=== PATIENT | female | born 1955 | race Caucasian/White ===

== ENCOUNTER 2016-03-03 08:38 | Day surgery (SDC) | payer OTHER ==
[2016-03-03] VITALS (10 sets, daily range): BP systolic 116–154; BP diastolic 64–83; PULSE 64–72; RESP 14–19; Ht 165.1 cm; Wt 71.8 kg
[~2016-03-03] VITALS: Ht 165.1 cm; Wt 71.8 kg
[~2016-03-03 08:38] MED LIST: ASP81 PO; ATOR10TA65 PO; AUG875 PO; BALANCED SALT SOLN 15 ML OPH IRRIG ONE; CYAN100080 PO; GLIP-95 PO; LIDOCAINE 3.5% GEL TUBE OPER ONE; LOSA100T7 PO; MTF1000T PO; OFLO5DRO3 BOTH EYES; PANT40TA4 PO; SITA100T8 PO; TETRACAINE 0.5% 15 ML OPH BOTH EYES ONE; TETRACAINE 0.5% 15 ML OPH BOTH EYES SCH
[2016-03-03] MEDS ORDERED: LANT3I SC (09:48)
[2016-03-03] MEDS ORDERED: METO-407 PO (09:48)
[2016-03-03] MEDS ORDERED: AMLO-147 PO (09:48)
[2016-03-03] MEDS ORDERED: LIDOCAINE 2%/EPI (MDV) 20ML INJ INJ ONE (10:00)
[2016-03-03] MEDS ORDERED: MIDAZOLAM 1 MG/ML 2 ML INJ ONE (10:07)
[2016-03-03] MEDS ORDERED: CEFAZOLIN 1 GM INJ ONE (10:07)
[2016-03-03] MEDS ORDERED: FENTAnyl 50 MCG/ML VIAL ONE (10:07)
[2016-03-03] MEDS ORDERED: TOBRAMYCIN/DEXAMETH 3.5 GM OPH OINT ONE (10:37)
[2016-03-03] MEDS ORDERED: LIDOCAINE 2%/EPI 30 ML INJ ONE (10:37)
[2016-03-03] MEDS ORDERED: TOBRAMYCIN/DEXAMETH 2.5 ML OPH RIGHT EYE ONE (10:55)
[2016-03-03] MEDS ORDERED: HYDROmorphONE (0.2 MG/ML) 10ML SYG IV PRN (11:00)
[2016-03-03] MEDS ORDERED: hydrALAzine 20 MG INJ IV PRN (11:00)
[2016-03-03] MEDS ORDERED: ONDANSETRON 4 MG INJ IV PRN (11:00)
--- NOTE | 2016-03-03 19:06 | OPR ---
DATE OF OPERATION: 03/03/2016 SURGEON: Meredith Corea ANESTHESIOLOGIST: Laci Cevallos M.D. PREOPERATIVE DIAGNOSIS: Peripheral progressive pterygium, right eye. POSTOPERATIVE DIAGNOSIS: Peripheral progressive pterygium, right eye. PLANNED PROCEDURE: Ocular reconstruction with transplant placement and removal of pterygium, Rt eye. PROCEDURE PERFORMED: Ocular reconstruction with transplant placement and removal of pterygium, Rt eye. ANESTHESIA: MAC. CONSENT: The patient was given all detailed explanation regarding all different options for treatment of her condition, as well as potential complication, which are most commonly included, but not limited to: recurrence, about 30%, scar formation, bleeding, infection, loss of vision, loss of the eye as an organ. The patient understood. Consent was signed and can be found in her chart. DESCRIPTION OF PROCEDURE: The patient brought to operation room in stable condition, placed in supine position. The right eye was prepped for pterygium surgery in routine sterile technique. Retractor was placed in her eyelid and then lidocaine 2% with epinephrine preservative-free was injected subconjunctivally. 1.Ocular reconstruction procedure. Superior bulbar conjunctive was demarcated with hand piece cautery as well as inferior bulbar conjunctiva. Then 2 pieces of transplant were created with Marian scissors, when spare conjunctiva was from underlying tissue with the Marian scissors. Two autografts were excised, approximately 4 x 4 mm in size. 2. removal of pterigium. This was followed by demarcation of the body and tail of the pterygium with handpiece cautery. This was followed by separation of pterygium from underlying tissue with Marian scissors. [place] blade was used to remove head of pterygium from the cornea. This was followed by scraping with the [place] knife and also polishing with a anna bur. Eventually two autografts were placed over bare sclera and 8-0 Vicryl suture was used to attach the transplant together and to underlying tissue. This was followed by instillation of TobraDex ointment and placement of patch over closed eyelid. The patient was transferred to recovery room in stable condition. Dictated By: MEREDITH BUCKLEY/LETICIA Conf#: [id number] DID#: [id number] [facility]PITALTyra
== END 2016-03-03 11:58 | disposition home or self-care (01) ==
LOC: SDS 08:38
PROVIDERS: ATTEND Ophthalmology
DX: H11.051 Peripheral pterygium, progressive, right eye (principal); I10 Essential (primary) hypertension; E11.9 Type 2 diabetes mellitus without complications
CPT/HCPCS: 65426; 82962; J0690; J1170; J2250; J2405; J3010; Z7512; Z7610

== ENCOUNTER 2017-06-24 18:43 | Inpatient (IN) | END 2017-07-05 19:10 | disposition home or self-care (01) | DRG 563 ==

== ENCOUNTER 2017-08-04 12:33 | Day surgery (SDC) | END 2017-08-04 14:55 | disposition home or self-care (01) ==

== ENCOUNTER 2017-08-24 05:54 | Day surgery (SDC) | END 2017-08-29 08:35 | disposition home health service (06) ==

== ENCOUNTER 2017-08-24 19:33 | Inpatient (IN) | END 2017-08-30 20:30 | disposition home health service (06) | DRG 313 ==

== ENCOUNTER 2018-03-01 09:29 | Inpatient (IN) | payer OTHER ==
[~2018-03-01] VITALS: Ht 152.4 cm; Wt 78.0 kg
[~2018-03-01 09:29] MED LIST changes: -ASP81 PO; +ASPI81TA52 PO; -ATOR10TA65 PO; -AUG875 PO; -BALANCED SALT SOLN 15 ML OPH IRRIG ONE; -CYAN100080 PO; +EMPA10TA PO; -GLIP-95 PO; +HYDR-3601 PO; +HYDR25TA6 PO; +ISOS30TA67 PO; +LANT3I SC; -LIDOCAINE 3.5% GEL TUBE OPER ONE; +LOSA100T15 PO; -LOSA100T7 PO; +METO-407 PO; +NIFE30TA2 PO; +NOVO3I SC; -OFLO5DRO3 BOTH EYES; +OMEP40CA6 PO; -PANT40TA4 PO; +SITA100T11 PO; -SITA100T8 PO; -TETRACAINE 0.5% 15 ML OPH BOTH EYES ONE; -TETRACAINE 0.5% 15 ML OPH BOTH EYES SCH
[2018-03-01 09:40] VITALS: Ht 152.4 cm; Wt 78.0 kg
[2018-03-01] MEDS ORDERED: SODIUM CHLORIDE 0.9% 1L BAG IV* STA (09:50)
--- NOTE | 2018-03-01 10:40 | ERD ---
ER Documentation Chief Complaint Chief Complaint CP,FLU LIKE SYMTOMS HPI This is a 62-year-old female with a past medical history of hypertension, hyperlipidemia, diabetes, coronary artery disease with a previous DE, congestive heart failure who is presenting with 2 days of flulike symptoms. The patient has had waxing and waning fever, chills, a productive cough of clear sputum, shortness of breath, chest soreness exacerbated by coughing and relieved by rest, myalgias and feeling generally unwell. The patient notes that her current chest discomfort is not like her previous heart attack. She does not endorse any sick contacts. She has taken Tylenol without relief of her discomfort. She last took Tylenol yesterday. She does not endorse any other exacerbating or alleviating factors. The patient denies abdominal pain. The patient denies changes to bowel movements. She does report increased urinary urgency, frequency and dysuria. The patient has had no headache or vision changes. The patient does not endorse neck or back pain. The patient denies lightheadedness or dizziness. The patient denies nausea or vomiting. The patient has had no focal deficits. The patient has had no weakness or numbness or tingling to the face or extremities. ROS All systems reviewed and are negative except as per history of present illness. Medications Home Meds Active Scripts Insulin Aspart* (Novolog Insulin Pen*) 100 Unit/Ml Soln, 22 UNIT SC AC BREAKFAST LUNCH for 30 Days Prov:BEATRIZ JUAREZ 08/30/17 Insulin Aspart* (Novolog Insulin Pen*) 100 Unit/Ml Soln, 12 UNIT SC AC DINNER for 30 Days Prov:BEATRIZ JUAREZ 08/30/17 Insulin Glargine* (Lantus*) 100 Unit/Ml Soln, 45 UNIT SC HS for 30 Days Prov:BEATRIZ JUAREZ 08/30/17 Empagliflozin (Jardiance) 10 Mg Tablet, 10 MG PO DAILY@08 for 30 Days, TAB Prov:BEATRIZ JUAREZ 08/30/17 Hydrocodone Bit-Acetaminophen (Hydrocodone Bit-APAP) 5-325MG Tablet, 1 TAB PO Q4H PRN for PAIN, #30 TAB Prov:BEATRIZ JUAREZ 08/30/17 Nifedipine (Procardia Xl) 30 Mg Tab.er.24, 30 MG PO DAILY for 30 Days, TAB Prov:BEATRIZ JUAREZ 08/30/17 Metoprolol Tartrate* (Lopressor*) 100 Mg Tablet, 100 MG PO BID for 30 Days, TAB Prov:BEATRIZ JUAREZ 08/30/17 Reported Medications Omeprazole* (Omeprazole*) 40 Mg Capsule.dr, 40 MG PO DAILY, #30 CAP 08/24/17 Isosorbide Mononitrate* (Isosorbide Mononitrate*) 30 Mg Tab.er.24h, 30 MG PO DAILY, TAB 08/04/17 Losartan Potassium* (Losartan Potassium*) 100 Mg Tablet, 100 MG PO DAILY, TAB 08/04/17 Aspirin (Low Dose Aspirin) 81 Mg Tablet.dr, 81 MG PO DAILY, #30 TAB 08/04/17 Hydrochlorothiazide* (Hydrochlorothiazide*) 25 Mg Tab, 25 MG PO DAILY, TAB 06/25/17 Sitagliptin* (Januvia*) 100 Mg Tablet, 100 MG PO DAILY 06/25/17 Metformin* (Glucophage*) 1,000 Mg Tablet, 1000 MG PO BID, TAB 06/25/17 Allergies Allergies: Coded Allergies: No Known Allergy (Unverified , 03/01/18) PMhx/Soc History of Surgery: Yes (ORIF RIGHT ARM, CATARACTS ) Anesthesia Reaction: No Hx 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 Disorder: No Hx Respiratory Disorders: No Hx Cardiac Disorders: Yes (Hypertension, hyperlipidemia, diabetes, coronary artery disease, heart failure) Hx Psychiatric Problems: No Hx Miscellaneous Medical Probl: No Hx Alcohol Use: No Hx Substance Use: No Hx Tobacco Use: No Smoking Status: Never smoker FmHx Family History: diabetes Physical Exam Vitals Vital Signs Date Temp Pulse Resp B/P (MAP) Pulse Ox O2 O2 Flow FiO2 Time Delivery Rate 03/01/18 94 25 124/76 100 Nasal 2.0 11:41 (92) Cannula 03/01/18 Nasal 2 10:24 Cannula 03/01/18 98.1 113 18 177/95 99 09:40 (122) Physical Exam Const: No apparent distress, well-developed, well-nourished Head: Normocephalic, Atraumatic Eyes: Normal Conjunctiva. Extraocular movements intact. Pupils equal, round and reactive to light ENT: Normal External Ears, Nose and Mouth. Neck: Full range of motion. No meningismus. Resp: Congested coarse breath sounds bilaterally, no wheezes. Cardio: Irregularly irregular rhythm. Tachycardia. No murmurs, rubs or gallops Abd: Soft, non tender, non distended. Normal bowel sounds Skin: No petechiae or rashes Back: No midline tenderness. No CVA tenderness Ext: No cyanosis, or edema Neur: Awake and alert, oriented 4. Cranial nerves intact. No facial droop. Normal strength, sensation and coordination. Psych: Normal Mood and Affect Result Diagram: 03/01/18 1015 03/01/18 1015 Results 24 hrs Laboratory Tests Test 03/01/18 10:06 03/01/18 10:15 03/01/18 12:07 POC Venous Lactate 2.4 mmol/L 1.3 mmol/L White Blood Count 11.4 10^3/ul Red Blood Count 5.62 10^6/ul Hemoglobin 15.3 g/dl Hematocrit 47.5 % Mean Corpuscular Volume 84.5 fl Mean Corpuscular Hemoglobin 27.2 pg Mean Corpuscular Hemoglobin Concent 32.2 g/dl Red Cell Distribution Width 16.1 % Platelet Count 412 10^3/UL Mean Platelet Volume 9.0 fl Immature Granulocytes % 0.600 % Neutrophils % 75.2 % Lymphocytes % 15.0 % Monocytes % 6.9 % Eosinophils % 1.8 % Basophils % 0.5 % Nucleated Red Blood Cells % 0.0 /100WBC Immature Granulocytes # 0.070 10^3/ul Neutrophils # 8.6 10^3/ul Lymphocytes # 1.7 10^3/ul Monocytes # 0.8 10^3/ul Eosinophils # 0.2 10^3/ul Basophils # 0.1 10^3/ul Nucleated Red Blood Cells # 0.0 10^3/ul Prothrombin Time 13.4 Sec Prothrombin Time Ratio 1.0 INR International Normalized Ratio 1.01 Activated Partial Thromboplast Time 33.5 Sec Urine Color YELLOW Urine Clarity SLIGHTLY CLOUDY Urine pH 7.0 Urine Specific [place] 1.025 Urine Ketones TRACE mg/dL Urine Nitrite NEGATIVE mg/dL Urine Bilirubin NEGATIVE mg/dL Urine Urobilinogen NEGATIVE mg/dL Urine Leukocyte Esterase TRACE Melody/ul Urine Microscopic RBC 2 /HPF Urine Microscopic WBC 32 /HPF Urine Squamous Epithelial Cells MODERATE /HPF Urine Bacteria FEW /HPF Urine Hemoglobin NEGATIVE mg/dL Urine Glucose 3+ mg/dL Urine Total Protein 3+ mg/dl Sodium Level 135 mmol/L Potassium Level 4.1 mmol/L Chloride Level 96 mmol/L Carbon Dioxide Level 28 mmol/L Anion Gap 11 Blood Urea Nitrogen 13 mg/dl Creatinine 0.76 mg/dl Est Glomerular Filtrat Rate mL/min > 60 mL/min Glucose Level 365 mg/dl Calcium Level 9.5 mg/dl Troponin I < 0.012 ng/ml B-Type Natriuretic Peptide 1750 PG/ML Current Medications Medications Dose Sig/Jeanna Start Time Status Last (Trade) Ordered Route PRN Stop Time Admin Dose Reason Admin Sodium 2,340 ml BOLUS OVER 2 03/01/18 DC 03/01/18 Chloride HOURS STAT 09:50 03/01/18 10:11 (NS) IV* 09:52 Ceftriaxone 50 ml @ ONCE ONCE 03/01/18 DC 03/01/18 Sodium 100 mls/hr IVPB 11:00 03/01/18 11:25 11:29 Azithromycin 250 ml @ ONCE ONCE 03/01/18 DC 03/01/18 250 mls/hr IVPB 11:00 03/01/18 11:52 11:59 Procedures/MDM MDM The patient's presentation warrants further investigation. Previous medical records, if available, were reviewed. LABS The patient's laboratory testing was obtained and reviewed. No emergent treatment was required unless described below. CBC: Leukocytosis, potentially concerning for an infectious etiology. No E/o of anemia or thrombocytopenia BMP: No E/o severe acidosis or alkalosis or renal failure. Hyperglycemia without E/o diabetic ketoacidosis. PT/INR: No E/o significant coagulopathy Lactate: E/o severe sepsis Troponin: No E/o acute ischemia Urine: E/o acute infection or hematuria EKG EKG read by me: Rate/Rhythm: Tachycardia, irregularly irregular rhythm, atrial flutter with variable AV conduction. Intervals: Normal QRS and QTc. [place]: Normal Impression: Atrial flutter with variable AV conduction IMAGING Imaging and Radiology interpretation reviewed. CXR FINDINGS: Monitoring electrodes project across the chest. There are degenerative osteophytes in the thoracic spine. There is a suboptimal inspiration. The heart is mildly enlarged. The cardiomediastinal silhouette and hilar structures are normal. The pulmonary vasculature is upper limits of normal. There are vascular calcifications in the left sided aortic arch. There is some compressive atelectasis and vascular crowding in the bases of the lungs. The costophrenic angles are normal. IMPRESSION: Mild cardiomegaly. Increased density in the bases of the lungs is most likely the result of compressive atelectasis from a suboptimal inspiratory effort. An early right lower lobe infiltrate is not entirely excluded in this setting. Electronically viewed and signed by Alexis Ramires Physician on 03/01/2018 10:26 TREATMENT/DISPOSITION The patient presents with symptoms concerning for a flulike illness. The patient's chest x-ray is concerning for a possible right lower lobe infiltrate and the urinalysis is concerning for a urinary tract infection. She has tachycardia with a leukocytosis and lactic acidosis. I am concerned about sepsis. A septic workup was completed. The patient will require further management in the hospital. The patient also appears to be in atrial flutter. I believe her tachycardia to be related to her infectious symptoms and I did not immediately treat her mild tachycardia. This may be further assessed in the hospital. SEPSIS NOTE SIRS Criteria: Tachycardia, leukocytosis Infectious source: Pneumonia, UTI End organ damage indicated by: Lactate > 2.0 mmol/L SEPSIS MANAGEMENT Time to recognize sepsis: 1015 Time to recognize severe sepsis: 1015. Time to recognize septic shock: No septic shock at this time. 3 HOUR BUNDLE Blood cultures x 2 before abx: Yes 30 ml/kg NS bolus completed Initial lactate 2.4 Repeat lactate 1.3 SEPTIC SHOCK ASSESSMENT: NO lactic acid > 4.0 NO persistent hypotension (SBP < 90 or 40 mmHg drop, MAP < 65) despite 30 L/kg IV fluid bolus CRITICAL CARE Critical care time 37 minutes Emergent fluid management while maintaining close respiratory support. Provision of immediate and broad-spectrum antibiotic therapy. Simultaneous assessment for possible sources in order to direct targeted therapy. Consideration for invasive and chemical support to prevent cardiopulmonary colla pse. Critical care time is independent of procedures performed. ADMISSION The patient will be admitted to Dr. Moody in accordance with the patient's insurance. The patient was accepted at 12:15PM to telemetry. Disclaimer: Inadvertent spelling and grammatical errors are likely due to EHR/dictation software use and do not reflect on the overall quality of patient care. Note that the electronic time recorded on this note does not necessarily reflect the actual time of the patient encounter. Departure Diagnosis: Primary Impression: Severe sepsis Additional Impressions: Atrial flutter Atrial flutter type: unspecified Qualified Codes: I48.92 - Unspecified atr ial flutter Tachycardia Leukocytosis Leukocytosis type: unspecified Qualified Codes: D72.829 - Elevated white blood cell count, unspecified Lactic acidosis Pneumonia Pneumonia type: due to unspecified organism Laterality: right Lung location: lower lobe of lung Qualified Codes: J18.1 - Lobar pneumonia, unspecified organism UTI (urinary tract infection) Urinary tract infection type: acute cystitis Hematuria presence: without hematuria Qualified Codes: N30.00 - Acute cystitis without hematuria Hyperglycemia Condition: Serious STUART LORD MD Mar 01, 2018 10:40
[2018-03-01] MEDS ORDERED: AZITHROMYCIN 500MG/NS (PMX) 250 ML IVPB ONE (11:00)
[2018-03-01] MEDS ORDERED: CEFTRIAXONE 1 GM/50 ML (PMX) 50 ML IVPB ONE (11:00)
[2018-03-01] MEDS ORDERED: ACETAMINOPHEN 325 MG TAB PO PRN (13:00)
[2018-03-01] MEDS ORDERED: ONDANSETRON 4 MG INJ IV PRN (13:00)
[2018-03-01 16:42] VITALS: PULSE 106
[2018-03-01 16:44] VITALS: BP 167/85; PULSE 110; RESP 22
--- NOTE | 2018-03-01 18:03 | HP ---
Date/Time of Note Date/Time of Note DATE: 03/01/18 TIME: 17:52 Assessment/Plan VTE Prophylaxis SCD applied (from Nsg): Yes Pharmacological prophylaxis: LMWH Lines/Catheters IV Catheter Type (from Nrsg): Saline Lock Assessment/Plan Assessment/Plan -Sepsis secondary to community-acquired pneumonia. Continue Rocephin and Zithromax. Dr. Ivory is asked to see patient in infection disease consultation. -Possible UTI per UA -Diabetes mellitus type 2 continue Lantus and pre-meal NovoLog, continue Januvia. -Hypertension -Hyperlipidemia Further recommendations based on clinical course. Plan of care discussed with Dr. Moody. Result Diagram: 03/01/18 1015 03/01/18 1015 Results 24hrs Laboratory Tests Test 03/01/18 10:06 03/01/18 10:15 03/01/18 12:07 03/01/18 14:50 POC Venous Lactate 2.4 *H 1.3 White Blood Count 11.4 H Red Blood Count 5.62 #H Hemoglobin 15.3 # Hematocrit 47.5 #H Mean Corpuscular 84.5 Volume Mean Corpuscular 27.2 L Hemoglobin Mean Corpuscular 32.2 Hemoglobin Concent Red Cell 16.1 #H Distribution Width Platelet Count 412 # Mean Platelet 9.0 Volume Immature 0.600 H Granulocytes % Neutrophils % 75.2 Lymphocytes % 15.0 Monocytes % 6.9 Eosinophils % 1.8 Basophils % 0.5 Nucleated Red 0.0 Blood Cells % Immature 0.070 H Granulocytes # Neutrophils # 8.6 H Lymphocytes # 1.7 Monocytes # 0.8 Eosinophils # 0.2 Basophils # 0.1 Nucleated Red 0.0 Blood Cells # Prothrombin Time 13.4 Prothrombin Time 1.0 Ratio INR International 1.01 Normalized Ratio Activated 33.[address] Time Urine Color YELLOW Urine Clarity SLIGHTLY CLOUDY A Urine pH 7.0 Urine Specific 1.025 [place] Urine Ketones TRACE A Urine Nitrite NEGATIVE Urine Bilirubin NEGATIVE Urine Urobilinogen NEGATIVE Urine Leukocyte TRACE A Esterase Urine Microscopic 2 RBC Urine Microscopic 32 H WBC Urine Squamous MODERATE Epithelial Cells Urine Bacteria FEW A Urine Hemoglobin NEGATIVE Urine Glucose 3+ H Urine Total 3+ H Protein Sodium Level 135 Potassium Level 4.1 Chloride Level 96 L Carbon Dioxide 28 Level Anion Gap 11 Blood Urea 13 Nitrogen Creatinine 0.76 Est Glomerular > 60 Filtrat Rate mL/min Glucose Level 365 H Calcium Level 9.5 Troponin I < 0.012 B-Type Natriuretic 1750 H Peptide Lactic Acid Level 1.3 HPI/ROS Admit Date/Time Admit Date/Time Mar 01, 2018 at 12:35 Hx of Present Illness Patient is 62-year-old female with DM, hypertension, dyslipidemia, and GERD presented to the emergency room with complaints of productive cough, fevers and shortness of breath. Patient denies any sick contacts, patient denies any chest pain denies any nausea and vomiting denies diarrhea. Complains of generalized weakness. Chest x-ray revealed possible early pneumonia. She also noted to have elevated white blood cells and elevated lactate. Patient was started on antibiotics for pneumonia and admitted for further evaluation and management. ROS 12 point review of system is negative except for what mentioned in HPI PMH/Family/Social Past Medical History Medical History: diabetes, GERD, hypertension Medications Current Medications Ondansetron HCl (Zofran Inj) 4 mg ER BRIDGE PRN IV NAUSEA AND/OR VOMITING; S tart 03/01/18 at 13:00; Stop 03/02/18 at 12:59 Acetaminophen (Tylenol Tab) 650 mg ER BRIDGE PRN PO MILD PAIN(1-3)OR ELEVATED TEMP; Start 03/01/18 at 13:00; Stop 03/02/18 at 12:59 Coded Allergies: No Known Allergy (Unverified , 03/04/18) Past Surgical History Past Surgical Hx: other (S/p right elbow surgery in July [address] Briggs, status post cataract surgery) Family History Significant Family History: diabetes, hypertension Social History Alcohol Use: none Smoking Status: Never smoker Drug Use: none Exam/Review of Systems Vital Signs Vitals Vital Signs Date Temp Pulse Resp B/P (MAP) Pulse Ox O2 O2 Flow FiO2 Time Delivery Rate 03/01/18 97.5 110 22 167/85 100 Nasal 16:44 (112) Cannula 03/01/18 3.0 15:45 Exam Constitutional: alert, oriented Head: normocephalic Neck: supple Respiratory: congested cough, wheezing Cardiovascular: irregular rhythm, other (Atrial flutter) Gastrointestinal: soft, non-tender Musculoskeletal: nl extremities to inspection Extremities: normal pulses 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: nl mental status Skin: nl BEATRIZ Poon Mar 01, 2018 18:02
[2018-03-01] MEDS ORDERED: GLUCOSE GEL 15 GRAM TUBE PO PRN ×2 (18:30)
[2018-03-01] MEDS ORDERED: HYDROCODONE/APAP (5/325) TAB PO PRN (18:30)
[2018-03-01] MEDS ORDERED: GLUCAGON 1 MG INJ IM PRN (18:30)
[2018-03-01] MEDS ORDERED: ZOLPIDEM 5 MG TAB PO PRN (18:30)
[2018-03-01] MEDS ORDERED: DOCUSATE SODIUM 100 MG CAP PO PRN (18:30)
[2018-03-01] MEDS ORDERED: MAGNESIUM HYDROXIDE 30ML CUP PO PRN (18:30)
[2018-03-01] MEDS ORDERED: GLUCOSE GEL 15 GRAM TUBE BUCCAL PRN (18:30)
[2018-03-01] MEDS ORDERED: DEXTROSE 50% 50 ML SYRINGE IV PRN ×2 (18:30)
[2018-03-01] MEDS ORDERED: LEVALBUTEROL (NEB) 0.63 MG/3 ML AMP HHN PRN (18:30)
[2018-03-01] MEDS ORDERED: NACL 0.9% 3 ML SYG IV SCH (18:30)
[2018-03-01 19:21] VITALS: BP 146/71; PULSE 93; RESP 19
[2018-03-01 20:00] VITALS: PULSE 109
[2018-03-01] MEDS: METOPROLOL 100 MG TAB PO SCH (21:24)
[2018-03-01] MEDS: FAMOTIDINE 20 MG TAB PO SCH (21:25)
[2018-03-01] MEDS: INSULIN GLARGINE [LANTus] (100 UNITS/ML) SYG SC SCH (21:54)
[2018-03-01] MEDS: INSULIN ASPART [NOVOLOG] 3 ML PEN SC SCH (21:54)
[2018-03-01] MEDS ORDERED: GUAIFENESIN/CODEINE 5ML CUP PO ONE (22:30)
[2018-03-02] VITALS (12 sets, daily range): BP systolic 124–145; BP diastolic 67–87; PULSE 64–94; RESP 19–22
[2018-03-02] MEDS: PANTOPRAZOLE (EC) 40 MG TAB PO SCH (06:20)
[2018-03-02] MEDS: metFORMIN 500 MG TAB PO SCH ×2 (07:31→17:34)
[2018-03-02] MEDS: INSULIN ASPART [NOVOLOG] 3 ML PEN SC SCH ×7 (07:36→20:51)
[2018-03-02] MEDS ORDERED: ENOXAPARIN 40 MG/0.4 ML SYG SC SCH ×2 (09:00→21:00)
[2018-03-02] MEDS: HYDROCHLOROTHIAZIDE 25 MG TAB PO SCH (09:16)
[2018-03-02] MEDS: ISOSORBIDE MONONITRATE(SR)30 MG TAB PO SCH (09:16)
[2018-03-02] MEDS: ASPIRIN (EC) 81 MG TAB PO SCH (09:16)
[2018-03-02] MEDS: LINAGLIPTIN 5 MG TABLET PO SCH (09:16)
[2018-03-02] MEDS: NIFEdipine (XL) 30 MG TAB PO SCH (09:16)
[2018-03-02] MEDS: FAMOTIDINE 20 MG TAB PO SCH ×2 (09:16→20:45)
[2018-03-02] MEDS: LOSARTAN 50 MG TAB PO SCH (09:17)
[2018-03-02] MEDS: METOPROLOL 100 MG TAB PO SCH ×2 (09:17→20:46)
[2018-03-02] MEDS: CEFTRIAXONE 1 GM/50 ML (PMX) 50 ML IVPB SCH (10:53)
[2018-03-02] MEDS: AZITHROMYCIN 250 MG in SOD CHLORIDE 0.9% 250 ML IVPB SCH (12:09)
[2018-03-02] MEDS ORDERED: METOPROLOL 5 MG INJ IV PRN (14:00)
--- NOTE | 2018-03-02 14:26 | PN ---
Date/Time of Note Date/Time of Note DATE: 03/02/18 TIME: 14:22 Assessment/Plan VTE Prophylaxis Risk score (from Ns)>0 risk: 5 SCD applied (from Ns): Yes Pharmacological prophylaxis: LMWH Lines/Catheters IV C[facility]ter Type [facility] Peripheral IV Assessment/Plan Hospital Course Patient complains of productive cough, remains afebrile,comfortable on supplemental oxygen oxygen rest. Assessment/Plan -Sepsis secondary to community-acquired pneumonia versus acute bronchitis. Continue Rocephin and Zithromax. Dr. Ivory is asked to see patient in infection disease consultation. -Possible UTI per UA -Atrial flutter, continue metoprolol and Lovenox. Dr. Hendrickson is asked to see patient in cardiology consultation. -Poorly controlled diabetes mellitus type 2, continue Lantus and pre-meal NovoLog, continue Januvia. Dr. Snider is asked to see patient in endocrinology consultation. -Hypertension -Hyperlipidemia Further recommendations based on clinical course. Plan of care discussed with Dr. Moody. Result Diagram: 03/02/18 0606 03/02/18 0606 Results 24hrs Laboratory Tests Test 03/01/18 14:50 03/01/18 21:26 03/02/18 06:06 03/02/18 07:30 Lactic Acid Level 1.3 Bedside Glucose 233 H 179 White Blood Count 7.5 # Red Blood Count 4.72 Hemoglobin 13.7 Hematocrit 40.7 Mean Corpuscular Volume 86.2 Mean Corpuscular 29.0 Hemoglobin Mean Corpuscular 33.7 Hemoglobin Concent Red Cell Distribution 16.6 H Width Platelet Count 362 Mean Platelet Volume 8.9 Immature Granulocytes % 0.400 Neutrophils % 59.8 Lymphocytes % 25.1 Monocytes % 10.1 Eosinophils % 3.8 Basophils % 0.8 Nucleated Red Blood 0.0 Cells % Immature Granulocytes # 0.030 Neutrophils # 4.5 Lymphocytes # 1.9 Monocytes # 0.8 Eosinophils # 0.3 Basophils # 0.1 Nucleated Red Blood 0.0 Cells # Sodium Level 140 Potassium Level 4.0 Chloride Level 102 Carbon Dioxide Level 28 Anion Gap 10 Blood Urea Nitrogen 11 Creatinine 0.61 Est Glomerular Filtrat > 60 Rate mL/min Glucose Level 190 # Hemoglobin A1c 10.2 H Calcium Level 9.3 Total Bilirubin 0.3 Direct Bilirubin 0.00 Indirect Bilirubin 0.3 Aspartate Amino 35 Transf (AST/SGOT) Alanine 33 Aminotransferase (ALT/SG PT) Alkaline Phosphatase 116 Total Protein 6.8 Albumin 3.6 Globulin 3.20 Albumin/Globulin Ratio 1.12 Test 03/02/18 11:00 Bedside Glucose 82 Exam/Review of Systems Vital Signs Vitals Vital Signs Date Temp Pulse Resp B/P (MAP) Pulse Ox O2 O2 Flow FiO2 Time Delivery Rate 03/02/18 69 12:00 03/02/18 98.0 20 124/71 97 Nasal 11:44 (88) Cannula 03/02/18 2.0 07:43 Intake and Output 03/01/18 03/01/18 03/02/18 1515:00 23:00 07:00 IntakeIntake Total 2640 ml 480 ml BalanceBalance 2640 ml 480 ml Exam Constitutional: alert, oriented Respiratory: congested cough, wheezing Cardiovascular: irregular rhythm, other (Atrial flutter) Gastrointestinal: soft, non-tender Musculoskeletal: nl extremities to inspection Extremities: normal pulses 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: nl mental status Skin: nl turgor Medications Medications Current Medications Ceftriaxone Sodium 50 ml @ 100 mls/hr Q24H IVPB Last administered on 03/02/18 10:53; Admin Dose 100 MLS/HR; Start 03/02/18 at 11:00 Azithromycin 250 mg/Sodium Chloride 250 ml @ 250 mls/hr Q24H IVPB Last administered on 03/02/18at 12:09; Admin Dose 250 MLS/HR; Start 03/02/18 at 12:00 Aspirin (Halfprin) 81 mg DAILY PO Last administered on 03/02/18 09:16; Admin Dose 81 MG; Start 03/02/18 at 09:00 Hydrochlorothiazide (Hydrochlorothiazide) 25 mg DAILY PO Last administered on 03/02/18 09:16; Admin Dose 25 MG; Start 03/02/18 at 09:00 Insulin Aspart (Novolog Insulin Pen) 12 unit AC DINNER SC ; Start 03/02/18 at 17:25 Insulin Aspart (Novolog Insulin Pen) 22 unit AC BREAKFAST LUNCH SC Last a dministered on 03/02/18 11:03; Admin Dose 22 UNIT; Start 03/02/18 at 07:25 Insulin Glargine (Lantus) 45 units HS SC Last administered on 03/01/18at 21:54; Admin Dose 45 UNITS; Start 03/01/18 at 21:00 Isosorbide Mononitrate (Imdur) 30 mg DAILY PO Last administered on 03/02/18at 09:16; Admin Dose 30 MG; Start 03/02/18 at 09:00 Losartan Potassium (Cozaar) 100 mg DAILY PO Last administered on 03/02/18at 09: 17; Admin Dose 100 MG; Start 03/02/18 at 09:00 Metformin HCl (Glucophage) 1,000 mg BID WITH MEALS PO Last administered on 03/02/18at 07:31; Admin Dose 1,000 MG; Start 03/02/18 at 07:55 Metoprolol Tartrate (Lopressor) 100 mg BID PO Last administered on 03/02/18at 09:17; Admin Dose 100 MG; Start 03/01/18 at 21:00 Nifedipine (Procardia Xl) 30 mg DAILY PO Last administered on 03/02/18at 09:16; Admin Dose 30 MG; Start 03/02/18 at 09:00 Pantoprazole (Protonix Tab) 40 mg DAILY@06 PO Last administered on 03/02/18at 06:20; Admin Dose 40 MG; Start 03/02/18 at 06:00 Linagliptin (Tradjenta) 5 mg DAILY PO Last administered on 03/02/18at 09:16; Admin Dose 5 MG; Start 03/02/18 at 09:00 IV Flush (NS 3 ml) 3 ml PER PROTOCOL IV ; Start 03/01/18 at 18:30 Ondansetron HCl (Zofran Inj) 4 mg Q6H PRN IV NAUSEA AND/OR VOMITING; Start 03/01/18 at 18:30 Acetaminophen (Tylenol Tab) 650 mg Q6H PRN PO PAIN LEVEL 1-3 OR FEVER; Start 03/01/18 at 18:30 Acetaminophen/ Hydrocodone Bitart (Rochelle (5/325)) 1 tab Q6H PRN PO PAIN LEVEL 4-6; Start 03/01/18 at 18:30 Zolpidem Tartrate (Ambien) 5 mg QHS PRN PO INSOMNIA; Start 03/01/18 at 18:30 Docusate Sodium (Colace) 100 mg Q12H PRN PO CONSTIPATION; Start 03/01/18 at 18:30 Magnesium Hydroxide (Milk Of Mag) 30 ml DAILY PRN PO CONSTIPATION; Start 03/01/18 at 18:30 Famotidine (Pepcid) 20 mg Q12 PO Last administered on 03/02/18at 09:16; Admin Dose 20 MG; Start 03/01/18 at 21:00 Levalbuterol (Xopenex Neb) 0.63 mg Q6H RESP THERAPY PRN HHN SHORTNESS OF BREATH Last administered on 03/01/18at 19:34; Admin Dose 0.63 MG; Start 03/01/18 at 18:30 Insulin Aspart (Novolog Insulin Pen) NOVOLOG *MILD* ALGORITHM WITH MEALS BEDTIME SC Last administered on 03/02/18at 07:36; Admin Dose 1 UNIT; Start 03/01/18 at 21:00 Miscellaneous Information 1 ea NOTE XX ; Start 03/01/18 at 18:30 Glucose (Glutose) 15 gm Q15M PRN PO DECREASED GLUCOSE; Start 03/01/18 at 18:30 Glucose (Glutose) 22.5 gm Q15M PRN PO DECREASED GLUCOSE; Start 03/01/18 at 18:30 Dextrose (D50w Syringe) 25 ml Q15M PRN IV DECREASED GLUCOSE; Start 03/01/18 at 18:30 Dextrose (D50w Syringe) 50 ml Q15M PRN IV DECREASED GLUCOSE; Start 03/01/18 at 18:30 Glucagon (Glucagen) 1 mg Q15M PRN IM DECREASED GLUCOSE; Start 03/01/18 at 18:30 Glucose (Glutose) 15 gm Q15M PRN BUCCAL DECREASED GLUCOSE; Start 03/01/18 at 18:30 Metoprolol Tartrate (Lopressor) 5 mg Q4H PRN IV HR>110 Hold SBP<100; Start 03/02/18 at 14:00 Enoxaparin Sodium (Lovenox) 75 mg BID SC ; Start 03/02/18 at 21:00 BEATRIZ JUAREZ Mar 02, 2018 14:26
--- NOTE | 2018-03-02 17:16 | CONS ---
Date/Time of Note Date/Time of Note DATE: 03/02/18 TIME: 17:07 Assessment/Plan Assessment/Plan Problems: (1) Diabetes mellitus type 2 in nonobese Status: Chronic Comment: Her regimen at home is somewhat self driven. I will try and find him this will be to begin to hypoglycemic reactions here. The primary culprit with there would be that she is on a more calorie restricted diet in the hospital that she is at home (2) Essential hypertension Status: Chronic Comment: Continue outpatient medication regimen (3) Hyperlipidemia associated with type 2 diabetes mellitus Status: Chronic Comment: Continue with statin therapy (4) UTI (urinary tract infection) Status: Acute Comment: On antibiotics as per primary team Qualifiers: Qualified Codes: N30.00 - Acute cystitis without hematuria (5) Pneumonia Status: Acute Comment: On antibiotics as per primary team Qualifiers: Qualified Codes: J18.1 - Lobar pneumonia, unspecified organism (6) Glaucoma (increased eye pressure) Status: Chronic Comment: Status post laser iridotomy Qualifiers: Qualified Codes: H40.9 - Unspecified glaucoma (7) Personal history of noncompliance with medical treatment and regimen Status: Chronic Comment: Patient is able to teach back the rationale for treatment goals of treatment risks and benefits of treatment. Result Diagram: 03/02/18 0606 03/02/18 0606 Results 24hrs Laboratory Tests Test 03/01/18 21:26 03/02/18 06:04 03/02/18 06:06 03/02/18 07:30 Bedside Glucose 233 H 179 Thyroid Stimulating 1.560 Hormone (TSH) White Blood Count 7.5 # Red Blood Count 4.72 Hemoglobin 13.7 Hematocrit 40.7 Mean Corpuscular Volume 86.2 Mean Corpuscular 29.0 Hemoglobin Mean Corpuscular 33.7 Hemoglobin Concent Red Cell Distribution 16.6 H Width Platelet Count 362 Mean Platelet Volume 8.9 Immature Granulocytes % 0.400 Neutrophils % 59.8 Lymphocytes % 25.1 Monocytes % 10.1 Eosinophils % 3.8 Basophils % 0.8 Nucleated Red Blood 0.0 Cells % Immature Granulocytes # 0.030 Neutrophils # 4.5 Lymphocytes # 1.9 Monocytes # 0.8 Eosinophils # 0.3 Basophils # 0.1 Nucleated Red Blood 0.0 Cells # Sodium Level 140 Potassium Level 4.0 Chloride Level 102 Carbon Dioxide Level 28 Anion Gap 10 Blood Urea Nitrogen 11 Creatinine 0.61 Est Glomerular Filtrat > 60 Rate mL/min Glucose Level 190 # Hemoglobin A1c 10.2 H Calcium Level 9.3 Total Bilirubin 0.3 Direct Bilirubin 0.00 Indirect Bilirubin 0.3 Aspartate Amino 35 Transf (AST/SGOT) Alanine 33 Aminotransferase (ALT/SG PT) Alkaline Phosphatase 116 Total Protein 6.8 Albumin 3.6 Globulin 3.20 Albumin/Globulin Ratio 1.12 Test 03/02/18 11:00 03/02/18 15:50 03/02/18 16:19 Bedside Glucose 82 73 81 Consultation Date/Type/Reason Admit Date/Time Mar 01, 2018 at 12:35 Date of Consultation: Mar 02, 2018 Type of Consult Endocrine Reason for Consultation Diabetes mellitus type 2 in combination oral agents and a basal bolus regimen complicated by diabetic retinopathy, diabetic peripheral neuropathy, and severe medical noncompliance Requesting Provider: CHRISTI KUNZ MD Hx of Present Illness 62-year-old [facility] woman who I first met June 25, 2015. She has a history of diabetes mellitus type 2 and has at times been a challenge to get to come in. She was last seen in my office July 11, 2017 and was a no-show September 06 and October 06, 2017. Her regular primary care physician is Dr. Samm Jones of [facility]. Patient was admitted with an acute respiratory illness. Influenza swabs are negative. Constitutional: febrile ENT: no complaints Respiratory: cough, shortness of breath, wheezing Cardiovascular: no complaints Gastrointestinal: no complaints Genitourinary: no complaints Endocrine: polyuria Past Medical History Medical History: diabetes (Type II with proliferative diabetic retinopathy and peripheral neuropathy), GERD, high cholesterol, hypertension, other (Glaucoma; diastolic dysfunction; hemorrhoids osteoarthritis/DJD) Medications Current Medications Ceftriaxone Sodium 50 ml @ 100 mls/hr Q24H IVPB Last administered on 03/02/18at 10:53; Admin Dose 100 MLS/HR; Start 03/02/18 at 11:00 Azithromycin 250 mg/Sodium Chloride 250 ml @ 250 mls/hr Q24H IVPB Last administered on 03/02/18at 12:09; Admin Dose 250 MLS/HR; Start 03/02/18 at 12:00 Aspirin (Halfprin) 81 mg DAILY PO Last administered on 03/02/18at 09:16; Admin Dose 81 MG; Start 03/02/18 at 09:00 Hydrochlorothiazide (Hydrochlorothiazide) 25 mg DAILY PO Last administered on 03/02/18 09:16; Admin Dose 25 MG; Start 03/02/18 at 09:00 Insulin Aspart (Novolog Insulin Pen) 12 unit AC DINNER SC ; Start 03/02/18 at 17:25 Insulin Aspart (Novolog Insulin Pen) 22 unit AC BREAKFAST LUNCH SC Last administered on 03/02/18 11:03; Admin Dose 22 UNIT; Start 03/02/18 at 07:25 Insulin Glargine (Lantus) 45 units HS SC Last administered on 03/01/18 21:54; Admin Dose 45 UNITS; Start 03/01/18 at 21:00 Isosorbide Mononitrate (Imdur) 30 mg DAILY PO Last administered on 03/02/18 09: 16; Admin Dose 30 MG; Start 03/02/18 at 09:00 Losartan Potassium (Cozaar) 100 mg DAILY PO Last administered on 03/02/18 09:17; Admin Dose 100 MG; Start 03/02/18 at 09:00 Metformin HCl (Glucophage) 1,000 mg BID WITH MEALS PO Last administered on 03/02/18 07:31; Admin Dose 1,000 MG; Start 03/02/18 at 07:55 Metoprolol Tartrate (Lopressor) 100 mg BID PO Last administered on 03/02/18 09:17; Admin Dose 100 MG; Start 03/01/18 at 21:00 Nifedipine (Procardia Xl) 30 mg DAILY PO Last administered on 03/02/18 09:16; Admin Dose 30 MG; Start 03/02/18 at 09:00 Pantoprazole (Protonix Tab) 40 mg DAILY@06 PO Last administered on 03/02/18 06:20; Admin Dose 40 MG; Start 03/02/18 at 06:00 Linagliptin (Tradjenta) 5 mg DAILY PO Last administered on 03/02/18 09:16; Admin Dose 5 MG; Start 03/02/18 at 09:00 IV Flush (NS 3 ml) 3 ml PER PROTOCOL IV ; Start 03/01/18 at 18:30 Ondansetron HCl (Zofran Inj) 4 mg Q6H PRN IV NAUSEA AND/OR VOMITING; Start 03/01/18 at 18:30 Acetaminophen (Tylenol Tab) 650 mg Q6H PRN PO PAIN LEVEL 1-3 OR FEVER; Start 03/01/18 at 18:30 Acetaminophen/ Hydrocodone Bitart (Lawn (5/325)) 1 tab Q6H PRN PO PAIN LEVEL 4-6; Start 03/01/18 at 18:30 Zolpidem Tartrate (Ambien) 5 mg QHS PRN PO INSOMNIA; Start 03/01/18 at 18:30 Docusate Sodium (Colace) 100 mg Q12H PRN PO CONSTIPATION; Start 03/01/18 at 18:30 Magnesium Hydroxide (Milk Of Mag) 30 ml DAILY PRN PO CONSTIPATION; Start 03/01/18 at 18:30 Famotidine (Pepcid) 20 mg Q12 PO Last administered on 03/02/18at 09:16; Admin Dose 20 MG; Start 03/01/18 at 21:00 Levalbuterol (Xopenex Neb) 0.63 mg Q6H RESP THERAPY PRN HHN SHORTNESS OF BREATH Last administered on 03/01/18at 19:34; Admin Dose 0.63 MG; Start 03/01/18 at 18:30 Insulin Aspart (Novolog Insulin Pen) NOVOLOG *MILD* ALGORITHM WITH MEALS BEDTIME SC Last administered on 03/02/18at 07:36; Admin Dose 1 UNIT; Start 03/01/18 at 21:00 Miscellaneous Information 1 ea NOTE XX ; Start 03/01/18 at 18:30 Glucose (Glutose) 15 gm Q15M PRN PO DECREASED GLUCOSE; Start 03/01/18 at 18:30 Glucose (Glutose) 22.5 gm Q15M PRN PO DECREASED GLUCOSE; Start 03/01/18 at 18:30 Dextrose (D50w Syringe) 25 ml Q15M PRN IV DECREASED GLUCOSE; Start 03/01/18 at 18:30 Dextrose (D50w Syringe) 50 ml Q15M PRN IV DECREASED GLUCOSE; Start 03/01/18 at 18:30 Glucagon (Glucagen) 1 mg Q15M PRN IM DECREASED GLUCOSE; Start 03/01/18 at 18:30 Glucose (Glutose) 15 gm Q15M PRN BUCCAL DECREASED GLUCOSE; Start 03/01/18 at 18:30 Metoprolol Tartrate (Lopressor) 5 mg Q4H PRN IV HR>110 Hold SBP<100; Start 03/02/18 at 14:00 Enoxaparin Sodium (Lovenox) 75 mg BID SC ; Start 03/02/18 at 21:00 Guaifenesin/ Codeine Phosphate (Robitussin Ac Liquid Cup) 5 ml Q4H PRN PO cough; Start 03/02/18 at 16:30 Allergies: Coded Allergies: No Known Allergy (Unverified , 03/01/18) Past Surgical History Past Surgical Hx: other (S/p right elbow surgery in July [address] Briggs, status post cataract surgery; status post laser iridotomy) Family History Significant Family History: diabetes, hypertension Social History [facility] and raised there. Lived in the [facility] years. 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 Alcohol Use: none Smoking Status: Never smoker Drug Use: none Exam/Review of Systems Vital Signs Vitals Vital Signs Date Temp Pulse Resp B/P (MAP) Pulse Ox O2 O2 Flow FiO2 Time Delivery Rate 03/02/18 94 16:30 03/02/18 98.0 20 124/77 96 Nasal 15:41 (93) Cannula 03/02/18 2.0 07:43 Intake and Output 03/01/18 03/01/18 03/02/18 1515:00 23:00 07:00 IntakeIntake Total 2640 ml 480 ml BalanceBalance 2640 ml 480 ml Exam Constitutional: alert, oriented Head: normocephalic, atraumatic Eyes: nl conjunctiva, EOMI, nl lids, nl sclera, PERRL, other (Fundi not well- visualized) Neck: supple, non-tender Respiratory: clear to auscultation, normal air movement Cardiovascular: nl pulses Gastrointestinal: soft, nl liver, spleen, non-tender Musculoskeletal: nl extremities to inspection Extremities: normal pulses Medications Medications Current Medications Ceftriaxone Sodium 50 ml @ 100 mls/hr Q24H IVPB Last administered on 03/02/18at 10:53; Admin Dose 100 MLS/HR; Start 03/02/18 at 11:00 Azithromycin 250 mg/Sodium Chloride 250 ml @ 250 mls/hr Q24H IVPB Last adminis tered on 03/02/18at 12:09; Admin Dose 250 MLS/HR; Start 03/02/18 at 12:00 Aspirin (Halfprin) 81 mg DAILY PO Last administered on 03/02/18 09:16; Admin Dose 81 MG; Start 03/02/18 at 09:00 Hydrochlorothiazide (Hydrochlorothiazide) 25 mg DAILY PO Last administered on 03/02/18 09:16; Admin Dose 25 MG; Start 03/02/18 at 09:00 Insulin Aspart (Novolog Insulin Pen) 12 unit AC DINNER SC ; Start 03/02/18 at 17 :25 Insulin Aspart (Novolog Insulin Pen) 22 unit AC BREAKFAST LUNCH SC Last administered on 03/02/18 11:03; Admin Dose 22 UNIT; Start 03/02/18 at 07:25 Insulin Glargine (Lantus) 45 units HS SC Last administered on 03/01/18 21:54; Admin Dose 45 UNITS; Start 03/01/18 at 21:00 Isosorbide Mononitrate (Imdur) 30 mg DAILY PO Last administered on 03/02/18 09:16; Admin Dose 30 MG; Start 03/02/18 at 09:00 Losartan Potassium (Cozaar) 100 mg DAILY PO Last administered on 03/02/18 09:17; Admin Dose 100 MG; Start 03/02/18 at 09:00 Metformin HCl (Glucophage) 1,000 mg BID WITH MEALS PO Last administered on 03/02/18 07:31; Admin Dose 1,000 MG; Start 03/02/18 at 07:55 Metoprolol Tartrate (Lopressor) 100 mg BID PO Last administered on 03/02/18 09:17; Admin Dose 100 MG; Start 03/01/18 at 21:00 Nifedipine (Procardia Xl) 30 mg DAILY PO Last administered on 03/02/18 09:16; Admin Dose 30 MG; Start 03/02/18 at 09:00 Pantoprazole (Protonix Tab) 40 mg DAILY@06 PO Last administered on 03/02/18 06:20; Admin Dose 40 MG; Start 03/02/18 at 06:00 Linagliptin (Tradjenta) 5 mg DAILY PO Last administered on 03/02/18 09:16; Admin Dose 5 MG; Start 03/02/18 at 09:00 IV Flush (NS 3 ml) 3 ml PER PROTOCOL IV ; Start 03/01/18 at 18:30 Ondansetron HCl (Zofran Inj) 4 mg Q6H PRN IV NAUSEA AND/OR VOMITING; Start 03/01/18 at 18:30 Acetaminophen (Tylenol Tab) 650 mg Q6H PRN PO PAIN LEVEL 1-3 OR FEVER; Start 03/01/18 at 18:30 Acetaminophen/ Hydrocodone Bitart (Lawn (5/325)) 1 tab Q6H PRN PO PAIN LEVEL 4-6; Start 03/01/18 at 18:30 Zolpidem Tartrate (Ambien) 5 mg QHS PRN PO INSOMNIA; Start 03/01/18 at 18:30 Docusate Sodium (Colace) 100 mg Q12H PRN PO CONSTIPATION; Start 03/01/18 at 18:30 Magnesium Hydroxide (Milk Of Mag) 30 ml DAILY PRN PO CONSTIPATION; Start 03/01/18 at 18:30 Famotidine (Pepcid) 20 mg Q12 PO Last administered on 03/02/18at 09:16; Admin Dose 20 MG; Start 03/01/18 at 21:00 Levalbuterol (Xopenex Neb) 0.63 mg Q6H RESP THERAPY PRN HHN SHORTNESS OF BREATH Last administered on 03/01/18at 19:34; Admin Dose 0.63 MG; Start 03/01/18 at 18:30 Insulin Aspart (Novolog Insulin Pen) NOVOLOG *MILD* ALGORITHM WITH MEALS BEDTIME SC Last administered on 03/02/18at 07:36; Admin Dose 1 UNIT; Start 03/01/18 at 21:00 Miscellaneous Information 1 ea NOTE XX ; Start 03/01/18 at 18:30 Glucose (Glutose) 15 gm Q15M PRN PO DECREASED GLUCOSE; Start 03/01/18 at 18:30 Glucose (Glutose) 22.5 gm Q15M PRN PO DECREASED GLUCOSE; Start 03/01/18 at 18:30 Dextrose (D50w Syringe) 25 ml Q15M PRN IV DECREASED GLUCOSE; Start 03/01/18 at 18:30 Dextrose (D50w Syringe) 50 ml Q15M PRN IV DECREASED GLUCOSE; Start 03/01/18 at 18:30 Glucagon (Glucagen) 1 mg Q15M PRN IM DECREASED GLUCOSE; Start 03/01/18 at 18:30 Glucose (Glutose) 15 gm Q15M PRN BUCCAL DECREASED GLUCOSE; Start 03/01/18 at 18:30 Metoprolol Tartrate (Lopressor) 5 mg Q4H PRN IV HR>110 Hold SBP<100; Start 03/02/18 at 14:00 Enoxaparin Sodium (Lovenox) 75 mg BID SC ; Start 03/02/18 at 21:00 Guaifenesin/ Codeine Phosphate (Robitussin Ac Liquid Cup) 5 ml Q4H PRN PO cough; Start 03/02/18 at 16:30 PACO VILLA MD Mar 02, 2018 17:16
[2018-03-02] MEDS: ACCU-CHEK XX SCH ×2 (17:34→19:55)
--- NOTE | 2018-03-02 20:15 | CONS ---
DATE OF ADMISSION: 03/01/2018 DATE OF CONSULTATION: 03/02/2018 TYPE OF CONSULTATION: Infectious Disease. REASON FOR CONSULTATION: Antibiotic management. HISTORY OF PRESENT ILLNESS: Yuki Maher is a 62-year-old female, who comes in with flu -like symptoms and is being seen for antibiotic management. Her past problems include: 1. Hypertension. 2. Hyperlipidemia. 3. Diabetes. 4. Coronary artery disease with previous [place]. 5. Congestive heart failure. She presents with 2 days of flu-like symptoms. She had waxing and waning of fever and chills. She h ad a productive cough of clear sputum with shortness of breath. The patient had some chest discomfor t, exacerbated by her coughing. She took Tylenol without relief of her discomfort. She denies abdom inal pain. She has no headaches. PAST SURGICAL HISTORY: Status post open reduction and internal fixation of the right arm. She had c ataract surgery. On admission, white count was 11.4, H and H of 15.3 and 47.5, platelet count 412,000. BUN and creati nine 13/0.76, glucose random 365. PHYSICAL EXAMINATION: GENERAL: She is a well-developed, well-nourished female, awake, responsive, in no acute distress. VITAL SIGNS: Stable. She is afebrile. SKIN: Without generalized rash. HEENT: Within normal limits. NECK: Supple. LYMPH NODES: None palpable. CHEST: Decreased breath sounds at the bases with coarse rhonchi. HEART: Without murmur or gallop. She has rhythm and she is tachycardic. ABDOMEN: Soft, nontender, without organosplenomegaly or masses. EXTREMITIES: Without cyanosis, clubbing, or edema. RECTAL AND GENITAL: Deferred. NEUROLOGIC: No focal neurological abnormality. DIAGNOSTIC DATA: Chest x-ray: Mild cardiomegaly, increased density in the bases of lung, most likel y result of the compressive atelectasis from a suboptimal inspiratory effort. An early right lower l obe infiltrate is not entirely excluded in this setting. The patient was therefore started on ceftriaxone and azithromycin for community-acquired pneumonia. She also has a possible UTI. Her urinalysis shows trace leukocyte esterase, 32 white cells per high powered field. Blood cultures so far are negative. Urine is not ready yet, and influenza A and B ar e negative. I concur with the treatment at this point of community-acquired pneumonia. Her white co unt is down today to 7.5 from 11.4. I will dictate my findings to Dr. Kunz, and to nurse practit Samia rojas. Dictated By: SUNNI JEAN MD, JD/NTS Conf#: [id number] DID#: [id number] CC: TONE RASMUSSEN MD; CHRISTI KUNZ MD;*EndCC*
[2018-03-02] MEDS: ATORVASTATIN 40 MG TAB PO SCH (20:45)
[2018-03-02] MEDS: ACETAMINOPHEN 325 MG TAB PO PRN (20:45)
[2018-03-02] MEDS: INSULIN GLARGINE [LANTus] (100 UNITS/ML) SYG SC SCH (20:50)
[2018-03-02] MEDS: ENOXAPARIN 80 MG/0.8 ML SYG SC SCH (20:53)
--- NOTE | 2018-03-02 21:31 | CONS ---
DATE OF ADMISSION: 03/01/2018 DATE OF CONSULTATION: 03/02/2018 REASON FOR CONSULTATION: Atrial fibrillation. REQUESTING PHYSICIAN: Christi Moody MD HISTORY OF PRESENT ILLNESS: Ms. Maher is a 62-year-old female with a history of diabetes mellit us, hypertension, dyslipidemia, gastroesophageal reflux disease, who presented with a cough, per nadine ent dry at this time, fever, subjective, shortness of breath. Denied chest pain. Did have palpitati ons. Upon arrival, temperature 98.1, blood pressure 177/95, pulse 113, respiratory rate 18, satting 99%. The patient's labs revealed a white count of 11.4, hemoglobin 8.3, platelet count of 412. Sodi um of 135, potassium 4.1, creatinine 0.76, BUN 13. Troponin negative. BNP of 1750. UA borderline p ositive. The patient underwent a chest x-ray showing mild cardiomegaly, increased density in the bas es of lung, most likely a result of compressive atelectasis. The patient's electrocardiogram reveale d atrial fibrillation, atrial flutter at a rate of 113 with normal axis and intervals, nonspecific ST -T abnormalities diffusely. The patient subsequently admitted to the floor and since admit to floor has been started on aspirin and given beta reg with improved heart rate control. The patient rem ains just on low-dose Lovenox at this time. This may possibly be a new-onset AFib for this patient. PAST MEDICAL HISTORY: As above in HPI, with the patient's most recent echo from 07/2017 revealing EF of 60% to 65% and additionally patient having a stress test 07/2017 revealing a preserved EF of 70% with no ischemia. MEDICATIONS CURRENTLY IN HOSPITAL: 1. Insulin. 2. Azithromycin. 3. Ceftriaxone. 4. Aspirin 81 mg daily. 5. Hydrochlorothiazide 25 mg daily. 6. Imdur. 7. Losartan 100 mg daily. 8. Procardia 30 mg daily. 9. Tradjenta. 10. Lovenox 40 mg subcutaneous daily. 11. Metformin 1000 mg b.i.d. 12. Insulin, Lantus. 13. Metoprolol 100 mg b.i.d. 14. Pepcid 20 mg q.12. 15. Milk of magnesia. 16. Xopenex. ALLERGIES: NO KNOWN DRUG ALLERGIES. SOCIAL HISTORY: No current tobacco, EtOH or illicit drug use. FAMILY HISTORY: No history of sudden cardiac or early CAD. REVIEW OF SYSTEMS: As above in HPI. CONSTITUTIONAL: No fevers, chills. PULMONARY: No current shortness of breath. CARDIOVASCULAR: No current chest pain. Positive atrial fibrillation. GASTROINTESTINAL: No vomiting. GENITOURINARY: No hematuria. MUSCULOSKELETAL: Degenerative joint disease. PSYCHIATRIC: The patient denies depression. NEUROLOGIC: No documented history of CVA. ENDOCRINE: Diabetes mellitus. PHYSICAL EXAMINATION: VITAL SIGNS: Temperature 98, blood pressure 124/71, pulse 69, respiratory rate 20, sat 97%. GENERAL: Patient is alert, awake, complaining of cough, shortness of breath, palpitations. NECK: JVP approximately 9 cm of water. CHEST: Fair air movement throughout. HEART: Irregularly irregular, a 1/6 systolic murmur, nondisplaced PMI. ABDOMEN: Positive bowel sounds, soft. EXTREMITIES: No significant pitting edema, 1+ pulses, bilateral posterior tibial. LABORATORY DATA: Most recently from today, white count 7.5, hemoglobin 13.7, platelet count 362. Sod ium 140, potassium 4, creatinine 0.6, BUN 11. Troponin negative x1. BNP of 1750. IMAGING STUDIES: Increased density in the base of lungs, mostly likely a result of compressive atele ctasis, and early right lobe infiltrate cannot be excluded. IMPRESSION: 1. Atrial fibrillation, rate controlled at this time. 2. Hypertension, currently under reasonable control. 3. Shortness of breath, cough, possible consistent with an upper respiratory infection. 4. Increased BNP, assess for congestive heart failure. 5. Diabetes mellitus. 6. Hyperglycemia. 7. Probable urinary tract infection. RECOMMENDATIONS: 1. At this time, would maintain patient on telemetry monitoring to follow rhythm and rate control cl osely. 2. We will continue the patient's aspirin for prophylaxis against cardiovascular events and would in itiate systemic anticoagulation in the setting of atrial fibrillation and elevated CHADS-VASc score, which patient can be placed on increased Lovenox at this time then transition to Eliquis at discharge . 3. We will continue the patient's baseline antihypertensives with Procardia and metoprolol, Cozaar a nd hydrochlorothiazide. 4. We will continue the patient's antianginal medication with Imdur. 5. We will reassess the patient's ejection fraction with 2D echo. 6. Check a TSH to be sure subclinical hyperthyroid is not contributing to bouts of tachyarrhythmia. 7. We will consider gentle Lasix diuresis, given significantly elevated BNP. 8. Continue the patient's antibiotics and follow up all culture data. 9. Continue to follow the patient's blood sugars closely with adjustment of insulin as necessary. Thank you for allowing me to take part in the care of this patient. I will continue to follow along very closely with you with further recommendations to be made as the patient progresses through her i npatient hospital course. Dictated By: TONE DOMINIQUE/NTS Conf#: [id number] DID#: [id number] CC: CHRISTI MOODY MD;*EndCC*
[2018-03-02] MEDS: GUAIFENESIN/CODEINE 5ML CUP PO PRN (22:04)
[2018-03-03] VITALS (12 sets, daily range): BP systolic 130–154; BP diastolic 63–84; PULSE 62–84; RESP 18–20
[2018-03-03] MEDS: GUAIFENESIN/CODEINE 5ML CUP PO PRN ×3 (05:02→20:42)
[2018-03-03] MEDS: PANTOPRAZOLE (EC) 40 MG TAB PO SCH (05:02)
[2018-03-03] MEDS: ACCU-CHEK XX SCH ×6 (07:31→20:40)
[2018-03-03] MEDS: metFORMIN 500 MG TAB PO SCH ×2 (07:31→17:39)
[2018-03-03] MEDS: INSULIN ASPART [NOVOLOG] 3 ML PEN SC SCH ×7 (07:35→20:40)
[2018-03-03] MEDS: FAMOTIDINE 20 MG TAB PO SCH ×2 (09:18→20:44)
[2018-03-03] MEDS: HYDROCHLOROTHIAZIDE 25 MG TAB PO SCH (09:19)
[2018-03-03] MEDS: LINAGLIPTIN 5 MG TABLET PO SCH (09:19)
[2018-03-03] MEDS: ISOSORBIDE MONONITRATE(SR)30 MG TAB PO SCH (09:20)
[2018-03-03] MEDS: ASPIRIN (EC) 81 MG TAB PO SCH (09:20)
[2018-03-03] MEDS: METOPROLOL 100 MG TAB PO SCH ×2 (09:20→20:44)
[2018-03-03] MEDS: ENOXAPARIN 80 MG/0.8 ML SYG SC SCH ×2 (09:24→20:50)
[2018-03-03] MEDS: LOSARTAN 50 MG TAB PO SCH (09:31)
[2018-03-03] MEDS: NIFEdipine (XL) 30 MG TAB PO SCH (09:31)
[2018-03-03] MEDS: CEFTRIAXONE 1 GM/50 ML (PMX) 50 ML IVPB SCH (10:30)
[2018-03-03] MEDS: AZITHROMYCIN 250 MG in SOD CHLORIDE 0.9% 250 ML IVPB SCH (11:20)
--- NOTE | 2018-03-03 14:39 | CONS ---
Date/Time of Note Date/Time of Note DATE: 03/03/18 TIME: 14:32 Assessment/Plan Assessment/Plan Hospital Course 62[facility] who I first met June 25, 2015. She has a history of diabetes mellitus type 2 and has at times been a challenge to get to come in. She was last seen in my office July 11, 2017 and was a no-show September 06 and October 06, 2017. Her regular primary care physician is Dr. Samm Jones of [facility]. Patient was admitted with an acute respiratory illness. Influenza swabs are negative. Problems: (1) Diabetes mellitus type 2 in nonobese Status: Chronic Comment: Adequate glycemic control with adjustment of medications. Please note this is in a controlled environment with controlled administration of medicines and controlled diet (2) Essential hypertension Status: Chronic Comment: Adequate control (3) Hyperlipidemia associated with type 2 diabetes mellitus Status: Chronic Comment: Continue statin therapy Result Diagram: 03/03/18 0557 03/03/18 0557 Results 24hrs Laboratory Tests Test 03/02/18 15:50 03/02/18 16:19 03/02/18 17:33 03/02/18 18:15 Bedside Glucose 73 81 136 Troponin I < 0.012 Test 03/02/18 20:44 03/03/18 00:31 03/03/18 04:59 03/03/18 05:57 Bedside Glucose 110 109 Troponin I < 0.012 White Blood Count 8.2 Red Blood Count 3.28 #L Hemoglobin 13.8 Hematocrit 41.0 Mean Corpuscular Volume 87.8 Mean Corpuscular 41.8 #H Hemoglobin Mean Corpuscular 47.6 #H Hemoglobin Concent Red Cell Distribution 16.3 H Width Platelet Count 344 Mean Platelet Volume 9.0 Immature Granulocytes % 0.200 Neutrophils % 65.1 Lymphocytes % 20.5 Monocytes % 8.5 Eosinophils % 4.8 Basophils % 0.9 Nucleated Red Blood 0.0 Cells % Immature Granulocytes # 0.020 Neutrophils # 5.4 Lymphocytes # 1.7 Monocytes # 0.7 Eosinophils # 0.4 Basophils # 0.1 Nucleated Red Blood 0.0 Cells # Sodium Level 137 Potassium Level 3.6 Chloride Level 100 Carbon Dioxide Level 28 Anion Gap 9 Blood Urea Nitrogen 17 Creatinine 0.69 Est Glomerular Filtrat > 60 Rate mL/min Glucose Level 125 # Calcium Level 9.3 Test 03/03/18 07:31 03/03/18 09:18 03/03/18 11:15 03/03/18 13:53 Bedside Glucose 142 123 108 90 Consultation Date/Type/Reason Admit Date/Time Mar 01, 2018 at 12:35 Initial Consult Date 03/02/18 Type of Consult Endocrine Reason for Consultation Diabetes mellitus type II; urinary tract infection; Requesting Provider: CHRISTI KUNZ MD 24 HR Interval Summary Free Text/Dictation Patient reports that she is feeling better although she still has a little bit of throat phlegm Constitutional: no complaints (No fevers chills or sweats) Detailed Summary Respiratory: cough Cardiovascular: no complaints Gastrointestinal: no complaints Musculoskeletal: other (Limited range of motion at right elbow post surgery) Exam/Review of Systems Vital Signs Vitals Vital Signs Date Temp Pulse Resp B/P (MAP) Pulse Ox O2 O2 Flow FiO2 Time Delivery Rate 03/03/18 74 12:56 03/03/18 97.9 20 143/84 96 Nasal 11:42 (103) Cannula 03/03/18 2.0 07:50 Intake and Output 03/02/18 03/02/18 03/03/18 1515:00 23:00 07:00 IntakeIntake Total 300 ml 800 ml OutputOutput Total 3 ml BalanceBalance 300 ml 797 ml Exam Constitutional: alert, oriented Respiratory: clear to auscultation, normal air movement Cardiovascular: regular rate and rhythm, nl pulses Gastrointestinal: soft, nl liver, spleen, non-tender Medications Medications Current Medications Ceftriaxone Sodium 50 ml @ 100 mls/hr Q24H IVPB Last administered on 03/03/18at 10:30; Admin Dose 100 MLS/HR; Start 03/02/18 at 11:00 Azithromycin 250 mg/Sodium Chloride 250 ml @ 250 mls/hr Q24H IVPB Last a dministered on 03/03/18at 11:20; Admin Dose 250 MLS/HR; Start 03/02/18 at 12:00 Aspirin (Halfprin) 81 mg DAILY PO Last administered on 03/03/18at 09:20; Admin Dose 81 MG; Start 03/02/18 at 09:00 Hydrochlorothiazide (Hydrochlorothiazide) 25 mg DAILY PO Last administered on 03/03/18at 09:19; Admin Dose 25 MG; Start 03/02/18 at 09:00 Insulin Aspart (Novolog Insulin Pen) 12 unit AC DINNER SC Last administered on 03/02/18 17:39; Admin Dose 12 UNIT; Start 03/02/18 at 17:25 Insulin Glargine (Lantus) 45 units HS SC Last administered on 03/02/18 20:50; Admin Dose 45 UNITS; Start 03/01/18 at 21:00 Isosorbide Mononitrate (Imdur) 30 mg DAILY PO Last administered on 03/03/18 09:20; Admin Dose 30 MG; Start 03/02/18 at 09:00 Losartan Potassium (Cozaar) 100 mg DAILY PO Last administered on 03/03/18 09:31; Admin Dose 100 MG; Start 03/02/18 at 09:00 Metformin HCl (Glucophage) 1,000 mg BID WITH MEALS PO Last administered on 03/03/18 07:31; Admin Dose 1,000 MG; Start 03/02/18 at 07:55 Metoprolol Tartrate (Lopressor) 100 mg BID PO Last administered on 03/03/18 09:20; Admin Dose 100 MG; Start 03/01/18 at 21:00 Nifedipine (Procardia Xl) 30 mg DAILY PO Last administered on 03/03/18 09:31; Admin Dose 30 MG; Start 03/02/18 at 09:00 Pantoprazole (Protonix Tab) 40 mg DAILY@06 PO Last administered on 03/03/18 05 :02; Admin Dose 40 MG; Start 03/02/18 at 06:00 Linagliptin (Tradjenta) 5 mg DAILY PO Last administered on 03/03/18 09:19; Admin Dose 5 MG; Start 03/02/18 at 09:00 IV Flush (NS 3 ml) 3 ml PER PROTOCOL IV ; Start 03/01/18 at 18:30 Ondansetron HCl (Zofran Inj) 4 mg Q6H PRN IV NAUSEA AND/OR VOMITING; Start 03/01/18 at 18:30 Acetaminophen (Tylenol Tab) 650 mg Q6H PRN PO PAIN LEVEL 1-3 OR FEVER Last admi nistered on 03/02/18 20:45; Admin Dose 650 MG; Start 03/01/18 at 18:30 Acetaminophen/ Hydrocodone Bitart ([place] (5/325)) 1 tab Q6H PRN PO PAIN LEVEL 4-6; Start 03/01/18 at 18:30 Zolpidem Tartrate (Ambien) 5 mg QHS PRN PO INSOMNIA; Start 03/01/18 at 18:30 Docusate Sodium (Colace) 100 mg Q12H PRN PO CONSTIPATION; Start 03/01/18 at 18:30 Magnesium Hydroxide (Milk Of Mag) 30 ml DAILY PRN PO CONSTIPATION; Start 03/01/18 at 18:30 Famotidine (Pepcid) 20 mg Q12 PO Last administered on 03/03/18at 09:18; Admin Dose 20 MG; Start 03/01/18 at 21:00 Levalbuterol (Xopenex Neb) 0.63 mg Q6H RESP THERAPY PRN HHN SHORTNESS OF BREATH Last administered on 03/01/18at 19:34; Admin Dose 0.63 MG; Start 03/01/18 at 18:30 Insulin Aspart (Novolog Insulin Pen) NOVOLOG *MILD* ALGORITHM WITH MEALS BEDTIME SC Last administered on 03/02/18at 07:36; Admin Dose 1 UNIT; Start 03/01/18 at 21:00 Miscellaneous Information 1 ea NOTE XX ; Start 03/01/18 at 18:30 Glucose (Glutose) 15 gm Q15M PRN PO DECREASED GLUCOSE; Start 03/01/18 at 18:30 Glucose (Glutose) 22.5 gm Q15M PRN PO DECREASED GLUCOSE; Start 03/01/18 at 18:30 Dextrose (D50w Syringe) 25 ml Q15M PRN IV DECREASED GLUCOSE; Start 03/01/18 at 18:30 Dextrose (D50w Syringe) 50 ml Q15M PRN IV DECREASED GLUCOSE; Start 03/01/18 at 18:30 Glucagon (Glucagen) 1 mg Q15M PRN IM DECREASED GLUCOSE; Start 03/01/18 at 18:30 Glucose (Glutose) 15 gm Q15M PRN BUCCAL DECREASED GLUCOSE; Start 03/01/18 at 18:30 Metoprolol Tartrate (Lopressor) 5 mg Q4H PRN IV HR>110 Hold SBP<100; Start at 14:00 Enoxaparin Sodium (Lovenox) 75 mg BID SC Last administered on 1/4/19at 09:24; Admin Dose 75 MG; Start 03/02/18 at 21:00 Guaifenesin/ Codeine Phosphate (Robitussin Ac Liquid Cup) 5 ml Q4H PRN PO cough Last administered on 03/03/18 13:57; Admin Dose 5 ML; Start 03/02/18 at 16:30 Insulin Aspart (Novolog Insulin Pen) 16 unit AC BREAKFAST LUNCH SC Last administered on 03/03/18 11:18; Admin Dose 16 UNIT; Start 03/03/18 at 07:25 Atorvastatin Calcium (Lipitor) 40 mg HS PO Last administered on 03/02/18 20:45; Admin Dose 40 MG; Start 03/02/18 at 21:00 Diagnostic Test (Pha) (Accu-Chek) 1 ea 2 HOURS AFTER MEALS XX Last administered on 03/03/18 13:54; Admin Dose 1 EA; Start 03/02/18 at 19:55 Diagnostic Test (Pha) (Accu-Chek) 1 ea AC MEALS XX Last administered on 03/03/18 11:17; Admin Dose 1 EA; Start 03/02/18 at 17:25 PACO VILLA MD Mar 03, 2018 14:39
--- NOTE | 2018-03-03 15:03 | CONS ---
Date/Time of Note Date/Time of Note DATE: 03/03/18 TIME: 15:02 Assessment/Plan Assessment/Plan Hospital Course Patient is alert feels better looks comfortable no fevers overnight WBC 8.2 no shift no bands BUN 17 creatinine 0.69 Antimicrobials: Zithromax Rocephin Physical examination: Who is alert in no distress. Head atraumatic normocephalic. Neck is supple chest rise symmetrical breath sounds well- developed elderly woman clear, diminished bases heart: S1-S2 abdomen soft bowel sounds present Assessment: 1. Community-acquired pneumonia 2. Urinary tract infection as per urinalysis 3. Diabetes 4. Hypertension 5. Atrial fibrillation Plan: Patient remains stable, she is being seen by cardiology and endocrinology, she is on appropriate antibiotics, will order repeat urine culture secondary to contaminated specimen, Result Diagram: 03/03/18 0557 03/03/18 0557 Results 24hrs Laboratory Tests Test 03/02/18 15:50 03/02/18 16:19 03/02/18 17:33 03/02/18 18:15 Bedside Glucose 73 81 136 Troponin I < 0.012 Test 03/02/18 20:44 03/03/18 00:31 03/03/18 04:59 03/03/18 05:57 Bedside Glucose 110 109 Troponin I < 0.012 White Blood Count 8.2 Red Blood Count 3.28 #L Hemoglobin 13.8 Hematocrit 41.0 Mean Corpuscular Volume 87.8 Mean Corpuscular 41.8 #H Hemoglobin Mean Corpuscular 47.6 #H Hemoglobin Concent Red Cell Distribution 16.3 H Width Platelet Count 344 Mean Platelet Volume 9.0 Immature Granulocytes % 0.200 Neutrophils % 65.1 Lymphocytes % 20.5 Monocytes % 8.5 Eosinophils % 4.8 Basophils % 0.9 Nucleated Red Blood 0.0 Cells % Immature Granulocytes # 0.020 Neutrophils # 5.4 Lymphocytes # 1.7 Monocytes # 0.7 Eosinophils # 0.4 Basophils # 0.1 Nucleated Red Blood 0.0 Cells # Sodium Level 137 Potassium Level 3.6 Chloride Level 100 Carbon Dioxide Level 28 Anion Gap 9 Blood Urea Nitrogen 17 Creatinine 0.69 Est Glomerular Filtrat > 60 Rate mL/min Glucose Level 125 # Calcium Level 9.3 Test 03/03/18 07:31 03/03/18 09:18 03/03/18 11:15 03/03/18 13:53 Bedside Glucose 142 123 108 90 Consultation Date/Type/Reason Admit Date/Time Mar 01, 2018 at 12:35 Initial Consult Date 03/02/18 Type of Consult id Requesting Provider: CHRISTI KUNZ MD Exam/Review of Systems Vital Signs Vitals Vital Signs Date Temp Pulse Resp B/P (MAP) Pulse Ox O2 O2 Flow FiO2 Time Delivery Rate 03/03/18 74 12:56 03/03/18 97.9 20 143/84 96 Nasal 11:42 (103) Cannula 03/03/18 2.0 07:50 Intake and Output 03/02/18 03/02/18 03/03/18 1515:00 23:00 07:00 IntakeIntake Total 300 ml 800 ml OutputOutput Total 3 ml BalanceBalance 300 ml 797 ml Medications Medications Current Medications Ceftriaxone Sodium 50 ml @ 100 mls/hr Q24H IVPB Last administered on 03/03/18 10:30; Admin Dose 100 MLS/HR; Start 03/02/18 at 11:00 Azithromycin 250 mg/Sodium Chloride 250 ml @ 250 mls/hr Q24H IVPB Last administered on 03/03/18 11:20; Admin Dose 250 MLS/HR; Start 03/02/18 at 12:00 Aspirin (Halfprin) 81 mg DAILY PO Last administered on 03/03/18 09:20; Admin Dose 81 MG; Start 03/02/18 at 09:00 Hydrochlorothiazide (Hydrochlorothiazide) 25 mg DAILY PO Last administered on 03/03/18 09:19; Admin Dose 25 MG; Start 03/02/18 at 09:00 Insulin Aspart (Novolog Insulin Pen) 12 unit AC DINNER SC Last administered on 03/02/18 17:39; Admin Dose 12 UNIT; Start 03/02/18 at 17:25 Insulin Glargine (Lantus) 45 units HS SC Last administered on 03/02/18 20:50; Admin Dose 45 UNITS; Start 03/01/18 at 21:00 Isosorbide Mononitrate (Imdur) 30 mg DAILY PO Last administered on 03/03/18 09:20; Admin Dose 30 MG; Start 03/02/18 at 09:00 Losartan Potassium (Cozaar) 100 mg DAILY PO Last administered on 03/03/18 09:31; Admin Dose 100 MG; Start 03/02/18 at 09:00 Metformin HCl (Glucophage) 1,000 mg BID WITH MEALS PO Last administered on 03/03/18 07:31; Admin Dose 1,000 MG; Start 03/02/18 at 07:55 Metoprolol Tartrate (Lopressor) 100 mg BID PO Last administered on 03/03/18 09:20; Admin Dose 100 MG; Start 03/01/18 at 21:00 Nifedipine (Procardia Xl) 30 mg DAILY PO Last administered on 03/03/18 09:31; Admin Dose 30 MG; Start 03/02/18 at 09:00 Pantoprazole (Protonix Tab) 40 mg DAILY@06 PO Last administered on 03/03/18 05:02; Admin Dose 40 MG; Start 03/02/18 at 06:00 Linagliptin (Tradjenta) 5 mg DAILY PO Last administered on 03/03/18 09:19; Admin Dose 5 MG; Start 03/02/18 at 09:00 IV Flush (NS 3 ml) 3 ml PER PROTOCOL IV ; Start 03/01/18 at 18:30 Ondansetron HCl (Zofran Inj) 4 mg Q6H PRN IV NAUSEA AND/OR VOMITING; Start 03/01/18 at 18:30 Acetaminophen (Tylenol Tab) 650 mg Q6H PRN PO PAIN LEVEL 1-3 OR FEVER Last administered on 03/02/18 20:45; Admin Dose 650 MG; Start 03/01/18 at 18:30 Acetaminophen/ Hydrocodone Bitart ([place] (5/325)) 1 tab Q6H PRN PO PAIN LEVEL 4-6; Start 03/01/18 at 18:30 Zolpidem Tartrate (Ambien) 5 mg QHS PRN PO INSOMNIA; Start 03/01/18 at 18:30 Docusate Sodium (Colace) 100 mg Q12H PRN PO CONSTIPATION; Start 03/01/18 at 18:30 Magnesium Hydroxide (Milk Of Mag) 30 ml DAILY PRN PO CONSTIPATION; Start 03/01/18 at 18:30 Famotidine (Pepcid) 20 mg Q12 PO Last administered on 03/03/18 09:18; Admin Dose 20 MG; Start 03/01/18 at 21:00 Levalbuterol (Xopenex Neb) 0.63 mg Q6H RESP THERAPY PRN HHN SHORTNESS OF BREATH Last administered on 03/01/18at 19:34; Admin Dose 0.63 MG; Start 03/01/18 at 18:30 Insulin Aspart (Novolog Insulin Pen) NOVOLOG *MILD* ALGORITHM WITH MEALS BEDTIME SC Last administered on 03/02/18at 07:36; Admin Dose 1 UNIT; Start 03/01/18 at 21:00 Miscellaneous Information 1 ea NOTE XX ; Start 03/01/18 at 18:30 Glucose (Glutose) 15 gm Q15M PRN PO DECREASED GLUCOSE; Start 03/01/18 at 18:30 Glucose (Glutose) 22.5 gm Q15M PRN PO DECREASED GLUCOSE; Start 03/01/18 at 18:30 Dextrose (D50w Syringe) 25 ml Q15M PRN IV DECREASED GLUCOSE; Start 03/01/18 at 18:30 Dextrose (D50w Syringe) 50 ml Q15M PRN IV DECREASED GLUCOSE; Start 03/01/18 at 18:30 Glucagon (Glucagen) 1 mg Q15M PRN IM DECREASED GLUCOSE; Start 03/01/18 at 18:30 Glucose (Glutose) 15 gm Q15M PRN BUCCAL DECREASED GLUCOSE; Start 03/01/18 at 18:30 Metoprolol Tartrate (Lopressor) 5 mg Q4H PRN IV HR>110 Hold SBP<100; Start 03/02/18 at 14:00 Enoxaparin Sodium (Lovenox) 75 mg BID SC Last administered on 03/03/18at 09:24; Admin Dose 75 MG; Start 03/02/18 at 21:00 Guaifenesin/ Codeine Phosphate (Robitussin Ac Liquid Cup) 5 ml Q4H PRN PO cough Last administered on 03/03/18at 13:57; Admin Dose 5 ML; Start 03/02/18 at 16:30 Insulin Aspart (Novolog Insulin Pen) 16 unit AC BREAKFAST LUNCH SC Last administered on 03/03/18at 11:18; Admin Dose 16 UNIT; Start 03/03/18 at 07:25 Atorvastatin Calcium (Lipitor) 40 mg HS PO Last administered on 03/02/18at 20:45; Admin Dose 40 MG; Start 03/02/18 at 21:00 Diagnostic Test (Pha) (Accu-Chek) 1 ea 2 HOURS AFTER MEALS XX Last administered on 03/03/18at 13:54; Admin Dose 1 EA; Start 03/02/18 at 19:55 Diagnostic Test (Pha) (Accu-Chek) 1 ea AC MEALS XX Last administered on 03/03/18at 11:17; Admin Dose 1 EA; Start 03/02/18 at 17:25 DUDLEY TAVARES NP Mar 03, 2018 15:03
--- NOTE | 2018-03-03 16:13 | PN ---
Date/Time of Note Date/Time of Note DATE: 03/03/18 TIME: 16:11 Assessment/Plan VTE Prophylaxis Risk score (from Ns)>0 risk: 5 SCD applied (from Nsg): Yes Pharmacological prophylaxis: LMWH Lines/Catheters IV Catheter Type (from Nrsg): Peripheral IV Central line still needed: Yes Assessment/Plan Hospital Course Patient denies any fever, complains of productive cough, is hemodynamically stable. Insulin is adjusted by our endocrinology colleagues. Assessment/Plan -Sepsis secondary to community-acquired pneumonia versus acute bronchitis. Continue Rocephin and Zithromax. Dr. Ivory is asked to see patient in infection disease consultation. -Possible UTI per UA -Atrial flutter, continue metoprolol and Lovenox. Dr. Hendrickson is asked to see patient in cardiology consultation. -Poorly controlled diabetes mellitus type 2, continue Lantus and pre-meal NovoLog, continue Januvia. Dr. Snider is following in endocrinology consultation. -Hypertension -Hyperlipidemia Further recommendations based on clinical course. Plan of care discussed with Dr. Moody. Result Diagram: 03/03/18 0557 03/03/18 0557 Results 24hrs Laboratory Tests Test 03/02/18 16:19 03/02/18 17:33 03/02/18 18:15 03/02/18 20:44 Bedside Glucose 81 136 110 Troponin I < 0.012 Test 03/03/18 00:31 03/03/18 04:59 03/03/18 05:57 03/03/18 07:31 Troponin I < 0.012 Bedside Glucose 109 142 White Blood Count 8.2 Red Blood Count 3.28 #L Hemoglobin 13.8 Hematocrit 41.0 Mean Corpuscular Volume 87.8 Mean Corpuscular 41.8 #H Hemoglobin Mean Corpuscular 47.6 #H Hemoglobin Concent Red Cell Distribution 16.3 H Width Platelet Count 344 Mean Platelet Volume 9.0 Immature Granulocytes % 0.200 Neutrophils % 65.1 Lymphocytes % 20.5 Monocytes % 8.5 Eosinophils % 4.8 Basophils % 0.9 Nucleated Red Blood 0.0 Cells % Immature Granulocytes # 0.020 Neutrophils # 5.4 Lymphocytes # 1.7 Monocytes # 0.7 Eosinophils # 0.4 Basophils # 0.1 Nucleated Red Blood 0.0 Cells # Sodium Level 137 Potassium Level 3.6 Chloride Level 100 Carbon Dioxide Level 28 Anion Gap 9 Blood Urea Nitrogen 17 Creatinine 0.69 Est Glomerular Filtrat > 60 Rate mL/min Glucose Level 125 # Calcium Level 9.3 Test 03/03/18 09:18 03/03/18 11:15 03/03/18 13:53 Bedside Glucose 123 108 90 Exam/Review of Systems Vital Signs Vitals Vital Signs Date Temp Pulse Resp B/P (MAP) Pulse Ox O2 O2 Flow FiO2 Time Delivery Rate 03/03/18 98.0 79 20 137/73 98 Nasal 15:33 (94) Cannula 03/03/18 2.0 07:50 Intake and Output 03/02/18 03/02/18 03/03/18 1515:00 23:00 07:00 IntakeIntake Total 300 ml 800 ml OutputOutput Total 3 ml BalanceBalance 300 ml 797 ml Exam Constitutional: alert, oriented Respiratory: congested cough, wheezing Cardiovascular: irregular rhythm, other (Atrial flutter) Gastrointestinal: soft, non-tender Musculoskeletal: nl extremities to inspection Extremities: normal pulses 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: nl mental status Skin: nl turgor Medications Medications Current Medications Ceftriaxone Sodium 50 ml @ 100 mls/hr Q24H IVPB Last administered on 03/03/18 10:30; Admin Dose 100 MLS/HR; Start 03/02/18 at 11:00 Azithromycin 250 mg/Sodium Chloride 250 ml @ 250 mls/hr Q24H IVPB Last adm inistered on 03/03/18 11:20; Admin Dose 250 MLS/HR; Start 03/02/18 at 12:00 Aspirin (Halfprin) 81 mg DAILY PO Last administered on 03/03/18 09:20; Admin Dose 81 MG; Start 03/02/18 at 09:00 Hydrochlorothiazide (Hydrochlorothiazide) 25 mg DAILY PO Last administered on 03/03/18 09:19; Admin Dose 25 MG; Start 03/02/18 at 09:00 Insulin Aspart (Novolog Insulin Pen) 12 unit AC DINNER SC Last administered on 03/02/18 17:39; Admin Dose 12 UNIT; Start 03/02/18 at 17:25 Insulin Glargine (Lantus) 45 units HS SC Last administered on 03/02/18 20:50; Admin Dose 45 UNITS; Start 03/01/18 at 21:00 Isosorbide Mononitrate (Imdur) 30 mg DAILY PO Last administered on 03/03/18 09:20; Admin Dose 30 MG; Start 03/02/18 at 09:00 Losartan Potassium (Cozaar) 100 mg DAILY PO Last administered on 03/03/18 09:31; Admin Dose 100 MG; Start 03/02/18 at 09:00 Metformin HCl (Glucophage) 1,000 mg BID WITH MEALS PO Last administered on 03/03/18 07:31; Admin Dose 1,000 MG; Start 03/02/18 at 07:55 Metoprolol Tartrate (Lopressor) 100 mg BID PO Last administered on 03/03/18 09:20; Admin Dose 100 MG; Start 03/01/18 at 21:00 Nifedipine (Procardia Xl) 30 mg DAILY PO Last administered on 03/03/18 09:31; Admin Dose 30 MG; Start 03/02/18 at 09:00 Pantoprazole (Protonix Tab) 40 mg DAILY@06 PO Last administered on 03/03/18 05:02; Admin Dose 40 MG; Start 03/02/18 at 06:00 Linagliptin (Tradjenta) 5 mg DAILY PO Last administered on 03/03/18 09:19; Admin Dose 5 MG; Start 03/02/18 at 09:00 IV Flush (NS 3 ml) 3 ml PER PROTOCOL IV ; Start 03/01/18 at 18:30 Ondansetron HCl (Zofran Inj) 4 mg Q6H PRN IV NAUSEA AND/OR VOMITING; Start 03/01/18 at 18:30 Acetaminophen (Tylenol Tab) 650 mg Q6H PRN PO PAIN LEVEL 1-3 OR FEVER Last administered on 03/02/18at 20:45; Admin Dose 650 MG; Start 03/01/18 at 18:30 Acetaminophen/ Hydrocodone Bitart ([place] (5/325)) 1 tab Q6H PRN PO PAIN LEVEL 4-6; Start 03/01/18 at 18:30 Zolpidem Tartrate (Ambien) 5 mg QHS PRN PO INSOMNIA; Start 03/01/18 at 18:30 Docusate Sodium (Colace) 100 mg Q12H PRN PO CONSTIPATION; Start 03/01/18 at 18:30 Magnesium Hydroxide (Milk Of Mag) 30 ml DAILY PRN PO CONSTIPATION; Start 03/01/18 at 18:30 Famotidine (Pepcid) 20 mg Q12 PO Last administered on 03/03/18 09:18; Admin Dose 20 MG; Start 03/01/18 at 21:00 Levalbuterol (Xopenex Neb) 0.63 mg Q6H RESP THERAPY PRN HHN SHORTNESS OF BREATH Last administered on 03/01/18at 19:34; Admin Dose 0.63 MG; Start 03/01/18 at 18:30 Insulin Aspart (Novolog Insulin Pen) NOVOLOG *MILD* ALGORITHM WITH MEALS BEDTIME SC Last administered on 03/02/18 07:36; Admin Dose 1 UNIT; Start 03/01/18 at 21:00 Miscellaneous Information 1 ea NOTE XX ; Start 03/01/18 at 18:30 Glucose (Glutose) 15 gm Q15M PRN PO DECREASED GLUCOSE; Start 03/01/18 at 18:30 Glucose (Glutose) 22.5 gm Q15M PRN PO DECREASED GLUCOSE; Start 03/01/18 at 18:30 Dextrose (D50w Syringe) 25 ml Q15M PRN IV DECREASED GLUCOSE; Start 03/01/18 at 18:30 Dextrose (D50w Syringe) 50 ml Q15M PRN IV DECREASED GLUCOSE; Start 03/01/18 at 18:30 Glucagon (Glucagen) 1 mg Q15M PRN IM DECREASED GLUCOSE; Start 03/01/18 at 18:30 Glucose (Glutose) 15 gm Q15M PRN BUCCAL DECREASED GLUCOSE; Start 03/01/18 at 18:30 Metoprolol Tartrate (Lopressor) 5 mg Q4H PRN IV HR>110 Hold SBP<100; Start 03/02 at 14:00 Enoxaparin Sodium (Lovenox) 75 mg BID SC Last administered on 03/03/18 09:24; Admin Dose 75 MG; Start 03/02/18 at 21:00 Guaifenesin/ Codeine Phosphate (Robitussin Ac Liquid Cup) 5 ml Q4H PRN PO cough Last administered on 03/03/18 13:57; Admin Dose 5 ML; Start 03/02/18 at 16:30 Insulin Aspart (Novolog Insulin Pen) 16 unit AC BREAKFAST LUNCH SC Last administered on 03/03/18 11:18; Admin Dose 16 UNIT; Start 03/03/18 at 07:25 Atorvastatin Calcium (Lipitor) 40 mg HS PO Last administered on 03/02/18at 20:45; Admin Dose 40 MG; Start 03/02/18 at 21:00 Diagnostic Test (Pha) (Accu-Chek) 1 ea 2 HOURS AFTER MEALS XX Last administered on 03/03/18at 13:54; Admin Dose 1 EA; Start 03/02/18 at 19:55 Diagnostic Test (Pha) (Accu-Chek) 1 ea AC MEALS XX Last administered on 03/03/18at 11:17; Admin Dose 1 EA; Start 03/02/18 at 17:25 BEATRIZ JUAREZ Mar 03, 2018 16:13
--- NOTE | 2018-03-03 19:13 | CONS ---
Date/Time of Note Date/Time of Note DATE: 03/03/18 TIME: 19:09 Assessment/Plan Assessment/Plan Hospital Course IMPRESSION: 1. Atrial fibrillation, rate controlled at this time.-NL TSH. Neg trop x 3. 2. Hypertension, currently under reasonable control. 3. Shortness of breath, cough, possible consistent with an upper respiratory infection. 4. Increased BNP, assess for congestive heart failure. 5. Diabetes mellitus. 6. Hyperglycemia. 7. Probable urinary tract infection. Recc: -Tele -Continue current BB -Continue current HCTZ/procardia/losartan -Continue abx's and f/u cx data -Continue imdur -Ongoing adjustment of insulin therapy -Continue lovenox with transition to eliquis at D/C 5 po bid Result Diagram: 03/03/18 0557 03/03/18 0557 Results 24hrs Laboratory Tests Test 03/02/18 20:44 03/03/18 00:31 03/03/18 04:59 03/03/18 05:57 Bedside Glucose 110 109 Troponin I < 0.012 White Blood Count 8.2 Red Blood Count 3.28 #L Hemoglobin 13.8 Hematocrit 41.0 Mean Corpuscular Volume 87.8 Mean Corpuscular 41.8 #H Hemoglobin Mean Corpuscular 47.6 #H Hemoglobin Concent Red Cell Distribution 16.3 H Width Platelet Count 344 Mean Platelet Volume 9.0 Immature Granulocytes % 0.200 Neutrophils % 65.1 Lymphocytes % 20.5 Monocytes % 8.5 Eosinophils % 4.8 Basophils % 0.9 Nucleated Red Blood 0.0 Cells % Immature Granulocytes # 0.020 Neutrophils # 5.4 Lymphocytes # 1.7 Monocytes # 0.7 Eosinophils # 0.4 Basophils # 0.1 Nucleated Red Blood 0.0 Cells # Sodium Level 137 Potassium Level 3.6 Chloride Level 100 Carbon Dioxide Level 28 Anion Gap 9 Blood Urea Nitrogen 17 Creatinine 0.69 Est Glomerular Filtrat > 60 Rate mL/min Glucose Level 125 # Calcium Level 9.3 Test 03/03/18 07:31 03/03/18 09:18 03/03/18 11:15 03/03/18 13:53 Bedside Glucose 142 123 108 90 Test 03/03/18 17:38 Bedside Glucose 72 Consultation Date/Type/Reason Admit Date/Time Mar 01, 2018 at 12:35 Initial Consult Date 03/02/18 Type of Consult cardiology Reason for Consultation [facility] Requesting Provider: CHRISTI KUNZ MD Exam/Review of Systems Vital Signs Vitals Vital Signs Date Temp Pulse Resp B/P (MAP) Pulse Ox O2 O2 Flow FiO2 Time Delivery Rate 03/03/18 2.0 18:14 03/03/18 76 16:48 03/03/18 98.0 20 137/73 98 Nasal 15:33 (94) Cannula Intake and Output 03/02/18 03/02/18 03/03/18 1515:00 23:00 07:00 IntakeIntake Total 300 ml 800 ml BalanceBalance 300 ml 800 ml Exam Review of Systems: CONSTITUTIONAL: No fevers, chills. PULMONARY: No sob CARDIOVASCULAR: No chest pain/palpitations GASTROINTESTINAL: No nausea/vomiting. GENITOURINARY: No hematuria/dysuria. MUSCULOSKELETAL: No myagias/arthalgias. PSYCHIATRIC: The patient denies depression. NEUROLOGIC: No weakness Constitutional: alert Psych: no complaints Head: normocephalic ENMT: mucosa pink and moist Neck: supple, jvd Respiratory: diminished breath sounds (at basers/B) Cardiovascular: irregular rhythm Gastrointestinal: soft, non-tender Musculoskeletal: muscle tone (normal) Extremities: edema (none) 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: other (No focal deficits) Medications Medications Current Medications Ceftriaxone Sodium 50 ml @ 100 mls/hr Q24H IVPB Last administered on 03/03/18at 10:30; Admin Dose 100 MLS/HR; Start 03/02/18 at 11:00 Azithromycin 250 mg/Sodium Chloride 250 ml @ 250 mls/hr Q24H IVPB Last administered on 03/03/18at 11:20; Admin Dose 250 MLS/HR; Start 03/02/18 at 12:00 Aspirin (Halfprin) 81 mg DAILY PO Last administered on 03/03/18at 09:20; Admin Dose 81 MG; Start 03/02/18 at 09:00 Hydrochlorothiazide (Hydrochlorothiazide) 25 mg DAILY PO Last administered on 03/03/18at 09:19; Admin Dose 25 MG; Start 03/02/18 at 09:00 Insulin Aspart (Novolog Insulin Pen) 12 unit AC DINNER SC Last administered on 03/03/18at 17:43; Admin Dose 12 UNIT; Start 03/02/18 at 17:25 Insulin Glargine (Lantus) 45 units HS SC Last administered on 03/02/18 20:50; Admin Dose 45 UNITS; Start 03/01/18 at 21:00 Isosorbide Mononitrate (Imdur) 30 mg DAILY PO Last administered on 03/03/18 09:20; Admin Dose 30 MG; Start 03/02/18 at 09:00 Losartan Potassium (Cozaar) 100 mg DAILY PO Last administered on 03/03/18 09:31; Admin Dose 100 MG; Start 03/02/18 at 09:00 Metformin HCl (Glucophage) 1,000 mg BID WITH MEALS PO Last administered on 03/03/18 17:39; Admin Dose 1,000 MG; Start 03/02/18 at 07:55 Metoprolol Tartrate (Lopressor) 100 mg BID PO Last administered on 03/03/18 09:20; Admin Dose 100 MG; Start 03/01/18 at 21:00 Nifedipine (Procardia Xl) 30 mg DAILY PO Last administered on 03/03/18 09:31; Admin Dose 30 MG; Start 03/02/18 at 09:00 Pantoprazole (Protonix Tab) 40 mg DAILY@06 PO Last administered on 03/03/18 05:02; Admin Dose 40 MG; Start 03/02/18 at 06:00 Linagliptin (Tradjenta) 5 mg DAILY PO Last administered on 03/03/18 09:19; Admi n Dose 5 MG; Start 03/02/18 at 09:00 IV Flush (NS 3 ml) 3 ml PER PROTOCOL IV ; Start 03/01/18 at 18:30 Ondansetron HCl (Zofran Inj) 4 mg Q6H PRN IV NAUSEA AND/OR VOMITING; Start 03/01/18 at 18:30 Acetaminophen (Tylenol Tab) 650 mg Q6H PRN PO PAIN LEVEL 1-3 OR FEVER Last administered on 03/02/18 20:45; Admin Dose 650 MG; Start 03/01/18 at 18:30 Acetaminophen/ Hydrocodone Bitart ([place] (5/325)) 1 tab Q6H PRN PO PAIN LEVEL 4-6; Start 03/01/18 at 18:30 Zolpidem Tartrate (Ambien) 5 mg QHS PRN PO INSOMNIA; Start 03/01/18 at 18:30 Docusate Sodium (Colace) 100 mg Q12H PRN PO CONSTIPATION; Start 03/01/18 at 18:30 Magnesium Hydroxide (Milk Of Mag) 30 ml DAILY PRN PO CONSTIPATION; Start 03/01/18 at 18:30 Famotidine (Pepcid) 20 mg Q12 PO Last administered on 03/03/18at 09:18; Admin Dose 20 MG; Start 03/01/18 at 21:00 Levalbuterol (Xopenex Neb) 0.63 mg Q6H RESP THERAPY PRN HHN SHORTNESS OF BREATH Last administered on 03/01/18at 19:34; Admin Dose 0.63 MG; Start 03/01/18 at 18:30 Insulin Aspart (Novolog Insulin Pen) NOVOLOG *MILD* ALGORITHM WITH MEALS BEDTIME SC Last administered on 03/02/18at 07:36; Admin Dose 1 UNIT; Start 03/01/18 at 21:00 Miscellaneous Information 1 ea NOTE XX ; Start 03/01/18 at 18:30 Glucose (Glutose) 15 gm Q15M PRN PO DECREASED GLUCOSE; Start 03/01/18 at 18:30 Glucose (Glutose) 22.5 gm Q15M PRN PO DECREASED GLUCOSE; Start 03/01/18 at 18:30 Dextrose (D50w Syringe) 25 ml Q15M PRN IV DECREASED GLUCOSE; Start 03/01/18 at 18:30 Dextrose (D50w Syringe) 50 ml Q15M PRN IV DECREASED GLUCOSE; Start 03/01/18 at 18:30 Glucagon (Glucagen) 1 mg Q15M PRN IM DECREASED GLUCOSE; Start 03/01/18 at 18:30 Glucose (Glutose) 15 gm Q15M PRN BUCCAL DECREASED GLUCOSE; Start 03/01/18 at 18:30 Metoprolol Tartrate (Lopressor) 5 mg Q4H PRN IV HR>110 Hold SBP<100; Start 03/02/18 at 14:00 Enoxaparin Sodium (Lovenox) 75 mg BID SC Last administered on 03/03/18at 09:24; Admin Dose 75 MG; Start 03/02/18 at 21:00 Guaifenesin/ Codeine Phosphate (Robitussin Ac Liquid Cup) 5 ml Q4H PRN PO cough Last administered on 03/03/18at 13:57; Admin Dose 5 ML; Start 03/02/18 at 16:30 Insulin Aspart (Novolog Insulin Pen) 16 unit AC BREAKFAST LUNCH SC Last administered on 03/03/18 11:18; Admin Dose 16 UNIT; Start 03/03/18 at 07:25 Atorvastatin Calcium (Lipitor) 40 mg HS PO Last administered on 03/02/18 20:45; Admin Dose 40 MG; Start 03/02/18 at 21:00 Diagnostic Test (Pha) (Accu-Chek) 1 ea 2 HOURS AFTER MEALS XX Last administered on 03/03/18at 13:54; Admin Dose 1 EA; Start 03/02/18 at 19:55 Diagnostic Test (Pha) (Accu-Chek) 1 ea AC MEALS XX Last administered on 03/03/18at 17:40; Admin Dose 1 EA; Start 03/02/18 at 17:25 TONE RASMUSSEN Mar 03, 2018 19:13
--- NOTE | 2018-03-03 20:40 | RADRPT ---
Echocardiogram Report Patient Name: YUDY ROLLINS Gender: Female Date: 1955 Study Date: 02-Mar-2018 [employer] Mechanic: Carter Bonilla [facility] Location: [id number] Ref. Physician: TONE HENDRICKSON Quality: Good Procedures: Transthoracic echocardiogram with complete 2D, M-Mode, and doppler examination. Indications: Atrial Flutter. 2D/M Mode Doppler Measurement Value Normal Ranges Measurement Value Normal Ranges LVIDd 2D 4.8 3.5 - 5.6 cm AV Peak Teofilo 0.9 m/sec LVIDs 2D 2.4 2.1 - 4.1 cm AV Peak PG 4.0 mmHg LVPWd 2D 1.2 0.6 - 1.1 cm LVOT Peak Teofilo 0.9 m/sec IVSd 2D 1.2 0.6 - 1.1 cm LVOT Peak PG 3.0 mmHg AoR Diam 2D 2.8 2.0 - 3.7 cm MV E Peak Teofilo 1.0 m/sec LA/Ao 2D 1 0 - 1 MV Decel Time 190 msec LA Dimen 2D 3.5 2.3 - 4.0 cm TR Peak Teofilo 3.3 m/sec TR Peak PG 44.0 mmHg RVSP 47.0 mmHg RA Pressure 3.0 Findings Left Ventricle: Normal left ventricular systolic function. Normal left ventricular cavity size. Mild concentric left ventricular hypertrophy. Ejection fraction is visually estimated at 60 %. Right Ventricle: Normal right ventricular size. Normal right ventricular systolic function. Left Atrium: The left atrium is normal in size. Right Atrium: The right atrium is normal in size. Mitral Valve: Mitral valve leaflets appear mildly thickened. Mild mitral annular calcification. Mild to moderate mitral valve regurgitation. Aortic Valve: Aortic cusps appear mildly calcified. Tricuspid Valve: Normal appearance of the tricuspid valve. Estimated peak PA systolic pressure 47 mmHg. There is mild tricuspid regurgitation. Pulmonic Valve: Normal pulmonic valve appearance. Pericardium: Normal pericardium with no significant pericardial effusion. Aorta: Normal aortic root. IVC: Normal size and normal respiratory collapse consistent with normal right atrial pressure. Conclusions Normal left ventricular systolic function. Normal left ventricular cavity size. Mild concentric left ventricular hypertrophy. Ejection fraction is visually estimated at 60 %. Mitral valve leaflets appear mildly thickened. Mild mitral annular calcification. Mild to moderate mitral valve regurgitation. Normal appearance of the tricuspid valve. Estimated peak PA systolic pressure 47 mmHg. There is mild tricuspid regurgitation. Electronically Signed By: Tone Hendrickson 03-Mar-2018 20:40:08 -0800 Patient Name: YUDY ROLLINS Study Date: 02-Mar-2018 [id number]
[2018-03-03] MEDS: ACETAMINOPHEN 325 MG TAB PO PRN (20:43)
[2018-03-03] MEDS: ATORVASTATIN 40 MG TAB PO SCH (20:44)
[2018-03-03] MEDS: INSULIN GLARGINE [LANTus] (100 UNITS/ML) SYG SC SCH (21:00)
[2018-03-03] MEDS ORDERED: INSULIN GLARGINE [LANTus] (100 UNITS/ML) SYG SC SCH (22:00)
[2018-03-04] VITALS (12 sets, daily range): BP systolic 115–150; BP diastolic 58–81; PULSE 57–89; RESP 18–22
[2018-03-04] MEDS: PANTOPRAZOLE (EC) 40 MG TAB PO SCH (05:03)
[2018-03-04] MEDS: ACCU-CHEK XX SCH ×6 (08:16→19:47)
[2018-03-04] MEDS: INSULIN ASPART [NOVOLOG] 3 ML PEN SC SCH ×7 (08:25→20:40)
[2018-03-04] MEDS: metFORMIN 500 MG TAB PO SCH ×2 (08:27→17:28)
[2018-03-04] MEDS: ONDANSETRON 4 MG INJ IV PRN (08:27)
[2018-03-04] MEDS: LINAGLIPTIN 5 MG TABLET PO SCH (08:27)
[2018-03-04] MEDS: HYDROCHLOROTHIAZIDE 25 MG TAB PO SCH (08:28)
[2018-03-04] MEDS: FAMOTIDINE 20 MG TAB PO SCH ×2 (08:28→20:15)
[2018-03-04] MEDS: NIFEdipine (XL) 30 MG TAB PO SCH (08:28)
[2018-03-04] MEDS: ISOSORBIDE MONONITRATE(SR)30 MG TAB PO SCH (08:29)
[2018-03-04] MEDS: METOPROLOL 100 MG TAB PO SCH ×2 (08:29→20:15)
[2018-03-04] MEDS: LOSARTAN 50 MG TAB PO SCH (08:29)
[2018-03-04] MEDS: ASPIRIN (EC) 81 MG TAB PO SCH (08:29)
[2018-03-04] MEDS: ENOXAPARIN 80 MG/0.8 ML SYG SC SCH ×2 (08:55→20:38)
[2018-03-04] MEDS: CEFTRIAXONE 1 GM/50 ML (PMX) 50 ML IVPB SCH (11:29)
[2018-03-04] MEDS ORDERED: INSULIN ASPART [NOVOLOG] 3 ML PEN SC SCH (12:00)
[2018-03-04] MEDS: AZITHROMYCIN 250 MG in SOD CHLORIDE 0.9% 250 ML IVPB SCH (13:07)
--- NOTE | 2018-03-04 13:08 | CONS ---
Date/Time of Note Date/Time of Note DATE: 03/04/18 TIME: 13:06 Assessment/Plan Assessment/Plan Problems: (1) Diabetes mellitus type 2 in nonobese Status: Chronic Comment: Glucose levels have been decreasing; hypoglycemic last night before dinner and nearly hypoglycemic today before lunch. Have decreased lantus from 45 to 40 and will decrease again to 36 units qhs. Will decrease mealtime insulin doses from 16 before breakfast and lunch (12 before dinner) to 12 units before all meals. Reeval tomorrow. Result Diagram: 03/03/18 0557 03/03/18 0557 Results 24hrs Laboratory Tests Test 03/03/18 13:53 03/03/18 17:38 03/03/18 20:35 03/03/18 20:53 Bedside Glucose 90 72 57 L 101 Test 03/03/18 21:10 03/04/18 08:15 03/04/18 10:08 03/04/18 11:28 Bedside Glucose 109 163 118 78 Consultation Date/Type/Reason Admit Date/Time Mar 01, 2018 at 12:35 Initial Consult Date 03/02/18 Type of Consult Endocrinology Reason for Consultation T2DM management Requesting Provider: CHRISTI KUNZ MD 24 HR Interval Summary Constitutional: no complaints, improved Detailed Summary Respiratory: cough, sputum; No shortness of breath (this has improved since admit) Cardiovascular: no complaints Gastrointestinal: no complaints Genitourinary: no complaints Musculoskeletal: no complaints Neurologic: no complaints Exam/Review of Systems Vital Signs Vitals VS - Last 72 Hours, by Label Date Temp Pulse Resp B/P (MAP) Pulse Ox O2 O2 Flow FiO2 Time Delivery Rate 03/04/18 98.8 76 20 140/81 94 Room Air 11:47 (100) 03/04/18 81 08:05 03/04/18 Nasal 2.0 07:50 Cannula 03/04/18 98.0 69 20 150/74 91 Nasal 07:45 (99) Cannula 03/04/18 97.9 84 18 135/65 98 04:35 (88) 03/04/18 2.0 04:30 03/04/18 57 04:00 03/04/18 97.9 84 18 115/58 98 00:22 (77) 03/04/18 74 00:00 03/03/18 69 20:00 03/03/18 97.6 68 18 137/73 98 19:29 (94) 03/03/18 Nasal 2.0 19:00 Cannula 03/03/18 2.0 18:45 03/03/18 2.0 18:14 03/03/18 76 16:48 03/03/18 98.0 79 20 137/73 98 Nasal 15:33 (94) Cannula 03/03/18 74 12:56 03/03/18 97.9 62 20 143/84 96 Nasal 11:42 (103) Cannula 03/03/18 84 09:09 03/03/18 Nasal 2.0 07:50 Cannula 03/03/18 98.0 73 20 154/83 97 Nasal 07:24 (106) Cannula 03/03/18 73 04:00 03/03/18 98.4 70 20 130/63 94 Room Air 03:39 (85) 03/03/18 3.0 00:44 03/03/18 98.0 69 18 139/74 95 Nasal 00:21 (95) Cannula 03/03/18 67 00:00 03/02/18 98.7 21:30 03/02/18 98.4 20:45 03/02/18 Nasal 2.0 20:00 Cannula 03/02/18 84 20:00 03/02/18 97.9 68 19 145/78 95 Nasal 19:22 (100) Cannula 03/02/18 3.0 18:46 03/02/18 94 16:30 03/02/18 98.0 82 20 124/77 96 Nasal 15:41 (93) Cannula 03/02/18 69 12:00 03/02/18 98.0 69 20 124/71 97 Nasal 11:44 (88) Cannula 03/02/18 73 08:36 03/02/18 Nasal 2.0 07:43 Cannula 03/02/18 98.0 69 22 140/87 97 Nasal 07:13 (104) Cannula 03/02/18 3.0 04:11 03/02/18 98.3 71 19 143/75 97 Nasal 04:02 (97) Cannula 03/02/18 65 04:00 03/02/18 98.9 64 20 136/67 97 Nasal 00:36 (90) Cannula 03/02/18 65 00:00 03/01/18 Nasal 2.0 21:00 Cannula 03/01/18 109 20:00 03/01/18 109 18 94 Nasal 3.0 19:35 Cannula 03/01/18 3.0 19:35 03/01/18 3.0 19:35 03/01/18 98.7 93 19 146/71 96 Nasal 19:21 (96) Cannula 03/01/18 Nasal 2.0 18:01 Cannula 03/01/18 97.5 110 22 167/85 100 Nasal 16:44 (112) Cannula 03/01/18 106 16:42 03/01/18 95 20 154/88 100 Nasal 3.0 15:45 (110) Cannula 03/01/18 98.4 86 25 130/84 98 Nasal 2.0 13:59 (99) Cannula Vital Signs Date Temp Pulse Resp B/P (MAP) Pulse Ox O2 O2 Flow FiO2 Time Delivery Rate 03/04/18 98.8 76 20 140/81 94 Room Air 11:47 (100) 03/04/18 2.0 07:50 Intake and Output 03/03/18 03/03/18 03/04/18 1515:00 23:00 07:00 IntakeIntake Total 300 ml 900 ml 650 ml BalanceBalance 300 ml 900 ml 650 ml Exam Constitutional: alert, oriented, obese Psych: no complaints, nl mood/affect Respiratory: congested cough, crackles/rales (R base) Cardiovascular: regular rate and rhythm, nl pulses; No edema, No murmurs/extra sounds, No rub Gastrointestinal: soft, nl liver, spleen, non-tender, bowel sounds; No mass, No rebound or guarding Musculoskeletal: nl extremities to inspection Extremities: normal pulses; No cyanosis, No clubbing, No edema 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: 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, nl mental status, nl speech, nl strength Additional Comments Bedside Glucose - 72 Hours Test 03/01/18 21:26 03/02/18 07:30 03/02/18 11:00 03/02/18 15:50 Bedside 233 179 82 73 Glucose mg/dL (70-220) mg/dL (70-220) mg/dL (70-220) mg/dL (70-220) H Test 03/02/18 16:19 03/02/18 17:33 03/02/18 20:44 03/03/18 04:59 Bedside 81 136 110 109 Glucose mg/dL (70-220) mg/dL (70-220) mg/dL (70-220) mg/dL (70-220) Test 03/03/18 07:31 03/03/18 09:18 03/03/18 11:15 03/03/18 13:53 Bedside 142 123 108 90 Glucose mg/dL (70-220) mg/dL (70-220) mg/dL (70-220) mg/dL (70-220) Test 03/03/18 17:38 03/03/18 20:35 03/03/18 20:53 03/03/18 21:10 Bedside 72 57 101 109 Glucose mg/dL (70-220) mg/dL (70-220) mg/dL (70-220) mg/dL (70-220) L Test 03/04/18 08:15 03/04/18 10:08 03/04/18 11:28 Bedside 163 118 78 Glucose mg/dL (70-220) mg/dL (70-220) mg/dL (70-220) Medications Medications Current Medications Ceftriaxone Sodium 50 ml @ 100 mls/hr Q24H IVPB Last administered on 03/04/18 11:29; Admin Dose 100 MLS/HR; Start 03/02/18 at 11:00 Azithromycin 250 mg/Sodium Chloride 250 ml @ 250 mls/hr Q24H IVPB Last administered on 03/03/18 11:20; Admin Dose 250 MLS/HR; Start 03/02/18 at 12:00 Aspirin (Halfprin) 81 mg DAILY PO Last administered on 03/04/18 08:29; Admin Dose 81 MG; Start 03/02/18 at 09:00 Hydrochlorothiazide (Hydrochlorothiazide) 25 mg DAILY PO Last administered on 03/04/18 08:28; Admin Dose 25 MG; Start 03/02/18 at 09:00 Isosorbide Mononitrate (Imdur) 30 mg DAILY PO Last administered on 03/04/18 08:29; Admin Dose 30 MG; Start 03/02/18 at 09:00 Losartan Potassium (Cozaar) 100 mg DAILY PO Last administered on 03/04/18 08:29; Admin Dose 100 MG; Start 03/02/18 at 09:00 Metformin HCl (Glucophage) 1,000 mg BID WITH MEALS PO Last administered on 03/04/18 08:27; Admin Dose 1,000 MG; Start 03/02/18 at 07:55 Metoprolol Tartrate (Lopressor) 100 mg BID PO Last administered on 03/04/18 08:29; Admin Dose 100 MG; Start 03/01/18 at 21:00 Nifedipine (Procardia Xl) 30 mg DAILY PO Last administered on 03/04/18 08:28; Admin Dose 30 MG; Start 03/02/18 at 09:00 Pantoprazole (Protonix Tab) 40 mg DAILY@06 PO Last administered on 03/04/18 05:03; Admin Dose 40 MG; Start 03/02/18 at 06:00 Linagliptin (Tradjenta) 5 mg DAILY PO Last administered on 03/04/18 08:27; Admin Dose 5 MG; Start 03/02/18 at 09:00 IV Flush (NS 3 ml) 3 ml PER PROTOCOL IV ; Start 03/01/18 at 18:30 Ondansetron HCl (Zofran Inj) 4 mg Q6H PRN IV NAUSEA AND/OR VOMITING Last administered on 03/04/18 08:27; Admin Dose 4 MG; Start 03/01/18 at 18:30 Acetaminophen (Tylenol Tab) 650 mg Q6H PRN PO PAIN LEVEL 1-3 OR FEVER Last administered on 03/03/18 20:43; Admin Dose 650 MG; Start 03/01/18 at 18:30 Acetaminophen/ Hydrocodone Bitart ([place] (5/325)) 1 tab Q6H PRN PO PAIN LEVEL 4-6; Start 03/01/18 at 18:30 Zolpidem Tartrate (Ambien) 5 mg QHS PRN PO INSOMNIA; Start 03/01/18 at 18:30 Docusate Sodium (Colace) 100 mg Q12H PRN PO CONSTIPATION; Start 03/01/18 at 18:30 Magnesium Hydroxide (Milk Of Mag) 30 ml DAILY PRN PO CONSTIPATION; Start 03/01/18 at 18:30 Famotidine (Pepcid) 20 mg Q12 PO Last administered on 03/04/18 08:28; Admin Dose 20 MG; Start 03/01/18 at 21:00 Levalbuterol (Xopenex Neb) 0.63 mg Q6H RESP THERAPY PRN HHN SHORTNESS OF BREATH Last administered on 03/01/18 19:34; Admin Dose 0.63 MG; Start 03/01/18 at 18:30 Insulin Aspart (Novolog Insulin Pen) NOVOLOG *MILD* ALGORITHM WITH MEALS BEDTIME SC Last administered on 03/04/18 08:25; Admin Dose 1 UNIT; Start 03/01/18 at 21:00 Miscellaneous Information 1 ea NOTE XX ; Start 03/01/18 at 18:30 Glucose (Glutose) 15 gm Q15M PRN PO DECREASED GLUCOSE; Start 03/01/18 at 18:30 Glucose (Glutose) 22.5 gm Q15M PRN PO DECREASED GLUCOSE; Start 03/01/18 at 18:30 Dextrose (D50w Syringe) 25 ml Q15M PRN IV DECREASED GLUCOSE; Start 03/01/18 at 18:30 Dextrose (D50w Syringe) 50 ml Q15M PRN IV DECREASED GLUCOSE; Start 03/01/18 at 18:30 Glucagon (Glucagen) 1 mg Q15M PRN IM DECREASED GLUCOSE; Start 03/01/18 at 18:30 Glucose (Glutose) 15 gm Q15M PRN BUCCAL DECREASED GLUCOSE; Start 03/01/18 at 18:30 Metoprolol Tartrate (Lopressor) 5 mg Q4H PRN IV HR>110 Hold SBP<100; Start 03/02/18 at 14:00 Enoxaparin Sodium (Lovenox) 75 mg BID SC Last administered on 03/04/18at 08:55; Admin Dose 75 MG; Start 03/02/18 at 21:00 Guaifenesin/ Codeine Phosphate (Robitussin Ac Liquid Cup) 5 ml Q4H PRN PO cough Last administered on 03/03/18at 20:42; Admin Dose 5 ML; Start 03/02/18 at 16:30 Atorvastatin Calcium (Lipitor) 40 mg HS PO Last administered on 03/03/18 20:44; Admin Dose 40 MG; Start 03/02/18 at 21:00 Diagnostic Test (Pha) (Accu-Chek) 1 ea 2 HOURS AFTER MEALS XX Last admi nistered on 03/04/18at 10:10; Admin Dose 1 EA; Start 03/02/18 at 19:55 Diagnostic Test (Pha) (Accu-Chek) 1 ea AC MEALS XX Last administered on 03/04/18at 11:29; Admin Dose 1 EA; Start 03/02/18 at 17:25 Insulin Aspart (Novolog Insulin Pen) 12 unit AC MEALS SC Last administered on 03/04/18at 12:39; Admin Dose 12 UNIT; Start 03/04/18 at 12:00 Insulin Glargine (Lantus) 36 units HS SC ; Start 03/04/18 at 21:00 EMY SIBLEY MD Mar 04, 2018 13:08
--- NOTE | 2018-03-04 13:38 | CONS ---
Date/Time of Note Date/Time of Note DATE: 03/04/18 TIME: 13:36 Assessment/Plan Assessment/Plan Assessment/Plan 1. Atrial fibrillation, rate controlled at this time.-NL TSH. Neg trop x 3 - rate controlled - filles better now. 2. Hypertension, currently under reasonable control - will adjust Rx as needed. 3. Shortness of breath, cough, possible consistent with an upper respiratory infection. Improved with therapy. 4. Increased BNP, assess for congestive heart failure. 5. Diabetes mellitus- on meds, keep euglycemic. 6. Hyperglycemia. 7. Probable urinary tract infection- on anti-bx now. Result Diagram: 03/03/18 0557 03/03/18 0557 Results 24hrs Laboratory Tests Test 03/03/18 13:53 03/03/18 17:38 03/03/18 20:35 03/03/18 20:53 Bedside Glucose 90 72 57 L 101 Test 03/03/18 21:10 03/04/18 08:15 03/04/18 10:08 03/04/18 11:28 Bedside Glucose 109 163 118 78 Consultation Date/Type/Reason Admit Date/Time Mar 01, 2018 at 12:35 Initial Consult Date 03/02/18 Requesting Provider: CHRISTI KUNZ MD 24 HR Interval Summary Free Text/Dictation NO acute events - feels better overall. ROS: No fever, no chills, no nausea, no vomiting, no diarrhea/constipation No recent weight changes No chest pain, no PND, no orthopnea - improved SOB No dizziness, blurred vision No thirst, no heat or cold intolerance Exam/Review of Systems Vital Signs Vitals Vital Signs Date Temp Pulse Resp B/P (MAP) Pulse Ox O2 O2 Flow FiO2 Time Delivery Rate 03/04/18 98.8 76 20 140/81 94 Room Air 11:47 (100) 03/04/18 2.0 07:50 Intake and Output 03/03/18 03/03/18 03/04/18 1515:00 23:00 07:00 IntakeIntake Total 300 ml 900 ml 650 ml BalanceBalance 300 ml 900 ml 650 ml Exam General: WN/WD/NAD, AOx 3 spanisj HEENT: Unicetric/atraumatic/EOMI ( follow commands) NECK: JVD elevated, no thyromegaly Lymph: no lymphadenopathy HEART: irregular with no S3, II/ systolic murmur at apex LUNGS: Coarse sounds ABD: soft, NT, ND, +BS : Intact Neuro: non focal SKIN: chronic changes EXT: trace edema Medications Medications Current Medications Ceftriaxone Sodium 50 ml @ 100 mls/hr Q24H IVPB Last administered on 03/04/18 11:29; Admin Dose 100 MLS/HR; Start 03/02/18 at 11:00 Azithromycin 250 mg/Sodium Chloride 250 ml @ 250 mls/hr Q24H IVPB Last administered on 03/04/18 13:07; Admin Dose 250 MLS/HR; Start 03/02/18 at 12:00 Aspirin (Halfprin) 81 mg DAILY PO Last administered on 03/04/18 08:29; Admin Dose 81 MG; Start 03/02/18 at 09:00 Hydrochlorothiazide (Hydrochlorothiazide) 25 mg DAILY PO Last administered on 03/04/18 08:28; Admin Dose 25 MG; Start 03/02/18 at 09:00 Isosorbide Mononitrate (Imdur) 30 mg DAILY PO Last administered on 03/04/18 08:29; Admin Dose 30 MG; Start 03/02/18 at 09:00 Losartan Potassium (Cozaar) 100 mg DAILY PO Last administered on 03/04/18 08:29; Admin Dose 100 MG; Start 03/02/18 at 09:00 Metformin HCl (Glucophage) 1,000 mg BID WITH MEALS PO Last administered on 03/04/18 08:27; Admin Dose 1,000 MG; Start 03/02/18 at 07:55 Metoprolol Tartrate (Lopressor) 100 mg BID PO Last administered on 03/04/18 08:29; Admin Dose 100 MG; Start 03/01/18 at 21:00 Nifedipine (Procardia Xl) 30 mg DAILY PO Last administered on 03/04/18 08:28; Admin Dose 30 MG; Start 03/02/18 at 09:00 Pantoprazole (Protonix Tab) 40 mg DAILY@06 PO Last administered on 03/04/18 05:03; Admin Dose 40 MG; Start 03/02/18 at 06:00 Linagliptin (Tradjenta) 5 mg DAILY PO Last administered on 03/04/18 08:27; Admin Dose 5 MG; Start 03/02/18 at 09:00 IV Flush (NS 3 ml) 3 ml PER PROTOCOL IV ; Start 03/01/18 at 18:30 Ondansetron HCl (Zofran Inj) 4 mg Q6H PRN IV NAUSEA AND/OR VOMITING Last administered on 03/04/18at 08:27; Admin Dose 4 MG; Start 03/01/18 at 18:30 Acetaminophen (Tylenol Tab) 650 mg Q6H PRN PO PAIN LEVEL 1-3 OR FEVER Last administered on 03/03/18at 20:43; Admin Dose 650 MG; Start 03/01/18 at 18:30 Acetaminophen/ Hydrocodone Bitart ([place] (5/325)) 1 tab Q6H PRN PO PAIN LEVEL 4-6; Start 03/01/18 at 18:30 Zolpidem Tartrate (Ambien) 5 mg QHS PRN PO INSOMNIA; Start 03/01/18 at 18:30 Docusate Sodium (Colace) 100 mg Q12H PRN PO CONSTIPATION; Start 03/01/18 at 18:30 Magnesium Hydroxide (Milk Of Mag) 30 ml DAILY PRN PO CONSTIPATION; Start 03/01/18 at 18:30 Famotidine (Pepcid) 20 mg Q12 PO Last administered on 03/04/18at 08:28; Admin Dose 20 MG; Start 03/01/18 at 21:00 Levalbuterol (Xopenex Neb) 0.63 mg Q6H RESP THERAPY PRN HHN SHORTNESS OF BREATH Last administered on 03/01/18at 19:34; Admin Dose 0.63 MG; Start 03/01/18 at 18:30 Insulin Aspart (Novolog Insulin Pen) NOVOLOG *MILD* ALGORITHM WITH MEALS BEDTIME SC Last administered on 03/04/18at 08:25; Admin Dose 1 UNIT; Start 03/01/18 at 21:00 Miscellaneous Information 1 ea NOTE XX ; Start 03/01/18 at 18:30 Glucose (Glutose) 15 gm Q15M PRN PO DECREASED GLUCOSE; Start 03/01/18 at 18:30 Glucose (Glutose) 22.5 gm Q15M PRN PO DECREASED GLUCOSE; Start 03/01/18 at 18:30 Dextrose (D50w Syringe) 25 ml Q15M PRN IV DECREASED GLUCOSE; Start 03/01/18 at 18:30 Dextrose (D50w Syringe) 50 ml Q15M PRN IV DECREASED GLUCOSE; Start 03/01/18 at 18:30 Glucagon (Glucagen) 1 mg Q15M PRN IM DECREASED GLUCOSE; Start 03/01/18 at 18:30 Glucose (Glutose) 15 gm Q15M PRN BUCCAL DECREASED GLUCOSE; Start 03/01/18 at 18:30 Metoprolol Tartrate (Lopressor) 5 mg Q4H PRN IV HR>110 Hold SBP<100; Start 03/02/18 at 14:00 Enoxaparin Sodium (Lovenox) 75 mg BID SC Last administered on 03/04/18 08:55; Admin Dose 75 MG; Start 03/02/18 at 21:00 Guaifenesin/ Codeine Phosphate (Robitussin Ac Liquid Cup) 5 ml Q4H PRN PO cough Last administered on 03/03/18at 20:42; Admin Dose 5 ML; Start 03/02/18 at 16:30 Atorvastatin Calcium (Lipitor) 40 mg HS PO Last administered on 03/03/18at 20:44; Admin Dose 40 MG; Start 03/02/18 at 21:00 Diagnostic Test (Pha) (Accu-Chek) 1 ea 2 HOURS AFTER MEALS XX Last administered on 03/04/18 10:10; Admin Dose 1 EA; Start 03/02/18 at 19:55 Diagnostic Test (Pha) (Accu-Chek) 1 ea AC MEALS XX Last administered on 03/04/18at 11:29; Admin Dose 1 EA; Start 03/02/18 at 17:25 Insulin Aspart (Novolog Insulin Pen) 12 unit AC MEALS SC Last administered on 03/04/18at 12:39; Admin Dose 12 UNIT; Start 03/04/18 at 12:00 Insulin Glargine (Lantus) 36 units HS SC ; Start 03/04/18 at 21:00 TREVER VELÁSQUEZ MD Mar 04, 2018 13:38
--- NOTE | 2018-03-04 16:27 | PN ---
Date/Time of Note Date/Time of Note DATE: 03/04/18 TIME: 16:26 Assessment/Plan VTE Prophylaxis Risk score (from [facility])>0 risk: 6 SCD applied (from [facility]): Yes SCD contraindicated: other Pharmacological prophylaxis: other Pharm contraindication: other Lines/Catheters IV Catheter Type (from [facility]): Peripheral IV Urinary Cath still in place: No Assessment/Plan Assessment/Plan -Sepsis secondary to community-acquired pneumonia versus acute bronchitis. Continue Rocephin and Zithromax. Dr. Ivory is asked to see patient in infection disease consultation. -Possible UTI per UA -Atrial flutter, continue metoprolol and Lovenox. Dr. Hendrickson is asked to see patient in cardiology consultation. -Poorly controlled diabetes mellitus type 2, continue Lantus and pre-meal NovoLog, continue Januvia. Dr. Snider is following in endocrinology consultation. -Hypertension -Hyperlipidemia Further recommendations based on clinical course. Plan of care discussed with Dr. Moody. Result Diagram: 03/03/18 0557 03/03/18 0557 Results 24hrs Laboratory Tests Test 03/03/18 17:38 03/03/18 20:35 03/03/18 20:53 03/03/18 21:10 Bedside Glucose 72 57 L 101 109 Test 03/04/18 08:15 03/04/18 10:08 03/04/18 11:28 03/04/18 13:48 Bedside Glucose 163 118 78 108 Exam/Review of Systems Vital Signs Vitals Vital Signs Date Temp Pulse Resp B/P (MAP) Pulse Ox O2 O2 Flow FiO2 Time Delivery Rate 03/04/18 98.0 89 22 146/75 90 Nasal 15:47 (98) Cannula 03/04/18 2.0 07:50 Intake and Output 03/03/18 03/03/18 03/04/18 1515:00 23:00 07:00 IntakeIntake Total 300 ml 900 ml 650 ml BalanceBalance 300 ml 900 ml 650 ml Medications Medications Current Medications Ceftriaxone Sodium 50 ml @ 100 mls/hr Q24H IVPB Last administered on 03/04/18at 11:29; Admin Dose 100 MLS/HR; Start 03/02/18 at 11:00 Azithromycin 250 mg/Sodium Chloride 250 ml @ 250 mls/hr Q24H IVPB Last administered on 03/04/18 13:07; Admin Dose 250 MLS/HR; Start 03/02/18 at 12:00 Aspirin (Halfprin) 81 mg DAILY PO Last administered on 03/04/18 08:29; Admin Dose 81 MG; Start 03/02/18 at 09:00 Hydrochlorothiazide (Hydrochlorothiazide) 25 mg DAILY PO Last administered on 03/04/18 08:28; Admin Dose 25 MG; Start 03/02/18 at 09:00 Isosorbide Mononitrate (Imdur) 30 mg DAILY PO Last administered on 03/04/18 08:29; Admin Dose 30 MG; Start 03/02/18 at 09:00 Losartan Potassium (Cozaar) 100 mg DAILY PO Last administered on 03/04/18 08:29; Admin Dose 100 MG; Start 03/02/18 at 09:00 Metformin HCl (Glucophage) 1,000 mg BID WITH MEALS PO Last administered on 03/04/18 08:27; Admin Dose 1,000 MG; Start 03/02/18 at 07:55 Metoprolol Tartrate (Lopressor) 100 mg BID PO Last administered on 03/04/18 08:29; Admin Dose 100 MG; Start 03/01/18 at 21:00 Nifedipine (Procardia Xl) 30 mg DAILY PO Last administered on 03/04/18 08:28; Admin Dose 30 MG; Start 03/02/18 at 09:00 Pantoprazole (Protonix Tab) 40 mg DAILY@06 PO Last administered on 03/04/18 05:03; Admin Dose 40 MG; Start 03/02/18 at 06:00 Linagliptin (Tradjenta) 5 mg DAILY PO Last administered on 03/04/18 08:27; Admin Dose 5 MG; Start 03/02/18 at 09:00 IV Flush (NS 3 ml) 3 ml PER PROTOCOL IV ; Start 03/01/18 at 18:30 Ondansetron HCl (Zofran Inj) 4 mg Q6H PRN IV NAUSEA AND/OR VOMITING Last administered on 03/04/18 08:27; Admin Dose 4 MG; Start 03/01/18 at 18:30 Acetaminophen (Tylenol Tab) 650 mg Q6H PRN PO PAIN LEVEL 1-3 OR FEVER Last administered on 1/4/19at 20:43; Admin Dose 650 MG; Start 03/01/18 at 18:30 Acetaminophen/ Hydrocodone Bitart ([place] (5/325)) 1 tab Q6H PRN PO PAIN LEVEL 4-6; Start 03/01/18 at 18:30 Zolpidem Tartrate (Ambien) 5 mg QHS PRN PO INSOMNIA; Start 03/01/18 at 18:30 Docusate Sodium (Colace) 100 mg Q12H PRN PO CONSTIPATION; Start 03/01/18 at 18:30 Magnesium Hydroxide (Milk Of Mag) 30 ml DAILY PRN PO CONSTIPATION; Start 03/01/18 at 18:30 Famotidine (Pepcid) 20 mg Q12 PO Last administered on 03/04/18at 08:28; Admin Dose 20 MG; Start 03/01/18 at 21:00 Levalbuterol (Xopenex Neb) 0.63 mg Q6H RESP THERAPY PRN HHN SHORTNESS OF BREATH Last administered on 03/01/18at 19:34; Admin Dose 0.63 MG; Start 03/01/18 at 18:30 Insulin Aspart (Novolog Insulin Pen) NOVOLOG *MILD* ALGORITHM WITH MEALS BEDTIME SC Last administered on 03/04/18at 08:25; Admin Dose 1 UNIT; Start 03/01/18 at 21:00 Miscellaneous Information 1 ea NOTE XX ; Start 03/01/18 at 18:30 Glucose (Glutose) 15 gm Q15M PRN PO DECREASED GLUCOSE; Start 03/01/18 at 18:30 Glucose (Glutose) 22.5 gm Q15M PRN PO DECREASED GLUCOSE; Start 03/01/18 at 18:30 Dextrose (D50w Syringe) 25 ml Q15M PRN IV DECREASED GLUCOSE; Start 03/01/18 at 18:30 Dextrose (D50w Syringe) 50 ml Q15M PRN IV DECREASED GLUCOSE; Start 03/01/18 at 18:30 Glucagon (Glucagen) 1 mg Q15M PRN IM DECREASED GLUCOSE; Start 03/01/18 at 18:30 Glucose (Glutose) 15 gm Q15M PRN BUCCAL DECREASED GLUCOSE; Start 03/01/18 at 18:30 Metoprolol Tartrate (Lopressor) 5 mg Q4H PRN IV HR>110 Hold SBP<100; Start 03/02/18 at 14:00 Enoxaparin Sodium (Lovenox) 75 mg BID SC Last administered on 03/04/18 08:55; Admin Dose 75 MG; Start 03/02/18 at 21:00 Guaifenesin/ Codeine Phosphate (Robitussin Ac Liquid Cup) 5 ml Q4H PRN PO cough Last administered on 03/03/18 20:42; Admin Dose 5 ML; Start 03/02/18 at 16:30 Atorvastatin Calcium (Lipitor) 40 mg HS PO Last administered on 03/03/18 20:44; Admin Dose 40 MG; Start 03/02/18 at 21:00 Diagnostic Test (Pha) (Accu-Chek) 1 ea 2 HOURS AFTER MEALS XX Last administered on 03/04/18 13:51; Admin Dose 1 EA; Start 03/02/18 at 19:55 Diagnostic Test (Pha) (Accu-Chek) 1 ea AC MEALS XX Last administered on 03/04/18 11:29; Admin Dose 1 EA; Start 03/02/18 at 17:25 Insulin Aspart (Novolog Insulin Pen) 12 unit AC MEALS SC Last administered on 03/04/18 12:39; Admin Dose 12 UNIT; Start 03/04/18 at 12:00 Insulin Glargine (Lantus) 36 units HS SC ; Start 03/04/18 at 21:00 LIOR GRAF Mar 04, 2018 16:27
[2018-03-04] MEDS: ATORVASTATIN 40 MG TAB PO SCH (20:15)
--- NOTE | 2018-03-04 20:15 | CONS ---
Date/Time of Note Date/Time of Note DATE: 03/04/18 TIME: 20:14 Assessment/Plan Assessment/Plan Hospital Course 1345 Patient is alert feels better Antimicrobials: Zithromax Rocephin Physical examination: Who is alert in no distress. Head atraumatic normocephalic. Neck is supple chest rise symmetrical breath sounds well- developed elderly woman clear, diminished bases heart: S1-S2 abdomen soft bowel sounds present Assessment: 1. Community-acquired pneumonia 2. + UA==> urine cx neg 3. Diabetes 4. Hypertension 5. Atrial fibrillation Plan: Doing better, continue abx Result Diagram: 03/03/18 0557 03/03/18 0557 Results 24hrs Laboratory Tests Test 03/03/18 20:35 03/03/18 20:53 03/03/18 21:10 03/04/18 08:15 Bedside Glucose 57 L 101 109 163 Test 03/04/18 10:08 03/04/18 11:28 03/04/18 13:48 03/04/18 17:27 Bedside Glucose 118 78 108 71 Consultation Date/Type/Reason Admit Date/Time Mar 01, 2018 at 12:35 Initial Consult Date 03/02/18 Type of Consult id Requesting Provider: CHRISTI KUNZ MD Exam/Review of Systems Vital Signs Vitals Vital Signs Date Temp Pulse Resp B/P (MAP) Pulse Ox O2 O2 Flow FiO2 Time Delivery Rate 03/04/18 98.2 75 18 134/80 97 19:26 (98) 03/04/18 2.0 17:13 03/04/18 Nasal 15:47 Cannula Intake and Output 03/03/18 03/03/18 03/04/18 1515:00 23:00 07:00 IntakeIntake Total 300 ml 900 ml 650 ml BalanceBalance 300 ml 900 ml 650 ml Medications Medications Current Medications Ceftriaxone Sodium 50 ml @ 100 mls/hr Q24H IVPB Last administered on 03/04/18at 11:29; Admin Dose 100 MLS/HR; Start 03/02/18 at 11:00 Azithromycin 250 mg/Sodium Chloride 250 ml @ 250 mls/hr Q24H IVPB Last administered on 03/04/18at 13:07; Admin Dose 250 MLS/HR; Start 03/02/18 at 12:00 Aspirin (Halfprin) 81 mg DAILY PO Last administered on 03/04/18 08:29; Admin Dose 81 MG; Start 03/02/18 at 09:00 Hydrochlorothiazide (Hydrochlorothiazide) 25 mg DAILY PO Last administered on 03/04/18 08:28; Admin Dose 25 MG; Start 03/02/18 at 09:00 Isosorbide Mononitrate (Imdur) 30 mg DAILY PO Last administered on 03/04/18 08:29; Admin Dose 30 MG; Start 03/02/18 at 09:00 Losartan Potassium (Cozaar) 100 mg DAILY PO Last administered on 03/04/18 08:29; Admin Dose 100 MG; Start 03/02/18 at 09:00 Metformin HCl (Glucophage) 1,000 mg BID WITH MEALS PO Last administered on 03/04/18 17:28; Admin Dose 1,000 MG; Start 03/02/18 at 07:55 Metoprolol Tartrate (Lopressor) 100 mg BID PO Last administered on 03/04/18 08:29; Admin Dose 100 MG; Start 03/01/18 at 21:00 Nifedipine (Procardia Xl) 30 mg DAILY PO Last administered on 03/04/18 08:28; Admin Dose 30 MG; Start 03/02/18 at 09:00 Pantoprazole (Protonix Tab) 40 mg DAILY@06 PO Last administered on 03/04/18 05:03; Admin Dose 40 MG; Start 03/02/18 at 06:00 Linagliptin (Tradjenta) 5 mg DAILY PO Last administered on 03/04/18 08:27; Admin Dose 5 MG; Start 03/02/18 at 09:00 IV Flush (NS 3 ml) 3 ml PER PROTOCOL IV ; Start 03/01/18 at 18:30 Ondansetron HCl (Zofran Inj) 4 mg Q6H PRN IV NAUSEA AND/OR VOMITING Last administered on 03/04/18 08:27; Admin Dose 4 MG; Start 03/01/18 at 18:30 Acetaminophen (Tylenol Tab) 650 mg Q6H PRN PO PAIN LEVEL 1-3 OR FEVER Last administered on 03/03/18 20:43; Admin Dose 650 MG; Start 03/01/18 at 18:30 Acetaminophen/ Hydrocodone Bitart ([place] (5/325)) 1 tab Q6H PRN PO PAIN LEVEL 4-6; Start 03/01/18 at 18:30 Zolpidem Tartrate (Ambien) 5 mg QHS PRN PO INSOMNIA; Start 03/01/18 at 18:30 Docusate Sodium (Colace) 100 mg Q12H PRN PO CONSTIPATION; Start 03/01/18 at 18:30 Magnesium Hydroxide (Milk Of Mag) 30 ml DAILY PRN PO CONSTIPATION; Start 03/01/18 at 18:30 Famotidine (Pepcid) 20 mg Q12 PO Last administered on 03/04/18at 08:28; Admin Dose 20 MG; Start 03/01/18 at 21:00 Levalbuterol (Xopenex Neb) 0.63 mg Q6H RESP THERAPY PRN HHN SHORTNESS OF BREATH Last administered on 03/01/18at 19:34; Admin Dose 0.63 MG; Start 03/01/18 at 18:30 Insulin Aspart (Novolog Insulin Pen) NOVOLOG *MILD* ALGORITHM WITH MEALS BEDTIME SC Last administered on 03/04/18at 08:25; Admin Dose 1 UNIT; Start 03/01/18 at 21:00 Miscellaneous Information 1 ea NOTE XX ; Start 03/01/18 at 18:30 Glucose (Glutose) 15 gm Q15M PRN PO DECREASED GLUCOSE; Start 03/01/18 at 18:30 Glucose (Glutose) 22.5 gm Q15M PRN PO DECREASED GLUCOSE; Start 03/01/18 at 18:30 Dextrose (D50w Syringe) 25 ml Q15M PRN IV DECREASED GLUCOSE; Start 03/01/18 at 18:30 Dextrose (D50w Syringe) 50 ml Q15M PRN IV DECREASED GLUCOSE; Start 03/01/18 at 18:30 Glucagon (Glucagen) 1 mg Q15M PRN IM DECREASED GLUCOSE; Start 03/01/18 at 18:30 Glucose (Glutose) 15 gm Q15M PRN BUCCAL DECREASED GLUCOSE; Start 03/01/18 at 18:30 Metoprolol Tartrate (Lopressor) 5 mg Q4H PRN IV HR>110 Hold SBP<100; Start 03/02/18 at 14:00 Enoxaparin Sodium (Lovenox) 75 mg BID SC Last administered on 03/04/18at 08:55; Admin Dose 75 MG; Start 03/02/18 at 21:00 Guaifenesin/ Codeine Phosphate (Robitussin Ac Liquid Cup) 5 ml Q4H PRN PO cough Last administered on 03/03/18 20:42; Admin Dose 5 ML; Start 03/02/18 at 16:30 Atorvastatin Calcium (Lipitor) 40 mg HS PO Last administered on 03/03/18 20:44; Admin Dose 40 MG; Start 03/02/18 at 21:00 Diagnostic Test (Pha) (Accu-Chek) 1 ea 2 HOURS AFTER MEALS XX Last a dministered on 03/04/18 19:47; Admin Dose 1 EA; Start 03/02/18 at 19:55 Diagnostic Test (Pha) (Accu-Chek) 1 ea AC MEALS XX Last administered on 03/04/18 17:28; Admin Dose 1 EA; Start 03/02/18 at 17:25 Insulin Glargine (Lantus) 36 units HS SC ; Start 03/04/18 at 21:00 Insulin Aspart (Novolog Insulin Pen) 9 unit AC MEALS SC Last administered on 03/04/18 18:05; Admin Dose 9 UNIT; Start 03/04/18 at 18:00 DUDLEY TAVARES NP Mar 04, 2018 20:15
[2018-03-04] MEDS ORDERED: INSULIN GLARGINE [LANTus] (100 UNITS/ML) SYG SC SCH (21:00)
[2018-03-05] VITALS (12 sets, daily range): BP systolic 111–136; BP diastolic 69–75; PULSE 67–81; RESP 16–18
[2018-03-05] MEDS: PANTOPRAZOLE (EC) 40 MG TAB PO SCH (05:02)
[2018-03-05] MEDS: INSULIN ASPART [NOVOLOG] 3 ML PEN SC SCH ×7 (07:55→21:00)
[2018-03-05] MEDS: ACCU-CHEK XX SCH ×6 (08:11→19:55)
[2018-03-05] MEDS: ONDANSETRON 4 MG INJ IV PRN (08:11)
[2018-03-05] MEDS: metFORMIN 500 MG TAB PO SCH ×2 (08:12→17:42)
[2018-03-05] MEDS: FAMOTIDINE 20 MG TAB PO SCH ×2 (08:12→20:27)
[2018-03-05] MEDS: ASPIRIN (EC) 81 MG TAB PO SCH (08:12)
[2018-03-05] MEDS: LINAGLIPTIN 5 MG TABLET PO SCH (08:12)
[2018-03-05] MEDS: HYDROCHLOROTHIAZIDE 25 MG TAB PO SCH (08:13)
[2018-03-05] MEDS: NIFEdipine (XL) 30 MG TAB PO SCH (08:13)
[2018-03-05] MEDS: ISOSORBIDE MONONITRATE(SR)30 MG TAB PO SCH (08:13)
[2018-03-05] MEDS: LOSARTAN 50 MG TAB PO SCH (08:13)
[2018-03-05] MEDS: METOPROLOL 100 MG TAB PO SCH ×2 (08:14→20:27)
[2018-03-05] MEDS: ENOXAPARIN 80 MG/0.8 ML SYG SC SCH ×2 (08:23→20:48)
[2018-03-05] MEDS: CEFTRIAXONE 1 GM/50 ML (PMX) 50 ML IVPB SCH (10:27)
--- NOTE | 2018-03-05 11:50 | CONS ---
Date/Time of Note Date/Time of Note DATE: 03/05/18 TIME: 11:44 Assessment/Plan Assessment/Plan Problems: (1) Diabetes mellitus type 2 in nonobese Status: Chronic Comment: Good control but continuing to have hypoglycemia. Will decrease lantus to 30 units qhs and Novolog to 7 units sq qac. Reeval tomorrow. Result Diagram: 03/03/18 0557 03/03/18 0557 Results 24hrs Laboratory Tests Test 03/04/18 13:48 03/04/18 17:27 03/04/18 20:36 03/05/18 08:10 Bedside Glucose 108 71 89 100 Test 03/05/18 10:02 03/05/18 10:52 03/05/18 11:07 Bedside Glucose 68 L 76 132 Consultation Date/Type/Reason Admit Date/Time Mar 01, 2018 at 12:35 Initial Consult Date 03/02/18 Type of Consult Endocrinology Reason for Consultation T2DM management Requesting Provider: CHRISTI KUNZ MD 24 HR Interval Summary Constitutional: no complaints, improved; No requiring O2 Detailed Summary Respiratory: cough (less than yesterday), sputum (less than yesterday); No shortness of breath Cardiovascular: lightheadedness (when her BG is low) Gastrointestinal: no complaints Genitourinary: no complaints Musculoskeletal: no complaints Neurologic: no complaints Exam/Review of Systems Vital Signs Vitals VS - Last 72 Hours, by Label Date Temp Pulse Resp B/P (MAP) Pulse Ox O2 O2 Flow FiO2 Time Delivery Rate 03/05/18 68 08:00 03/05/18 97.9 77 16 136/74 94 Nasal 07:17 (94) Cannula 03/05/18 Nasal 2.0 07:16 Cannula 03/05/18 98.0 79 18 130/74 97 05:10 (92) 03/05/18 69 04:00 03/05/18 2.0 01:40 03/05/18 98.0 74 18 132/75 97 00:38 (94) 03/05/18 67 00:00 03/04/18 Nasal 2.0 20:30 Cannula 03/04/18 73 20:00 03/04/18 2.0 20:00 03/04/18 98.2 75 18 134/80 97 19:26 (98) 03/04/18 2.0 17:13 03/04/18 73 16:07 03/04/18 98.0 89 22 146/75 90 Nasal 15:47 (98) Cannula 03/04/18 76 12:02 03/04/18 98.8 76 20 140/81 94 Room Air 11:47 (100) 03/04/18 81 08:05 03/04/18 Nasal 2.0 07:50 Cannula 03/04/18 98.0 69 20 150/74 91 Nasal 07:45 (99) Cannula 03/04/18 97.9 84 18 135/65 98 04:35 (88) 03/04/18 2.0 04:30 03/04/18 57 04:00 03/04/18 97.9 84 18 115/58 98 00:22 (77) 03/04/18 74 00:00 03/03/18 69 20:00 03/03/18 97.6 68 18 137/73 98 19:29 (94) 03/03/18 Nasal 2.0 19:00 Cannula 03/03/18 2.0 18:45 03/03/18 2.0 18:14 03/03/18 76 16:48 03/03/18 98.0 79 20 137/73 98 Nasal 15:33 (94) Cannula 03/03/18 74 12:56 03/03/18 97.9 62 20 143/84 96 Nasal 11:42 (103) Cannula 03/03/18 84 09:09 03/03/18 Nasal 2.0 07:50 Cannula 03/03/18 98.0 73 20 154/83 97 Nasal 07:24 (106) Cannula 03/03/18 73 04:00 03/03/18 98.4 70 20 130/63 94 Room Air 03:39 (85) 03/03/18 3.0 00:44 03/03/18 98.0 69 18 139/74 95 Nasal 00:21 (95) Cannula 03/03/18 67 00:00 03/02/18 98.7 21:30 03/02/18 98.4 20:45 03/02/18 Nasal 2.0 20:00 Cannula 03/02/18 84 20:00 03/02/18 97.9 68 19 145/78 95 Nasal 19:22 (100) Cannula 03/02/18 3.0 18:46 03/02/18 94 16:30 03/02/18 98.0 82 20 124/77 96 Nasal 15:41 (93) Cannula 03/02/18 69 12:00 Vital Signs Date Temp Pulse Resp B/P (MAP) Pulse Ox O2 O2 Flow FiO2 Time Delivery Rate 03/05/18 68 08:00 03/05/18 97.9 16 136/74 94 Nasal 07:17 (94) Cannula 03/05/18 2.0 07:16 Intake and Output 03/04/18 03/04/18 03/05/18 1515:00 23:00 07:00 IntakeIntake Total 50 ml 600 ml 500 ml BalanceBalance 50 ml 600 ml 500 ml Exam Constitutional: alert, oriented, obese Psych: no complaints, nl mood/affect Respiratory: crackles/rales (B bases) Cardiovascular: regular rate and rhythm, nl pulses; No edema, No murmurs/extra sounds, No rub Gastrointestinal: soft, nl liver, spleen, non-tender, bowel sounds; No mass, No rebound or guarding Musculoskeletal: nl extremities to inspection Extremities: normal pulses; No cyanosis, No clubbing, No edema 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: [employer] 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, nl mental status, nl speech, nl strength Additional Comments Bedside Glucose - 72 Hours Test 03/02/18 15:50 03/02/18 16:19 03/02/18 17:33 03/02/18 20:44 Bedside 73 81 136 110 Glucose mg/dL (70-220) mg/dL (70-220) mg/dL (70-220) mg/dL (70-220) Test 03/03/18 04:59 03/03/18 07:31 03/03/18 09:18 03/03/18 11:15 Bedside 109 142 123 108 Glucose mg/dL (70-220) mg/dL (70-220) mg/dL (70-220) mg/dL (70-220) Test 03/03/18 13:53 03/03/18 17:38 03/03/18 20:35 03/03/18 20:53 Bedside 90 72 57 101 Glucose mg/dL (70-220) mg/dL (70-220) mg/dL (70-220) mg/dL (70-220) L Test 03/03/18 21:10 03/04/18 08:15 03/04/18 10:08 03/04/18 11:28 Bedside 109 163 118 78 Glucose mg/dL (70-220) mg/dL (70-220) mg/dL (70-220) mg/dL (70-220) Test 03/04/18 13:48 03/04/18 17:27 03/04/18 20:36 03/05/18 08:10 Bedside 108 71 89 100 Glucose mg/dL (70-220) mg/dL (70-220) mg/dL (70-220) mg/dL (70-220) Test 03/05/18 10:02 03/05/18 10:52 03/05/18 11:07 Bedside 68 76 132 Glucose mg/dL (70-220) mg/dL (70-220) mg/dL (70-220) L Medications Medications Current Medications Ceftriaxone Sodium 50 ml @ 100 mls/hr Q24H IVPB Last administered on 03/05/18at 10:27; Admin Dose 100 MLS/HR; Start 03/02/18 at 11:00 Azithromycin 250 mg/Sodium Chloride 250 ml @ 250 mls/hr Q24H IVPB Last administered on 03/04/18at 13:07; Admin Dose 250 MLS/HR; Start 03/02/18 at 12:00 Aspirin (Halfprin) 81 mg DAILY PO Last administered on 03/05/18at 08:12; Admin Dose 81 MG; Start 03/02/18 at 09:00 Hydrochlorothiazide (Hydrochlorothiazide) 25 mg DAILY PO Last administered on 03/05/18 08:13; Admin Dose 25 MG; Start 03/02/18 at 09:00 Isosorbide Mononitrate (Imdur) 30 mg DAILY PO Last administered on 03/05/18 08:13; Admin Dose 30 MG; Start 03/02/18 at 09:00 Losartan Potassium (Cozaar) 100 mg DAILY PO Last administered on 03/05/18 08:13; Admin Dose 100 MG; Start 03/02/18 at 09:00 Metformin HCl (Glucophage) 1,000 mg BID WITH MEALS PO Last administered on 03/05/18 08:12; Admin Dose 1,000 MG; Start 03/02/18 at 07:55 Metoprolol Tartrate (Lopressor) 100 mg BID PO Last administered on 03/05/18 08:14; Admin Dose 100 MG; Start 03/01/18 at 21:00 Nifedipine (Procardia Xl) 30 mg DAILY PO Last administered on 03/05/18 08:13; Admin Dose 30 MG; Start 03/02/18 at 09:00 Pantoprazole (Protonix Tab) 40 mg DAILY@06 PO Last administered on 03/05/18 05:02; Admin Dose 40 MG; Start 03/02/18 at 06:00 Linagliptin (Tradjenta) 5 mg DAILY PO Last administered on 03/05/18 08:12; Admin Dose 5 MG; Start 03/02/18 at 09:00 IV Flush (NS 3 ml) 3 ml PER PROTOCOL IV ; Start 03/01/18 at 18:30 Ondansetron HCl (Zofran Inj) 4 mg Q6H PRN IV NAUSEA AND/OR VOMITING Last administered on 03/05/18 08:11; Admin Dose 4 MG; Start 03/01/18 at 18:30 Acetaminophen (Tylenol Tab) 650 mg Q6H PRN PO PAIN LEVEL 1-3 OR FEVER Last administered on 03/03/18 20:43; Admin Dose 650 MG; Start 03/01/18 at 18:30 Acetaminophen/ Hydrocodone Bitart ([place] (5/325)) 1 tab Q6H PRN PO PAIN LEVEL 4-6; Start 03/01/18 at 18:30 Zolpidem Tartrate (Ambien) 5 mg QHS PRN PO INSOMNIA; Start 03/01/18 at 18:30 Docusate Sodium (Colace) 100 mg Q12H PRN PO CONSTIPATION; Start 03/01/18 at 18:30 Magnesium Hydroxide (Milk Of Mag) 30 ml DAILY PRN PO CONSTIPATION; Start 03/01/18 at 18:30 Famotidine (Pepcid) 20 mg Q12 PO Last administered on 03/05/18 08:12; Admin Dose 20 MG; Start 03/01/18 at 21:00 Levalbuterol (Xopenex Neb) 0.63 mg Q6H RESP THERAPY PRN HHN SHORTNESS OF BREATH Last administered on 03/01/18 19:34; Admin Dose 0.63 MG; Start 03/01/18 at 18:30 Insulin Aspart (Novolog Insulin Pen) NOVOLOG *MILD* ALGORITHM WITH MEALS BEDTIME SC Last administered on 03/04/18 08:25; Admin Dose 1 UNIT; Start 03/01/18 at 21:00 Miscellaneous Information 1 ea NOTE XX ; Start 03/01/18 at 18:30 Glucose (Glutose) 15 gm Q15M PRN PO DECREASED GLUCOSE Last administered on 03/05/18at 10:47; Admin Dose 15 GM; Start 03/01/18 at 18:30 Glucose (Glutose) 22.5 gm Q15M PRN PO DECREASED GLUCOSE; Start 03/01/18 at 18:30 Dextrose (D50w Syringe) 25 ml Q15M PRN IV DECREASED GLUCOSE; Start 03/01/18 at 18:30 Dextrose (D50w Syringe) 50 ml Q15M PRN IV DECREASED GLUCOSE; Start 03/01/18 at 18:30 Glucagon (Glucagen) 1 mg Q15M PRN IM DECREASED GLUCOSE; Start 03/01/18 at 18:30 Glucose (Glutose) 15 gm Q15M PRN BUCCAL DECREASED GLUCOSE Last administered on 03/05/18 10:33; Admin Dose 15 GM; Start 03/01/18 at 18:30 Metoprolol Tartrate (Lopressor) 5 mg Q4H PRN IV HR>110 Hold SBP<100; Start 03/02/18 at 14:00 Enoxaparin Sodium (Lovenox) 75 mg BID SC Last administered on 03/05/18 08:23; Admin Dose 75 MG; Start 03/02/18 at 21:00 Guaifenesin/ Codeine Phosphate (Robitussin Ac Liquid Cup) 5 ml Q4H PRN PO cough Last administered on 03/03/18 20:42; Admin Dose 5 ML; Start 03/02/18 at 16:30 Atorvastatin Calcium (Lipitor) 40 mg HS PO Last administered on 03/04/18 20:15; Admin Dose 40 MG; Start 03/02/18 at 21:00 Diagnostic Test (Pha) (Accu-Chek) 1 ea 2 HOURS AFTER MEALS XX Last administered on 03/05/18 10:06; Admin Dose 1 EA; Start 03/02/18 at 19:55 Diagnostic Test (Pha) (Accu-Chek) 1 ea AC MEALS XX Last administered on 03/05/18 11:35; Admin Dose 1 EA; Start 03/02/18 at 17:25 Insulin Aspart (Novolog Insulin Pen) 9 unit AC MEALS SC Last administered on 03/05/18at 08:23; Admin Dose 9 UNIT; Start 03/04/18 at 18:00 Insulin Aspart (Novolog Insulin Pen) 7 unit ONCE ONCE SC ; Start 03/05/18 at 12:00; Stop 03/05/18 at 12:01 Insulin Glargine (Lantus) 30 units HS SC ; Start 03/05/18 at 21:00 EMY SIBLEY MD Mar 05, 2018 11:50
[2018-03-05] MEDS: AZITHROMYCIN 250 MG in SOD CHLORIDE 0.9% 250 ML IVPB SCH (11:57)
[2018-03-05] MEDS ORDERED: INSULIN ASPART [NOVOLOG] 3 ML PEN SC ONE (12:00)
--- NOTE | 2018-03-05 13:17 | CONS ---
Date/Time of Note Date/Time of Note DATE: 03/05/18 TIME: 13:14 Assessment/Plan Assessment/Plan Result Diagram: 03/03/18 0557 03/03/18 0557 Results 24hrs Laboratory Tests Test 03/04/18 13:48 03/04/18 17:27 03/04/18 20:36 03/05/18 08:10 Bedside Glucose 108 71 89 100 Test 03/05/18 10:02 03/05/18 10:52 03/05/18 11:07 03/05/18 11:35 Bedside Glucose 68 L 76 132 217 Consultation Date/Type/Reason Admit Date/Time Mar 01, 2018 at 12:35 Initial Consult Date SUBJECTIVE: Patient is awake, alert , afebrile. Feeling good. VS: stable T: 97.6 LABS: reviewed. Antimicrobials: Zithromax and Rocephin Physical examination: GEN: 62 y/o female who is alert, in no distress. HENT: Head atraumatic normocephalic. Neck is supple Pulm: chest rise symmetrical breath sounds clear, diminished bases HEART: RRR, S1-S2 ABDOME: soft bowel sounds present Assessment: 1. Community-acquired pneumonia 2. + UA==> urine cx neg 3. Diabetes 4. Hypertension 5. Atrial fibrillation Plan: Pt is stable. Improving. Will continue current antbx treatment. Requesting Provider: CHRISTI KUNZ MD Exam/Review of Systems Vital Signs Vitals Vital Signs Date Temp Pulse Resp B/P (MAP) Pulse Ox O2 O2 Flow FiO2 Time Delivery Rate 03/05/18 76 12:32 03/05/18 97.6 17 111/69 95 Room Air 11:59 (83) 03/05/18 2.0 07:16 Intake and Output 03/04/18 03/04/18 03/05/18 1515:00 23:00 07:00 IntakeIntake Total 50 ml 600 ml 500 ml BalanceBalance 50 ml 600 ml 500 ml Medications Medications Current Medications Ceftriaxone Sodium 50 ml @ 100 mls/hr Q24H IVPB Last administered on 03/05/18at 10:27; Admin Dose 100 MLS/HR; Start 03/02/18 at 11:00 Azithromycin 250 mg/Sodium Chloride 250 ml @ 250 mls/hr Q24H IVPB Last administered on 1/6/19at 11:57; Admin Dose 250 MLS/HR; Start 03/02/18 at 12:00 Aspirin (Halfprin) 81 mg DAILY PO Last administered on 03/05/18 08:12; Admin Dose 81 MG; Start 03/02/18 at 09:00 Hydrochlorothiazide (Hydrochlorothiazide) 25 mg DAILY PO Last administered on 03/05/18 08:13; Admin Dose 25 MG; Start 03/02/18 at 09:00 Isosorbide Mononitrate (Imdur) 30 mg DAILY PO Last administered on 03/05/18 08:13; Admin Dose 30 MG; Start 03/02/18 at 09:00 Losartan Potassium (Cozaar) 100 mg DAILY PO Last administered on 03/05/18 08:13; Admin Dose 100 MG; Start 03/02/18 at 09:00 Metformin HCl (Glucophage) 1,000 mg BID WITH MEALS PO Last administered on 03/05/18 08:12; Admin Dose 1,000 MG; Start 03/02/18 at 07:55 Metoprolol Tartrate (Lopressor) 100 mg BID PO Last administered on 03/05/18 08:14; Admin Dose 100 MG; Start 03/01/18 at 21:00 Nifedipine (Procardia Xl) 30 mg DAILY PO Last administered on 03/05/18 08:13; Admin Dose 30 MG; Start 03/02/18 at 09:00 Pantoprazole (Protonix Tab) 40 mg DAILY@06 PO Last administered on 03/05/18 05:02; Admin Dose 40 MG; Start 03/02/18 at 06:00 Linagliptin (Tradjenta) 5 mg DAILY PO Last administered on 03/05/18 08:12; Admin Dose 5 MG; Start 03/02/18 at 09:00 IV Flush (NS 3 ml) 3 ml PER PROTOCOL IV ; Start 03/01/18 at 18:30 Ondansetron HCl (Zofran Inj) 4 mg Q6H PRN IV NAUSEA AND/OR VOMITING Last a dministered on 03/05/18 08:11; Admin Dose 4 MG; Start 03/01/18 at 18:30 Acetaminophen (Tylenol Tab) 650 mg Q6H PRN PO PAIN LEVEL 1-3 OR FEVER Last administered on 1/4/19at 20:43; Admin Dose 650 MG; Start 03/01/18 at 18:30 Acetaminophen/ Hydrocodone Bitart ([place] (5/325)) 1 tab Q6H PRN PO PAIN LEVEL 4-6; Start 03/01/18 at 18:30 Zolpidem Tartrate (Ambien) 5 mg QHS PRN PO INSOMNIA; Start 03/01/18 at 18:30 Docusate Sodium (Colace) 100 mg Q12H PRN PO CONSTIPATION; Start 03/01/18 at 18:30 Magnesium Hydroxide (Milk Of Mag) 30 ml DAILY PRN PO CONSTIPATION; Start 03/01/18 at 18:30 Famotidine (Pepcid) 20 mg Q12 PO Last administered on 03/05/18at 08:12; Admin Dose 20 MG; Start 03/01/18 at 21:00 Levalbuterol (Xopenex Neb) 0.63 mg Q6H RESP THERAPY PRN HHN SHORTNESS OF BREATH Last administered on 03/01/18at 19:34; Admin Dose 0.63 MG; Start 03/01/18 at 18:30 Insulin Aspart (Novolog Insulin Pen) NOVOLOG *MILD* ALGORITHM WITH MEALS BEDTIME SC Last administered on 03/04/18at 08:25; Admin Dose 1 UNIT; Start 03/01/18 at 21:00 Miscellaneous Information 1 ea NOTE XX ; Start 03/01/18 at 18:30 Glucose (Glutose) 15 gm Q15M PRN PO DECREASED GLUCOSE Last administered on 03/05/18at 10:47; Admin Dose 15 GM; Start 03/01/18 at 18:30 Glucose (Glutose) 22.5 gm Q15M PRN PO DECREASED GLUCOSE; Start 03/01/18 at 18:30 Dextrose (D50w Syringe) 25 ml Q15M PRN IV DECREASED GLUCOSE; Start 03/01/18 at 18:30 Dextrose (D50w Syringe) 50 ml Q15M PRN IV DECREASED GLUCOSE; Start 03/01/18 at 18:30 Glucagon (Glucagen) 1 mg Q15M PRN IM DECREASED GLUCOSE; Start 03/01/18 at 18:30 Glucose (Glutose) 15 gm Q15M PRN BUCCAL DECREASED GLUCOSE Last administered on 03/05/18at 10:33; Admin Dose 15 GM; Start 03/01/18 at 18:30 Metoprolol Tartrate (Lopressor) 5 mg Q4H PRN IV HR>110 Hold SBP<100; Start 03/02/18 at 14:00 Enoxaparin Sodium (Lovenox) 75 mg BID SC Last administered on 03/05/18 08:23; Admin Dose 75 MG; Start 03/02/18 at 21:00 Guaifenesin/ Codeine Phosphate (Robitussin Ac Liquid Cup) 5 ml Q4H PRN PO cough Last administered on 03/03/18at 20:42; Admin Dose 5 ML; Start 03/02/18 at 16:30 Atorvastatin Calcium (Lipitor) 40 mg HS PO Last administered on 03/04/18 20:15; Admin Dose 40 MG; Start 03/02/18 at 21:00 Diagnostic Test (Pha) (Accu-Chek) 1 ea 2 HOURS AFTER MEALS XX Last administered on 03/05/18 10:06; Admin Dose 1 EA; Start 03/02/18 at 19:55 Diagnostic Test (Pha) (Accu-Chek) 1 ea AC MEALS XX Last administered on 03/05/18at 11:35; Admin Dose 1 EA; Start 03/02/18 at 17:25 Insulin Aspart (Novolog Insulin Pen) 9 unit AC MEALS SC Last administered on 03/05/18 08:23; Admin Dose 9 UNIT; Start 03/04/18 at 18:00 Insulin Glargine (Lantus) 30 units HS SC ; Start 03/05/18 at 21:00 LEIGHA MARCOS Mar 05, 2018 13:17
--- NOTE | 2018-03-05 13:59 | CONS ---
Date/Time of Note Date/Time of Note DATE: 03/05/18 TIME: 13:57 Assessment/Plan Assessment/Plan Assessment/Plan 1. Atrial fibrillation, rate controlled at this time.-NL TSH. Neg trop x 3 - rate controlled - filles better now. Pt had 2.5 sec pause - no symptoms - in a. fib - no Class I indication for pacer. 2. Hypertension, currently under reasonable control - will adjust Rx as needed. Treated. 3. Shortness of breath, cough, possible consistent with an upper respiratory infection. Improved with therapy. BETTER now. 4. Increased BNP, assess for congestive heart failure. 5. Diabetes mellitus- on meds, keep euglycemic. 6. Hyperglycemia. 7. Probable urinary tract infection- on anti-bx now. Result Diagram: 03/03/18 0557 03/03/18 0557 Results 24hrs Laboratory Tests Test 03/04/18 17:27 03/04/18 20:36 03/05/18 08:10 03/05/18 10:02 Bedside Glucose 71 89 100 68 L Test 03/05/18 10:52 03/05/18 11:07 03/05/18 11:35 03/05/18 13:48 Bedside Glucose 76 132 217 196 Consultation Date/Type/Reason Admit Date/Time Mar 01, 2018 at 12:35 Initial Consult Date 03/02/18 Requesting Provider: CHRISTI KUNZ MD 24 HR Interval Summary Free Text/Dictation Pt had 2.5 sec pause - no symptoms - in a. fib - no Class I indication for pacer. ROS: No fever, no chills, no nausea, no vomiting, no diarrhea/constipation No recent weight changes No chest pain, no PND, no orthopnea No dizziness, blurred vision No thirst, no heat or cold intolerance Exam/Review of Systems Vital Signs Vitals Vital Signs Date Temp Pulse Resp B/P (MAP) Pulse Ox O2 O2 Flow FiO2 Time Delivery Rate 03/05/18 76 12:32 03/05/18 97.6 17 111/69 95 Room Air 11:59 (83) 03/05/18 2.0 07:16 Intake and Output 03/04/18 03/04/18 03/05/18 1515:00 23:00 07:00 IntakeIntake Total 50 ml 600 ml 500 ml BalanceBalance 50 ml 600 ml 500 ml Exam General: WN/WD/NAD, AOx 3 HEENT: Unicetric/atraumatic/EOMI (follows commands) NECK: JVD elevated, no thyromegaly Lymph: no lymphadenopathy HEART: irregular with no S3, II/ systolic murmur at apex LUNGS: Coarse sounds ABD: soft, NT, ND, +BS : Intact Neuro: non focal SKIN: chronic changes EXT: trace edema Medications Medications Current Medications Ceftriaxone Sodium 50 ml @ 100 mls/hr Q24H IVPB Last administered on 03/05/18 10:27; Admin Dose 100 MLS/HR; Start 03/02/18 at 11:00 Azithromycin 250 mg/Sodium Chloride 250 ml @ 250 mls/hr Q24H IVPB Last administered on 03/05/18 11:57; Admin Dose 250 MLS/HR; Start 03/02/18 at 12:00 Aspirin (Halfprin) 81 mg DAILY PO Last administered on 03/05/18 08:12; Admin Dose 81 MG; Start 03/02/18 at 09:00 Hydrochlorothiazide (Hydrochlorothiazide) 25 mg DAILY PO Last administered on 03/05/18 08:13; Admin Dose 25 MG; Start 03/02/18 at 09:00 Isosorbide Mononitrate (Imdur) 30 mg DAILY PO Last administered on 03/05/18 08:13; Admin Dose 30 MG; Start 03/02/18 at 09:00 Losartan Potassium (Cozaar) 100 mg DAILY PO Last administered on 03/05/18 08:13; Admin Dose 100 MG; Start 03/02/18 at 09:00 Metformin HCl (Glucophage) 1,000 mg BID WITH MEALS PO Last administered on 03/05/18 08:12; Admin Dose 1,000 MG; Start 03/02/18 at 07:55 Metoprolol Tartrate (Lopressor) 100 mg BID PO Last administered on 03/05/18 08:14; Admin Dose 100 MG; Start 03/01/18 at 21:00 Nifedipine (Procardia Xl) 30 mg DAILY PO Last administered on 03/05/18 08:13; Admin Dose 30 MG; Start 03/02/18 at 09:00 Pantoprazole (Protonix Tab) 40 mg DAILY@06 PO Last administered on 03/05/18 05:02; Admin Dose 40 MG; Start 03/02/18 at 06:00 Linagliptin (Tradjenta) 5 mg DAILY PO Last administered on 03/05/18 08:12; Admin Dose 5 MG; Start 03/02/18 at 09:00 IV Flush (NS 3 ml) 3 ml PER PROTOCOL IV ; Start 03/01/18 at 18:30 Ondansetron HCl (Zofran Inj) 4 mg Q6H PRN IV NAUSEA AND/OR VOMITING Last administered on 03/05/18 08:11; Admin Dose 4 MG; Start 03/01/18 at 18:30 Acetaminophen (Tylenol Tab) 650 mg Q6H PRN PO PAIN LEVEL 1-3 OR FEVER Last administered on 03/03/18 20:43; Admin Dose 650 MG; Start 03/01/18 at 18:30 Acetaminophen/ Hydrocodone Bitart ([place] (5/325)) 1 tab Q6H PRN PO PAIN LEVEL 4-6; Start 03/01/18 at 18:30 Zolpidem Tartrate (Ambien) 5 mg QHS PRN PO INSOMNIA; Start 03/01/18 at 18:30 Docusate Sodium (Colace) 100 mg Q12H PRN PO CONSTIPATION; Start 03/01/18 at 18:30 Magnesium Hydroxide (Milk Of Mag) 30 ml DAILY PRN PO CONSTIPATION; Start 03/01/18 at 18:30 Famotidine (Pepcid) 20 mg Q12 PO Last administered on 03/05/18 08:12; Admin Dose 20 MG; Start 03/01/18 at 21:00 Levalbuterol (Xopenex Neb) 0.63 mg Q6H RESP THERAPY PRN HHN SHORTNESS OF BREATH Last administered on 03/01/18 19:34; Admin Dose 0.63 MG; Start 03/01/18 at 18:30 Insulin Aspart (Novolog Insulin Pen) NOVOLOG *MILD* ALGORITHM WITH MEALS BEDTIME SC Last administered on 03/04/18 08:25; Admin Dose 1 UNIT; Start 03/01/18 at 21:00 Miscellaneous Information 1 ea NOTE XX ; Start 03/01/18 at 18:30 Glucose (Glutose) 15 gm Q15M PRN PO DECREASED GLUCOSE Last administered on 03/05/18 10:47; Admin Dose 15 GM; Start 03/01/18 at 18:30 Glucose (Glutose) 22.5 gm Q15M PRN PO DECREASED GLUCOSE; Start 03/01/18 at 18:30 Dextrose (D50w Syringe) 25 ml Q15M PRN IV DECREASED GLUCOSE; Start 03/01/18 at 18:30 Dextrose (D50w Syringe) 50 ml Q15M PRN IV DECREASED GLUCOSE; Start 03/01/18 at 18:30 Glucagon (Glucagen) 1 mg Q15M PRN IM DECREASED GLUCOSE; Start 03/01/18 at 18:30 Glucose (Glutose) 15 gm Q15M PRN BUCCAL DECREASED GLUCOSE Last administered on 03/05/18 10:33; Admin Dose 15 GM; Start 03/01/18 at 18:30 Metoprolol Tartrate (Lopressor) 5 mg Q4H PRN IV HR>110 Hold SBP<100; Start 03/02/18 at 14:00 Enoxaparin Sodium (Lovenox) 75 mg BID SC Last administered on 03/05/18 08:23; Admin Dose 75 MG; Start 03/02/18 at 21:00 Guaifenesin/ Codeine Phosphate (Robitussin Ac Liquid Cup) 5 ml Q4H PRN PO cough Last administered on 03/03/18 20:42; Admin Dose 5 ML; Start 03/02/18 at 16:30 Atorvastatin Calcium (Lipitor) 40 mg HS PO Last administered on 03/04/18 20:15; Admin Dose 40 MG; Start 03/02/18 at 21:00 Diagnostic Test (Pha) (Accu-Chek) 1 ea 2 HOURS AFTER MEALS XX Last administered on 03/05/18 13:50; Admin Dose 1 EA; Start 03/02/18 at 19:55 Diagnostic Test (Pha) (Accu-Chek) 1 ea AC MEALS XX Last administered on 03/05/18 11:35; Admin Dose 1 EA; Start 03/02/18 at 17:25 Insulin Aspart (Novolog Insulin Pen) 9 unit AC MEALS SC Last administered on 03/05/18 08:23; Admin Dose 9 UNIT; Start 03/04/18 at 18:00 Insulin Glargine (Lantus) 30 units HS SC ; Start 03/05/18 at 21:00 TREVER VELÁSQUEZ MD Mar 05, 2018 13:59
--- NOTE | 2018-03-05 15:46 | PN ---
Date/Time of Note Date/Time of Note DATE: 03/05/18 TIME: 15:45 Assessment/Plan VTE Prophylaxis Risk score (from [facility]0 risk: 3 SCD applied (from [facility]): Yes SCD contraindicated: other Pharmacological prophylaxis: other Pharm contraindication: other Lines/Catheters IV Catheter Type (from [facility]): [place] Urinary Cath still in place: No Assessment/Plan Assessment/Plan -Sepsis secondary to community-acquired pneumonia versus acute bronchitis. Continue Rocephin and Zithromax. Dr. Ivory is asked to see patient in infection disease consultation. -Possible UTI per UA -Atrial flutter, continue metoprolol and Lovenox. Dr. Hendrickson is asked to see patient in cardiology consultation. -Poorly controlled diabetes mellitus type 2, continue Lantus and pre-meal NovoLog, continue Januvia. Dr. Snider is following in endocrinology consultation. -Hypertension -Hyperlipidemia Further recommendations based on clinical course. Plan of care discussed with Dr. Moody. Result Diagram: 03/03/18 0557 03/03/18 0557 Results 24hrs Laboratory Tests Test 03/04/18 17:27 03/04/18 20:36 03/05/18 08:10 03/05/18 10:02 Bedside Glucose 71 89 100 68 L Test 03/05/18 10:52 03/05/18 11:07 03/05/18 11:35 03/05/18 13:48 Bedside Glucose 76 132 217 196 Subjective 24 Hr Interval Summary Constitutional: improved Exam/Review of Systems Vital Signs Vitals Vital Signs Date Temp Pulse Resp B/P (MAP) Pulse Ox O2 O2 Flow FiO2 Time Delivery Rate 03/05/18 76 12:32 03/05/18 97.6 17 111/69 95 Room Air 11:59 (83) 03/05/18 2.0 07:16 Intake and Output 03/04/18 03/04/18 03/05/18 1515:00 23:00 07:00 IntakeIntake Total 50 ml 600 ml 500 ml BalanceBalance 50 ml 600 ml 500 ml Medications Medications Current Medications Ceftriaxone Sodium 50 ml @ 100 mls/hr Q24H IVPB Last administered on 03/05/18at 10:27; Admin Dose 100 MLS/HR; Start 03/02/18 at 11:00 Azithromycin 250 mg/Sodium Chloride 250 ml @ 250 mls/hr Q24H IVPB Last administered on 03/05/18 11:57; Admin Dose 250 MLS/HR; Start 03/02/18 at 12:00 Aspirin (Halfprin) 81 mg DAILY PO Last administered on 03/05/18 08:12; Admin Dose 81 MG; Start 03/02/18 at 09:00 Hydrochlorothiazide (Hydrochlorothiazide) 25 mg DAILY PO Last administered on 03/05/18 08:13; Admin Dose 25 MG; Start 03/02/18 at 09:00 Isosorbide Mononitrate (Imdur) 30 mg DAILY PO Last administered on 03/05/18 08:13; Admin Dose 30 MG; Start 03/02/18 at 09:00 Losartan Potassium (Cozaar) 100 mg DAILY PO Last administered on 03/05/18 08:13; Admin Dose 100 MG; Start 03/02/18 at 09:00 Metformin HCl (Glucophage) 1,000 mg BID WITH MEALS PO Last administered on 03/05/18 08:12; Admin Dose 1,000 MG; Start 03/02/18 at 07:55 Metoprolol Tartrate (Lopressor) 100 mg BID PO Last administered on 03/05/18 08:14; Admin Dose 100 MG; Start 03/01/18 at 21:00 Nifedipine (Procardia Xl) 30 mg DAILY PO Last administered on 03/05/18 08:13; Admin Dose 30 MG; Start 03/02/18 at 09:00 Pantoprazole (Protonix Tab) 40 mg DAILY@06 PO Last administered on 03/05/18 05:02; Admin Dose 40 MG; Start 03/02/18 at 06:00 Linagliptin (Tradjenta) 5 mg DAILY PO Last administered on 03/05/18 08:12; Admin Dose 5 MG; Start 03/02/18 at 09:00 IV Flush (NS 3 ml) 3 ml PER PROTOCOL IV ; Start 03/01/18 at 18:30 Ondansetron HCl (Zofran Inj) 4 mg Q6H PRN IV NAUSEA AND/OR VOMITING Last administered on 03/05/18 08:11; Admin Dose 4 MG; Start 03/01/18 at 18:30 Acetaminophen (Tylenol Tab) 650 mg Q6H PRN PO PAIN LEVEL 1-3 OR FEVER Last administered on 03/03/18 20:43; Admin Dose 650 MG; Start 03/01/18 at 18:30 Acetaminophen/ Hydrocodone Bitart ([place] (5/325)) 1 tab Q6H PRN PO PAIN LEVEL 4-6; Start 03/01/18 at 18:30 Zolpidem Tartrate (Ambien) 5 mg QHS PRN PO INSOMNIA; Start 03/01/18 at 18:30 Docusate Sodium (Colace) 100 mg Q12H PRN PO CONSTIPATION; Start 03/01/18 at 18:30 Magnesium Hydroxide (Milk Of Mag) 30 ml DAILY PRN PO CONSTIPATION; Start 03/01/18 at 18:30 Famotidine (Pepcid) 20 mg Q12 PO Last administered on 03/05/18at 08:12; Admin Dose 20 MG; Start 03/01/18 at 21:00 Levalbuterol (Xopenex Neb) 0.63 mg Q6H RESP THERAPY PRN HHN SHORTNESS OF BREATH Last administered on 03/01/18at 19:34; Admin Dose 0.63 MG; Start 03/01/18 at 18:30 Insulin Aspart (Novolog Insulin Pen) NOVOLOG *MILD* ALGORITHM WITH MEALS BEDTIME SC Last administered on 03/04/18 08:25; Admin Dose 1 UNIT; Start 03/01/18 at 21:00 Miscellaneous Information 1 ea NOTE XX ; Start 03/01/18 at 18:30 Glucose (Glutose) 15 gm Q15M PRN PO DECREASED GLUCOSE Last administered on 03/05/18at 10:47; Admin Dose 15 GM; Start 03/01/18 at 18:30 Glucose (Glutose) 22.5 gm Q15M PRN PO DECREASED GLUCOSE; Start 03/01/18 at 18:30 Dextrose (D50w Syringe) 25 ml Q15M PRN IV DECREASED GLUCOSE; Start 03/01/18 at 18:30 Dextrose (D50w Syringe) 50 ml Q15M PRN IV DECREASED GLUCOSE; Start 03/01/18 at 18:30 Glucagon (Glucagen) 1 mg Q15M PRN IM DECREASED GLUCOSE; Start 03/01/18 at 18:30 Glucose (Glutose) 15 gm Q15M PRN BUCCAL DECREASED GLUCOSE Last administered on 03/05/18at 10:33; Admin Dose 15 GM; Start 03/01/18 at 18:30 Metoprolol Tartrate (Lopressor) 5 mg Q4H PRN IV HR>110 Hold SBP<100; Start 03/02/18 at 14:00 Enoxaparin Sodium (Lovenox) 75 mg BID SC Last administered on 03/05/18 08:23; Admin Dose 75 MG; Start 03/02/18 at 21:00 Guaifenesin/ Codeine Phosphate (Robitussin Ac Liquid Cup) 5 ml Q4H PRN PO cough Last administered on 03/03/18 20:42; Admin Dose 5 ML; Start 03/02/18 at 16:30 Atorvastatin Calcium (Lipitor) 40 mg HS PO Last administered on 03/04/18 20:15; Admin Dose 40 MG; Start 03/02/18 at 21:00 Diagnostic Test (Pha) (Accu-Chek) 1 ea 2 HOURS AFTER MEALS XX Last administered on 03/05/18 13:50; Admin Dose 1 EA; Start 03/02/18 at 19:55 Diagnostic Test (Pha) (Accu-Chek) 1 ea AC MEALS XX Last administered on 03/05/18at 11:35; Admin Dose 1 EA; Start 03/02/18 at 17:25 Insulin Aspart (Novolog Insulin Pen) 9 unit AC MEALS SC Last administered on 03/05/18 08:23; Admin Dose 9 UNIT; Start 03/04/18 at 18:00 Insulin Glargine (Lantus) 30 units HS SC ; Start 03/05/18 at 21:00 LIOR GRAF Mar 05, 2018 15:46
[2018-03-05] MEDS: ATORVASTATIN 40 MG TAB PO SCH (20:28)
[2018-03-05] MEDS: INSULIN GLARGINE [LANTus] (100 UNITS/ML) SYG SC SCH (21:02)
--- NOTE | 2018-03-05 21:18 | RADRPT ---
Vent Rate: 71 bpm RR Interval: 0 msec IA Interval: 0 msec QRS Duration: 80 msec QT Interval: 404 msec QTC Interval: 439 msec P-R-T Leon: 0 - 58 - [address] amp; T wave abnormality, consider inferior ischemia or digitalis effect Abnormal ECG Electronically Signed By: Trino Luciano [id number]
[2018-03-06] VITALS (11 sets, daily range): BP systolic 114–150; BP diastolic 51–80; PULSE 68–90; RESP 18–20
[2018-03-06] MEDS: PANTOPRAZOLE (EC) 40 MG TAB PO SCH (05:34)
[2018-03-06] MEDS: INSULIN ASPART [NOVOLOG] 3 ML PEN SC SCH ×7 (07:55→21:00)
[2018-03-06] MEDS: ACCU-CHEK XX SCH ×6 (08:02→20:02)
[2018-03-06] MEDS: ISOSORBIDE MONONITRATE(SR)30 MG TAB PO SCH (08:05)
[2018-03-06] MEDS: FAMOTIDINE 20 MG TAB PO SCH ×2 (08:06→20:19)
[2018-03-06] MEDS: NIFEdipine (XL) 30 MG TAB PO SCH (08:06)
[2018-03-06] MEDS: HYDROCHLOROTHIAZIDE 25 MG TAB PO SCH (08:06)
[2018-03-06] MEDS: metFORMIN 500 MG TAB PO SCH ×2 (08:06→17:33)
[2018-03-06] MEDS: LOSARTAN 50 MG TAB PO SCH (08:06)
[2018-03-06] MEDS: ASPIRIN (EC) 81 MG TAB PO SCH (08:06)
[2018-03-06] MEDS: LINAGLIPTIN 5 MG TABLET PO SCH (08:07)
[2018-03-06] MEDS: METOPROLOL 100 MG TAB PO SCH ×2 (08:07→20:20)
[2018-03-06] MEDS: ENOXAPARIN 80 MG/0.8 ML SYG SC SCH ×2 (08:14→20:49)
[2018-03-06] MEDS: CEFTRIAXONE 1 GM/50 ML (PMX) 50 ML IVPB SCH (12:05)
[2018-03-06] MEDS: AZITHROMYCIN 250 MG in SOD CHLORIDE 0.9% 250 ML IVPB SCH (12:45)
--- NOTE | 2018-03-06 12:51 | CONS ---
Date/Time of Note Date/Time of Note DATE: 03/06/18 TIME: 12:50 Assessment/Plan Assessment/Plan Hospital Course IMPRESSION: 1. Atrial fibrillation, rate controlled at this time.-NL TSH. Neg trop x 3. 2. Hypertension, currently under reasonable control. 3. Shortness of breath, cough, possible consistent with an upper respiratory infection. 4. Increased BNP, assess for congestive heart failure. 5. Diabetes mellitus. 6. Hyperglycemia. 7. Probable urinary tract infection. Recc: -Tele -Continue current BB -Continue current HCTZ/procardia/losartan -Continue abx's and f/u cx data -Continue imdur -Ongoing adjustment of insulin therapy -Continue lovenox with transition to eliquis at D/C 5 po bid Result Diagram: 03/06/18 0534 03/06/18 0534 Results 24hrs Laboratory Tests Test 03/05/18 13:48 03/05/18 17:28 03/05/18 19:54 03/05/18 20:30 Bedside Glucose 196 71 78 74 Test 03/06/18 05:34 03/06/18 08:00 03/06/18 12:07 White Blood Count 10.3 # Red Blood Count 5.07 # Hemoglobin 13.8 Hematocrit 42.2 Mean Corpuscular Volume 83.2 Mean Corpuscular 27.2 #L Hemoglobin Mean Corpuscular 32.7 # Hemoglobin Concent Red Cell Distribution 15.1 H Width Platelet Count 374 Mean Platelet Volume 9.0 Immature Granulocytes % 0.500 H Neutrophils % 68.1 Lymphocytes % 19.4 Monocytes % 9.0 Eosinophils % 2.4 Basophils % 0.6 Nucleated Red Blood 0.0 Cells % Immature Granulocytes # 0.050 H Neutrophils # 7.0 Lymphocytes # 2.0 Monocytes # 0.9 Eosinophils # 0.3 Basophils # 0.1 Nucleated Red Blood 0.0 Cells # Sodium Level 137 Potassium Level 3.5 Chloride Level 99 Carbon Dioxide Level 31 Anion Gap 7 Blood Urea Nitrogen 18 Creatinine 0.67 Est Glomerular Filtrat > 60 Rate mL/min Glucose Level 78 Calcium Level 9.1 Total Bilirubin 0.2 Direct Bilirubin 0.00 Indirect Bilirubin 0.2 Aspartate Amino 27 Transf (AST/SGOT) Alanine 22 Aminotransferase (ALT/SG PT) Alkaline Phosphatase 98 Total Protein 7.4 Albumin 3.7 Globulin 3.70 H Albumin/Globulin Ratio 1.00 Bedside Glucose 85 150 Consultation Date/Type/Reason Admit Date/Time Mar 01, 2018 at 12:35 Initial Consult Date 03/02/18 Type of Consult cardiology Reason for Consultation AF Requesting Provider: CHRISTI KUNZ MD Exam/Review of Systems Vital Signs Vitals Vital Signs Date Temp Pulse Resp B/P (MAP) Pulse Ox O2 O2 Flow FiO2 Time Delivery Rate 03/06/18 68 12:49 03/06/18 97.5 18 130/68 93 Room Air 11:00 (88) 03/06/18 2.0 07:51 Intake and Output 03/05/18 03/05/18 03/06/18 1515:00 23:00 07:00 IntakeIntake Total 300 ml 480 ml 600 ml BalanceBalance 300 ml 480 ml 600 ml Exam Review of Systems: CONSTITUTIONAL: No fevers, chills. PULMONARY: No sob CARDIOVASCULAR: No chest pain/palpitations GASTROINTESTINAL: No nausea/vomiting. GENITOURINARY: No hematuria/dysuria. MUSCULOSKELETAL: No myagias/arthalgias. PSYCHIATRIC: The patient denies depression. NEUROLOGIC: No weakness Constitutional: alert, oriented Psych: no complaints Head: normocephalic ENMT: mucosa pink and moist Neck: supple, jvd (9 cm water) Respiratory: diminished breath sounds Cardiovascular: regular rate and rhythm Gastrointestinal: soft, non-tender Musculoskeletal: muscle tone (normal) Extremities: edema (none) 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: other (No focal deficits) Medications Medications Current Medications Ceftriaxone Sodium 50 ml @ 100 mls/hr Q24H IVPB Last administered on 03/06/18at 12:05; Admin Dose 100 MLS/HR; Start 03/02/18 at 11:00 Azithromycin 250 mg/Sodium Chloride 250 ml @ 250 mls/hr Q24H IVPB Last administered on 03/06/18at 12:45; Admin Dose 250 MLS/HR; Start 03/02/18 at 12:00 Aspirin (Halfprin) 81 mg DAILY PO Last administered on 03/06/18at 08:06; Admin Dose 81 MG; Start 03/02/18 at 09:00 Hydrochlorothiazide (Hydrochlorothiazide) 25 mg DAILY PO Last administered on 03/06/18at 08:06; Admin Dose 25 MG; Start 03/02/18 at 09:00 Isosorbide Mononitrate (Imdur) 30 mg DAILY PO Last administered on 03/06/18 08:05; Admin Dose 30 MG; Start 03/02/18 at 09:00 Losartan Potassium (Cozaar) 100 mg DAILY PO Last administered on 03/06/18 08:06; Admin Dose 100 MG; Start 03/02/18 at 09:00 Metformin HCl (Glucophage) 1,000 mg BID WITH MEALS PO Last administered on 03/06/18 08:06; Admin Dose 1,000 MG; Start 03/02/18 at 07:55 Metoprolol Tartrate (Lopressor) 100 mg BID PO Last administered on 03/06/18 08:07; Admin Dose 100 MG; Start 03/01/18 at 21:00 Nifedipine (Procardia Xl) 30 mg DAILY PO Last administered on 03/06/18 08:06; Admin Dose 30 MG; Start 03/02/18 at 09:00 Pantoprazole (Protonix Tab) 40 mg DAILY@06 PO Last administered on 03/06/18 05:34; Admin Dose 40 MG; Start 03/02/18 at 06:00 Linagliptin (Tradjenta) 5 mg DAILY PO Last administered on 03/06/18 08:07; Admin Dose 5 MG; Start 03/02/18 at 09:00 IV Flush (NS 3 ml) 3 ml PER PROTOCOL IV ; Start 03/01/18 at 18:30 Ondansetron HCl (Zofran Inj) 4 mg Q6H PRN IV NAUSEA AND/OR VOMITING Last administered on 03/05/18 08:11; Admin Dose 4 MG; Start 03/01/18 at 18:30 Acetaminophen (Tylenol Tab) 650 mg Q6H PRN PO PAIN LEVEL 1-3 OR FEVER Last administered on 03/03/18 20:43; Admin Dose 650 MG; Start 03/01/18 at 18:30 Acetaminophen/ Hydrocodone Bitart ([place] (5/325)) 1 tab Q6H PRN PO PAIN LEVEL 4-6; Start 03/01/18 at 18:30 Zolpidem Tartrate (Ambien) 5 mg QHS PRN PO INSOMNIA Last administered on 03/05/18 20:27; Admin Dose 5 MG; Start 03/01/18 at 18:30 Docusate Sodium (Colace) 100 mg Q12H PRN PO CONSTIPATION; Start 03/01/18 at 18:30 Magnesium Hydroxide (Milk Of Mag) 30 ml DAILY PRN PO CONSTIPATION; Start 03/01/18 at 18:30 Famotidine (Pepcid) 20 mg Q12 PO Last administered on 03/06/18at 08:06; Admin Dose 20 MG; Start 03/01/18 at 21:00 Levalbuterol (Xopenex Neb) 0.63 mg Q6H RESP THERAPY PRN HHN SHORTNESS OF BREATH Last administered on 03/01/18at 19:34; Admin Dose 0.63 MG; Start 03/01/18 at 18:30 Insulin Aspart (Novolog Insulin Pen) NOVOLOG *MILD* ALGORITHM WITH MEALS BEDTIME SC Last administered on 03/06/18 12:13; Admin Dose 1 UNIT; Start 03/01/18 at 21:00 Miscellaneous Information 1 ea NOTE XX ; Start 03/01/18 at 18:30 Glucose (Glutose) 15 gm Q15M PRN PO DECREASED GLUCOSE Last administered on 03/05/18at 10:47; Admin Dose 15 GM; Start 03/01/18 at 18:30 Glucose (Glutose) 22.5 gm Q15M PRN PO DECREASED GLUCOSE; Start 03/01/18 at 18:30 Dextrose (D50w Syringe) 25 ml Q15M PRN IV DECREASED GLUCOSE; Start 03/01/18 at 18:30 Dextrose (D50w Syringe) 50 ml Q15M PRN IV DECREASED GLUCOSE; Start 03/01/18 at 18:30 Glucagon (Glucagen) 1 mg Q15M PRN IM DECREASED GLUCOSE; Start 03/01/18 at 18:30 Glucose (Glutose) 15 gm Q15M PRN BUCCAL DECREASED GLUCOSE Last administered on 03/05/18at 10:33; Admin Dose 15 GM; Start 03/01/18 at 18:30 Metoprolol Tartrate (Lopressor) 5 mg Q4H PRN IV HR>110 Hold SBP<100; Start 03/02/18 at 14:00 Enoxaparin Sodium (Lovenox) 75 mg BID SC Last administered on 03/06/18at 08:14; Admin Dose 75 MG; Start 03/02/18 at 21:00 Guaifenesin/ Codeine Phosphate (Robitussin Ac Liquid Cup) 5 ml Q4H PRN PO cough Last administered on 03/03/18 20:42; Admin Dose 5 ML; Start 03/02/18 at 16:30 Atorvastatin Calcium (Lipitor) 40 mg HS PO Last administered on 03/05/18 20:28; Admin Dose 40 MG; Start 03/02/18 at 21:00 Diagnostic Test (Pha) (Accu-Chek) 1 ea 2 HOURS AFTER MEALS XX Last administered on 03/06/18 09:55; Admin Dose 1 EA; Start 03/02/18 at 19:55 Diagnostic Test (Pha) (Accu-Chek) 1 ea AC MEALS XX Last administered on 12:05; Admin Dose 1 EA; Start 03/02/18 at 17:25 Insulin Glargine (Lantus) 30 units HS SC Last administered on 03/05/18 21:02; Admin Dose 30 UNITS; Start 03/05/18 at 21:00 Insulin Aspart (Novolog Insulin Pen) 7 unit AC MEALS SC Last administered on 03/06/18 12:14; Admin Dose 7 UNIT; Start 03/05/18 at 18:00 Metronidazole (Flagyl) 500 mg Q8 PO ; Start 03/06/18 at 14:00; Stop 03/11/18 at 13:59; Status TONE HARRIS Mar 06, 2018 12:51
--- NOTE | 2018-03-06 12:55 | CONS ---
Date/Time of Note Date/Time of Note DATE: 03/06/18 TIME: 12:52 Assessment/Plan Assessment/Plan Hospital Course 62[facility] first met June 25, 2015. She has a history of diabetes mellitus type 2 and has at times been a challenge to get to come in. She was last seen in my office July 11, 2017 and was a no-show September 06 and October 06, 2017. Her regular primary care physician is Dr. Samm Jones of [facility]. Patient was admitted with an acute respiratory illness. Influenza swabs are negative. Problems: (1) Diabetes mellitus type 2 in nonobese Status: Chronic Comment: Adequate control in a controlled environment with controlled dietary axis and controlled administration of medications (2) Gardnerella vaginalis infection Status: Acute Comment: Positive culture. Strongly recommend treatment with 5 days of metronidazole (3) Essential hypertension Status: Chronic Comment: Adequate control Result Diagram: 03/06/18 0534 03/06/18 0534 Results 24hrs Laboratory Tests Test 03/05/18 13:48 03/05/18 17:28 03/05/18 19:54 03/05/18 20:30 Bedside Glucose 196 71 78 74 Test 03/06/18 05:34 03/06/18 08:00 03/06/18 12:07 White Blood Count 10.3 # Red Blood Count 5.07 # Hemoglobin 13.8 Hematocrit 42.2 Mean Corpuscular Volume 83.2 Mean Corpuscular 27.2 #L Hemoglobin Mean Corpuscular 32.7 # Hemoglobin Concent Red Cell Distribution 15.1 H Width Platelet Count 374 Mean Platelet Volume 9.0 Immature Granulocytes % 0.500 H Neutrophils % 68.1 Lymphocytes % 19.4 Monocytes % 9.0 Eosinophils % 2.4 Basophils % 0.6 Nucleated Red Blood 0.0 Cells % Immature Granulocytes # 0.050 H Neutrophils # 7.0 Lymphocytes # 2.0 Monocytes # 0.9 Eosinophils # 0.3 Basophils # 0.1 Nucleated Red Blood 0.0 Cells # Sodium Level 137 Potassium Level 3.5 Chloride Level 99 Carbon Dioxide Level 31 Anion Gap 7 Blood Urea Nitrogen 18 Creatinine 0.67 Est Glomerular Filtrat > 60 Rate mL/min Glucose Level 78 Calcium Level 9.1 Total Bilirubin 0.2 Direct Bilirubin 0.00 Indirect Bilirubin 0.2 Aspartate Amino 27 Transf (AST/SGOT) Alanine 22 Aminotransferase (ALT/SG PT) Alkaline Phosphatase 98 Total Protein 7.4 Albumin 3.7 Globulin 3.70 H Albumin/Globulin Ratio 1.00 Bedside Glucose 85 150 Consultation Date/Type/Reason Admit Date/Time Mar 01, 2018 at 12:35 Initial Consult Date 03/02/18 Type of Consult Endocrine Reason for Consultation Diabetes mellitus type 2 on a multiple daily injection regimen Requesting Provider: CHRISTI KUNZ MD 24 HR Interval Summary Free Text/Dictation Patient reports she is anxious to go home. No hypoglycemia Detailed Summary Endocrine: no complaints Exam/Review of Systems Vital Signs Vitals Vital Signs Date Temp Pulse Resp B/P (MAP) Pulse Ox O2 O2 Flow FiO2 Time Delivery Rate 03/06/18 68 12:49 03/06/18 97.5 18 130/68 93 Room Air 11:00 (88) 03/06/18 2.0 07:51 Intake and Output 03/05/18 03/05/18 03/06/18 1515:00 23:00 07:00 IntakeIntake Total 300 ml 480 ml 600 ml BalanceBalance 300 ml 480 ml 600 ml Exam Constitutional: alert, oriented Respiratory: clear to auscultation, normal air movement Cardiovascular: regular rate and rhythm, nl pulses Medications Medications Current Medications Ceftriaxone Sodium 50 ml @ 100 mls/hr Q24H IVPB Last administered on 03/06/18at 12:05; Admin Dose 100 MLS/HR; Start 03/02/18 at 11:00 Azithromycin 250 mg/Sodium Chloride 250 ml @ 250 mls/hr Q24H IVPB Last administered on 03/06/18at 12:45; Admin Dose 250 MLS/HR; Start 03/02/18 at 12:00 Aspirin (Halfprin) 81 mg DAILY PO Last administered on 03/06/18at 08:06; Admin Dose 81 MG; Start 03/02/18 at 09:00 Hydrochlorothiazide (Hydrochlorothiazide) 25 mg DAILY PO Last administered on 03/06/18at 08:06; Admin Dose 25 MG; Start 03/02/18 at 09:00 Isosorbide Mononitrate (Imdur) 30 mg DAILY PO Last administered on 03/06/18at 08:05; Admin Dose 30 MG; Start 03/02/18 at 09:00 Losartan Potassium (Cozaar) 100 mg DAILY PO Last administered on 03/06/18 08:06; Admin Dose 100 MG; Start 03/02/18 at 09:00 Metformin HCl (Glucophage) 1,000 mg BID WITH MEALS PO Last administered on 03/06/18 08:06; Admin Dose 1,000 MG; Start 03/02/18 at 07:55 Metoprolol Tartrate (Lopressor) 100 mg BID PO Last administered on 03/06/18 08:07; Admin Dose 100 MG; Start 03/01/18 at 21:00 Nifedipine (Procardia Xl) 30 mg DAILY PO Last administered on 03/06/18 08:06; Admin Dose 30 MG; Start 03/02/18 at 09:00 Pantoprazole (Protonix Tab) 40 mg DAILY@06 PO Last administered on 03/06/18 05:34; Admin Dose 40 MG; Start 03/02/18 at 06:00 Linagliptin (Tradjenta) 5 mg DAILY PO Last administered on 03/06/18 08:07; Admin Dose 5 MG; Start 03/02/18 at 09:00 IV Flush (NS 3 ml) 3 ml PER PROTOCOL IV ; Start 03/01/18 at 18:30 Ondansetron HCl (Zofran Inj) 4 mg Q6H PRN IV NAUSEA AND/OR VOMITING Last administered on 03/05/18 08:11; Admin Dose 4 MG; Start 03/01/18 at 18:30 Acetaminophen (Tylenol Tab) 650 mg Q6H PRN PO PAIN LEVEL 1-3 OR FEVER Last administered on 03/03/18 20:43; Admin Dose 650 MG; Start 03/01/18 at 18:30 Acetaminophen/ Hydrocodone Bitart ([place] (5/325)) 1 tab Q6H PRN PO PAIN LEVEL 4-6; Start 03/01/18 at 18:30 Zolpidem Tartrate (Ambien) 5 mg QHS PRN PO INSOMNIA Last administered on 03/05/18 20:27; Admin Dose 5 MG; Start 03/01/18 at 18:30 Docusate Sodium (Colace) 100 mg Q12H PRN PO CONSTIPATION; Start 03/01/18 at 18:30 Magnesium Hydroxide (Milk Of Mag) 30 ml DAILY PRN PO CONSTIPATION; Start 03/01/18 at 18:30 Famotidine (Pepcid) 20 mg Q12 PO Last administered on 03/06/18 08:06; Admin Dose 20 MG; Start 03/01/18 at 21:00 Levalbuterol (Xopenex Neb) 0.63 mg Q6H RESP THERAPY PRN HHN SHORTNESS OF BREATH Last administered on 03/01/18 19:34; Admin Dose 0.63 MG; Start 03/01/18 at 18:30 Insulin Aspart (Novolog Insulin Pen) NOVOLOG *MILD* ALGORITHM WITH MEALS BEDTIME SC Last administered on 03/06/18at 12:13; Admin Dose 1 UNIT; Start 03/01/18 at 21:00 Miscellaneous Information 1 ea NOTE XX ; Start 03/01/18 at 18:30 Glucose (Glutose) 15 gm Q15M PRN PO DECREASED GLUCOSE Last administered on 03/05/18at 10:47; Admin Dose 15 GM; Start 03/01/18 at 18:30 Glucose (Glutose) 22.5 gm Q15M PRN PO DECREASED GLUCOSE; Start 03/01/18 at 18:30 Dextrose (D50w Syringe) 25 ml Q15M PRN IV DECREASED GLUCOSE; Start 03/01/18 at 18:30 Dextrose (D50w Syringe) 50 ml Q15M PRN IV DECREASED GLUCOSE; Start 03/01/18 at 18:30 Glucagon (Glucagen) 1 mg Q15M PRN IM DECREASED GLUCOSE; Start 03/01/18 at 18:30 Glucose (Glutose) 15 gm Q15M PRN BUCCAL DECREASED GLUCOSE Last administered on 03/05/18at 10:33; Admin Dose 15 GM; Start 03/01/18 at 18:30 Metoprolol Tartrate (Lopressor) 5 mg Q4H PRN IV HR>110 Hold SBP<100; Start 03/02/18 at 14:00 Enoxaparin Sodium (Lovenox) 75 mg BID SC Last administered on 03/06/18at 08:14; Admin Dose 75 MG; Start 03/02/18 at 21:00 Guaifenesin/ Codeine Phosphate (Robitussin Ac Liquid Cup) 5 ml Q4H PRN PO cough Last administered on 03/03/18at 20:42; Admin Dose 5 ML; Start 03/02/18 at 16:30 Atorvastatin Calcium (Lipitor) 40 mg HS PO Last administered on 03/05/18 20:28; Admin Dose 40 MG; Start 03/02/18 at 21:00 Diagnostic Test (Pha) (Accu-Chek) 1 ea 2 HOURS AFTER MEALS XX Last administered on 03/06/18at 09:55; Admin Dose 1 EA; Start 03/02/18 at 19:55 Diagnostic Test (Pha) (Accu-Chek) 1 ea AC MEALS XX Last administered on 03/06/18at 12:05; Admin Dose 1 EA; Start 03/02/18 at 17:25 Insulin Glargine (Lantus) 30 units HS SC Last administered on 03/05/18at 21:02; Admin Dose 30 UNITS; Start 03/05/18 at 21:00 Insulin Aspart (Novolog Insulin Pen) 7 unit AC MEALS SC Last administered on 03/06/18at 12:14; Admin Dose 7 UNIT; Start 03/05/18 at 18:00 Metronidazole (Flagyl) 500 mg Q8 PO ; Start 03/06/18 at 14:00; Stop 03/11/18 at 13:59; Status PACO KING MD Mar 06, 2018 12:55
[2018-03-06] MEDS ORDERED: metroNIDAZOLE 500 MG TAB PO SCH (14:00)
--- NOTE | 2018-03-06 15:09 | CONS ---
Date/Time of Note Date/Time of Note DATE: 03/06/18 TIME: 15:09 Assessment/Plan Assessment/Plan Hospital Course Patient is alert feels good, no fevers, nad Antimicrobials: Zithromax Rocephin #5 Flagyl Physical examination: Who is alert in no distress. Head atraumatic normocephalic. Neck is supple chest rise symmetrical breath sounds well- developed elderly woman clear, diminished bases heart: S1-S2 abdomen soft bowel sounds present Assessment: 1. Community-acquired pneumonia 2. + UA==> urine cx +Gardrenella vaginalis, likely contaminant==> started on Flagyl 3. Diabetes 4. Hypertension 5. Atrial fibrillation Plan: Doing better, dc Zithromax in am, anticipate completing PO Flagyl 5 days Result Diagram: 03/06/1834 03/06/18 0534 Results 24hrs Laboratory Tests Test 03/05/18 17:28 03/05/18 19:54 03/05/18 20:30 03/06/18 05:34 Bedside Glucose 71 78 74 White Blood Count 10.3 # Red Blood Count 5.07 # Hemoglobin 13.8 Hematocrit 42.2 Mean Corpuscular Volume 83.2 Mean Corpuscular 27.2 #L Hemoglobin Mean Corpuscular 32.7 # Hemoglobin Concent Red Cell Distribution 15.1 H Width Platelet Count 374 Mean Platelet Volume 9.0 Immature Granulocytes % 0.500 H Neutrophils % 68.1 Lymphocytes % 19.4 Monocytes % 9.0 Eosinophils % 2.4 Basophils % 0.6 Nucleated Red Blood 0.0 Cells % Immature Granulocytes # 0.050 H Neutrophils # 7.0 Lymphocytes # 2.0 Monocytes # 0.9 Eosinophils # 0.3 Basophils # 0.1 Nucleated Red Blood 0.0 Cells # Sodium Level 137 Potassium Level 3.5 Chloride Level 99 Carbon Dioxide Level 31 Anion Gap 7 Blood Urea Nitrogen 18 Creatinine 0.67 Est Glomerular Filtrat > 60 Rate mL/min Glucose Level 78 Calcium Level 9.1 Total Bilirubin 0.2 Direct Bilirubin 0.00 Indirect Bilirubin 0.2 Aspartate Amino 27 Transf (AST/SGOT) Alanine 22 Aminotransferase (ALT/SG PT) Alkaline Phosphatase 98 Total Protein 7.4 Albumin 3.7 Globulin 3.70 H Albumin/Globulin Ratio 1.00 Test 03/06/18 08:00 03/06/18 12:07 03/06/18 13:44 Bedside Glucose 85 150 92 Consultation Date/Type/Reason Admit Date/Time Mar 01, 2018 at 12:35 Initial Consult Date 03/02/18 Type of Consult id Requesting Provider: CHRISTI KUNZ MD Exam/Review of Systems Vital Signs Vitals Vital Signs Date Temp Pulse Resp B/P (MAP) Pulse Ox O2 O2 Flow FiO2 Time Delivery Rate 03/06/18 68 12:49 03/06/18 97.5 18 130/68 93 Room Air 11:00 (88) 03/06/18 2.0 07:51 Intake and Output 03/05/18 03/05/18 03/06/18 1515:00 23:00 07:00 IntakeIntake Total 300 ml 480 ml 600 ml BalanceBalance 300 ml 480 ml 600 ml Medications Medications Current Medications Ceftriaxone Sodium 50 ml @ 100 mls/hr Q24H IVPB Last administered on 03/06/18 12:05; Admin Dose 100 MLS/HR; Start 03/02/18 at 11:00 Azithromycin 250 mg/Sodium Chloride 250 ml @ 250 mls/hr Q24H IVPB Last administered on 03/06/18at 12:45; Admin Dose 250 MLS/HR; Start 03/02/18 at 12:00 Aspirin (Halfprin) 81 mg DAILY PO Last administered on 03/06/18 08:06; Admin Dose 81 MG; Start 03/02/18 at 09:00 Hydrochlorothiazide (Hydrochlorothiazide) 25 mg DAILY PO Last administered on 03/06/18 08:06; Admin Dose 25 MG; Start 03/02/18 at 09:00 Isosorbide Mononitrate (Imdur) 30 mg DAILY PO Last administered on 03/06/18 08:05; Admin Dose 30 MG; Start 03/02/18 at 09:00 Losartan Potassium (Cozaar) 100 mg DAILY PO Last administered on 03/06/18 08:06; Admin Dose 100 MG; Start 03/02/18 at 09:00 Metformin HCl (Glucophage) 1,000 mg BID WITH MEALS PO Last administered on 03/06/18 08:06; Admin Dose 1,000 MG; Start 03/02/18 at 07:55 Metoprolol Tartrate (Lopressor) 100 mg BID PO Last administered on 1/7/19at 08:07; Admin Dose 100 MG; Start 03/01/18 at 21:00 Nifedipine (Procardia Xl) 30 mg DAILY PO Last administered on 03/06/18 08:06; Admin Dose 30 MG; Start 03/02/18 at 09:00 Pantoprazole (Protonix Tab) 40 mg DAILY@06 PO Last administered on 03/06/18 05:34; Admin Dose 40 MG; Start 03/02/18 at 06:00 Linagliptin (Tradjenta) 5 mg DAILY PO Last administered on 03/06/18 08:07; Admin Dose 5 MG; Start 03/02/18 at 09:00 IV Flush (NS 3 ml) 3 ml PER PROTOCOL IV ; Start 03/01/18 at 18:30 Ondansetron HCl (Zofran Inj) 4 mg Q6H PRN IV NAUSEA AND/OR VOMITING Last administered on 03/05/18 08:11; Admin Dose 4 MG; Start 03/01/18 at 18:30 Acetaminophen (Tylenol Tab) 650 mg Q6H PRN PO PAIN LEVEL 1-3 OR FEVER Last administered on 03/03/18at 20:43; Admin Dose 650 MG; Start 03/01/18 at 18:30 Acetaminophen/ Hydrocodone Bitart ([place] (5/325)) 1 tab Q6H PRN PO PAIN LEVEL 4-6; Start 03/01/18 at 18:30 Zolpidem Tartrate (Ambien) 5 mg QHS PRN PO INSOMNIA Last administered on 03/05/18 at 20:27; Admin Dose 5 MG; Start 03/01/18 at 18:30 Docusate Sodium (Colace) 100 mg Q12H PRN PO CONSTIPATION; Start 03/01/18 at 18:30 Magnesium Hydroxide (Milk Of Mag) 30 ml DAILY PRN PO CONSTIPATION; Start 03/01/18 at 18:30 Famotidine (Pepcid) 20 mg Q12 PO Last administered on 03/06/18 08:06; Admin Dose 20 MG; Start 03/01/18 at 21:00 Levalbuterol (Xopenex Neb) 0.63 mg Q6H RESP THERAPY PRN HHN SHORTNESS OF BREATH Last administered on 03/01/18 19:34; Admin Dose 0.63 MG; Start 03/01/18 at 18:30 Insulin Aspart (Novolog Insulin Pen) NOVOLOG *MILD* ALGORITHM WITH MEALS BEDTIME SC Last administered on 03/06/18 12:13; Admin Dose 1 UNIT; Start 03/01/18 at 21:00 Miscellaneous Information 1 ea NOTE XX ; Start 03/01/18 at 18:30 Glucose (Glutose) 15 gm Q15M PRN PO DECREASED GLUCOSE Last administered on 03/05/18at 10:47; Admin Dose 15 GM; Start 03/01/18 at 18:30 Glucose (Glutose) 22.5 gm Q15M PRN PO DECREASED GLUCOSE; Start 03/01/18 at 18:30 Dextrose (D50w Syringe) 25 ml Q15M PRN IV DECREASED GLUCOSE; Start 03/01/18 at 18:30 Dextrose (D50w Syringe) 50 ml Q15M PRN IV DECREASED GLUCOSE; Start 03/01/18 at 18:30 Glucagon (Glucagen) 1 mg Q15M PRN IM DECREASED GLUCOSE; Start 03/01/18 at 18:30 Glucose (Glutose) 15 gm Q15M PRN BUCCAL DECREASED GLUCOSE Last administered on 03/05/18at 10:33; Admin Dose 15 GM; Start 03/01/18 at 18:30 Metoprolol Tartrate (Lopressor) 5 mg Q4H PRN IV HR>110 Hold SBP<100; Start 03/02/18 at 14:00 Enoxaparin Sodium (Lovenox) 75 mg BID SC Last administered on 03/06/18 08:14; Admin Dose 75 MG; Start 03/02/18 at 21:00 Guaifenesin/ Codeine Phosphate (Robitussin Ac Liquid Cup) 5 ml Q4H PRN PO cough Last administered on 03/03/18 20:42; Admin Dose 5 ML; Start 03/02/18 at 16:30 Atorvastatin Calcium (Lipitor) 40 mg HS PO Last administered on 03/05/18 20:28; Admin Dose 40 MG; Start 03/02/18 at 21:00 Diagnostic Test (Pha) (Accu-Chek) 1 ea 2 HOURS AFTER MEALS XX Last administered on 03/06/18 13:44; Admin Dose 1 EA; Start 03/02/18 at 19:55 Diagnostic Test (Pha) (Accu-Chek) 1 ea AC MEALS XX Last administered on 1/7/19at 12:05; Admin Dose 1 EA; Start 03/02/18 at 17:25 Insulin Glargine (Lantus) 30 units HS SC Last administered on 03/05/18at 21:02; Admin Dose 30 UNITS; Start 03/05/18 at 21:00 Insulin Aspart (Novolog Insulin Pen) 7 unit AC MEALS SC Last administered on 03/06/18 12:14; Admin Dose 7 UNIT; Start 03/05/18 at 18:00 Metronidazole (Flagyl) 500 mg Q8 PO Last administered on 03/06/18at 13:54; Admin Dose 500 MG; Start 03/06/18 at 14:00; Stop 03/11/18 at 13:59 DUDLEY TAVARES NP Mar 06, 2018 15:09
--- NOTE | 2018-03-06 15:30 | PN ---
Date/Time of Note Date/Time of Note DATE: 03/06/18 TIME: 15:27 Assessment/Plan VTE Prophylaxis Risk score (from Ns)>0 risk: 2 SCD applied (from Ns): Yes Pharmacological prophylaxis: LMWH Lines/Catheters IV Catheter Type (from [facility]): [place] Urinary Cath still in place: No Assessment/Plan Hospital Course Patient complains of occasional cough, however, improved significantly over the weekend. Patient continued on antibiotic for pneumonia and UTI. Atrial fibrillation at controlled rate. We will obtain authorization for Eliquis prior to discharge. Assessment/Plan -Sepsis secondary to community-acquired pneumonia versus acute bronchitis. Continue Rocephin and Zithromax. Dr. Ivory is asked to see patient in infection disease consultation. -Possible UTI per UA -Atrial flutter, continue metoprolol and Lovenox. Dr. Hendrickson is following in cardiology consultation. -Poorly controlled diabetes mellitus type 2, continue Lantus and pre-meal NovoLog, continue Januvia. Dr. Snider is following in endocrinology consultation. -Hypertension -Hyperlipidemia Further recommendations based on clinical course. Plan of care discussed with Dr. Moody. Result Diagram: 03/06/18 0534 03/06/18 0534 Results 24hrs Laboratory Tests Test 03/05/18 17:28 03/05/18 19:54 03/05/18 20:30 03/06/18 05:34 Bedside Glucose 71 78 74 White Blood Count 10.3 # Red Blood Count 5.07 # Hemoglobin 13.8 Hematocrit 42.2 Mean Corpuscular Volume 83.2 Mean Corpuscular 27.2 #L Hemoglobin Mean Corpuscular 32.7 # Hemoglobin Concent Red Cell Distribution 15.1 H Width Platelet Count 374 Mean Platelet Volume 9.0 Immature Granulocytes % 0.500 H Neutrophils % 68.1 Lymphocytes % 19.4 Monocytes % 9.0 Eosinophils % 2.4 Basophils % 0.6 Nucleated Red Blood 0.0 Cells % Immature Granulocytes # 0.050 H Neutrophils # 7.0 Lymphocytes # 2.0 Monocytes # 0.9 Eosinophils # 0.3 Basophils # 0.1 Nucleated Red Blood 0.0 Cells # Sodium Level 137 Potassium Level 3.5 Chloride Level 99 Carbon Dioxide Level 31 Anion Gap 7 Blood Urea Nitrogen 18 Creatinine 0.67 Est Glomerular Filtrat > 60 Rate mL/min Glucose Level 78 Calcium Level 9.1 Total Bilirubin 0.2 Direct Bilirubin 0.00 Indirect Bilirubin 0.2 Aspartate Amino 27 Transf (AST/SGOT) Alanine 22 Aminotransferase (ALT/SG PT) Alkaline Phosphatase 98 Total Protein 7.4 Albumin 3.7 Globulin 3.70 H Albumin/Globulin Ratio 1.00 Test 03/06/18 08:00 03/06/18 12:07 03/06/18 13:44 Bedside Glucose 85 150 92 Exam/Review of Systems Vital Signs Vitals Vital Signs Date Temp Pulse Resp B/P (MAP) Pulse Ox O2 O2 Flow FiO2 Time Delivery Rate 03/06/18 68 12:49 03/06/18 97.5 18 130/68 93 Room Air 11:00 (88) 03/06/18 2.0 07:51 Intake and Output 03/05/18 03/05/18 03/06/18 1515:00 23:00 07:00 IntakeIntake Total 300 ml 480 ml 600 ml BalanceBalance 300 ml 480 ml 600 ml Exam Constitutional: alert, oriented Respiratory: clear Cardiovascular: irregular rhythm, other (Atrial fib) Gastrointestinal: soft, non-tender Musculoskeletal: nl extremities to inspection Extremities: normal pulses 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: nl mental status Medications Medications Current Medications Ceftriaxone Sodium 50 ml @ 100 mls/hr Q24H IVPB Last administered on 03/06/18 12:05; Admin Dose 100 MLS/HR; Start 03/02/18 at 11:00 Azithromycin 250 mg/Sodium Chloride 250 ml @ 250 mls/hr Q24H IVPB Last administered on 03/06/18at 12:45; Admin Dose 250 MLS/HR; Start 03/02/18 at 12:00 Aspirin (Halfprin) 81 mg DAILY PO Last administered on 03/06/18at 08:06; Admin Dose 81 MG; Start 03/02/18 at 09:00 Hydrochlorothiazide (Hydrochlorothiazide) 25 mg DAILY PO Last administered on 03/06/18 08:06; Admin Dose 25 MG; Start 03/02/18 at 09:00 Isosorbide Mononitrate (Imdur) 30 mg DAILY PO Last administered on 03/06/18 08:05; Admin Dose 30 MG; Start 03/02/18 at 09:00 Losartan Potassium (Cozaar) 100 mg DAILY PO Last administered on 03/06/18 08:06; Admin Dose 100 MG; Start 03/02/18 at 09:00 Metformin HCl (Glucophage) 1,000 mg BID WITH MEALS PO Last administered on 03/06/18 08:06; Admin Dose 1,000 MG; Start 03/02/18 at 07:55 Metoprolol Tartrate (Lopressor) 100 mg BID PO Last administered on 03/06/18 08 :07; Admin Dose 100 MG; Start 03/01/18 at 21:00 Nifedipine (Procardia Xl) 30 mg DAILY PO Last administered on 03/06/18 08:06; Admin Dose 30 MG; Start 03/02/18 at 09:00 Pantoprazole (Protonix Tab) 40 mg DAILY@06 PO Last administered on 03/06/18 05:34; Admin Dose 40 MG; Start 03/02/18 at 06:00 Linagliptin (Tradjenta) 5 mg DAILY PO Last administered on 03/06/18 08:07; Admin Dose 5 MG; Start 03/02/18 at 09:00 IV Flush (NS 3 ml) 3 ml PER PROTOCOL IV ; Start 03/01/18 at 18:30 Ondansetron HCl (Zofran Inj) 4 mg Q6H PRN IV NAUSEA AND/OR VOMITING Last administered on 03/05/18 08:11; Admin Dose 4 MG; Start 03/01/18 at 18:30 Acetaminophen (Tylenol Tab) 650 mg Q6H PRN PO PAIN LEVEL 1-3 OR FEVER Last administered on 03/03/18 20:43; Admin Dose 650 MG; Start 03/01/18 at 18:30 Acetaminophen/ Hydrocodone Bitart ([place] (5/325)) 1 tab Q6H PRN PO PAIN LEVEL 4-6; Start 03/01/18 at 18:30 Zolpidem Tartrate (Ambien) 5 mg QHS PRN PO INSOMNIA Last administered on 03/05/18 20:27; Admin Dose 5 MG; Start 03/01/18 at 18:30 Docusate Sodium (Colace) 100 mg Q12H PRN PO CONSTIPATION; Start 03/01/18 at 18:30 Magnesium Hydroxide (Milk Of Mag) 30 ml DAILY PRN PO CONSTIPATION; Start 03/01/18 at 18:30 Famotidine (Pepcid) 20 mg Q12 PO Last administered on 03/06/18 08:06; Admin Dose 20 MG; Start 03/01/18 at 21:00 Levalbuterol (Xopenex Neb) 0.63 mg Q6H RESP THERAPY PRN HHN SHORTNESS OF BREATH Last administered on 03/01/18 19:34; Admin Dose 0.63 MG; Start 03/01/18 at 18:30 Insulin Aspart (Novolog Insulin Pen) NOVOLOG *MILD* ALGORITHM WITH MEALS BEDTIME SC Last administered on 03/06/18 12:13; Admin Dose 1 UNIT; Start 03/01/18 at 21:00 Miscellaneous Information 1 ea NOTE XX ; Start 03/01/18 at 18:30 Glucose (Glutose) 15 gm Q15M PRN PO DECREASED GLUCOSE Last administered on 03/05/18 10:47; Admin Dose 15 GM; Start 03/01/18 at 18:30 Glucose (Glutose) 22.5 gm Q15M PRN PO DECREASED GLUCOSE; Start 03/01/18 at 18:30 Dextrose (D50w Syringe) 25 ml Q15M PRN IV DECREASED GLUCOSE; Start 03/01/18 at 18:30 Dextrose (D50w Syringe) 50 ml Q15M PRN IV DECREASED GLUCOSE; Start 03/01/18 at 18:30 Glucagon (Glucagen) 1 mg Q15M PRN IM DECREASED GLUCOSE; Start 03/01/18 at 18:30 Glucose (Glutose) 15 gm Q15M PRN BUCCAL DECREASED GLUCOSE Last administered on 03/05/18 10:33; Admin Dose 15 GM; Start 03/01/18 at 18:30 Metoprolol Tartrate (Lopressor) 5 mg Q4H PRN IV HR>110 Hold SBP<100; Start 03/02/18 at 14:00 Enoxaparin Sodium (Lovenox) 75 mg BID SC Last administered on 03/06/18 08:14; Admin Dose 75 MG; Start 03/02/18 at 21:00 Guaifenesin/ Codeine Phosphate (Robitussin Ac Liquid Cup) 5 ml Q4H PRN PO cough Last administered on 03/03/18 20:42; Admin Dose 5 ML; Start 03/02/18 at 16:30 Atorvastatin Calcium (Lipitor) 40 mg HS PO Last administered on 03/05/18 20:28; Admin Dose 40 MG; Start 03/02/18 at 21:00 Diagnostic Test (Pha) (Accu-Chek) 1 ea 2 HOURS AFTER MEALS XX Last administered on 03/06/18at 13:44; Admin Dose 1 EA; Start 03/02/18 at 19:55 Diagnostic Test (Pha) (Accu-Chek) 1 ea AC MEALS XX Last administered on 03/06/18at 12:05; Admin Dose 1 EA; Start 03/02/18 at 17:25 Insulin Glargine (Lantus) 30 units HS SC Last administered on 03/05/18at 21:02; Admin Dose 30 UNITS; Start 03/05/18 at 21:00 Insulin Aspart (Novolog Insulin Pen) 7 unit AC MEALS SC Last administered on 03/06/18at 12:14; Admin Dose 7 UNIT; Start 03/05/18 at 18:00 Metronidazole (Flagyl) 500 mg Q8 PO ; Start 03/06/18 at 22:00 BEATRIZ JUAREZ Mar 06, 2018 15:30
[2018-03-06] MEDS: ONDANSETRON 4 MG INJ IV PRN (18:42)
[2018-03-06] MEDS: ATORVASTATIN 40 MG TAB PO SCH (20:19)
[2018-03-06] MEDS: INSULIN GLARGINE [LANTus] (100 UNITS/ML) SYG SC SCH (21:16)
[2018-03-06] MEDS: metroNIDAZOLE 500 MG TAB PO SCH (21:18)
[2018-03-07] VITALS (9 sets, daily range): BP systolic 102–143; BP diastolic 50–78; PULSE 71–90; RESP 17–19
[2018-03-07] MEDS: PANTOPRAZOLE (EC) 40 MG TAB PO SCH (05:07)
[2018-03-07] MEDS: metroNIDAZOLE 500 MG TAB PO SCH ×2 (05:07→13:49)
[2018-03-07] MEDS: GUAIFENESIN/CODEINE 5ML CUP PO PRN ×2 (06:12→11:41)
[2018-03-07] MEDS: INSULIN ASPART [NOVOLOG] 3 ML PEN SC SCH ×4 (07:55→11:38)
[2018-03-07] MEDS: ACCU-CHEK XX SCH ×4 (08:07→13:46)
[2018-03-07] MEDS: metFORMIN 500 MG TAB PO SCH (08:08)
[2018-03-07] MEDS: ASPIRIN (EC) 81 MG TAB PO SCH (08:08)
[2018-03-07] MEDS: ISOSORBIDE MONONITRATE(SR)30 MG TAB PO SCH (08:08)
[2018-03-07] MEDS: METOPROLOL 100 MG TAB PO SCH (08:09)
[2018-03-07] MEDS: NIFEdipine (XL) 30 MG TAB PO SCH (08:09)
[2018-03-07] MEDS: FAMOTIDINE 20 MG TAB PO SCH (08:09)
[2018-03-07] MEDS: HYDROCHLOROTHIAZIDE 25 MG TAB PO SCH (08:09)
[2018-03-07] MEDS: LOSARTAN 50 MG TAB PO SCH (08:10)
[2018-03-07] MEDS: LINAGLIPTIN 5 MG TABLET PO SCH (08:10)
[2018-03-07] MEDS: ENOXAPARIN 80 MG/0.8 ML SYG SC SCH (08:15)
--- NOTE | 2018-03-07 09:45 | CONS ---
Date/Time of Note Date/Time of Note DATE: 03/07/18 TIME: 09:43 Assessment/Plan Assessment/Plan Assessment/Plan 1. Atrial fibrillation, rate controlled at this time.-NL TSH. Neg trop x 3 - rate controlled - filles better now. Pt had 2.5 sec pause - no symptoms - in a. fib - no Class I indication for pacer - rate controilled - Eliqius 5 mg po bid for d/c. 2. Hypertension, currently under reasonable control - will adjust Rx as needed. Treated. Well maintained now. 3. Shortness of breath, cough, possible consistent with an upper respiratory infection. Improved with therapy. BETTER now. 4. Increased BNP, assess for congestive heart failure. 5. Diabetes mellitus- on meds, keep euglycemic. On meds - keep euglycemic. 6. Hyperglycemia. 7. Probable urinary tract infection- on anti-bx now- better now. Result Diagram: 03/06/18 0534 03/06/18 0534 Results 24hrs Laboratory Tests Test 03/06/18 12:07 03/06/18 13:44 03/06/18 17:20 03/06/18 20:01 Bedside Glucose 150 92 73 122 Test 03/06/18 21:07 03/07/18 08:06 Bedside Glucose 123 131 Consultation Date/Type/Reason Admit Date/Time Mar 01, 2018 at 12:35 Initial Consult Date 03/02/18 Requesting Provider: CHRISTI KUNZ MD 24 HR Interval Summary Free Text/Dictation NO acute change -feels better overall - rate controlled. ROS: No fever, no chills, no nausea, no vomiting, no diarrhea/constipation No recent weight changes No chest pain, no PND, no orthopnea - mild SOB, no wheezing No dizziness, blurred vision No thirst, no heat or cold intolerance Exam/Review of Systems Vital Signs Vitals Vital Signs Date Temp Pulse Resp B/P (MAP) Pulse Ox O2 O2 Flow FiO2 Time Delivery Rate 03/07/18 2.0 08:38 03/07/18 75 08:30 03/07/18 Nasal 07:42 Cannula 03/07/18 98.0 17 142/66 97 07:23 (91) Intake and Output 03/06/18 03/06/18 03/07/18 1515:00 23:00 07:00 IntakeIntake Total 50 ml 800 ml 850 ml BalanceBalance 50 ml 800 ml 850 ml Exam General: WN/WD/NAD, AOx 3 HEENT: Unicetric/atraumatic/EOMI (follows commands) NECK: JVD elevated, no thyromegaly Lymph: no lymphadenopathy HEART: irregular with no S3, II/ systolic murmur at apex - LUNGS: Coarse sounds ABD: soft, NT, ND, +BS : Intact Neuro: non focal SKIN: chronic changes EXT: trace edema Medications Medications Current Medications Ceftriaxone Sodium 50 ml @ 100 mls/hr Q24H IVPB Last administered on 03/06/18 12:05; Admin Dose 100 MLS/HR; Start 03/02/18 at 11:00 Azithromycin 250 mg/Sodium Chloride 250 ml @ 250 mls/hr Q24H IVPB Last administered on 03/06/18 12:45; Admin Dose 250 MLS/HR; Start 03/02/18 at 12:00 Aspirin (Halfprin) 81 mg DAILY PO Last administered on 03/07/18 08:08; Admin Dose 81 MG; Start 03/02/18 at 09:00 Hydrochlorothiazide (Hydrochlorothiazide) 25 mg DAILY PO Last administered on 03/07/18 08:09; Admin Dose 25 MG; Start 03/02/18 at 09:00 Isosorbide Mononitrate (Imdur) 30 mg DAILY PO Last administered on 03/07/18 08:08; Admin Dose 30 MG; Start 03/02/18 at 09:00 Losartan Potassium (Cozaar) 100 mg DAILY PO Last administered on 03/07/18 08:10; Admin Dose 100 MG; Start 03/02/18 at 09:00 Metformin HCl (Glucophage) 1,000 mg BID WITH MEALS PO Last administered on 03/07/18 08:08; Admin Dose 1,000 MG; Start 03/02/18 at 07:55 Metoprolol Tartrate (Lopressor) 100 mg BID PO Last administered on 03/07/18 08:09; Admin Dose 100 MG; Start 03/01/18 at 21:00 Nifedipine (Procardia Xl) 30 mg DAILY PO Last administered on 03/07/18 08:09; Admin Dose 30 MG; Start 03/02/18 at 09:00 Pantoprazole (Protonix Tab) 40 mg DAILY@06 PO Last administered on 03/07/18 05:07; Admin Dose 40 MG; Start 03/02/18 at 06:00 Linagliptin (Tradjenta) 5 mg DAILY PO Last administered on 03/07/18 08:10; Admin Dose 5 MG; Start 03/02/18 at 09:00 IV Flush (NS 3 ml) 3 ml PER PROTOCOL IV ; Start 03/01/18 at 18:30 Ondansetron HCl (Zofran Inj) 4 mg Q6H PRN IV NAUSEA AND/OR VOMITING Last administered on 03/06/18 18:42; Admin Dose 4 MG; Start 03/01/18 at 18:30 Acetaminophen (Tylenol Tab) 650 mg Q6H PRN PO PAIN LEVEL 1-3 OR FEVER Last administered on 03/03/18 20:43; Admin Dose 650 MG; Start 03/01/18 at 18:30 Acetaminophen/ Hydrocodone Bitart ([place] (5/325)) 1 tab Q6H PRN PO PAIN LEVEL 4-6; Start 03/01/18 at 18:30 Zolpidem Tartrate (Ambien) 5 mg QHS PRN PO INSOMNIA Last administered on 03/05/18 20:27; Admin Dose 5 MG; Start 03/01/18 at 18:30 Docusate Sodium (Colace) 100 mg Q12H PRN PO CONSTIPATION; Start 03/01/18 at 18:30 Magnesium Hydroxide (Milk Of Mag) 30 ml DAILY PRN PO CONSTIPATION; Start 03/01/18 at 18:30 Famotidine (Pepcid) 20 mg Q12 PO Last administered on 03/07/18 08:09; Admin Dose 20 MG; Start 03/01/18 at 21:00 Levalbuterol (Xopenex Neb) 0.63 mg Q6H RESP THERAPY PRN HHN SHORTNESS OF BREATH Last administered on 03/01/18 19:34; Admin Dose 0.63 MG; Start 03/01/18 at 18:30 Insulin Aspart (Novolog Insulin Pen) NOVOLOG *MILD* ALGORITHM WITH MEALS BEDTIME SC Last administered on 03/06/18 12:13; Admin Dose 1 UNIT; Start 03/01/18 at 21:00 Miscellaneous Information 1 ea NOTE XX ; Start 03/01/18 at 18:30 Glucose (Glutose) 15 gm Q15M PRN PO DECREASED GLUCOSE Last administered on 03/05/18 10:47; Admin Dose 15 GM; Start 03/01/18 at 18:30 Glucose (Glutose) 22.5 gm Q15M PRN PO DECREASED GLUCOSE; Start 03/01/18 at 18:30 Dextrose (D50w Syringe) 25 ml Q15M PRN IV DECREASED GLUCOSE; Start 03/01/18 at 18:30 Dextrose (D50w Syringe) 50 ml Q15M PRN IV DECREASED GLUCOSE; Start 03/01/18 at 18:30 Glucagon (Glucagen) 1 mg Q15M PRN IM DECREASED GLUCOSE; Start 03/01/18 at 18:30 Glucose (Glutose) 15 gm Q15M PRN BUCCAL DECREASED GLUCOSE Last administered on 03/05/18at 10:33; Admin Dose 15 GM; Start 03/01/18 at 18:30 Metoprolol Tartrate (Lopressor) 5 mg Q4H PRN IV HR>110 Hold SBP<100; Start 03/02/18 at 14:00 Enoxaparin Sodium (Lovenox) 75 mg BID SC Last administered on 03/07/18 08:15; Admin Dose 75 MG; Start 03/02/18 at 21:00 Guaifenesin/ Codeine Phosphate (Robitussin Ac Liquid Cup) 5 ml Q4H PRN PO cough Last administered on 03/07/18 06:12; Admin Dose 5 ML; Start 03/02/18 at 16:30 Atorvastatin Calcium (Lipitor) 40 mg HS PO Last administered on 03/06/18 20:19; Admin Dose 40 MG; Start 03/02/18 at 21:00 Diagnostic Test (Pha) (Accu-Chek) 1 ea 2 HOURS AFTER MEALS XX Last administered on 03/06/18 20:02; Admin Dose 1 EA; Start 03/02/18 at 19:55 Diagnostic Test (Pha) (Accu-Chek) 1 ea AC MEALS XX Last administered on 03/07/18 08:07; Admin Dose 1 EA; Start 03/02/18 at 17:25 Insulin Glargine (Lantus) 30 units HS SC Last administered on 03/06/18 21:16; Admin Dose 30 UNITS; Start 03/05/18 at 21:00 Insulin Aspart (Novolog Insulin Pen) 7 unit AC MEALS SC Last administered on 03/07/18at 08:15; Admin Dose 7 UNIT; Start 03/05/18 at 18:00 Metronidazole (Flagyl) 500 mg Q8 PO Last administered on 03/07/18at 05:07; Admin Dose 500 MG; Start 03/06/18 at 22:00 TREVER VELÁSQUEZ MD Mar 07, 2018 09:45
[2018-03-07] MEDS: CEFTRIAXONE 1 GM/50 ML (PMX) 50 ML IVPB SCH (10:51)
[2018-03-07] MEDS ORDERED: Insulin Glargine SC (13:15)
[2018-03-07] MEDS ORDERED: CODE5LIQ2 PO (13:15)
[2018-03-07] MEDS ORDERED: NOVO3I SC (13:15)
[2018-03-07] MEDS ORDERED: METR500T PO (13:15)
[2018-03-07] MEDS ORDERED: ATOR40TA68 PO (13:15)
[2018-03-07] MEDS ORDERED: APIX5TAB PO (13:19)
--- NOTE | 2018-03-07 13:30 | CONS ---
Date/Time of Note Date/Time of Note DATE: 03/07/18 TIME: 13:27 Assessment/Plan Assessment/Plan [facility] 62[facility], 2015. She has a history of diabetes mellitus type 2 and has at times been a challenge to get to come in. She was last seen in my office July 11, 2017 and was a no-show September 06 and October 06, 2017. Her regular primary care physician is Dr. Samm Jones of [facility]. Patient was admitted with an acute respiratory illness. Influenza swabs are negative. Problems: (1) Diabetes mellitus type 2 in nonobese Status: Chronic Comment: In a controlled environment with controlled diet and controlled administration in receipt of medications she has excellent glycemic control (2) Hyperlipidemia associated with type 2 diabetes mellitus Status: Chronic Comment: Continue with statin therapy (3) Essential hypertension Status: Chronic Comment: Adequate glycemic control adequate blood pressure control Result Diagram: 03/06/18 0534 03/06/18 0534 Results 24hrs Laboratory Tests Test 03/06/18 13:44 03/06/18 17:20 03/06/18 20:01 03/06/18 21:07 Bedside Glucose 92 73 122 123 Test 03/07/18 08:06 03/07/18 10:02 03/07/18 11:33 03/07/18 13:21 Bedside Glucose 131 128 139 137 Consultation Date/Type/Reason Admit Date/Time Mar 01, 2018 at 12:35 Initial Consult Date 03/02/18 Type of Consult Endocrine Reason for Consultation Diabetes mellitus type 2 Requesting Provider: CHRISTI KUNZ MD 24 HR Interval Summary Free Text/Dictation No new complaints Detailed Summary Endocrine: no complaints Exam/Review of Systems Vital Signs Vitals Vital Signs Date Temp Pulse Resp B/P (MAP) Pulse Ox O2 O2 Flow FiO2 Time Delivery Rate 03/07/18 98.0 71 17 128/69 96 11:12 (88) 03/07/18 2.0 08:38 03/07/18 Nasal 07:42 Cannula Intake and Output 03/06/18 03/06/18 03/07/18 1515:00 23:00 07:00 IntakeIntake Total 50 ml 800 ml 850 ml BalanceBalance 50 ml 800 ml 850 ml Exam Constitutional: alert, oriented Respiratory: clear to auscultation, normal air movement Cardiovascular: regular rate and rhythm, nl pulses Gastrointestinal: soft, nl liver, spleen, non-tender Medications Medications Current Medications Ceftriaxone Sodium 50 ml @ 100 mls/hr Q24H IVPB Last administered on 03/07/18 10:51; Admin Dose 100 MLS/HR; Start 03/02/18 at 11:00 Aspirin (Halfprin) 81 mg DAILY PO Last administered on 03/07/18 08:08; Admin Dose 81 MG; Start 03/02/18 at 09:00 Hydrochlorothiazide (Hydrochlorothiazide) 25 mg DAILY PO Last administered on 03/07/18 08:09; Admin Dose 25 MG; Start 03/02/18 at 09:00 Isosorbide Mononitrate (Imdur) 30 mg DAILY PO Last administered on 03/07/18 08:08; Admin Dose 30 MG; Start 03/02/18 at 09:00 Losartan Potassium (Cozaar) 100 mg DAILY PO Last administered on 03/07/18 08:10; Admin Dose 100 MG; Start 03/02/18 at 09:00 Metformin HCl (Glucophage) 1,000 mg BID WITH MEALS PO Last administered on 03/07/18 08:08; Admin Dose 1,000 MG; Start 03/02/18 at 07:55 Metoprolol Tartrate (Lopressor) 100 mg BID PO Last administered on 03/07/18 08:09; Admin Dose 100 MG; Start 03/01/18 at 21:00 Nifedipine (Procardia Xl) 30 mg DAILY PO Last administered on 03/07/18 08:09; Admin Dose 30 MG; Start 03/02/18 at 09:00 Pantoprazole (Protonix Tab) 40 mg DAILY@06 PO Last administered on 03/07/18 05:07; Admin Dose 40 MG; Start 03/02/18 at 06:00 Linagliptin (Tradjenta) 5 mg DAILY PO Last administered on 03/07/18 08:10; Admin Dose 5 MG; Start 03/02/18 at 09:00 IV Flush (NS 3 ml) 3 ml PER PROTOCOL IV ; Start 03/01/18 at 18:30 Ondansetron HCl (Zofran Inj) 4 mg Q6H PRN IV NAUSEA AND/OR VOMITING Last administered on 03/06/18 18:42; Admin Dose 4 MG; Start 03/01/18 at 18:30 Acetaminophen (Tylenol Tab) 650 mg Q6H PRN PO PAIN LEVEL 1-3 OR FEVER Last administered on 03/03/18 20:43; Admin Dose 650 MG; Start 03/01/18 at 18:30 Acetaminophen/ Hydrocodone Bitart ([place] (5/325)) 1 tab Q6H PRN PO PAIN LEVEL 4-6; Start 03/01/18 at 18:30 Zolpidem Tartrate (Ambien) 5 mg QHS PRN PO INSOMNIA Last administered on 03/05/18 20:27; Admin Dose 5 MG; Start 03/01/18 at 18:30 Docusate Sodium (Colace) 100 mg Q12H PRN PO CONSTIPATION; Start 03/01/18 at 18:30 Magnesium Hydroxide (Milk Of Mag) 30 ml DAILY PRN PO CONSTIPATION; Start 03/01/18 at 18:30 Famotidine (Pepcid) 20 mg Q12 PO Last administered on 03/07/18 08:09; Admin Dose 20 MG; Start 03/01/18 at 21:00 Levalbuterol (Xopenex Neb) 0.63 mg Q6H RESP THERAPY PRN HHN SHORTNESS OF BREATH Last administered on 03/01/18 19:34; Admin Dose 0.63 MG; Start 03/01/18 at 18:30 Insulin Aspart (Novolog Insulin Pen) NOVOLOG *MILD* ALGORITHM WITH MEALS BEDTIME SC Last administered on 03/06/18 12:13; Admin Dose 1 UNIT; Start 03/01/18 at 21:00 Miscellaneous Information 1 ea NOTE XX ; Start 03/01/18 at 18:30 Glucose (Glutose) 15 gm Q15M PRN PO DECREASED GLUCOSE Last administered on 03/05/18at 10:47; Admin Dose 15 GM; Start 03/01/18 at 18:30 Glucose (Glutose) 22.5 gm Q15M PRN PO DECREASED GLUCOSE; Start 03/01/18 at 18:30 Dextrose (D50w Syringe) 25 ml Q15M PRN IV DECREASED GLUCOSE; Start 03/01/18 at 18:30 Dextrose (D50w Syringe) 50 ml Q15M PRN IV DECREASED GLUCOSE; Start 03/01/18 at 18:30 Glucagon (Glucagen) 1 mg Q15M PRN IM DECREASED GLUCOSE; Start 03/01/18 at 18:30 Glucose (Glutose) 15 gm Q15M PRN BUCCAL DECREASED GLUCOSE Last administered on 03/05/18 10:33; Admin Dose 15 GM; Start 03/01/18 at 18:30 Metoprolol Tartrate (Lopressor) 5 mg Q4H PRN IV HR>110 Hold SBP<100; Start 03/02/18 at 14:00 Enoxaparin Sodium (Lovenox) 75 mg BID SC Last administered on 03/07/18 08:15; Admin Dose 75 MG; Start 03/02/18 at 21:00 Guaifenesin/ Codeine Phosphate (Robitussin Ac Liquid Cup) 5 ml Q4H PRN PO cough Last administered on 03/07/18 11:41; Admin Dose 5 ML; Start 03/02/18 at 16:30 Atorvastatin Calcium (Lipitor) 40 mg HS PO Last administered on 03/06/18 20:19; Admin Dose 40 MG; Start 03/02/18 at 21:00 Diagnostic Test (Pha) (Accu-Chek) 1 ea 2 HOURS AFTER MEALS XX Last administered on 03/07/18 10:02; Admin Dose 1 EA; Start 03/02/18 at 19:55 Diagnostic Test (Pha) (Accu-Chek) 1 ea AC MEALS XX Last administered on 9at 11:34; Admin Dose 1 EA; Start 03/02/18 at 17:25 Insulin Glargine (Lantus) 30 units HS SC Last administered on 03/06/18 21:16; Admin Dose 30 UNITS; Start 03/05/18 at 21:00 Insulin Aspart (Novolog Insulin Pen) 7 unit AC MEALS SC Last administered on 03/07/18 11:38; Admin Dose 7 UNIT; Start 03/05/18 at 18:00 Metronidazole (Flagyl) 500 mg Q8 PO Last administered on 03/07/18 05:07; Admin Dose 500 MG; Start 03/06/18 at 22:00 PACO VILLA MD Mar 07, 2018 13:30
--- NOTE | 2018-03-07 14:08 | CONS ---
Date/Time of Note Date/Time of Note DATE: 03/07/18 TIME: 14:07 Assessment/Plan Assessment/Plan Hospital Course Patient is alert feels good Antimicrobials: Rocephin #6 Flagyl Physical examination: Who is alert in no distress. Head atraumatic normocephalic. Neck is supple chest rise symmetrical breath sounds well-d eveloped elderly woman clear, diminished bases heart: S1-S2 abdomen soft bowel sounds present Assessment: 1. Community-acquired pneumonia 2. + UA==> urine cx +Gardrenella vaginalis, likely contaminant==> started on Flagyl 3. Diabetes 4. Hypertension 5. Atrial fibrillation Plan: Doing better, ok dc PO Flagyl for 4 more days Result Diagram: 03/06/18 0534 03/06/18 0534 Results 24hrs Laboratory Tests Test 03/06/18 17:20 03/06/18 20:01 03/06/18 21:07 03/07/18 08:06 Bedside Glucose 73 122 123 131 Test 03/07/18 10:02 03/07/18 11:33 03/07/18 13:21 Bedside Glucose 128 139 137 Consultation Date/Type/Reason Admit Date/Time Mar 01, 2018 at 12:35 Initial Consult Date 03/02/18 Type of Consult id Requesting Provider: CHRISTI KUNZ MD Exam/Review of Systems Vital Signs Vitals Vital Signs Date Temp Pulse Resp B/P (MAP) Pulse Ox O2 O2 Flow FiO2 Time Delivery Rate 03/07/18 98.0 71 17 128/69 96 11:12 (88) 03/07/18 2.0 08:38 03/07/18 Nasal 07:42 Cannula Intake and Output 03/06/18 03/06/18 03/07/18 1515:00 23:00 07:00 IntakeIntake Total 50 ml 800 ml 850 ml BalanceBalance 50 ml 800 ml 850 ml Medications Medications Current Medications Ceftriaxone Sodium 50 ml @ 100 mls/hr Q24H IVPB Last administered on 03/07/18at 10:51; Admin Dose 100 MLS/HR; Start 03/02/18 at 11:00 Aspirin (Halfprin) 81 mg DAILY PO Last administered on 03/07/18at 08:08; Admin Dose 81 MG; Start 03/02/18 at 09:00 Hydrochlorothiazide (Hydrochlorothiazide) 25 mg DAILY PO Last administered on 03/07/18 08:09; Admin Dose 25 MG; Start 03/02/18 at 09:00 Isosorbide Mononitrate (Imdur) 30 mg DAILY PO Last administered on 03/07/18 08:08; Admin Dose 30 MG; Start 03/02/18 at 09:00 Losartan Potassium (Cozaar) 100 mg DAILY PO Last administered on 03/07/18 08:10; Admin Dose 100 MG; Start 03/02/18 at 09:00 Metformin HCl (Glucophage) 1,000 mg BID WITH MEALS PO Last administered on 03/07/18 08:08; Admin Dose 1,000 MG; Start 03/02/18 at 07:55 Metoprolol Tartrate (Lopressor) 100 mg BID PO Last administered on 03/07/18 08:09; Admin Dose 100 MG; Start 03/01/18 at 21:00 Nifedipine (Procardia Xl) 30 mg DAILY PO Last administered on 03/07/18 08:09; Admin Dose 30 MG; Start 03/02/18 at 09:00 Pantoprazole (Protonix Tab) 40 mg DAILY@06 PO Last administered on 03/07/18 05:07; Admin Dose 40 MG; Start 03/02/18 at 06:00 Linagliptin (Tradjenta) 5 mg DAILY PO Last administered on 03/07/18 08:10; Admin Dose 5 MG; Start 03/02/18 at 09:00 IV Flush (NS 3 ml) 3 ml PER PROTOCOL IV ; Start 03/01/18 at 18:30 Ondansetron HCl (Zofran Inj) 4 mg Q6H PRN IV NAUSEA AND/OR VOMITING Last administered on 03/06/18 18:42; Admin Dose 4 MG; Start 03/01/18 at 18:30 Acetaminophen (Tylenol Tab) 650 mg Q6H PRN PO PAIN LEVEL 1-3 OR FEVER Last administered on 03/03/18 20:43; Admin Dose 650 MG; Start 03/01/18 at 18:30 Acetaminophen/ Hydrocodone Bitart ([place] (5/325)) 1 tab Q6H PRN PO PAIN LEVEL 4-6; Start 03/01/18 at 18:30 Zolpidem Tartrate (Ambien) 5 mg QHS PRN PO INSOMNIA Last administered on 03/05/18 20:27; Admin Dose 5 MG; Start 03/01/18 at 18:30 Docusate Sodium (Colace) 100 mg Q12H PRN PO CONSTIPATION; Start 03/01/18 at 18:30 Magnesium Hydroxide (Milk Of Mag) 30 ml DAILY PRN PO CONSTIPATION; Start 03/01/18 at 18:30 Famotidine (Pepcid) 20 mg Q12 PO Last administered on 03/07/18 08:09; Admin Dose 20 MG; Start 03/01/18 at 21:00 Levalbuterol (Xopenex Neb) 0.63 mg Q6H RESP THERAPY PRN HHN SHORTNESS OF BREATH Last administered on 03/01/18 19:34; Admin Dose 0.63 MG; Start 03/01/18 at 18:30 Insulin Aspart (Novolog Insulin Pen) NOVOLOG *MILD* ALGORITHM WITH MEALS BEDTIME SC Last administered on 03/06/18 12:13; Admin Dose 1 UNIT; Start 03/01/18 at 21:00 Miscellaneous Information 1 ea NOTE XX ; Start 03/01/18 at 18:30 Glucose (Glutose) 15 gm Q15M PRN PO DECREASED GLUCOSE Last administered on 03/05/18 10:47; Admin Dose 15 GM; Start 03/01/18 at 18:30 Glucose (Glutose) 22.5 gm Q15M PRN PO DECREASED GLUCOSE; Start 03/01/18 at 18:30 Dextrose (D50w Syringe) 25 ml Q15M PRN IV DECREASED GLUCOSE; Start 03/01/18 at 18:30 Dextrose (D50w Syringe) 50 ml Q15M PRN IV DECREASED GLUCOSE; Start 03/01/18 at 18:30 Glucagon (Glucagen) 1 mg Q15M PRN IM DECREASED GLUCOSE; Start 03/01/18 at 18:30 Glucose (Glutose) 15 gm Q15M PRN BUCCAL DECREASED GLUCOSE Last administered on 03/05/18 10:33; Admin Dose 15 GM; Start 03/01/18 at 18:30 Metoprolol Tartrate (Lopressor) 5 mg Q4H PRN IV HR>110 Hold SBP<100; Start 03/02/18 at 14:00 Enoxaparin Sodium (Lovenox) 75 mg BID SC Last administered on 03/07/18 08:15; Admin Dose 75 MG; Start 03/02/18 at 21:00 Guaifenesin/ Codeine Phosphate (Robitussin Ac Liquid Cup) 5 ml Q4H PRN PO cough Last administered on 03/07/18 11:41; Admin Dose 5 ML; Start 03/02/18 at 16:30 Atorvastatin Calcium (Lipitor) 40 mg HS PO Last administered on 03/06/18 20:19; Admin Dose 40 MG; Start 03/02/18 at 21:00 Diagnostic Test (Pha) (Accu-Chek) 1 ea 2 HOURS AFTER MEALS XX Last administered on 03/07/18 13:46; Admin Dose 1 EA; Start 03/02/18 at 19:55 Diagnostic Test (Pha) (Accu-Chek) 1 ea AC MEALS XX Last administered on 03/07/18 11:34; Admin Dose 1 EA; Start 03/02/18 at 17:25 Insulin Glargine (Lantus) 30 units HS SC Last administered on 03/06/18 21:16; Admin Dose 30 UNITS; Start 03/05/18 at 21:00 Insulin Aspart (Novolog Insulin Pen) 7 unit AC MEALS SC Last administered on 03/07/18 11:38; Admin Dose 7 UNIT; Start 03/05/18 at 18:00 Metronidazole (Flagyl) 500 mg Q8 PO Last administered on 03/07/18 13:49; Admin Dose 500 MG; Start 03/06/18 at 22:00 DUDLEY TAVARES NP Mar 07, 2018 14:08
--- NOTE | 2018-03-19 21:42 | DS ---
Date/Time of Note Date/Time of Note DATE: 03/19/18 TIME: 21:39 Discharge Summary Admission/Discharge Info Admit Date/Time Mar 01, 2018 at 12:35 Discharge Date/Time Mar 07, 2018 at 16:06 Patient Condition: Stable Hx of Present Illness Patient is 62-year-old female with DM, hypertension, dyslipidemia, and GERD presented to the emergency room with complaints of productive cough, fevers and shortness of breath. Patient denies any sick contacts, patient denies any chest pain denies any nausea and vomiting denies diarrhea. Complains of generalized weakness. Chest x-ray revealed possible early pneumonia. She also noted to have elevated white blood cells and elevated lactate. Patient was started on antibiotics for pneumonia and admitted for further evaluation and management. Hospital Course Patient complains of occasional cough, however, improved significantly over the weekend. Patient continued on antibiotic for pneumonia and UTI. Atrial fibrillation at controlled rate. We will obtain authorization for Eliquis prior to discharge. Assessment/Plan -Sepsis secondary to community-acquired pneumonia versus acute bronchitis. Completed treatment with Rocephin and Zithromax. Dr. Ivory is following n infection disease consultation. -Possible UTI per UA -Atrial flutter, continue metoprolol and Lovenox. Dr. Hendrickson is following in cardiology consultation. Continue Eliquis. -Poorly controlled diabetes mellitus type 2, continue Lantus and pre-meal NovoLog, continue Januvia. Dr. Snider is following in endocrinology consultation. -Hypertension -Hyperlipidemia Plan of care discussed with Dr. Moody. Home Meds Active Scripts Apixaban* (Eliquis*) 5 Mg Tablet, 5 MG PO BID for 30 Days, TAB Prov:BEATRIZ JUAREZ 03/07/18 Insulin Aspart* (Novolog Insulin Pen*) 100 Unit/Ml Soln, 7 UNIT SC AC MEALS for 30 Days Prov:BEATRIZ JUAREZ 03/07/18 [Insulin Glargine] 100 UNITS/ML SOLN No Conflict Check, 30 UNITS SC HS for 30 Days Prov:BEATIRZ JUAREZ 03/07/18 Guaifenesin-Codeine Phosphate* (Robitussin* AC) 5 Ml Syrup, 5 ML PO Q4H PRN for cough, #1 BOT Prov:BEATRIZ JUAREZ 03/07/18 Atorvastatin* (Atorvastatin*) 40 Mg Tablet, 40 MG PO HS for 30 Days, TAB Prov:NOEMYAIDEN BRAUNETLAN03/07/18 Metronidazole* (Flagyl*) 500 Mg Tablet, 500 MG PO Q8 for 5 Days, TAB Prov:NOEMYAIDEN BRAUNETLANA 03/07/18 Empagliflozin (Jardiance) 10 Mg Tablet, 10 MG PO DAILY@08 for 30 Days, TAB Prov:BEATRIZ JUAREZ 08/30/17 Nifedipine (Procardia Xl) 30 Mg Tab.er.24, 30 MG PO DAILY for 30 Days, TAB Prov:JUDITHKAT08/30/17 Metoprolol Tartrate* (Lopressor*) 100 Mg Tablet, 100 MG PO BID for 30 Days, TAB Prov:BEATRIZ JUAREZ 08/30/17 Reported Medications Omeprazole* (Omeprazole*) 40 Mg Capsule.dr, 40 MG PO DAILY, #30 CAP 08/24/17 Isosorbide Mononitrate* (Isosorbide Mononitrate*) 30 Mg Tab.er.24h, 30 MG PO DAILY, TAB 08/04/17 Losartan Potassium* (Losartan Potassium*) 100 Mg Tablet, 100 MG PO DAILY, TAB 08/04/17 Aspirin (Low Dose Aspirin) 81 Mg Tablet.dr, 81 MG PO DAILY, #30 TAB 08/04/17 Hydrochlorothiazide* (Hydrochlorothiazide*) 25 Mg Tab, 25 MG PO DAILY, TAB 06/25/17 Sitagliptin* (Januvia*) 100 Mg Tablet, 100 MG PO DAILY 06/25/17 Metformin* (Glucophage*) 1,000 Mg Tablet, 1000 MG PO BID, TAB 06/25/17 Follow-up Plan Discharge when case management arrange with his insurance to obtain Eamon, follow-up with [facility]Ty[facility] or Dr. Snider as an outpatient for diabetes management. Primary Care Provider Care Physician No Primary Time spent on discharge: > 30 minutes BEATRIZ JUAREZ Mar 19, 2018 21:41
[2018-04-06] MEDS ORDERED: NOVO3I SC (05:20)
[2018-04-11] MEDS ORDERED: Insulin Glargine SC (12:36)
[2018-04-11] MEDS ORDERED: MTF1000T PO (12:36)
[2018-04-11] MEDS ORDERED: APIX5TAB PO (12:36)
[2018-04-11] MEDS ORDERED: EMPA10TA PO (12:36)
[2018-04-11] MEDS ORDERED: DOCU-159 PO (12:36)
== END 2018-03-07 16:06 | disposition home or self-care (01) | DRG 871 ==
LOC: E/R 09:29 → TEL 12:35
PROVIDERS: ADMIT Internal Medicine; ATTEND Internal Medicine
DX: A41.9 Sepsis, unspecified organism (principal); J18.9 Pneumonia, unspecified organism; N39.0 Urinary tract infection, site not specified; I48.91 Unspecified atrial fibrillation; I25.2 Old myocardial infarction; I11.0 Hypertensive heart disease with heart failure; I50.9 Heart failure, unspecified; I25.10 Atherosclerotic heart disease of native coronary artery without angina pectoris; K21.9 Gastro-esophageal reflux disease without esophagitis; E11.65 Type 2 diabetes mellitus with hyperglycemia; E11.69 Type 2 diabetes mellitus with other specified complication; H40.9 Unspecified glaucoma; E78.5 Hyperlipidemia, unspecified; Z91.19 Patient's noncompliance with other medical treatment and regimen; E11.3599 Type 2 diabetes mellitus with proliferative diabetic retinopathy without macular edema, unspecified eye; E11.42 Type 2 diabetes mellitus with diabetic polyneuropathy; B96.89 Other specified bacterial agents as the cause of diseases classified elsewhere; Z79.4 Long term (current) use of insulin; Z79.82 Long term (current) use of aspirin
CPT/HCPCS: 36415; 71045; 80048; 80053; 81001; 82962; 83036; 83605; 83880; 84443; 84484; 85025; 85610; 85730; 87040; 87086; 87400; 93005; 93306; 94664; 96361; 96365; 96367; J0456; J0696; J1650; J1815; J2405; J7030; J7050

== ENCOUNTER 2018-09-04 12:05 | Inpatient (IN) | payer OTHER ==
[~2018-09-04] VITALS: Ht 152.4 cm; Wt 60.8 kg
[~2018-09-04 12:05] MED LIST changes: +APIX5TAB PO; -ASPI81TA52 PO; +ATOR40TA68 PO; +DOCU-159 PO; -HYDR-3601 PO; -HYDR25TA6 PO; -ISOS30TA67 PO; +Insulin Glargine SC; -LANT3I SC; -SITA100T11 PO
[2018-09-04 12:33] VITALS: Ht 152.4 cm; Wt 60.8 kg
[2018-09-04] MEDS ORDERED: ASPIRIN 325 MG TAB PO ONE (14:00)
[2018-09-04] MEDS ORDERED: SOD CHLORIDE 0.9% 100 ML ONE (14:02)
[2018-09-04] MEDS ORDERED: IODIXANOL LOCM 100 ML BTL ONE (14:02)
[2018-09-04] MEDS ORDERED: EMPA25TA PO (14:34)
[2018-09-04] MEDS ORDERED: METO-407 PO (14:35)
[2018-09-04] MEDS ORDERED: GLIP10TA14 PO (14:36)
[2018-09-04] MEDS ORDERED: NIFE60TA18 PO (14:36)
[2018-09-04] MEDS ORDERED: MECL-77 PO (14:37)
[2018-09-04] MEDS ORDERED: NOVO3I SC (14:39)
[2018-09-04] MEDS ORDERED: LANT3I SC (14:40)
--- NOTE | 2018-09-04 14:47 | ERD ---
ER Documentation Chief Complaint Chief Complaint lower back & right calf pain x3 days, leg feels weak HPI Patient is a 62-year-old female with a history of hypertension and diabetes who presents with weakness. The patient had headache and right upper and right lower extremely weakness which started yesterday at 7 PM. Last known well time was 7 PM last night. Symptoms have been constant. The patient has had no treatment as of yet. The patient was initially sent to ER to an was seen by a PA who got me involved for evaluation. ROS All systems reviewed and are negative except as per history of present illness. Medications Home Meds Active Scripts Metformin* (Glucophage*) 1,000 Mg Tablet, 1000 MG PO BID for 30 Days, TAB Prov:BEATRIZ JUAREZ 04/11/18 Atorvastatin* (Atorvastatin*) 40 Mg Tablet, 40 MG PO HS for 30 Days, TAB Prov:BEATRIZ JUAREZ 03/07/18 Reported Medications Insulin Glargine* (Lantus*) 100 Unit/Ml Soln, 40 UNIT SC QHS, #1 VIAL 09/04/18 Insulin Aspart* (Novolog Insulin Pen*) 100 Unit/Ml Soln, 12 UNIT SC WITH MEALS, EA 09/04/18 Meclizine Hcl* (Meclizine Hcl*) 25 Mg Tablet, 25 MG PO DAILY PRN for DIZZINESS, TAB 09/04/18 Glipizide* (Glipizide*) 10 Mg Tablet, 10 MG PO AC BREAKFAST DINNER, TAB 09/04/18 Nifedipine* (Nifedipine ER*) 60 Mg Tablet.sa, 60 MG PO DAILY, TAB.SA 09/04/18 Metoprolol Tartrate* (Lopressor*) 100 Mg Tablet, 100 MG PO BID, #60 TAB 09/04/18 Empagliflozin (Jardiance) 25 Mg Tablet, 25 MG PO DAILY, TAB 09/04/18 Discontinued Reported Medications Insulin Aspart* (Novolog Insulin Pen*) 100 Unit/Ml Soln, 0 SC .SLIDING SCALE AC, EA INJECT SC QAM-10units; LUNCH-10units; QPM-30units 04/06/18 Omeprazole* (Omeprazole*) 40 Mg Capsule.dr, 40 MG PO DAILY, #30 CAP 08/24/17 Losartan Potassium* (Losartan Potassium*) 100 Mg Tablet, 100 MG PO DAILY, TAB 08/04/17 Discontinued Scripts [Insulin Glargine] 100 UNITS/ML SOLN No Conflict Check, 10 UNITS SC DAILY@1999 Prov:BEATRIZ JUAREZ 04/11/18 Docusate Sodium* (Docusate Sodium*) 100 Mg Capsule, 100 MG PO BID for 30 Days, CAP Prov:BEATRIZ JUAREZ 04/11/18 Apixaban* (Eliquis*) 5 Mg Tablet, 5 MG PO BID for 30 Days, TAB Prov:BEATRIZ JUAREZ 04/11/18 Empagliflozin (Jardiance) 10 Mg Tablet, 10 MG PO DAILY@08 for 30 Days, TAB Prov:BEATRIZ JUAREZ 04/11/18 Nifedipine (Procardia Xl) 30 Mg Tab.er.24, 30 MG PO DAILY for 30 Days, TAB Prov:BEATRIZ JUAREZ 08/30/17 Metoprolol Tartrate* (Lopressor*) 100 Mg Tablet, 100 MG PO BID for 30 Days, TAB Prov:BEATRIZ JUAREZ 08/30/17 Allergies Allergies: Coded Allergies: No Known Allergy (Unverified , 09/04/18) PMhx/Soc History of Surgery: Yes (Right elbow, cataract) Anesthesia Reaction: No Hx 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 Disorder: No Hx Respiratory Disorders: Yes (PNA) Hx Cardiac Disorders: Yes (HTN, afib, DLD) Hx Psychiatric Problems: No Hx Miscellaneous Medical Probl: Yes (Community acquired PNA) Hx Alcohol Use: No Hx Substance Use: No Hx Tobacco Use: No Smoking Status: Never smoker FmHx Family History: No diabetes Physical Exam Vitals Vital Signs Date Temp Pulse Resp B/P (MAP) Pulse Ox O2 O2 Flow FiO2 Time Delivery Rate 09/04/18 98.0 72 18 122/66 98 Room Air 14:08 (84) 09/04/18 97.6 57 18 122/60 99 12:33 (80) Physical Exam Const: No acute distress Head: Atraumatic Eyes: Normal Conjunctiva ENT: Normal External Ears, Nose and Mouth. Neck: Full range of motion. No meningismus. Resp: Clear to auscultation bilaterally Cardio: Regular rate and rhythm, no murmurs Abd: Soft, non tender, non distended. Normal bowel sounds Skin: No petechiae or rashes Back: No midline or flank tenderness Ext: No cyanosis, or edema Neur: Awake and alert, cranial nerves II through XII intact, right upper extremity weakness and difficulty with lifting to gravity, right lower extreme knee weakness with difficulty lifting against gravity Psych: Normal Mood and Affect Result Diagram: 09/04/18 1343 09/04/18 1343 Results 24 hrs Laboratory Tests Test 09/04/18 13:43 09/04/18 14:02 White Blood Count 11.7 10^3/ul Red Blood Count 5.26 10^6/ul Hemoglobin 14.7 g/dl Hematocrit 43.8 % Mean Corpuscular Volume 83.3 fl Mean Corpuscular Hemoglobin 27.9 pg Mean Corpuscular Hemoglobin Concent 33.6 g/dl Red Cell Distribution Width 13.3 % Platelet Count 310 10^3/UL Mean Platelet Volume 9.0 fl Immature Granulocytes % 0.500 % Neutrophils % 76.5 % Lymphocytes % 17.3 % Monocytes % 5.0 % Eosinophils % 0.4 % Basophils % 0.3 % Nucleated Red Blood Cells % 0.0 /100WBC Immature Granulocytes # 0.060 10^3/ul Neutrophils # 9.0 10^3/ul Lymphocytes # 2.0 10^3/ul Monocytes # 0.6 10^3/ul Eosinophils # 0.1 10^3/ul Basophils # 0.0 10^3/ul Nucleated Red Blood Cells # 0.0 10^3/ul Prothrombin Time 12.9 Sec Prothrombin Time Ratio 1.0 INR International Normalized Ratio 0.96 Activated Partial Thromboplast Time 31.8 Sec Sodium Level 132 mmol/L Potassium Level 5.6 mmol/L Chloride Level 94 mmol/L Carbon Dioxide Level 24 mmol/L Anion Gap 14 Blood Urea Nitrogen 28 mg/dl Creatinine 1.06 mg/dl Est Glomerular Filtrat Rate mL/min 52 mL/min Glucose Level 363 mg/dl Hemoglobin A1c 9.0 % Calcium Level 9.6 mg/dl Creatine Kinase 56 IU/L Creatine Kinase Index 3.0 Creatinine Kinase MB (Mass) 1.70 ng/ml Troponin I 0.082 ng/ml Triglycerides Level 265 mg/dl Cholesterol Level 219 mg/dl LDL Cholesterol, Calculated 119 mg/dl HDL Cholesterol 47 mg/dl Cholesterol/HDL Ratio 4.6 RATIO Ethyl Alcohol Level < 10.0 mg/dl Bedside Glucose 260 mg/dL Current Medications Medications Dose Sig/Jeanna Start Time Status Last (Trade) Ordered Route PRN Stop Time Admin Dose Reason Admin Aspirin 325 mg ONCE ONCE 09/04/18 DC 09/04/18 (Aspirin) PO 14:00 09/04/18 14:28 14:01 IV Flush 10 ml STK-MED 09/04/18 DC (NS 10 ml) ONCE .ROUTE 14:02 09/04/18 14:03 Sodium 100 ml @ ud STK-MED 09/04/18 DC Chloride ONCE .ROUTE 14:02 09/04/18 14:03 Iodixanol 100 ml STK-MED 09/04/18 DC (Visipaque ONCE .ROUTE 14:02 09/04/18 Locm) 14:03 Ondansetron 4 mg ER BRIDGE 09/04/18 HCl (Zofran PRN IV 15:00 09/05/18 Inj) NAUSEA/VOMITI 14:59 NG 650 mg ER BRIDGE 09/04/18 Acetaminophen PRN PO 15:00 09/05/18 (Tylenol .MILD PAIN 14:59 Tab) 1-3 OR TEMP Procedures/MDM Patient is a 62-year-old female who presents with right upper and right lower extremity weakness. She is outside the window for TPA as her symptoms started more than 4-1/2 hours ago as a last known well time was 7 PM last night. However she was within the window for possible interventional procedure to the patient had a code stroke called and went right to CT scan. She received a noncontrast CT scan and then a CTA of the head and neck which is our protocol. CT scan noncontrast was negative for bleed. She was given aspirin after she passed the swallow evaluation. CTA of the head and neck shows no large vessel occlusion per radiology. Timeline is as follows: 1338seen in ER 2 and a code stroke was called 1343call was made to tell neurology 1350report was given to Dr. Murphy from tele-neurology who will see the patient after CT scan is completed. Patient will be admitted to the care of Dr. Moody as the patient has [facility] insurance. The patient will be admitted to a telemetry inpatient bed . NIH stroke scale and bedside swallow performed by nursing. Critical care time 35 minutes excluding all billable procedures. Departure Diagnosis: Primary Impression: Stroke CVA mechanism: unspecified Qualified Codes: I63.9 - Cerebral infarction, unspecified Condition: Serious SUSAN GOLDEN MD Sep 04, 2018 14:47
[2018-09-04] MEDS ORDERED: ACETAMINOPHEN 325 MG TAB PO PRN (15:00)
[2018-09-04] MEDS ORDERED: ONDANSETRON 4 MG INJ IV PRN (15:00)
--- NOTE | 2018-09-04 17:10 | STROKE ---
Date/Time of Note Date/Time of Note DATE: 09/04/18 TIME: 18:57 Patient Information General Arrival Date Age 62 Gender female Weight 59.55 kg POC Glucose Glucose Result Bedside Glucose - 72 Hours Test 09/04/18 14:02 Bedside Glucose 260 mg/dL (70-220) H Vital Signs Vital Signs Vital Signs Date Temp Pulse Resp B/P (MAP) Pulse Ox O2 O2 Flow FiO2 Time Delivery Rate 09/04/18 98.0 72 18 122/66 98 Room Air 14:08 (84) Patient History Past Medical History Stroke, Diabetes Current Medications Allergies: Coded Allergies: No Known Allergy (Unverified , 09/04/18) Labs Chemistry Labs CBC & BMP FISHBONE 09/04/18 13:43 Coagulation Labs: Test 09/04/18 13:43 Activated Partial Thromboplast Time 31.8 Sec (23.0-35.0) History & Physical Patient History Notes Pt Hx Reviewed History of Present Illness Weakness R arm and leg since 1900 last night. No new symptoms Review of Systems Constitutional: no symptoms reported EENTM: no symptoms reported Cardiovascular: no symptoms reported Genitourinary: no symptoms reported Musculoskeletal: no symptoms reported NIH Stroke Scale NIH Stroke Scale [id number] l4d LOC Questions: Oplge9x LOC Commands: Fdnms7l t Gaze: Sztfr5k Hqmwx5q alsy: Vtbwo8k rm - Left: Pyyrv8c ight: Ltnkd3b : Syoeb5t ight: Eavth0l Zhyxe9z Jvnuj7y est Language: Tlfyp2i joselin: Mlkgv5q Ufohv1a 4Bd Total Score: Zwacu9f Date/Time Recorded DATE: 09/04/18 TIME: 18:57 CBC & BMP FISHBONE 09/04/18 13:43 t-PA Imaging Review Imaging Reviewed: Yes Date/Time Imaging Reviewed DATE: 09/04/18 TIME: 18:57 Imaging Findings chronic ischemic changes t-PA Administration Recommendation: No Weight 59.55 kg Recommedation submitted by Catherine Davis Recommendations Impression [id number] Cause: Ufxmp4q Other Disposition Admit for stroke evaluation. Not a candidate for IV tPA due to presentation outside therapeutic window. MRI brain, IVFNSs. Keep SBP<220 and DBP<110. Avoid hypotension. 2DECHO. PT, ST, OT. Local Neurology consu lt when available. Recommendation Qqorh3Sp Diagnostic Labs: Fnadm4i Lipid Proile Hgb A1C CMP CBC w/Diff Coags Urinaysis Scnsm1Gb Therapy: Fxhqi7e Physical Therapy Speech Therapy Occupational Therapy [id number] [facility] [place]. Recommendations: [address] Bedside Swallow Evaluation Stroke Education CATHERINE DAVIS MD Sep 04, 2018 17:10
--- NOTE | 2018-09-04 17:38 | HP ---
Date/Time of Note Date/Time of Note DATE: 09/04/18 TIME: 17:34 Assessment/Plan VTE Prophylaxis SCD applied (from Nsg): Yes Pharmacological prophylaxis: LMWH Lines/Catheters IV Catheter Type (from Nrsg): Saline Lock Assessment/Plan Assessment/Plan -Stroke, start aspirin, PT OT speech therapy evaluation. Dr. Archuleta is asked to see patient in neurology consultation. -Diabetes mellitus type 2. Continue Lantus and pre-meal NovoLog, Jardiance. -Atrial fibrillation, continue metoprolol and Lovenox. -Hypertension. Continue metoprolol and Procardia. -Hyperlipidemia. Continue statin. Further recommendations based on clinical course. Plan of care discussed with Dr. Moody. Result Diagram: 09/04/18 1343 09/04/18 1343 Results 24hrs Laboratory Tests Test 09/04/18 13:43 09/04/18 14:02 White Blood Count 11.7 #H Red Blood Count 5.26 Hemoglobin 14.7 Hematocrit 43.8 Mean Corpuscular Volume 83.3 Mean Corpuscular Hemoglobin 27.9 L Mean Corpuscular Hemoglobin Concent 33.6 Red Cell Distribution Width 13.3 Platelet Count 310 Mean Platelet Volume 9.0 Immature Granulocytes % 0.500 H Neutrophils % 76.5 Lymphocytes % 17.3 Monocytes % 5.0 Eosinophils % 0.4 Basophils % 0.3 Nucleated Red Blood Cells % 0.0 Immature Granulocytes # 0.060 H Neutrophils # 9.0 H Lymphocytes # 2.0 Monocytes # 0.6 Eosinophils # 0.1 Basophils # 0.0 Nucleated Red Blood Cells # 0.0 Prothrombin Time 12.9 Prothrombin Time Ratio 1.0 INR International Normalized Ratio 0.96 Activated Partial Thromboplast Time 31.8 Sodium Level 132 L Potassium Level 5.6 H Chloride Level 94 L Carbon Dioxide Level 24 Anion Gap 14 H Blood Urea Nitrogen 28 H Creatinine 1.06 H Est Glomerular Filtrat Rate mL/min 52 L Glucose Level 363 H Hemoglobin A1c 9.0 H Calcium Level 9.6 Creatine Kinase 56 Creatine Kinase Index 3.0 Creatinine Kinase MB (Mass) 1.70 Troponin I 0.082 Triglycerides Level 265 H Cholesterol Level 219 H LDL Cholesterol, Calculated 119 HDL Cholesterol 47 Cholesterol/HDL Ratio 4.6 Ethyl Alcohol Level < 10.0 H Bedside Glucose 260 H HPI/ROS Admit Date/Time Admit Date/Time Hx of Present Illness The patient is 62-year-old female known to me from previous admission with diabetes mellitus type 2, hypertension, hyperlipidemia, GERD, atrial fibrillation, history of pancreatitis and history of right elbow fracture status post surgery, history of pneumonia. Patient developed right-sided weakness yesterday at 7 PM when she was watching TV accompanied by pain in the right upper and lower extremity and difficulty getting up from the chair. Patient did not seek care until the next day. Patient is diagnosed with acute stroke and unfortunately is outside of the window for TPA. During the examination patient is awake alert, denies any fever, chills, denies any nausea, vomiting, denies any shortness of breath, denies any chest pain. Patient will be admitted for further evaluation and management to telemetry floor. ROS 12 point review of system is negative except for what mentioned in HPI PMH/Family/Social Past Medical History Medical History: diabetes, GERD, high cholesterol, hypertension Medications Current Medications Ondansetron HCl (Zofran Inj) 4 mg ER BRIDGE PRN IV NAUSEA/VOMITING; Start 09/04/18 at 15:00; Stop 09/05/18 at 14:59 Acetaminophen (Tylenol Tab) 650 mg ER BRIDGE PRN PO .MILD PAIN 1-3 OR TEMP; Start 09/04/18 at 15:00; Stop 09/05/18 at 14:59 Coded Allergies: No Known Allergy (Unverified , 09/04/18) Past Surgical History Past Surgical Hx: other (S/p right elbow surgery in July [address] Briggs, status post cataract surgery) Family History Significant Family History: diabetes, hypertension Social History Alcohol Use: none Smoking Status: Never smoker Drug Use: none Exam/Review of Systems Vital Signs Vitals Vital Signs Date Temp Pulse Resp B/P (MAP) Pulse Ox O2 O2 Flow FiO2 Time Delivery Rate 09/04/18 65 17 134/82 96 Room Air 17:00 (99) 09/04/18 98.0 14:08 Exam Constitutional: alert, oriented Head: normocephalic Neck: supple Respiratory: clear to auscultation Cardiovascular: irregular rhythm Gastrointestinal: soft, non-tender Musculoskeletal: nl extremities to inspection Extremities: normal pulses 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: other (Right-sided weakness) BEATRIZ JAUREZ Sep 04, 2018 17:38
[2018-09-04] MEDS: INSULIN ASPART [NOVOLOG] 3 ML PEN SC SCH (17:47)
[2018-09-04] MEDS: ASPIRIN (EC) 81 MG TAB PO SCH (17:48)
[2018-09-04] MEDS ORDERED: DEXTROSE 50% 50 ML SYRINGE IV PRN ×2 (18:00)
[2018-09-04] MEDS ORDERED: GLUCOSE GEL 15 GRAM TUBE BUCCAL PRN (18:00)
[2018-09-04] MEDS ORDERED: GLUCOSE GEL 15 GRAM TUBE PO PRN ×2 (18:00)
[2018-09-04] MEDS ORDERED: GLUCAGON 1 MG INJ IM PRN (18:00)
[2018-09-04] MEDS: ENOXAPARIN 60 MG/0.6 ML SYG SC SCH (19:37)
--- NOTE | 2018-09-04 20:51 | CONSI ---
Assessment/Plan Assessment/Plan Assessment/Plan (Recall) 62 F c/ afib and other cerebrovascular risk factors, who presents for evaluation of right hemiparesis w/ pain...for which neurology is consulted.. The clinical picture raises concern for acute stroke. Cervical myelopathy is, though, not entirely excluded.. Head CT is unremarkable CTA Head and Neck is unrevealing. P: Add MRI Brain and C spine for further characterization Agree w/ asa/lipitor daily for now Other management and supportive care per primary Will follow clinically, to recommend additional neurologic studies as necessary Consultation Date/Type/Reason Admit Date/Time Type of Consult Neurology Reason for Consultation stroke Requesting Provider: BEATRIZ JUAREZ Date/Time of Note DATE: 09/04/18 TIME: 20:41 Hx of Present Illness The patient is 62-year-old female known to me from previous admission with poorly controlled diabetes mellitus type 2, hypertension, atrial fibrillation history of pancreatitis. She developed right-sided weakness yesterday at 7 PM when she was watching TV with pain in the right upper and lower extremity and difficulty getting up from the chair. Patient did not seek care until the next day. Patient is diagnosed with acute stroke and unfortunately is outside of the window for TPA. During the examination patient is awake alert denies any fever chills denies any nausea vomiting denies any shortness of breath denies any chest pain. Patient will be admitted for further evaluation and management to telemetry floor. per HPI Objective Exam Vitals Vital Signs Date Temp Pulse Resp B/P (MAP) Pulse Ox O2 O2 Flow FiO2 Time Delivery Rate 09/04/18 98.4 65 16 142/78 97 Room Air 20:10 (99) Exam PE: Gen Appearance: No Apparent Distress HEENT: Normocephalic Cardiovascular: Regular rate Abdomen: Soft Extremities: Dry NE: The patient was alert and oriented. Language was normal. Fund of knowledge was normal. Pupils were equal and reactive to light. There was no afferent pupillary defect. Visual ackerman were normal. Funduscopic examination was limited. Extra-ocular movements were full. Ptosis was absent. There was no nystagmus. Facial sensation was normal. Face was symmetric with normal strength. Hearing was intact. Palate movements were normal. Neck strength was normal. There was normal tongue bulk and speed of movement. Tone was normal. Muscle bulk was normal. I did not see fasciculations. Arms and legs mild to moderately weak on the right. Vibration sensation was normal. Temperature and pinprick sensation was normal. Rapid alternating movements were normal. There was no dysmetria. There was no intention tremor. Gait was mildly unsteady. Pandya's sign was absent. Plantar responses were flexor. Results Result Diagram: 09/04/18 1343 09/04/18 1343 Results 24hrs Laboratory Tests Test 09/04/18 13:43 09/04/18 14:02 White Blood Count 11.7 #H Red Blood Count 5.26 Hemoglobin 14.7 Hematocrit 43.8 Mean Corpuscular Volume 83.3 Mean Corpuscular Hemoglobin 27.9 L Mean Corpuscular Hemoglobin Concent 33.6 Red Cell Distribution Width 13.3 Platelet Count 310 Mean Platelet Volume 9.0 Immature Granulocytes % 0.500 H Neutrophils % 76.5 Lymphocytes % 17.3 Monocytes % 5.0 Eosinophils % 0.4 Basophils % 0.3 Nucleated Red Blood Cells % 0.0 Immature Granulocytes # 0.060 H Neutrophils # 9.0 H Lymphocytes # 2.0 Monocytes # 0.6 Eosinophils # 0.1 Basophils # 0.0 Nucleated Red Blood Cells # 0.0 Prothrombin Time 12.9 Prothrombin Time Ratio 1.0 INR International Normalized Ratio 0.96 Activated Partial Thromboplast Time 31.8 Sodium Level 132 L Potassium Level 5.6 H Chloride Level 94 L Carbon Dioxide Level 24 Anion Gap 14 H Blood Urea Nitrogen 28 H Creatinine 1.06 H Est Glomerular Filtrat Rate mL/min 52 L Glucose Level 363 H Hemoglobin A1c 9.0 H Calcium Level 9.6 Creatine Kinase 56 Creatine Kinase Index 3.0 Creatinine Kinase MB (Mass) 1.70 Troponin I 0.082 Triglycerides Level 265 H Cholesterol Level 219 H LDL Cholesterol, Calculated 119 HDL Cholesterol 47 Cholesterol/HDL Ratio 4.6 Ethyl Alcohol Level < 10.0 H Bedside Glucose 260 H Past Medical History reviewed Home Meds Active Scripts Metformin* (Glucophage*) 1,000 Mg Tablet, 1000 MG PO BID for 30 Days, TAB Prov:BEATRIZ JUAREZ 04/11/18 Atorvastatin* (Atorvastatin*) 40 Mg Tablet, 40 MG PO HS for 30 Days, TAB Prov:BEATRIZ JUAREZ 03/07/18 Reported Medications Insulin Glargine* (Lantus*) 100 Unit/Ml Soln, 40 UNIT SC QHS, #1 VIAL 09/04/18 Insulin Aspart* (Novolog Insulin Pen*) 100 Unit/Ml Soln, 12 UNIT SC WITH MEALS, EA 09/04/18 Meclizine Hcl* (Meclizine Hcl*) 25 Mg Tablet, 25 MG PO DAILY PRN for DIZZINESS, TAB 09/04/18 Glipizide* (Glipizide*) 10 Mg Tablet, 10 MG PO AC BREAKFAST DINNER, TAB 09/04/18 Nifedipine* (Nifedipine ER*) 60 Mg Tablet.sa, 60 MG PO DAILY, TAB.SA 09/04/18 Metoprolol Tartrate* (Lopressor*) 100 Mg Tablet, 100 MG PO BID, #60 TAB 09/04/18 Empagliflozin (Jardiance) 25 Mg Tablet, 25 MG PO DAILY, TAB 09/04/18 Discontinued Reported Medications Insulin Aspart* (Novolog Insulin Pen*) 100 Unit/Ml Soln, 0 SC .SLIDING SCALE AC, EA INJECT SC QAM-10units; LUNCH-10units; QPM-30units 04/06/18 Omeprazole* (Omeprazole*) 40 Mg Capsule.dr, 40 MG PO DAILY, #30 CAP 08/24/17 Losartan Potassium* (Losartan Potassium*) 100 Mg Tablet, 100 MG PO DAILY, TAB 08/04/17 Discontinued Scripts [Insulin Glargine] 100 UNITS/ML SOLN No Conflict Check, 10 UNITS SC DAILY@1999 Prov:BEATRIZ JUAREZ 04/11/18 Docusate Sodium* (Docusate Sodium*) 100 Mg Capsule, 100 MG PO BID for 30 Days, CAP Prov:BEATRIZ JUAREZ 04/11/18 Apixaban* (Eliquis*) 5 Mg Tablet, 5 MG PO BID for 30 Days, TAB Prov:BEATRIZ JUAREZ 04/11/18 Empagliflozin (Jardiance) 10 Mg Tablet, 10 MG PO DAILY@08 for 30 Days, TAB Prov:BEARTIZ JUAREZ 04/11/18 Nifedipine (Procardia Xl) 30 Mg Tab.er.24, 30 MG PO DAILY for 30 Days, TAB Prov:BEATRIZ JUAREZ 08/30/17 Metoprolol Tartrate* (Lopressor*) 100 Mg Tablet, 100 MG PO BID for 30 Days, TAB Prov:BEATRIZ JUAREZ 08/30/17 Medications Current Medications Ondansetron HCl (Zofran Inj) 4 mg ER BRIDGE PRN IV NAUSEA/VOMITING; Start 09/04/18 at 15:00; Stop 09/05/18 at 14:59 Acetaminophen (Tylenol Tab) 650 mg ER BRIDGE PRN PO .MILD PAIN 1-3 OR TEMP; Start 09/04/18 at 15:00; Stop 09/05/18 at 14:59 Atorvastatin Calcium (Lipitor) 40 mg HS PO ; Start 09/04/18 at 21:00 Insulin Aspart (Novolog Insulin Pen) 12 unit WITH MEALS SC ; Start 09/04/18 at 18:00 Insulin Glargine (Lantus) 40 units QHS SC ; Start 09/04/18 at 21:00 Metoprolol Tartrate (Lopressor) 100 mg BID PO ; Start 09/04/18 at 21:00 Nifedipine (Procardia Xl) 60 mg DAILY PO ; Start 09/05/18 at 09:00 Miscellaneous Information 25 mg DAILY PO ; Start 09/05/18 at 09:00; Status UNV Aspirin (Halfprin) 81 mg DAILY PO ; Start 09/04/18 at 18:00 Enoxaparin Sodium (Lovenox) 60 mg Q12 SC Last administered on 09/04/18at 19:37; A dmin Dose 60 MG; Start 09/04/18 at 19:00 Miscellaneous Information 1 ea NOTE XX ; Start 09/04/18 at 18:00 Glucose (Glutose) 15 gm Q15M PRN PO DECREASED GLUCOSE; Start 09/04/18 at 18:00 Glucose (Glutose) 22.5 gm Q15M PRN PO DECREASED GLUCOSE; Start 09/04/18 at 18:00 Dextrose (D50w Syringe) 25 ml Q15M PRN IV DECREASED GLUCOSE; Start 09/04/18 at 18:00 Dextrose (D50w Syringe) 50 ml Q15M PRN IV DECREASED GLUCOSE; Start 09/04/18 at 18:00 Glucagon (Glucagen) 1 mg Q15M PRN IM DECREASED GLUCOSE; Start 09/04/18 at 18:00 Glucose (Glutose) 15 gm Q15M PRN BUCCAL DECREASED GLUCOSE; Start 09/04/18 at 18:00 Allergies: Coded Allergies: No Known Allergy (Unverified , 09/04/18) Past Surgical History Past Surgical Hx: other Social History Smoking Status: Never smoker JLOYNN JERNIGAN Sep 04, 2018 20:51
[2018-09-04 22:00] VITALS: BP 150/81; PULSE 75; RESP 18
[2018-09-04] MEDS ORDERED: LORAZEPAM 2 MG INJ IV ONE (22:00)
[2018-09-04] MEDS: ATORVASTATIN 40 MG TAB PO SCH (22:03)
[2018-09-04] MEDS: METOPROLOL 100 MG TAB PO SCH (22:04)
[2018-09-04] MEDS: INSULIN GLARGINE [LANTus] (100 UNITS/ML) SYG SC SCH (22:09)
[2018-09-05 00:31] VITALS: BP 144/78; PULSE 82; RESP 18
[2018-09-05 04:19] VITALS: BP 135/93; PULSE 51; RESP 20
[2018-09-05] MEDS: INSULIN ASPART [NOVOLOG] 3 ML PEN SC SCH ×3 (07:55→17:46)
[2018-09-05 08:23] VITALS: BP 155/99; PULSE 73; RESP 22
[2018-09-05] MEDS: ASPIRIN (EC) 81 MG TAB PO SCH (08:47)
[2018-09-05] MEDS: NIFEdipine (XL) 60 MG TAB PO SCH (08:48)
[2018-09-05] MEDS: METOPROLOL 100 MG TAB PO SCH ×2 (08:48→20:41)
[2018-09-05] MEDS: ENOXAPARIN 60 MG/0.6 ML SYG SC SCH ×2 (08:52→21:00)
[2018-09-05] MEDS ORDERED: EMPAGLIFLOZIN 10 MG TABLET PO SCH (09:00)
--- NOTE | 2018-09-05 09:28 | CONS ---
Assessment/Plan Assessment/Plan Assessment/Plan (Recall) 62 F c/ afib and other cerebrovascular risk factors, who presents for evaluation of right hemiparesis w/ pain...for which neurology is consulted.. The clinical picture raises concern for acute stroke. Cervical myelopathy is, though, not entirely excluded.. Head CT is unremarkable CTA Head and Neck is unrevealing. P: Await MRI Brain and C spine for further characterization Agree w/ asa/lipitor daily for now Other management and supportive care per primary Will follow clinically, to recommend additional neurologic studies as necessary Consultation Date/Type/Reason Admit Date/Time Sep 04, 2018 at 14:36 Type of Consult Neurology Reason for Consultation stroke Requesting Provider: BEATRIZ JUAREZ Date/Time of Note DATE: 09/05/18 TIME: 09:28 24 HR Interval Summary Free Text/Dictation Continues acute care Exam/Review of Systems Exam Vitals Vital Signs Date Temp Pulse Resp B/P (MAP) Pulse Ox O2 O2 Flow FiO2 Time Delivery Rate 09/05/18 96.0 73 22 155/99 96 Room Air 08:23 (117) Intake and Output 09/04/18 09/04/18 09/05/18 1515:00 23:00 07:00 IntakeIntake Total 50 ml BalanceBalance 50 ml Results Result Diagram: 09/04/18 1343 09/04/18 1343 Results 24hrs Laboratory Tests Test 09/04/18 13:43 09/04/18 14:02 09/04/18 21:52 09/05/18 03:56 White Blood Count 11.7 #H Red Blood Count 5.26 Hemoglobin 14.7 Hematocrit 43.8 Mean Corpuscular Volume 83.3 Mean Corpuscular 27.9 L Hemoglobin Mean Corpuscular 33.6 Hemoglobin Concent Red Cell Distribution 13.3 Width Platelet Count 310 Mean Platelet Volume 9.0 Immature Granulocytes % 0.500 H Neutrophils % 76.5 Lymphocytes % 17.3 Monocytes % 5.0 Eosinophils % 0.4 Basophils % 0.3 Nucleated Red Blood 0.0 Cells % Immature Granulocytes # 0.060 H Neutrophils # 9.0 H Lymphocytes # 2.0 Monocytes # 0.6 Eosinophils # 0.1 Basophils # 0.0 Nucleated Red Blood 0.0 Cells # Prothrombin Time 12.9 Prothrombin Time Ratio 1.0 INR International 0.96 Normalized Ratio Activated 31.8 Partial Thromboplast Time Sodium Level 132 L Potassium Level 5.6 H Chloride Level 94 L Carbon Dioxide Level 24 Anion Gap 14 H Blood Urea Nitrogen 28 H Creatinine 1.06 H Est Glomerular Filtrat 52 L Rate mL/min Glucose Level 363 H Hemoglobin A1c 9.0 H Calcium Level 9.6 Creatine Kinase 56 Creatine Kinase Index 3.0 Creatinine Kinase MB 1.70 (Mass) Troponin I 0.082 Triglycerides Level 265 H Cholesterol Level 219 H LDL Cholesterol, 119 Calculated HDL Cholesterol 47 Cholesterol/HDL Ratio 4.6 Ethyl Alcohol Level < 10.0 H Bedside Glucose 260 H 174 131 Test 09/05/18 06:15 09/05/18 06:41 09/05/18 07:42 B-Type Natriuretic 1200 H Peptide Urine Color STRAW Urine Clarity CLEAR Urine pH 6.0 Urine Specific [place] 1.022 Urine Ketones NEGATIVE Urine Nitrite NEGATIVE Urine Bilirubin NEGATIVE Urine Urobilinogen NEGATIVE Urine Leukocyte Esterase NEGATIVE Urine Hemoglobin NEGATIVE Urine Glucose 3+ H Urine Total Protein NEGATIVE Bedside Glucose 158 Medications Medication Current Medications Atorvastatin Calcium (Lipitor) 40 mg HS PO Last administered on 09/04/18 22:03; Admin Dose 40 MG; Start 09/04/18 at 21:00 Insulin Aspart (Novolog Insulin Pen) 12 unit WITH MEALS SC Last administered on 09/05/18 07:55; Admin Dose 12 UNIT; Start 09/04/18 at 18:00 Insulin Glargine (Lantus) 40 units QHS SC Last administered on 09/04/18 22:09; Admin Dose 40 UNITS; Start 09/04/18 at 21:00 Metoprolol Tartrate (Lopressor) 100 mg BID PO Last administered on 09/05/18 08:48; Admin Dose 100 MG; Start 09/04/18 at 21:00 Nifedipine (Procardia Xl) 60 mg DAILY PO Last administered on 09/05/18 08:48; Admin Dose 60 MG; Start 09/05/18 at 09:00 Aspirin (Halfprin) 81 mg DAILY PO Last administered on 09/05/18 08:47; Admin Dose 81 MG; Start 09/04/18 at 18:00 Enoxaparin Sodium (Lovenox) 60 mg Q12 SC Last administered on 09/05/18 08:52; Admin Dose 60 MG; Start 09/04/18 at 19:00 Miscellaneous Information 1 ea NOTE XX ; Start 09/04/18 at 18:00 Glucose (Glutose) 15 gm Q15M PRN PO DECREASED GLUCOSE; Start 09/04/18 at 18:00 Glucose (Glutose) 22.5 gm Q15M PRN PO DECREASED GLUCOSE; Start 09/04/18 at 18:00 Dextrose (D50w Syringe) 25 ml Q15M PRN IV DECREASED GLUCOSE; Start 09/04/18 at 18:00 Dextrose (D50w Syringe) 50 ml Q15M PRN IV DECREASED GLUCOSE; Start 09/04/18 at 18:00 Glucagon (Glucagen) 1 mg Q15M PRN IM DECREASED GLUCOSE; Start 09/04/18 at 18:00 Glucose (Glutose) 15 gm Q15M PRN BUCCAL DECREASED GLUCOSE; Start 09/04/18 at 18:00 Empaglifozin (Jardiance) 25 mg DAILY@08 PO ; Start 09/05/18 at 09:00 JOLYNN JERNIGAN Sep 05, 2018 09:28
[2018-09-05] MEDS: EMPAGLIFLOZIN 10 MG TABLET PO SCH (11:40)
[2018-09-05 12:15] VITALS: BP 147/82; PULSE 61; RESP 22
--- NOTE | 2018-09-05 16:17 | PN ---
Date/Time of Note Date/Time of Note DATE: 09/05/18 TIME: 16:16 Assessment/Plan VTE Prophylaxis Risk score (from Ns)>0 risk: 3 SCD applied (from Ns): Yes Pharmacological prophylaxis: LMWH Lines/Catheters IV [facility]from [facility] Saline Lock Urinary Cath still in place: No Assessment/Plan Hospital Course Patient is awake alert, patient is able to work with PT and OT, continue current care. Assessment/Plan -Acute stroke, MRI revealed acute nonhemorrhagic left parietal cortical and subcortical white matter infarcts and acute ischemic right occipital cord co rtical infarct lateral to the chronic right medial occipital lobe infarcts. Continue aspirin continue physical and occupational therapy. Dr. Archuleta is following in neurology consultation. -Diabetes mellitus type 2 with hemoglobin A1c of 9. Continue Lantus and pre- meal NovoLog, Jardiance. -Atrial fibrillation, continue metoprolol and Lovenox. -Hypertension. Continue metoprolol and Procardia. -Hyperlipidemia. Continue statin. Further recommendations based on clinical course. Plan of care discussed with Dr. Moody. Result Diagram: 09/05/1892509/05/18 09 Results 24hrs Laboratory Tests Test 09/04/18 21:52 09/05/18 03:56 09/05/18 06:15 09/05/18 06:41 Bedside Glucose 174 131 B-Type Natriuretic 1200 H Peptide Urine Color STRAW Urine Clarity CLEAR Urine pH 6.0 Urine Specific [place] 1.022 Urine Ketones NEGATIVE Urine Nitrite NEGATIVE Urine Bilirubin NEGATIVE Urine Urobilinogen NEGATIVE Urine Leukocyte Esterase NEGATIVE Urine Hemoglobin NEGATIVE Urine Glucose 3+ H Urine Total Protein NEGATIVE Test 09/05/18 07:42 09/05/18 09:26 09/05/18 11:39 Bedside Glucose 158 105 White Blood Count 6.7 # Red Blood Count 5.38 Hemoglobin 15.0 Hematocrit 44.9 Mean Corpuscular Volume 83.5 Mean Corpuscular 27.9 L Hemoglobin Mean Corpuscular 33.4 Hemoglobin Concent Red Cell Distribution 13.2 Width Platelet Count 319 Mean Platelet Volume 8.9 Immature Granulocytes % 0.400 Neutrophils % 60.2 Lymphocytes % 30.0 Monocytes % 6.8 Eosinophils % 1.6 Basophils % 1.0 Nucleated Red Blood 0.0 Cells % Immature Granulocytes # 0.030 Neutrophils # 4.1 Lymphocytes # 2.0 Monocytes # 0.5 Eosinophils # 0.1 Basophils # 0.1 Nucleated Red Blood 0.0 Cells # Sodium Level 139 Potassium Level 4.5 Chloride Level 103 Carbon Dioxide Level 25 Anion Gap 11 Blood Urea Nitrogen 23 H Creatinine 0.97 Est Glomerular Filtrat 58 L Rate mL/min Glucose Level 141 # Calcium Level 9.7 Exam/Review of Systems Exam Vitals Vital Signs Date Temp Pulse Resp B/P (MAP) Pulse Ox O2 O2 Flow FiO2 Time Delivery Rate 09/05/18 98.0 61 22 147/82 96 Room Air 12:15 (103) Intake and Output 09/04/18 09/04/18 09/05/18 1414:59 22:59 06:59 IntakeIntake Total 50 ml BalanceBalance 50 ml Exam Constitutional: alert, oriented Head: normocephalic Neck: supple Respiratory: clear to auscultation Cardiovascular: irregular rhythm Gastrointestinal: soft, non-tender Musculoskeletal: nl extremities to inspection Extremities: normal pulses 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: other (Right-sided weakness) Results Results 24hrs Laboratory Tests Test 09/04/18 21:52 09/05/18 03:56 09/05/18 06:15 09/05/18 06:41 Bedside Glucose 174 131 B-Type Natriuretic 1200 H Peptide Urine Color STRAW Urine Clarity CLEAR Urine pH 6.0 Urine Specific [place] 1.022 Urine Ketones NEGATIVE Urine Nitrite NEGATIVE Urine Bilirubin NEGATIVE Urine Urobilinogen NEGATIVE Urine Leukocyte Esterase NEGATIVE Urine Hemoglobin NEGATIVE Urine Glucose 3+ H Urine Total Protein NEGATIVE Test 09/05/18 07:42 09/05/18 09:26 09/05/18 11:39 Bedside Glucose 158 105 White Blood Count 6.7 # Red Blood Count 5.38 Hemoglobin 15.0 Hematocrit 44.9 Mean Corpuscular Volume 83.5 Mean Corpuscular 27.9 L Hemoglobin Mean Corpuscular 33.4 Hemoglobin Concent Red Cell Distribution 13.2 Width Platelet Count 319 Mean Platelet Volume 8.9 Immature Granulocytes % 0.400 Neutrophils % 60.2 Lymphocytes % 30.0 Monocytes % 6.8 Eosinophils % 1.6 Basophils % 1.0 Nucleated Red Blood 0.0 Cells % Immature Granulocytes # 0.030 Neutrophils # 4.1 Lymphocytes # 2.0 Monocytes # 0.5 Eosinophils # 0.1 Basophils # 0.1 Nucleated Red Blood 0.0 Cells # Sodium Level 139 Potassium Level 4.5 Chloride Level 103 Carbon Dioxide Level 25 Anion Gap 11 Blood Urea Nitrogen 23 H Creatinine 0.97 Est Glomerular Filtrat 58 L Rate mL/min Glucose Level 141 # Calcium Level 9.7 Medications Medication Current Medications Atorvastatin Calcium (Lipitor) 40 mg HS PO Last administered on 09/04/18 22:03; Admin Dose 40 MG; Start 09/04/18 at 21:00 Insulin Aspart (Novolog Insulin Pen) 12 unit WITH MEALS SC Last administered on 09/05/18 11:49; Admin Dose 12 UNIT; Start 09/04/18 at 18:00 Insulin Glargine (Lantus) 40 units QHS SC Last administered on 09/04/18 22:09; Admin Dose 40 UNITS; Start 09/04/18 at 21:00 Metoprolol Tartrate (Lopressor) 100 mg BID PO Last administered on 09/05/18 08:48; Admin Dose 100 MG; Start 09/04/18 at 21:00 Nifedipine (Procardia Xl) 60 mg DAILY PO Last administered on 09/05/18 08:48; Admin Dose 60 MG; Start 09/05/18 at 09:00 Aspirin (Halfprin) 81 mg DAILY PO Last administered on 09/05/18 08:47; Admin Dose 81 MG; Start 09/04/18 at 18:00 Enoxaparin Sodium (Lovenox) 60 mg Q12 SC Last administered on 09/05/18 08:52; Admin Dose 60 MG; Start 09/04/18 at 19:00 Miscellaneous Information 1 ea NOTE XX ; Start 09/04/18 at 18:00 Glucose (Glutose) 15 gm Q15M PRN PO DECREASED GLUCOSE; Start 09/04/18 at 18:00 Glucose (Glutose) 22.5 gm Q15M PRN PO DECREASED GLUCOSE; Start 09/04/18 at 18:00 Dextrose (D50w Syringe) 25 ml Q15M PRN IV DECREASED GLUCOSE; Start 09/04/18 at 18:00 Dextrose (D50w Syringe) 50 ml Q15M PRN IV DECREASED GLUCOSE; Start 09/04/18 at 18:00 Glucagon (Glucagen) 1 mg Q15M PRN IM DECREASED GLUCOSE; Start 09/04/18 at 18:00 Glucose (Glutose) 15 gm Q15M PRN BUCCAL DECREASED GLUCOSE; Start 09/04/18 at 18:00 Empaglifozin (Jardiance) 25 mg DAILY@08 PO Last administered on 09/05/18at 11:40; Admin Dose 25 MG; Start 09/05/18 at 09:00 BEATRIZ JUAREZ Sep 05, 2018 16:17
[2018-09-05 16:26] VITALS: BP 120/84; PULSE 71; RESP 22
[2018-09-05 20:05] VITALS: BP 113/69; PULSE 57; RESP 18
[2018-09-05] MEDS: ATORVASTATIN 40 MG TAB PO SCH (20:40)
[2018-09-05] MEDS: INSULIN GLARGINE [LANTus] (100 UNITS/ML) SYG SC SCH (21:00)
[2018-09-06 00:41] VITALS: BP_SYST 11; BP_SYST 110; BP_SYST 127; BP_DIAS 60; BP_DIAS 78; PULSE 72; PULSE 78; RESP 20
[2018-09-06 04:16] VITALS: BP 116/74; PULSE 75; RESP 18
[2018-09-06] MEDS: INSULIN ASPART [NOVOLOG] 3 ML PEN SC SCH ×3 (07:53→17:24)
[2018-09-06] MEDS: EMPAGLIFLOZIN 10 MG TABLET PO SCH (07:57)
[2018-09-06 08:08] VITALS: BP 122/73; PULSE 59; RESP 19
[2018-09-06] MEDS: NIFEdipine (XL) 60 MG TAB PO SCH (08:08)
[2018-09-06] MEDS: METOPROLOL 100 MG TAB PO SCH ×2 (08:08→20:42)
[2018-09-06] MEDS: ASPIRIN (EC) 81 MG TAB PO SCH (08:09)
[2018-09-06] MEDS: ENOXAPARIN 60 MG/0.6 ML SYG SC SCH ×2 (08:10→20:56)
[2018-09-06 11:34] VITALS: BP 111/70; PULSE 71; RESP 19
--- NOTE | 2018-09-06 12:57 | CONS ---
Assessment/Plan Assessment/Plan Assessment/Plan (Recall) 62 F c/ afib and other cerebrovascular risk factors, who presents for evaluation of right hemiparesis w/ pain...for which neurology is consulted.. MRI C spine confirms mid-cervical cord compression.. MRI brain is notable for recent and bilateral strokes..which are likely asymptomatic. CTA Head and Neck is unrevealing. P: Neurosurgery evaluation for cord compression Hold PT for now Add echocardiogram Add ESR, RPR Continue asa/lipitor daily for now Other management and supportive care per primary Will follow clinically Consultation Date/Type/Reason Admit Date/Time Sep 04, 2018 at 14:36 Type of Consult Neurology Reason for Consultation stroke Requesting Provider: BEATRIZ JUAREZ Date/Time of Note DATE: 09/06/18 TIME: 12:49 24 HR Interval Summary Free Text/Dictation s/p MRI Exam/Review of Systems Exam Vitals Vital Signs Date Temp Pulse Resp B/P (MAP) Pulse Ox O2 O2 Flow FiO2 Time Delivery Rate 09/06/18 97.8 71 19 111/70 93 11:34 (84) 09/05/18 Room Air 16:26 Intake and Output 09/05/18 09/05/18 09/06/18 1515:00 23:00 07:00 IntakeIntake Total 420 ml 500 ml 200 ml OutputOutput Total 3 ml 1 ml BalanceBalance 420 ml 497 ml 199 ml Results Result Diagram: 09/06/18 0536 09/06/18 0536 Results 24hrs Laboratory Tests Test 09/05/18 17:36 09/05/18 20:39 09/06/18 05:36 09/06/18 07:34 Bedside Glucose 123 113 102 White Blood Count 7.1 Red Blood Count 5.35 Hemoglobin 15.1 Hematocrit 44.7 Mean Corpuscular 83.6 Volume Mean Corpuscular 28.2 L Hemoglobin Mean Corpuscular 33.8 Hemoglobin Concent Red Cell Distribution 13.2 Width Platelet Count 336 Mean Platelet Volume 9.1 Immature Granulocytes 0.400 % Neutrophils % 49.4 Lymphocytes % 36.7 Monocytes % 10.4 Eosinophils % 2.0 Basophils % 1.1 Nucleated Red Blood 0.0 Cells % Immature Granulocytes 0.030 # Neutrophils # 3.5 Lymphocytes # 2.6 Monocytes # 0.7 Eosinophils # 0.1 Basophils # 0.1 Nucleated Red Blood 0.0 Cells # Sodium Level 140 Potassium Level 4.1 Chloride Level 107 Carbon Dioxide Level 23 Anion Gap 10 Blood Urea Nitrogen 26 H Creatinine 1.00 Est Glomerular 56 L Filtrat Rate mL/min Glucose Level 106 Calcium Level 9.5 Test 09/06/18 11:41 Bedside Glucose 80 Medications Medication Current Medications Atorvastatin Calcium (Lipitor) 40 mg HS PO Last administered on 09/05/18at 20:40; Admin Dose 40 MG; Start 09/04/18 at 21:00 Insulin Aspart (Novolog Insulin Pen) 12 unit WITH MEALS SC Last administered on 09/06/18at 11:50; Admin Dose 12 UNIT; Start 09/04/18 at 18:00 Insulin Glargine (Lantus) 40 units QHS SC Last administered on 09/05/18at 21:00; Admin Dose 40 UNITS; Start 09/04/18 at 21:00 Metoprolol Tartrate (Lopressor) 100 mg BID PO Last administered on 09/05/18at 20:41; Admin Dose 100 MG; Start 09/04/18 at 21:00 Nifedipine (Procardia Xl) 60 mg DAILY PO Last administered on 09/05/18at 08:48; Admin Dose 60 MG; Start 09/05/18 at 09:00 Aspirin (Halfprin) 81 mg DAILY PO Last administered on 09/06/18at 08:09; Admin Dose 81 MG; Start 09/04/18 at 18:00 Enoxaparin Sodium (Lovenox) 60 mg Q12 SC Last administered on 09/06/18at 08:10; Admin Dose 60 MG; Start 09/04/18 at 19:00 Miscellaneous Information 1 ea NOTE XX ; Start 09/04/18 at 18:00 Glucose (Glutose) 15 gm Q15M PRN PO DECREASED GLUCOSE; Start 09/04/18 at 18:00 Glucose (Glutose) 22.5 gm Q15M PRN PO DECREASED GLUCOSE; Start 09/04/18 at 18:00 Dextrose (D50w Syringe) 25 ml Q15M PRN IV DECREASED GLUCOSE; Start 09/04/18 at 18:00 Dextrose (D50w Syringe) 50 ml Q15M PRN IV DECREASED GLUCOSE; Start 09/04/18 at 18:00 Glucagon (Glucagen) 1 mg Q15M PRN IM DECREASED GLUCOSE; Start 09/04/18 at 18:00 Glucose (Glutose) 15 gm Q15M PRN BUCCAL DECREASED GLUCOSE; Start 09/04/18 at 18:00 Empaglifozin (Jardiance) 25 mg DAILY@08 PO Last administered on 09/06/18at 07:57; Admin Dose 25 MG; Start 09/05/18 at 09:00 JOLYNN JERNIGAN Sep 06, 2018 12:57
[2018-09-06 15:16] VITALS: BP 115/54; PULSE 71; RESP 19
--- NOTE | 2018-09-06 18:02 | PN ---
Date/Time of Note Date/Time of Note DATE: 09/06/18 TIME: 18:00 Assessment/Plan VTE Prophylaxis Risk score (from Ns)>0 risk: 3 SCD applied (from Ns): Yes Pharmacological prophylaxis: LMWH Lines/Catheters IV Catheter Type (from Nrs): Saline Lock Urinary Cath still in place: No Assessment/Plan Hospital Course Patient is awake alert, patient is able to work with PT and OT, continue current care. Atrial fibrillation with slow heart rate will decrease metoprolol. Pending neurosurgery evaluation. Assessment/Plan -Cervical cord compression. Dr. Vega is asked to see patient in neurosurgery consultation. -Acute stroke, MRI revealed acute nonhemorrhagic left parietal cortical and subcortical white matter infarcts and acute ischemic right occipital cord cortic al infarct lateral to the chronic right medial occipital lobe infarcts. Continue aspirin continue physical and occupational therapy. Dr. Archuleta is following in neurology consultation. -Diabetes mellitus type 2 with hemoglobin A1c of 9. Continue Lantus and pre- meal NovoLog, Jardiance. -Atrial fibrillation, continue metoprolol and Lovenox. -Hypertension. Continue metoprolol and Procardia. -Hyperlipidemia. Continue statin. Further recommendations based on clinical course. Plan of care discussed with Dr. Moody. Result Diagram: 09/06/18 0536 09/06/1836 Results 24hrs Laboratory Tests Test 09/05/18 20:39 09/06/18 05:36 09/06/18 07:34 09/06/18 11:41 Bedside Glucose 113 102 80 White Blood Count 7.1 Red Blood Count 5.35 Hemoglobin 15.1 Hematocrit 44.7 Mean Corpuscular 83.6 Volume Mean Corpuscular 28.2 L Hemoglobin Mean Corpuscular 33.8 Hemoglobin Concent Red Cell 13.2 Distribution Width Platelet Count 336 Mean Platelet Volume 9.1 Immature 0.400 Granulocytes % Neutrophils % 49.4 Lymphocytes % 36.7 Monocytes % 10.4 Eosinophils % 2.0 Basophils % 1.1 Nucleated Red Blood 0.0 Cells % Immature 0.030 Granulocytes # Neutrophils # 3.5 Lymphocytes # 2.6 Monocytes # 0.7 Eosinophils # 0.1 Basophils # 0.1 Nucleated Red Blood 0.0 Cells # Sodium Level 140 Potassium Level 4.1 Chloride Level 107 Carbon Dioxide Level 23 Anion Gap 10 Blood Urea Nitrogen 26 H Creatinine 1.00 Est Glomerular 56 L Filtrat Rate mL/min Glucose Level 106 Calcium Level 9.5 Test 09/06/18 17:17 Bedside Glucose 84 Exam/Review of Systems Exam Vitals Vital Signs Date Temp Pulse Resp B/P (MAP) Pulse Ox O2 O2 Flow FiO2 Time Delivery Rate 09/06/18 97.9 71 19 115/54 91 15:16 (74) 09/05/18 Room Air 16:26 Intake and Output 09/05/18 09/05/18 09/06/18 1515:00 23:00 07:00 IntakeIntake Total 420 ml 500 ml 200 ml OutputOutput Total 3 ml 1 ml BalanceBalance 420 ml 497 ml 199 ml Exam Constitutional: alert, oriented Respiratory: clear to auscultation Cardiovascular: irregular rhythm Gastrointestinal: soft, non-tender Musculoskeletal: nl extremities to inspection Extremities: normal pulses 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: other (Right-sided weakness) Results Results 24hrs Laboratory Tests Test 09/05/18 20:39 09/06/18 05:36 09/06/18 07:34 09/06/18 11:41 Bedside Glucose 113 102 80 White Blood Count 7.1 Red Blood Count 5.35 Hemoglobin 15.1 Hematocrit 44.7 Mean Corpuscular 83.6 Volume Mean Corpuscular 28.2 L Hemoglobin Mean Corpuscular 33.8 Hemoglobin Concent Red Cell 13.2 Distribution Width Platelet Count 336 Mean Platelet Volume 9.1 Immature 0.400 Granulocytes % Neutrophils % 49.4 Lymphocytes % 36.7 Monocytes % 10.4 Eosinophils % 2.0 Basophils % 1.1 Nucleated Red Blood 0.0 Cells % Immature 0.030 Granulocytes # Neutrophils # 3.5 Lymphocytes # 2.6 Monocytes # 0.7 Eosinophils # 0.1 Basophils # 0.1 Nucleated Red Blood 0.0 Cells # Sodium Level 140 Potassium Level 4.1 Chloride Level 107 Carbon Dioxide Level 23 Anion Gap 10 Blood Urea Nitrogen 26 H Creatinine 1.00 Est Glomerular 56 L Filtrat Rate mL/min Glucose Level 106 Calcium Level 9.5 Test 09/06/18 17:17 Bedside Glucose 84 Medications Medication Current Medications Atorvastatin Calcium (Lipitor) 40 mg HS PO Last administered on 09/05/18at 20:40; Admin Dose 40 MG; Start 09/04/18 at 21:00 Insulin Aspart (Novolog Insulin Pen) 12 unit WITH MEALS SC Last administered on 09/06/18at 17:24; Admin Dose 12 UNIT; Start 09/04/18 at 18:00 Insulin Glargine (Lantus) 40 units QHS SC Last administered on 09/05/18at 21:00; Admin Dose 40 UNITS; Start 09/04/18 at 21:00 Metoprolol Tartrate (Lopressor) 100 mg BID PO Last administered on 09/05/18at 20:41; Admin Dose 100 MG; Start 09/04/18 at 21:00 Nifedipine (Procardia Xl) 60 mg DAILY PO Last administered on 09/05/18at 08:48; Admin Dose 60 MG; Start 09/05/18 at 09:00 Aspirin (Halfprin) 81 mg DAILY PO Last administered on 09/06/18 08:09; Admin Dose 81 MG; Start 09/04/18 at 18:00 Enoxaparin Sodium (Lovenox) 60 mg Q12 SC Last administered on 09/06/18at 08:10; Admin Dose 60 MG; Start 09/04/18 at 19:00 Miscellaneous Information 1 ea NOTE XX ; Start 09/04/18 at 18:00 Glucose (Glutose) 15 gm Q15M PRN PO DECREASED GLUCOSE; Start 09/04/18 at 18:00 Glucose (Glutose) 22.5 gm Q15M PRN PO DECREASED GLUCOSE; Start 09/04/18 at 18:00 Dextrose (D50w Syringe) 25 ml Q15M PRN IV DECREASED GLUCOSE; Start 09/04/18 at 18:00 Dextrose (D50w Syringe) 50 ml Q15M PRN IV DECREASED GLUCOSE; Start 09/04/18 at 18:00 Glucagon (Glucagen) 1 mg Q15M PRN IM DECREASED GLUCOSE; Start 09/04/18 at 18:00 Glucose (Glutose) 15 gm Q15M PRN BUCCAL DECREASED GLUCOSE; Start 09/04/18 at 18:00 Empaglifozin (Jardiance) 25 mg DAILY@08 PO Last administered on 09/06/18at 07:57; Admin Dose 25 MG; Start 09/05/18 at 09:00 BEATRIZ JUAREZ Sep 06, 2018 18:02
[2018-09-06 20:12] VITALS: BP 138/65; PULSE 76; RESP 18
[2018-09-06] MEDS: ATORVASTATIN 40 MG TAB PO SCH (20:42)
[2018-09-06] MEDS: INSULIN GLARGINE [LANTus] (100 UNITS/ML) SYG SC SCH (20:55)
[2018-09-07] VITALS (7 sets, daily range): BP systolic 120–149; BP diastolic 63–83; PULSE 52–84; RESP 18–19
[2018-09-07] MEDS: NIFEdipine (XL) 60 MG TAB PO SCH (08:01)
[2018-09-07] MEDS: ASPIRIN (EC) 81 MG TAB PO SCH (08:02)
[2018-09-07] MEDS: EMPAGLIFLOZIN 10 MG TABLET PO SCH (08:02)
[2018-09-07] MEDS: METOPROLOL 100 MG TAB PO SCH ×2 (08:02→20:28)
[2018-09-07] MEDS: ENOXAPARIN 60 MG/0.6 ML SYG SC SCH ×2 (08:03→21:43)
[2018-09-07] MEDS: INSULIN ASPART [NOVOLOG] 3 ML PEN SC SCH ×3 (08:04→16:48)
--- NOTE | 2018-09-07 09:01 | RADRPT ---
Echocardiogram Report Patient Name: YUDY ROLLISNPatient ID: [id number] : 1955 (62y 9m)Study Date: 09/06/2018 1:37:50 PM Gender: FAccession #: [id number] Tech: Carter Bnoilla [facility] Location: [facility] Ref.Physician: JOLYNN JERNIGAN Height(Cm): BSA: Weight(Kg): Quality: AdequateOrder Physician: JOLYNN JERNIGAN Account #: Procedures: Echocardiographic Report: Transthoracic echocardiogram with complete 2D, M-Mode, and doppler examination. Indications: Stroke. Measurements: 2D/M Mode Doppler Measurement Value Normal Range Measurement Value Normal Range LVIDd 2D 4.0 [ 3.8 - 5.2 ] cm AV Peak [place] 1.2 [ 100.0 - 170.0 ] cm/sec LVIDs 2D 2.4 [ 2.2 - 3.5 ] cm AV Peak PG 6.0 [ 2.0 - 9.0 ] mmHg LVPWd 2D 1.5 [ 0.6 - 0.9 ] cm LVOT Peak [place] 1.1 [ 70.0 - 110.0 ] cm/sec IVSd 2D 1.4 [ 0.6 - 0.9 ] cm LVOT Peak PG 5.0 [ 2.0 - 6.0 ] mmHg AoR Diam 2D 2.8 [ 2.3 - 3.1 ] cm MV E Peak [place] 0.9 [ 60.0 - 130.0 ] cm/sec EDV 2D 70.0 [ 46.0 - 106.0 ] ml MV Decel Time 130 [ 104 - 258 ] msec ESV 2D 19.7 [ 14.0 - 42.0 ] ml Lat E` Teofilo 0.1 [ 10.0 - 15.0 ] cm/sec EF 2D 71.9 [ 54.0 - 74.0 ] percent Lateral E/E` 12.8 [ 1.0 - 2.0 ] ratio LA Dimen 2D 3.3 [ 2.7 - 3.8 ] cm Med E` Teofilo 0.1 cm/sec TR Peak Teofilo 2.2 [ 100.0 - 280.0 ] cm/sec TR Peak PG 20.0 mmHg RVSP 23.0 [ 10.0 - 36.0 ] mmHg RA Pressure 3.0 mmHg Findings: Left Ventricle: Normal left ventricular systolic function. Normal left ventricular cavity size. Moderate concentric left ventricular hypertrophy. Ejection fraction is visually estimated at 65 %. Tissue Doppler/Mitral Doppler indices are indeterminate in this study due to the presence of atrial fibrillation. Right Ventricle: Normal right ventricular size. Normal right ventricular systolic function. Left Atrium: The left atrium is normal in size. Right Atrium: The right atrium is normal in size. Mitral Valve: Normal appearance of the mitral valve. Mild mitral valve regurgitation. Aortic Valve: Aortic sclerosis without significant stenosis. Trileaflet aortic valve. Trace aortic valve regurgitation. Tricuspid Valve: Normal appearance of the tricuspid valve. The estimated Peak RVSP is 23 mmHg. There is trace tricuspid regurgitation. Pulmonic Valve: Normal pulmonic valve appearance. Pericardium: Normal pericardium with no significant pericardial effusion. Aorta: Normal aortic root. IVC: Normal size and normal respiratory collapse consistent with normal right atrial pressure. Conclusions: Normal left ventricular systolic function. Normal left ventricular cavity size. Moderate concentric left ventricular hypertrophy. Ejection fraction is visually estimated at 65 %. Tissue Doppler/Mitral Doppler indices are indeterminate in this study due to the presence of atrial fibrillation. The left atrium is normal in size. Normal appearance of the mitral valve. Mild mitral valve regurgitation. n. Aortic sclerosis without significant stenosis. Trileaflet aortic valve. Trace aortic valve regurgitation. Normal appearance of the tricuspid valve. The estimated Peak RVSP is 23 mmHg. There is trace tricuspid regurgitation. Normal size and normal respiratory collapse consistent with normal right atrial pressure. Electronically Signed By: Bony Miguel 2018-09-07 09:00:03 PDT
--- NOTE | 2018-09-07 14:08 | PN ---
Date/Time of Note Date/Time of Note DATE: 09/07/18 TIME: 14:05 Assessment/Plan VTE Prophylaxis Risk score (from Ns)>0 risk: 3 SCD applied (from Ns): Yes Pharmacological prophylaxis: LMWH Lines/Catheters IV [facility]ter Type (from [facility] Saline Lock Urinary Cath still in place: No Assessment/Plan Hospital Course Patient is awake, alert, pending evaluation by neurosurgery. Assessment/Plan -Cervical cord compression. Dr. Vega is asked to see patient in neurosurgery consultation. -Acute stroke, MRI revealed acute nonhemorrhagic left parietal cortical and subcortical white matter infarcts and acute ischemic right occipital cord cortical infarct lateral to the chronic right medial occipital lobe infarcts. Continue aspirin continue physical and occupational therapy. Dr. Archuleta is following in neurology consultation. -Diabetes mellitus type 2 with hemoglobin A1c of 9. Continue Lantus and pre- meal NovoLog, Jardiance. -Atrial fibrillation, continue metoprolol and Lovenox. -Hypertension. Continue metoprolol and Procardia. -Hyperlipidemia. Continue statin. Further recommendations based on clinical course. Plan of care discussed with Dr. Moody. Result Diagram: 09/06/1836 09/06/1836 Results 24hrs Laboratory Tests Test 09/06/18 17:17 09/06/18 20:46 09/07/18 07:59 09/07/18 11:59 Bedside Glucose 84 82 92 74 Exam/Review of Systems Exam Vitals Vital Signs Date Temp Pulse Resp B/P (MAP) Pulse Ox O2 O2 Flow FiO2 Time Delivery Rate 09/07/18 97.9 71 19 131/82 98 11:22 (98) 09/05/18 Room Air 16:26 Intake and Output 09/06/18 09/06/18 09/07/18 1414:59 22:59 06:59 IntakeIntake Total 800 ml 480 ml OutputOutput Total 2 ml 1 ml BalanceBalance 798 ml 479 ml Exam Constitutional: alert, oriented Respiratory: clear to auscultation Cardiovascular: irregular rhythm Gastrointestinal: soft, non-tender Musculoskeletal: nl extremities to inspection Extremities: normal pulses 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: other (Right-sided weakness) Results Results 24hrs Laboratory Tests Test 09/06/18 17:17 09/06/18 20:46 09/07/18 07:59 09/07/18 11:59 Bedside Glucose 84 82 92 74 Medications Medication Current Medications Atorvastatin Calcium (Lipitor) 40 mg HS PO Last administered on 09/06/18 20:42; Admin Dose 40 MG; Start 09/04/18 at 21:00 Insulin Glargine (Lantus) 40 units QHS SC Last administered on 09/06/18 20:55; Admin Dose 40 UNITS; Start 09/04/18 at 21:00 Nifedipine (Procardia Xl) 60 mg DAILY PO Last administered on 09/07/18 08:01; Admin Dose 60 MG; Start 09/05/18 at 09:00 Aspirin (Halfprin) 81 mg DAILY PO Last administered on 09/07/18 08:02; Admin Dose 81 MG; Start 09/04/18 at 18:00 Enoxaparin Sodium (Lovenox) 60 mg Q12 SC Last administered on 09/07/18 08:03; Admin Dose 60 MG; Start 09/04/18 at 19:00 Miscellaneous Information 1 ea NOTE XX ; Start 09/04/18 at 18:00 Glucose (Glutose) 15 gm Q15M PRN PO DECREASED GLUCOSE; Start 09/04/18 at 18:00 Glucose (Glutose) 22.5 gm Q15M PRN PO DECREASED GLUCOSE; Start 09/04/18 at 18:00 Dextrose (D50w Syringe) 25 ml Q15M PRN IV DECREASED GLUCOSE; Start 09/04/18 at 18:00 Dextrose (D50w Syringe) 50 ml Q15M PRN IV DECREASED GLUCOSE; Start 09/04/18 at 18:00 Glucagon (Glucagen) 1 mg Q15M PRN IM DECREASED GLUCOSE; Start 09/04/18 at 18:00 Glucose (Glutose) 15 gm Q15M PRN BUCCAL DECREASED GLUCOSE; Start 09/04/18 at 18:00 Empaglifozin (Jardiance) 25 mg DAILY@08 PO Last administered on 09/07/18 08:02; Admin Dose 25 MG; Start 09/05/18 at 09:00 Metoprolol Tartrate (Lopressor) 50 mg BID PO Last administered on 09/07/18 08:02; Admin Dose 50 MG; Start 09/06/18 at 21:00 Insulin Aspart (Novolog Insulin Pen) 8 unit WITH MEALS SC Last administered on 09/07/18 12:00; Admin Dose 8 UNIT; Start 09/07/18 at 07:55 BEATRIZ JUAREZ Sep 07, 2018 14:08
--- NOTE | 2018-09-07 14:33 | CONS ---
Assessment/Plan Assessment/Plan Assessment/Plan (Daily) Neurosurgery Consult Note Patient with frequent falls, bilateral ue clumsiness, and recently underwent right arm surgical repair after fall MRI brain shows - acute infarcts bilaterally and started on ASA and on Lovenox MRI cpsine shows significant central canal stenosis , most significant C3-4 ( disc herniation) Cord signal change noted Plan Candidate for Posterior C3-6 decompression but will need clearance by Neurology given recent infarct need to be off ASA x 7 days prior to surgery need to be off lovenox x 48 hrs prior to surgery low dose steroids until surgery completed fall precautions med/cards clearance for surgery as well Pt will be in prone position x 1,5-2 hrs Discussed plan with MARCELLO Liao. Possible ARU placement and will bring back for surgery once cleared by Consultants Consultation Date/Type/Reason Admit Date/Time Sep 04, 2018 at 14:36 Date/Time of Note DATE: 09/07/18 TIME: 14:27 Past Medical History Medical History: diabetes, GERD, high cholesterol, hypertension Home Meds Active Scripts Apixaban* (Eliquis*) 2.5 Mg Tablet, 5 MG PO BID for 30 Days, TAB Prov:BEATRIZ JUAREZ 09/12/18 Insulin Aspart* (Novolog Insulin Pen*) 100 Unit/Ml Soln, 8 UNIT SC WITH MEALS for 30 Days Prov:BEATRIZ JUAREZ 09/12/18 Nifedipine (Procardia Xl) 30 Mg Tab.er.24, 30 MG PO DAILY for 30 Days, TAB Prov:BEATRIZ JUAREZ 09/12/18 Insulin Glargine* (Lantus*) 100 Unit/Ml Soln, 40 UNIT SC QHS for 30 Days, #1 VIAL Prov:BEATRIZ JUAREZ 09/12/18 Empagliflozin (Jardiance) 25 Mg Tablet, 25 MG PO DAILY for 30 Days, TAB Prov:BEATRIZ JUAREZ 09/12/18 Metformin* (Glucophage*) 1,000 Mg Tablet, 1000 MG PO BID for 30 Days, TAB Prov:BEATRIZ JUAREZ 09/12/18 Atorvastatin* (Atorvastatin*) 40 Mg Tablet, 40 MG PO HS for 30 Days, TAB Prov:BEATRIZ JUAREZ 09/12/18 Discontinued Reported Medications Insulin Aspart* (Novolog Insulin Pen*) 100 Unit/Ml Soln, 12 UNIT SC WITH MEALS, EA 09/04/18 Meclizine Hcl* (Meclizine Hcl*) 25 Mg Tablet, 25 MG PO DAILY PRN for DIZZINESS, TAB 09/04/18 Glipizide* (Glipizide*) 10 Mg Tablet, 10 MG PO AC BREAKFAST DINNER, TAB 09/04/18 Nifedipine* (Nifedipine ER*) 60 Mg Tablet.sa, 60 MG PO DAILY, TAB.SA 09/04/18 Metoprolol Tartrate* (Lopressor*) 100 Mg Tablet, 100 MG PO BID, #60 TAB 09/04/18 Medications Current Medications Atorvastatin Calcium (Lipitor) 40 mg HS PO Last administered on 09/06/18at 20:42; Admin Dose 40 MG; Start 09/04/18 at 21:00 Insulin Glargine (Lantus) 40 units QHS SC Last administered on 09/06/18at 20:55; Admin Dose 40 UNITS; Start 09/04/18 at 21:00 Nifedipine (Procardia Xl) 60 mg DAILY PO Last administered on 09/07/18at 08:01; Admin Dose 60 MG; Start 09/05/18 at 09:00 Aspirin (Halfprin) 81 mg DAILY PO Last administered on 09/07/18at 08:02; Admin Dose 81 MG; Start 09/04/18 at 18:00 Enoxaparin Sodium (Lovenox) 60 mg Q12 SC Last administered on 09/07/18at 08:03; Admin Dose 60 MG; Start 09/04/18 at 19:00 Miscellaneous Information 1 ea NOTE XX ; Start 09/04/18 at 18:00 Glucose (Glutose) 15 gm Q15M PRN PO DECREASED GLUCOSE; Start 09/04/18 at 18:00 Glucose (Glutose) 22.5 gm Q15M PRN PO DECREASED GLUCOSE; Start 09/04/18 at 18:00 Dextrose (D50w Syringe) 25 ml Q15M PRN IV DECREASED GLUCOSE; Start 09/04/18 at 18:00 Dextrose (D50w Syringe) 50 ml Q15M PRN IV DECREASED GLUCOSE; Start 09/04/18 at 18:00 Glucagon (Glucagen) 1 mg Q15M PRN IM DECREASED GLUCOSE; Start 09/04/18 at 18:00 Glucose (Glutose) 15 gm Q15M PRN BUCCAL DECREASED GLUCOSE; Start 09/04/18 at 18:00 Empaglifozin (Jardiance) 25 mg DAILY@08 PO Last administered on 09/07/18at 08:02; Admin Dose 25 MG; Start 09/05/18 at 09:00 Metoprolol Tartrate (Lopressor) 50 mg BID PO Last administered on 09/07/18at 08:02; Admin Dose 50 MG; Start 09/06/18 at 21:00 Insulin Aspart (Novolog Insulin Pen) 8 unit WITH MEALS SC Last administered on 09/07/18at 12:00; Admin Dose 8 UNIT; Start 09/07/18 at 07:55 Allergies: Coded Allergies: No Known Allergy (Unverified , 09/04/18) Past Surgical History Past Surgical Hx: other (S/p right elbow surgery in July [address] Briggs, status post cataract surgery) Social History Alcohol Use: none Smoking Status: Never smoker Drug Use: none Exam/Review of Systems Exam Vitals Vital Signs Date Temp Pulse Resp B/P (MAP) Pulse Ox O2 O2 Flow FiO2 Time Delivery Rate 09/07/18 97.9 71 19 131/82 98 11:22 (98) 09/05/18 Room Air 16:26 Intake and Output 09/06/18 09/06/18 09/07/18 1515:00 23:00 07:00 IntakeIntake Total 800 ml 480 ml OutputOutput Total 2 ml 1 ml BalanceBalance 798 ml 479 ml Results Result Diagram: 09/06/18 0536 09/06/18 0536 Results 24hrs Laboratory Tests Test 09/06/18 17:17 09/06/18 20:46 09/07/18 07:59 09/07/18 11:59 Bedside Glucose 84 82 92 74 Medications Medication Current Medications Atorvastatin Calcium (Lipitor) 40 mg HS PO Last administered on 09/06/18at 20:42; Admin Dose 40 MG; Start 09/04/18 at 21:00 Insulin Glargine (Lantus) 40 units QHS SC Last administered on 09/06/18at 20:55; Admin Dose 40 UNITS; Start 09/04/18 at 21:00 Nifedipine (Procardia Xl) 60 mg DAILY PO Last administered on 09/07/18at 08:01; Admin Dose 60 MG; Start 09/05/18 at 09:00 Aspirin (Halfprin) 81 mg DAILY PO Last administered on 09/07/18at 08:02; Admin Dose 81 MG; Start 09/04/18 at 18:00 Enoxaparin Sodium (Lovenox) 60 mg Q12 SC Last administered on 09/07/18at 08:03; Admin Dose 60 MG; Start 09/04/18 at 19:00 Miscellaneous Information 1 ea NOTE XX ; Start 09/04/18 at 18:00 Glucose (Glutose) 15 gm Q15M PRN PO DECREASED GLUCOSE; Start 09/04/18 at 18:00 Glucose (Glutose) 22.5 gm Q15M PRN PO DECREASED GLUCOSE; Start 09/04/18 at 18:00 Dextrose (D50w Syringe) 25 ml Q15M PRN IV DECREASED GLUCOSE; Start 09/04/18 at 18:00 Dextrose (D50w Syringe) 50 ml Q15M PRN IV DECREASED GLUCOSE; Start 09/04/18 at 18:00 Glucagon (Glucagen) 1 mg Q15M PRN IM DECREASED GLUCOSE; Start 09/04/18 at 18:00 Glucose (Glutose) 15 gm Q15M PRN BUCCAL DECREASED GLUCOSE; Start 09/04/18 at 18:00 Empaglifozin (Jardiance) 25 mg DAILY@08 PO Last administered on 09/07/18at 08:02; Admin Dose 25 MG; Start 09/05/18 at 09:00 Metoprolol Tartrate (Lopressor) 50 mg BID PO Last administered on 09/07/18at 08: 02; Admin Dose 50 MG; Start 09/06/18 at 21:00 Insulin Aspart (Novolog Insulin Pen) 8 unit WITH MEALS SC Last administered on 09/07/18at 12:00; Admin Dose 8 UNIT; Start 09/07/18 at 07:55 SHANNA SUBRAMANIAN NP Sep 07, 2018 14:33
--- NOTE | 2018-09-07 15:38 | CONS ---
Assessment/Plan Assessment/Plan Assessment/Plan (Recall) 62 F c/ afib and other cerebrovascular risk factors, who presents for evaluation of right hemiparesis w/ pain...for which neurology is consulted.. MRI C spine confirms mid-cervical cord compression.. MRI brain is notable for recent and bilateral strokes..which are likely asymptomatic. CTA Head and Neck is unrevealing. TTE is limited by afib P: Await ESR, RPR Continue asa/lipitor daily for now PT for balance training to mitigate fall risk, then recommend transition to eliquis (and off antiplatelets) on 09/12.. Defer non-emergent surgery for at least 30 days, where possible Other management and supportive care per primary Will follow clinically Consultation Date/Type/Reason Admit Date/Time Sep 04, 2018 at 14:36 Type of Consult Neurology Reason for Consultation stroke Requesting Provider: BEATRIZ JUAREZ Date/Time of Note DATE: 09/07/18 TIME: 15:33 24 HR Interval Summary Free Text/Dictation Continues acute care Exam/Review of Systems Exam Vitals Vital Signs Date Temp Pulse Resp B/P (MAP) Pulse Ox O2 O2 Flow FiO2 Time Delivery Rate 09/07/18 97.9 71 19 131/82 98 11:22 (98) 09/05/18 Room Air 16:26 Intake and Output 09/06/18 09/06/18 09/07/18 1515:00 23:00 07:00 IntakeIntake Total 800 ml 480 ml OutputOutput Total 2 ml 1 ml BalanceBalance 798 ml 479 ml Results Result Diagram: 09/06/18 0536 09/06/18 0536 Results 24hrs Laboratory Tests Test 09/06/18 17:17 09/06/18 20:46 09/07/18 07:59 09/07/18 11:59 Bedside Glucose 84 82 92 74 Medications Medication Current Medications Atorvastatin Calcium (Lipitor) 40 mg HS PO Last administered on 09/06/18at 20:42; Admin Dose 40 MG; Start 09/04/18 at 21:00 Insulin Glargine (Lantus) 40 units QHS SC Last administered on 09/06/18at 20:55; Admin Dose 40 UNITS; Start 09/04/18 at 21:00 Nifedipine (Procardia Xl) 60 mg DAILY PO Last administered on 09/07/18at 08:01; Admin Dose 60 MG; Start 09/05/18 at 09:00 Aspirin (Halfprin) 81 mg DAILY PO Last administered on 09/07/18at 08:02; Admin Dose 81 MG; Start 09/04/18 at 18:00 Enoxaparin Sodium (Lovenox) 60 mg Q12 SC Last administered on 09/07/18at 08:03; Admin Dose 60 MG; Start 09/04/18 at 19:00 Miscellaneous Information 1 ea NOTE XX ; Start 09/04/18 at 18:00 Glucose (Glutose) 15 gm Q15M PRN PO DECREASED GLUCOSE; Start 09/04/18 at 18:00 Glucose (Glutose) 22.5 gm Q15M PRN PO DECREASED GLUCOSE; Start 09/04/18 at 18:00 Dextrose (D50w Syringe) 25 ml Q15M PRN IV DECREASED GLUCOSE; Start 09/04/18 at 18:00 Dextrose (D50w Syringe) 50 ml Q15M PRN IV DECREASED GLUCOSE; Start 09/04/18 at 18:00 Glucagon (Glucagen) 1 mg Q15M PRN IM DECREASED GLUCOSE; Start 09/04/18 at 18:00 Glucose (Glutose) 15 gm Q15M PRN BUCCAL DECREASED GLUCOSE; Start 09/04/18 at 18:00 Empaglifozin (Jardiance) 25 mg DAILY@08 PO Last administered on 09/07/18at 08:02; Admin Dose 25 MG; Start 09/05/18 at 09:00 Metoprolol Tartrate (Lopressor) 50 mg BID PO Last administered on 09/07/18at 08:02; Admin Dose 50 MG; Start 09/06/18 at 21:00 Insulin Aspart (Novolog Insulin Pen) 8 unit WITH MEALS SC Last administered on 09/07/18at 12:00; Admin Dose 8 UNIT; Start 09/07/18 at 07:55 JOLYNN JERNIGAN Sep 07, 2018 15:38
[2018-09-07] MEDS: ATORVASTATIN 40 MG TAB PO SCH (20:28)
[2018-09-07] MEDS: INSULIN GLARGINE [LANTus] (100 UNITS/ML) SYG SC SCH (21:43)
[2018-09-08 03:40] VITALS: BP 142/73; PULSE 68; RESP 18
[2018-09-08 07:11] VITALS: BP 109/65; PULSE 69; RESP 16
[2018-09-08] MEDS: INSULIN ASPART [NOVOLOG] 3 ML PEN SC SCH ×3 (08:09→17:21)
[2018-09-08] MEDS: EMPAGLIFLOZIN 10 MG TABLET PO SCH (08:28)
[2018-09-08] MEDS: NIFEdipine (XL) 60 MG TAB PO SCH (08:29)
[2018-09-08] MEDS: METOPROLOL 100 MG TAB PO SCH (08:30)
[2018-09-08] MEDS: ASPIRIN (EC) 81 MG TAB PO SCH (08:30)
[2018-09-08] MEDS: ENOXAPARIN 60 MG/0.6 ML SYG SC SCH ×2 (08:33→21:03)
[2018-09-08 11:08] VITALS: BP 140/62; PULSE 69; RESP 18
--- NOTE | 2018-09-08 11:33 | PN ---
Date/Time of Note Date/Time of Note DATE: 09/08/18 TIME: 11:25 Assessment/Plan VTE Prophylaxis Risk score (from Ns)>0 risk: 3 SCD applied (from [facility] [place] SCD contraindicated: other Pharmacological prophylaxis: other Pharm contraindication: other Lines/Catheters IV Catheter Type (from [facility]): Saline Lock Urinary Cath still in place: No Assessment/Plan Assessment/Plan -Cervical cord compression. Dr. Vega is asked to see patient in neurosurgery consultation. -Acute stroke, MRI revealed acute nonhemorrhagic left parietal cortical and subcortical white matter infarcts and acute ischemic right occipital cord cortical infarct lateral to the chronic right medial occipital lobe infarcts. Continue aspirin continue physical and occupational therapy. Dr. Archuleta is following in neurology consultation. -Diabetes mellitus type 2 with hemoglobin A1c of 9. Continue Lantus and pre- meal NovoLog, Jardiance. -Atrial fibrillation, continue metoprolol and Lovenox. -Hypertension. Continue metoprolol and Procardia. -Hyperlipidemia. Continue statin. Further recommendations based on clinical course. Plan of care discussed with Dr. Moody. Result Diagram: 09/06/1836 09/06/18 0536 Results 24hrs Laboratory Tests Test 09/07/18 11:59 09/07/18 15:58 09/07/18 16:48 09/07/18 20:31 Bedside Glucose 74 74 197 Erythrocyte 8 Sedimentation Rate Test 09/08/18 07:26 Bedside Glucose 78 Subjective 24 Hr Interval Summary Free Text/Dictation - 10:05- patient has episode of pause of 0.03 sec; Cardiology consult obtained- Dr Hendrickson notified; rodrigo Moody; BB/CCB stopped - cont monitoring ; HR 51; patient is asymptomatic - dw staff Eyes: no complaints ENT: no complaints Respiratory: no complaints Cardiovascular: no complaints Gastrointestinal: no complaints Genitourinary: no complaints Musculoskeletal: back pain Skin: no complaints Neurologic: no complaints Endocrine: no complaints Lymphatic: no complaints Psychological: nl mood/affect Immunologic: no complaints Exam/Review of Systems Exam Vitals Vital Signs Date Temp Pulse Resp B/P (MAP) Pulse Ox O2 O2 Flow FiO2 Time Delivery Rate 09/08/18 18 140/62 99 11:08 (88) 09/08/18 98.2 69 07:11 09/08/18 Room Air 03:40 Intake and Output 09/07/18 09/07/18 09/08/18 1515:00 23:00 07:00 IntakeIntake Total 810 ml 240 ml 400 ml OutputOutput Total 2 ml 1 ml BalanceBalance 808 ml 239 ml 400 ml Constitutional: alert, well developed Psych: nl mood/affect Head: atraumatic Eyes: nl lids, nl sclera ENMT: nl external ears & nose Neck: non-tender Respiratory: clear to auscultation Cardiovascular: nl pulses, other (s1s2) Gastrointestinal: soft, non-tender Musculoskeletal: muscle weakness Extremities: normal pulses 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: nl speech, other (alert/responsive) Skin: nl turgor Results Results 24hrs Laboratory Tests Test 09/07/18 11:59 09/07/18 15:58 09/07/18 16:48 09/07/18 20:31 Bedside Glucose 74 74 197 Erythrocyte 8 Sedimentation Rate Test 09/08/18 07:26 Bedside Glucose 78 Medications Medication Current Medications Atorvastatin Calcium (Lipitor) 40 mg HS PO Last administered on 09/07/18at 20:28; Admin Dose 40 MG; Start 09/04/18 at 21:00 Insulin Glargine (Lantus) 40 units QHS SC Last administered on 09/07/18at 21:43; Admin Dose 40 UNITS; Start 09/04/18 at 21:00 Aspirin (Halfprin) 81 mg DAILY PO Last administered on 09/08/18at 08:30; Admin Dose 81 MG; Start 09/04/18 at 18:00 Enoxaparin Sodium (Lovenox) 60 mg Q12 SC Last administered on 09/08/18at 08:33; Admin Dose 60 MG; Start 09/04/18 at 19:00 Miscellaneous Information 1 ea NOTE XX ; Start 09/04/18 at 18:00 Glucose (Glutose) 15 gm Q15M PRN PO DECREASED GLUCOSE; Start 09/04/18 at 18:00 Glucose (Glutose) 22.5 gm Q15M PRN PO DECREASED GLUCOSE; Start 09/04/18 at 18:00 Dextrose (D50w Syringe) 25 ml Q15M PRN IV DECREASED GLUCOSE; Start 09/04/18 at 18:00 Dextrose (D50w Syringe) 50 ml Q15M PRN IV DECREASED GLUCOSE; Start 09/04/18 at 18:00 Glucagon (Glucagen) 1 mg Q15M PRN IM DECREASED GLUCOSE; Start 09/04/18 at 18:00 Glucose (Glutose) 15 gm Q15M PRN BUCCAL DECREASED GLUCOSE; Start 09/04/18 at 18:00 Empaglifozin (Jardiance) 25 mg DAILY@08 PO Last administered on 09/08/18at 08:28; Admin Dose 25 MG; Start 09/05/18 at 09:00 Insulin Aspart (Novolog Insulin Pen) 8 unit WITH MEALS SC Last administered on 09/08/18at 08:09; Admin Dose 8 UNIT; Start 09/07/18 at 07:55 LIOR GRAF Sep 08, 2018 11:33
[2018-09-08 14:53] VITALS: BP 133/68; PULSE 61; RESP 18
--- NOTE | 2018-09-08 15:59 | CONS ---
Assessment/Plan Assessment/Plan Assessment/Plan (Recall) 62 F c/ afib and other cerebrovascular risk factors, who presents for evaluation of right hemiparesis w/ pain...for which neurology is consulted.. MRI C spine confirms mid-cervical cord compression.. MRI brain is notable for recent and bilateral strokes..which are likely asymptomatic. CTA Head and Neck is unrevealing. TTE is limited by afib ESR/RPR ok P: Continue asa/lipitor daily for now PT for balance training to mitigate fall risk, then recommend transition to eliquis (and off antiplatelets) on 09/12.. Defer non-emergent surgery for at least 30 days, where possible Other management and supportive care per primary Will follow clinically Consultation Date/Type/Reason Admit Date/Time Sep 04, 2018 at 14:36 Type of Consult Neurology Reason for Consultation stroke Requesting Provider: BEATRIZ JUAREZ Date/Time of Note DATE: 09/08/18 TIME: 15:58 24 HR Interval Summary Free Text/Dictation Continues acute care Exam/Review of Systems Exam Vitals Vital Signs Date Temp Pulse Resp B/P (MAP) Pulse Ox O2 O2 Flow FiO2 Time Delivery Rate 09/08/18 97.8 61 18 133/68 97 14:53 (89) 09/08/18 Room Air 03:40 Intake and Output 09/07/18 09/07/18 09/08/18 1515:00 23:00 07:00 IntakeIntake Total 810 ml 240 ml 400 ml OutputOutput Total 2 ml 1 ml BalanceBalance 808 ml 239 ml 400 ml Results Result Diagram: 09/06/18 0536 09/06/18 0536 Results 24hrs Laboratory Tests Test 09/07/18 16:48 09/07/18 20:31 09/08/18 07:26 09/08/18 11:33 Bedside Glucose 74 197 78 104 Medications Medication Current Medications Atorvastatin Calcium (Lipitor) 40 mg HS PO Last administered on 09/07/18at 20:28; Admin Dose 40 MG; Start 09/04/18 at 21:00 Insulin Glargine (Lantus) 40 units QHS SC Last administered on 09/07/18at 21:43; Admin Dose 40 UNITS; Start 09/04/18 at 21:00 Aspirin (Halfprin) 81 mg DAILY PO Last administered on 09/08/18at 08:30; Admin Dose 81 MG; Start 09/04/18 at 18:00 Enoxaparin Sodium (Lovenox) 60 mg Q12 SC Last administered on 09/08/18at 08:33; Admin Dose 60 MG; Start 09/04/18 at 19:00 Miscellaneous Information 1 ea NOTE XX ; Start 09/04/18 at 18:00 Glucose (Glutose) 15 gm Q15M PRN PO DECREASED GLUCOSE; Start 09/04/18 at 18:00 Glucose (Glutose) 22.5 gm Q15M PRN PO DECREASED GLUCOSE; Start 09/04/18 at 18:00 Dextrose (D50w Syringe) 25 ml Q15M PRN IV DECREASED GLUCOSE; Start 09/04/18 at 18:00 Dextrose (D50w Syringe) 50 ml Q15M PRN IV DECREASED GLUCOSE; Start 09/04/18 at 18:00 Glucagon (Glucagen) 1 mg Q15M PRN IM DECREASED GLUCOSE; Start 09/04/18 at 18:00 Glucose (Glutose) 15 gm Q15M PRN BUCCAL DECREASED GLUCOSE; Start 09/04/18 at 18:00 Empaglifozin (Jardiance) 25 mg DAILY@08 PO Last administered on 09/08/18at 08:28; Admin Dose 25 MG; Start 09/05/18 at 09:00 Insulin Aspart (Novolog Insulin Pen) 8 unit WITH MEALS SC Last administered on 09/08/18at 11:40; Admin Dose 8 UNIT; Start 09/07/18 at 07:55 Nifedipine (Procardia Xl) 30 mg DAILY PO ; Start 09/09/18 at 09:00 JOLYNN JERNIGAN Sep 08, 2018 15:59
[2018-09-08 19:40] VITALS: BP 118/62; PULSE 75; RESP 18
[2018-09-08] MEDS: ATORVASTATIN 40 MG TAB PO SCH (20:52)
[2018-09-08] MEDS: INSULIN GLARGINE [LANTus] (100 UNITS/ML) SYG SC SCH (21:03)
--- NOTE | 2018-09-08 21:23 | CONS ---
DATE OF ADMISSION: 09/04/2018 DATE OF CONSULTATION: 09/08/2018 REASON FOR CONSULTATION: Atrial fibrillation with episodes of slow ventricular response and pauses. REQUESTING PHYSICIAN: Christi Moody MD HISTORY OF PRESENT ILLNESS: The patient is a 62-year-old female with history of hypertension, dyslip idemia, atrial fibrillation, diabetes mellitus, gastroesophageal reflux disease, who presented with a cute onset right-sided weakness while watching TV with right upper extremity weakness as well. The p atient said symptoms resolved and did not seek evaluation until the following day when she presented to the emergency department here at [facility] on 09/04/2018. Upon arrival, temper ature 97.6, blood pressure 120/60, pulse 57, respiratory rate 18, satting 99%. The patient's labs we re notable for white count 11.7, hemoglobin 14.7, platelet count 310, a sodium of 132, potassium 5.6, creatinine 1.0, BUN 28, glucose 363. Troponin negative. BNP of 1200, LDL 119, HDL 47. INR 0.96. Tox screen negative. UA negative. The patient underwent a cervical spine MRI which revealed no acut e fracture or traumatic subluxation, central foraminal disk protrusion C3-C4 with severe central zhen l stenosis, cord compression, hypertrophy at C3-C4, C5-C6 levels. A brain MRI that revealed acute no nhemorrhagic left frontal cortical and subcortical white matter infarcts, acute ischemic right occipi juancarlos cortical infarct. Head CTA revealed normal CT angio of brain. Chest x-ray revealed mild cardiom egaly and pulmonary vascular congestion and a head CT that revealed no evidence of acute intracranial pathology, moderate volume loss, microvascular changes with an old right DELICATESSEN DEPARTMENT MANAGER infarct. The patient's electrocardiogram revealed atrial fibrillation rate of 52, normal axis with inferolateral T-wave inv ersions, borderline septal Q's. The patient was admitted to the floor and since admit to floor has been followed by the neurology ser vice with plans to maintain the patient on aspirin at this time with transition to Eliquis on the 16t h. The patient has additionally been placed on Lovenox full dose anticoagulation. The patient was a dditionally written for a baseline beta reg but due to recurrent bradyarrhythmias this had this s topped. PAST MEDICAL HISTORY: As above in HPI. MEDICAIONS PRIOR TO ADMIT 1. Lipitor 5 mg at bedtime. 2. Metoprolol 100 mg b.i.d. 3. Procardia 60 mg daily. 4. Jardiance Glipizide 10 mg daily. 5. Insulin. 6. Metformin 1000 mg b.i.d. ALLERGIES: NO KNOWN DRUG ALLERGIES. SOCIAL HISTORY: No current tobacco, ETOH or illicit drug use. FAMILY HISTORY: No history of sudden cardiac or early CAD. REVIEW OF SYSTEMS: As above in HPI. CONSTITUTIONAL: No fevers, chills. PULMONARY: No current shortness of breath. CARDIOVASCULAR: Atrial fibrillation, slow ventricular response. GASTROINTESTINAL: No vomiting. GENITOURINARY: No hematuria. MUSCULOSKELETAL: Degenerative joint disease. Right-sided weakness. PSYCHIATRIC: No documented psych history. NEUROLOGIC: Acute cerebrovascular accident with right-sided weakness. PHYSICAL EXAMINATION: VITAL SIGNS: Temperature of 98.2, blood pressure 140/62, pulse 60, respiratory rate 18, satting 99%. GENERAL: The patient is alert, awake, in no acute distress. NECK: JVP approximately 8 to 9 cm of water. CHEST: Fair air movement throughout. HEART: Irregularly irregular, I/ systolic murmur. ABDOMEN: Positive bowel sounds, soft. EXTREMITIES: No significant pitting edema, 1+ pulses bilateral posterior. NEUROLOGIC: right-sided weakness. LABORATORY DATA: Most recently from the 10th - White blood cell count 7.1, hemoglobin 15.1, platelet count 336. Sodium 140, potassium 4.1, creatinine 1.0, BUN 26. IMAGING STUDIES: As above in HPI. No further imaging studies for my review at this time. ELECTROCARDIOGRAM: As above in HPI. No further electrocardiograms for my review at this time. IMPRESSION: 1. Atrial fibrillation with slow ventricular response and pauses up to 3.3 seconds while on beta blo cker. 2. Hypertension. 3. Abnormal electrocardiogram with inferolateral T-wave inversions. 4. Acute cerebrovascular accident in the setting of atrial fibrillation. 5. Spinal stenosis with cord compression. 6. Dyslipidemia. RECOMMENDATIONS: 1. At this time, we would maintain patient on telemetry monitoring to follow rhythm and rates closel y. 2. Agree with holding of the patient's beta reg, although the patient could be still continued o n her baseline Procardia for control of blood pressure. 3. Continue the patient's Lovenox at this time If okay with neurology, but unclear If the patient do es have Lovenox plus aspirin at this time was made to increase bleeding risk or cause increased risk for hemorrhagic conversion and therefore, we will defer to neurology service. 4. Follow the patient's rhythm closely off of beta reg. 5. Patient is already status post 2D echo this admission read by another casket assembler revealing an E F of 65% with mild mitral and trace tricuspid regurgitation. 6. Additionally check a TSH to be sure subclinical hyperthyroid is not contributing to any bouts of atrial fibrillation with slow ventricular response. Thank you for allowing me to take part in the care of this patient. I will continue to follow very c losely with you. Further recommendations will be made as the patient progresses through the [facility] clinical course. Dictated By: TONE ODMINIQUE/NTS Conf#: [id number] DID#: [id number] CC: CHRISTI MOODY MD;*EndCC*
[2018-09-09 00:53] VITALS: BP 127/65; PULSE 65; RESP 18
[2018-09-09 03:36] VITALS: BP 136/84; PULSE 68; RESP 18
[2018-09-09 07:19] VITALS: BP 126/62; PULSE 55; RESP 19
[2018-09-09] MEDS: INSULIN ASPART [NOVOLOG] 3 ML PEN SC SCH ×3 (07:55→18:03)
[2018-09-09] MEDS: NIFEdipine (XL) 30 MG TAB PO SCH (08:13)
[2018-09-09] MEDS: ASPIRIN (EC) 81 MG TAB PO SCH (08:13)
[2018-09-09] MEDS: EMPAGLIFLOZIN 10 MG TABLET PO SCH (08:14)
[2018-09-09] MEDS: ENOXAPARIN 60 MG/0.6 ML SYG SC SCH ×2 (08:57→20:45)
[2018-09-09 10:49] VITALS: BP 140/80; PULSE 79; RESP 19
--- NOTE | 2018-09-09 11:05 | PN ---
Date/Time of Note Date/Time of Note DATE: 09/09/18 TIME: 11:04 Assessment/Plan VTE Prophylaxis Risk score (from Ns)>0 risk: 2 SCD applied (from Ns): Yes Pharmacological prophylaxis: LMWH Lines/Catheters IV [facility]from [facility] Saline Lock Urinary Cath still in place: No Assessment/Plan Hospital Course -Cervical cord compression. Dr. Vega is asked to see patient in neurosurgery consultation. -Acute stroke, MRI revealed acute nonhemorrhagic left parietal cortical and subcortical white matter infarcts and acute ischemic right occipital cord cortical infarct lateral to the chronic right medial occipital lobe infarcts. Continue aspirin continue physical and occupational therapy. Dr. Archuleta is following in neurology consultation. -Diabetes mellitus type 2 with hemoglobin A1c of 9. Continue Lantus and pre- meal NovoLog, Jardiance. -Atrial fibrillation, continue metoprolol and Lovenox. -Hypertension. Continue metoprolol and Procardia. -Hyperlipidemia. Continue statin. Result Diagram: 09/09/18 0639 09/09/18 0638 Results 24hrs Laboratory Tests Test 09/08/18 11:33 09/08/18 18:55 09/08/18 20:51 09/09/18 00:19 Bedside Glucose 104 266 H Troponin I < 0.012 < 0.012 Thyroid Stimulating 1.020 Hormone (TSH) Test 09/09/18 06:38 09/09/18 06:39 09/09/18 08:11 Sodium Level 139 Potassium Level 3.6 Chloride Level 104 Carbon Dioxide Level 27 Anion Gap 8 Blood Urea Nitrogen 23 H Creatinine 0.72 Est Glomerular > 60 Filtrat Rate mL/min Glucose Level 69 L Calcium Level 9.3 Triglycerides Level 95 Cholesterol Level 151 LDL Cholesterol, 89 Calculated HDL Cholesterol 43 Cholesterol/HDL 3.5 Ratio White Blood Count 7.5 Red Blood Count 5.08 Hemoglobin 14.4 Hematocrit 42.6 Mean Corpuscular 83.9 Volume Mean Corpuscular 28.3 L Hemoglobin Mean Corpuscular 33.8 Hemoglobin Concent Red Cell 13.2 Distribution Width Platelet Count 287 Mean Platelet Volume 9.2 Immature 0.300 Granulocytes % Neutrophils % 57.8 Lymphocytes % 30.5 Monocytes % 9.1 Eosinophils % 1.6 Basophils % 0.7 Nucleated Red Blood 0.0 Cells % Immature 0.020 Granulocytes # Neutrophils # 4.4 Lymphocytes # 2.3 Monocytes # 0.7 Eosinophils # 0.1 Basophils # 0.1 Nucleated Red Blood 0.0 Cells # Bedside Glucose 71 Subjective 24 Hr Interval Summary Free Text/Dictation Patient sitting in chair, appears comfortable Exam/Review of Systems Exam Vitals Vital Signs Date Temp Pulse Resp B/P (MAP) Pulse Ox O2 O2 Flow FiO2 Time Delivery Rate 09/09/18 97.7 79 19 140/80 95 10:49 (100) 09/09/18 Room Air 03:36 Intake and Output 09/08/18 09/08/18 09/09/18 1515:00 23:00 07:00 IntakeIntake Total 250 ml OutputOutput Total 450 ml BalanceBalance -200 ml Constitutional: well developed Head: normocephalic, atraumatic Neck: supple Respiratory: clear to auscultation Cardiovascular: regular rate and rhythm Gastrointestinal: soft, non-tender Extremities: normal pulses Results Results 24hrs Laboratory Tests Test 09/08/18 11:33 09/08/18 18:55 09/08/18 20:51 09/09/18 00:19 Bedside Glucose 104 266 H Troponin I < 0.012 < 0.012 Thyroid Stimulating 1.020 Hormone (TSH) Test 09/09/18 06:38 09/09/18 06:39 09/09/18 08:11 Sodium Level 139 Potassium Level 3.6 Chloride Level 104 Carbon Dioxide Level 27 Anion Gap 8 Blood Urea Nitrogen 23 H Creatinine 0.72 Est Glomerular > 60 Filtrat Rate mL/min Glucose Level 69 L Calcium Level 9.3 Triglycerides Level 95 Cholesterol Level 151 LDL Cholesterol, 89 Calculated HDL Cholesterol 43 Cholesterol/HDL 3.5 Ratio White Blood Count 7.5 Red Blood Count 5.08 Hemoglobin 14.4 Hematocrit 42.6 Mean Corpuscular 83.9 Volume Mean Corpuscular 28.3 L Hemoglobin Mean Corpuscular 33.8 Hemoglobin Concent Red Cell 13.2 Distribution Width Platelet Count 287 Mean Platelet Volume 9.2 Immature 0.300 Granulocytes % Neutrophils % 57.8 Lymphocytes % 30.5 Monocytes % 9.1 Eosinophils % 1.6 Basophils % 0.7 Nucleated Red Blood 0.0 Cells % Immature 0.020 Granulocytes # Neutrophils # 4.4 Lymphocytes # 2.3 Monocytes # 0.7 Eosinophils # 0.1 Basophils # 0.1 Nucleated Red Blood 0.0 Cells # Bedside Glucose 71 Medications Medication Current Medications Atorvastatin Calcium (Lipitor) 40 mg HS PO Last administered on 09/08/18 20:52; Admin Dose 40 MG; Start 09/04/18 at 21:00 Insulin Glargine (Lantus) 40 units QHS SC Last administered on 09/08/18 21:03; Admin Dose 40 UNITS; Start 09/04/18 at 21:00 Aspirin (Halfprin) 81 mg DAILY PO Last administered on 09/09/18 08:13; Admin Dose 81 MG; Start 09/04/18 at 18:00 Enoxaparin Sodium (Lovenox) 60 mg Q12 SC Last administered on 09/09/18 08:57; Admin Dose 60 MG; Start 09/04/18 at 19:00 Miscellaneous Information 1 ea NOTE XX ; Start 09/04/18 at 18:00 Glucose (Glutose) 15 gm Q15M PRN PO DECREASED GLUCOSE; Start 09/04/18 at 18:00 Glucose (Glutose) 22.5 gm Q15M PRN PO DECREASED GLUCOSE; Start 09/04/18 at 18:00 Dextrose (D50w Syringe) 25 ml Q15M PRN IV DECREASED GLUCOSE; Start 09/04/18 at 18:00 Dextrose (D50w Syringe) 50 ml Q15M PRN IV DECREASED GLUCOSE; Start 09/04/18 at 18:00 Glucagon (Glucagen) 1 mg Q15M PRN IM DECREASED GLUCOSE; Start 09/04/18 at 18:00 Glucose (Glutose) 15 gm Q15M PRN BUCCAL DECREASED GLUCOSE; Start 09/04/18 at 18:00 Empaglifozin (Jardiance) 25 mg DAILY@08 PO Last administered on 09/09/18 08:14; Admin Dose 25 MG; Start 09/05/18 at 09:00 Insulin Aspart (Novolog Insulin Pen) 8 unit WITH MEALS SC Last administered on 09/08/18 11:40; Admin Dose 8 UNIT; Start 09/07/18 at 07:55 Nifedipine (Procardia Xl) 30 mg DAILY PO Last administered on 09/09/18 08:13; Admin Dose 30 MG; Start 09/09/18 at 09:00 SHAD QUIROGA Sep 09, 2018 11:05
--- NOTE | 2018-09-09 15:02 | CONS ---
Assessment/Plan Assessment/Plan Hospital Course (Demo Recall) IMPRESSION: 1. Atrial fibrillation with slow ventricular response and pauses up to 3.3 seconds while on beta reg.-now off BB without recurrent brittaney=use 2. Hypertension-reasonable control 3. Abnormal electrocardiogram with inferolateral T-wave inversions. 4. Acute cerebrovascular accident in the setting of atrial fibrillation. 5. Spinal stenosis with cord compression. 6. Dyslipidemia. Recc: -Tele -serial ecg's -Continue procardia XL with reasonable BP control -no haresh agents at this time and follow HR clsoely -on lovenox/asa already. Will d/c asa to decrease bleeding risk. Make sure lovenox systemic anticoag is ok with neuro at this time Consultation Date/Type/Reason Admit Date/Time Sep 04, 2018 at 14:36 Initial Consult Date 09/08/18 Type of Consult Cardiology Reason for Consultation AF Requesting Provider: BEATRIZ JUAREZ Date/Time of Note DATE: 09/09/18 TIME: 14:58 Exam/Review of Systems Vital Signs Vitals Vital Signs Date Temp Pulse Resp B/P (MAP) Pulse Ox O2 O2 Flow FiO2 Time Delivery Rate 09/09/18 97.7 79 19 140/80 95 10:49 (100) 09/09/18 Room Air 03:36 Intake and Output 09/08/18 09/08/18 09/09/18 1414:59 22:59 06:59 IntakeIntake Total 250 ml OutputOutput Total 450 ml BalanceBalance -200 ml Exam Exam Review of Systems: CONSTITUTIONAL: No fevers, chills. PULMONARY: No sob CARDIOVASCULAR: No chest pain/palpitations GASTROINTESTINAL: No nausea/vomiting. GENITOURINARY: No hematuria/dysuria. MUSCULOSKELETAL: No myagias/arthalgias. PSYCHIATRIC: The patient denies depression. NEUROLOGIC: No weakness Constitutional: alert Psych: no complaints Head: normocephalic ENMT: mucosa pink and moist Neck: supple, jvd (9 cm water) Respiratory: clear to auscultation Cardiovascular: irregular rhythm Gastrointestinal: soft, non-tender Musculoskeletal: muscle tone (normal) Extremities: edema (none) 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: focal weakness (none) Labs Result Diagram: 09/09/18 0639 09/09/18 0638 Results 24hrs Laboratory Tests Test 09/08/18 18:55 09/08/18 20:51 09/09/18 00:19 09/09/18 06:38 Troponin I < 0.012 < 0.012 Thyroid Stimulating 1.020 Hormone (TSH) Bedside Glucose 266 H Sodium Level 139 Potassium Level 3.6 Chloride Level 104 Carbon Dioxide Level 27 Anion Gap 8 Blood Urea Nitrogen 23 H Creatinine 0.72 Est Glomerular > 60 Filtrat Rate mL/min Glucose Level 69 L Calcium Level 9.3 Triglycerides Level 95 Cholesterol Level 151 LDL Cholesterol, 89 Calculated HDL Cholesterol 43 Cholesterol/HDL 3.5 Ratio Test 09/09/18 06:39 09/09/18 08:11 09/09/18 11:49 White Blood Count 7.5 Red Blood Count 5.08 Hemoglobin 14.4 Hematocrit 42.6 Mean Corpuscular 83.9 Volume Mean Corpuscular 28.3 L Hemoglobin Mean Corpuscular 33.8 Hemoglobin Concent Red Cell 13.2 Distribution Width Platelet Count 287 Mean Platelet Volume 9.2 Immature 0.300 Granulocytes % Neutrophils % 57.8 Lymphocytes % 30.5 Monocytes % 9.1 Eosinophils % 1.6 Basophils % 0.7 Nucleated Red Blood 0.0 Cells % Immature 0.020 Granulocytes # Neutrophils # 4.4 Lymphocytes # 2.3 Monocytes # 0.7 Eosinophils # 0.1 Basophils # 0.1 Nucleated Red Blood 0.0 Cells # Bedside Glucose 71 134 Medications Medications Current Medications Atorvastatin Calcium (Lipitor) 40 mg HS PO Last administered on 09/08/18at 20:52; Admin Dose 40 MG; Start 09/04/18 at 21:00 Insulin Glargine (Lantus) 40 units QHS SC Last administered on 09/08/18at 21:03; Admin Dose 40 UNITS; Start 09/04/18 at 21:00 Aspirin (Halfprin) 81 mg DAILY PO Last administered on 09/09/18 08:13; Admin Dose 81 MG; Start 09/04/18 at 18:00 Enoxaparin Sodium (Lovenox) 60 mg Q12 SC Last administered on 09/09/18 08:57; Admin Dose 60 MG; Start 09/04/18 at 19:00 Miscellaneous Information 1 ea NOTE XX ; Start 09/04/18 at 18:00 Glucose (Glutose) 15 gm Q15M PRN PO DECREASED GLUCOSE; Start 09/04/18 at 18:00 Glucose (Glutose) 22.5 gm Q15M PRN PO DECREASED GLUCOSE; Start 09/04/18 at 18:00 Dextrose (D50w Syringe) 25 ml Q15M PRN IV DECREASED GLUCOSE; Start 09/04/18 at 18:00 Dextrose (D50w Syringe) 50 ml Q15M PRN IV DECREASED GLUCOSE; Start 09/04/18 at 18:00 Glucagon (Glucagen) 1 mg Q15M PRN IM DECREASED GLUCOSE; Start 09/04/18 at 18:00 Glucose (Glutose) 15 gm Q15M PRN BUCCAL DECREASED GLUCOSE; Start 09/04/18 at 18:00 Empaglifozin (Jardiance) 25 mg DAILY@08 PO Last administered on 09/09/18at 08:14; Admin Dose 25 MG; Start 09/05/18 at 09:00 Insulin Aspart (Novolog Insulin Pen) 8 unit WITH MEALS SC Last administered on 09/09/18at 13:05; Admin Dose 8 UNIT; Start 09/07/18 at 07:55 Nifedipine (Procardia Xl) 30 mg DAILY PO Last administered on 09/09/18at 08:13; Admin Dose 30 MG; Start 09/09/18 at 09:00 TONE RASMUSSEN Sep 09, 2018 15:02
[2018-09-09 15:24] VITALS: BP 145/73; PULSE 73; RESP 19
--- NOTE | 2018-09-09 17:17 | RADRPT ---
Vent Rate: 69 bpm RR Interval: 823 msec AL Interval: [id number] msec QRS Duration: 77 msec QT Interval: 445 msec QTC Interval: 491 msec P-R-T [place]: [id number] - 38 - 209 degrees Atrial fibrillation...V-rate 53- 90, irreg A-activity Consider anterior infarct...Q >30mS in V2-V5 Electronically Signed By: Rogelio Hendrickson
[2018-09-09 20:00] VITALS: BP 149/82; PULSE 55; RESP 19
[2018-09-09] MEDS: ATORVASTATIN 40 MG TAB PO SCH (20:40)
[2018-09-09] MEDS: INSULIN GLARGINE [LANTus] (100 UNITS/ML) SYG SC SCH (20:45)
[2018-09-10] VITALS: BP 129/77; PULSE 70; RESP 18
[2018-09-10 04:00] VITALS: BP 143/84; PULSE 69; RESP 18
[2018-09-10 07:03] VITALS: BP 140/86; PULSE 62; RESP 19
[2018-09-10] MEDS: EMPAGLIFLOZIN 10 MG TABLET PO SCH (08:26)
[2018-09-10] MEDS: NIFEdipine (XL) 30 MG TAB PO SCH (08:27)
[2018-09-10] MEDS: ENOXAPARIN 60 MG/0.6 ML SYG SC SCH ×2 (08:28→20:43)
[2018-09-10] MEDS: INSULIN ASPART [NOVOLOG] 3 ML PEN SC SCH ×3 (08:33→17:49)
--- NOTE | 2018-09-10 10:40 | PN ---
Date/Time of Note Date/Time of Note DATE: 09/10/18 TIME: 10:39 Assessment/Plan VTE Prophylaxis Risk score (from Ns)>0 risk: 2 SCD applied (from [facility] [place] No SCD contraindicated: other Pharmacological prophylaxis: LMWH Lines/Catheters IV Catheter Type (from [facility] Saline Lock Urinary Cath still in place: No Assessment/Plan Hospital Course -Cervical cord compression. Dr. Vega is asked to see patient in neurosurgery consultation. -Acute stroke, MRI revealed acute nonhemorrhagic left parietal cortical and subcortical white matter infarcts and acute ischemic right occipital cord cortical infarct lateral to the chronic right medial occipital lobe infarcts. Continue aspirin continue physical and occupational therapy. Dr. Archuleta is following in neurology consultation. -Diabetes mellitus type 2 with hemoglobin A1c of 9. Continue Lantus and pre- meal NovoLog, Jardiance. -Atrial fibrillation, continue metoprolol and Lovenox. -Hypertension. Continue metoprolol and Procardia. -Hyperlipidemia. Continue statin. Result Diagram: 09/09/18 0639 09/09/18 0638 Results 24hrs Laboratory Tests Test 09/09/18 11:49 09/09/18 17:10 09/09/18 20:38 09/10/18 08:11 Bedside Glucose 134 129 73 84 Subjective 24 Hr Interval Summary Free Text/Dictation Patient doing well, sitting in chair, has no complaints Exam/Review of Systems Exam Vitals Vital Signs Date Temp Pulse Resp B/P (MAP) Pulse Ox O2 O2 Flow FiO2 Time Delivery Rate 09/10/18 97.7 62 19 140/86 95 07:03 (104) 09/10/18 Room Air 04:00 Intake and Output 09/09/18 09/09/18 09/10/18 1515:00 23:00 07:00 IntakeIntake Total 640 ml 360 ml 250 ml OutputOutput Total 2 ml BalanceBalance 638 ml 360 ml 250 ml Constitutional: well developed Head: normocephalic, atraumatic Neck: supple Respiratory: diminished breath sounds Cardiovascular: regular rate and rhythm Gastrointestinal: soft, non-tender Extremities: normal pulses Results Results 24hrs Laboratory Tests Test 09/09/18 11:49 09/09/18 17:10 09/09/18 20:38 09/10/18 08:11 Bedside Glucose 134 129 73 84 Medications Medication Current Medications Atorvastatin Calcium (Lipitor) 40 mg HS PO Last administered on 09/09/18 20:40; Admin Dose 40 MG; Start 09/04/18 at 21:00 Insulin Glargine (Lantus) 40 units QHS SC Last administered on 09/09/18at 20:45; Admin Dose 40 UNITS; Start 09/04/18 at 21:00 Enoxaparin Sodium (Lovenox) 60 mg Q12 SC Last administered on 09/10/18 08:28; Admin Dose 60 MG; Start 09/04/18 at 19:00 Miscellaneous Information 1 ea NOTE XX ; Start 09/04/18 at 18:00 Glucose (Glutose) 15 gm Q15M PRN PO DECREASED GLUCOSE; Start 09/04/18 at 18:00 Glucose (Glutose) 22.5 gm Q15M PRN PO DECREASED GLUCOSE; Start 09/04/18 at 18:00 Dextrose (D50w Syringe) 25 ml Q15M PRN IV DECREASED GLUCOSE; Start 09/04/18 at 18:00 Dextrose (D50w Syringe) 50 ml Q15M PRN IV DECREASED GLUCOSE; Start 09/04/18 at 18:00 Glucagon (Glucagen) 1 mg Q15M PRN IM DECREASED GLUCOSE; Start 09/04/18 at 18:00 Glucose (Glutose) 15 gm Q15M PRN BUCCAL DECREASED GLUCOSE; Start 09/04/18 at 18:00 Empaglifozin (Jardiance) 25 mg DAILY@08 PO Last administered on 09/10/18 08:26; Admin Dose 25 MG; Start 09/05/18 at 09:00 Insulin Aspart (Novolog Insulin Pen) 8 unit WITH MEALS SC Last administered on 09/10/18 08:33; Admin Dose 8 UNIT; Start 09/07/18 at 07:55 Nifedipine (Procardia Xl) 30 mg DAILY PO Last administered on 09/10/18 08:27; Admin Dose 30 MG; Start 09/09/18 at 09:00 SHAD QUIROGA Sep 10, 2018 10:40
[2018-09-10 11:16] VITALS: BP 142/89; PULSE 20; RESP 20
--- NOTE | 2018-09-10 13:51 | CONS ---
Assessment/Plan Assessment/Plan Assessment/Plan (Recall) 62 F c/ afib and other cerebrovascular risk factors, who presents for evaluation of right hemiparesis w/ pain...for which neurology is consulted.. MRI C spine confirms mid-cervical cord compression.. MRI brain is notable for recent and bilateral strokes..which are likely asymptomatic. CTA Head and Neck is unrevealing. TTE is limited by afib ESR/RPR ok P: Continue asa/lipitor daily for now PT for balance training to mitigate fall risk, then recommend transition to eliquis (and off antiplatelets) on 09/12.. Defer non-emergent surgery for at least 30 days, where possible Other management and supportive care per primary Will follow clinically Consultation Date/Type/Reason Admit Date/Time Sep 04, 2018 at 14:36 Type of Consult Neurology Reason for Consultation stroke Requesting Provider: BEATRIZ JUAREZ Date/Time of Note DATE: 09/10/18 TIME: 13:51 24 HR Interval Summary Free Text/Dictation Continues acute care Exam/Review of Systems Exam Vitals Vital Signs Date Temp Pulse Resp B/P (MAP) Pulse Ox O2 O2 Flow FiO2 Time Delivery Rate 09/10/18 97.8 20 20 142/89 100 11:16 (106) 09/10/18 Room Air 04:00 Intake and Output 09/09/18 09/09/18 09/10/18 1515:00 23:00 07:00 IntakeIntake Total 640 ml 360 ml 250 ml OutputOutput Total 2 ml BalanceBalance 638 ml 360 ml 250 ml Results Result Diagram: 09/09/18 0639 09/09/18 0638 Results 24hrs Laboratory Tests Test 09/09/18 17:10 09/09/18 20:38 09/10/18 08:11 09/10/18 12:06 Bedside Glucose 129 73 84 96 Medications Medication Current Medications Atorvastatin Calcium (Lipitor) 40 mg HS PO Last administered on 09/09/18at 20:40; Admin Dose 40 MG; Start 09/04/18 at 21:00 Insulin Glargine (Lantus) 40 units QHS SC Last administered on 09/09/18at 20:45; Admin Dose 40 UNITS; Start 09/04/18 at 21:00 Enoxaparin Sodium (Lovenox) 60 mg Q12 SC Last administered on 09/10/18 08:28; Admin Dose 60 MG; Start 09/04/18 at 19:00 Miscellaneous Information 1 ea NOTE XX ; Start 09/04/18 at 18:00 Glucose (Glutose) 15 gm Q15M PRN PO DECREASED GLUCOSE; Start 09/04/18 at 18:00 Glucose (Glutose) 22.5 gm Q15M PRN PO DECREASED GLUCOSE; Start 09/04/18 at 18:00 Dextrose (D50w Syringe) 25 ml Q15M PRN IV DECREASED GLUCOSE; Start 09/04/18 at 18:00 Dextrose (D50w Syringe) 50 ml Q15M PRN IV DECREASED GLUCOSE; Start 09/04/18 at 18:00 Glucagon (Glucagen) 1 mg Q15M PRN IM DECREASED GLUCOSE; Start 09/04/18 at 18:00 Glucose (Glutose) 15 gm Q15M PRN BUCCAL DECREASED GLUCOSE; Start 09/04/18 at 18:00 Empaglifozin (Jardiance) 25 mg DAILY@08 PO Last administered on 09/10/18at 08:26; Admin Dose 25 MG; Start 09/05/18 at 09:00 Insulin Aspart (Novolog Insulin Pen) 8 unit WITH MEALS SC Last administered on 09/10/18at 12:32; Admin Dose 8 UNIT; Start 09/07/18 at 07:55 Nifedipine (Procardia Xl) 30 mg DAILY PO Last administered on 09/10/18 08:27; Admin Dose 30 MG; Start 09/09/18 at 09:00 JOLYNN JERNIGAN Sep 10, 2018 13:51
--- NOTE | 2018-09-10 14:02 | CONS ---
Assessment/Plan Assessment/Plan Hospital Course (Demo Recall) IMPRESSION: 1. Atrial fibrillation with slow ventricular response and pauses up to 3.3 seconds while on beta reg.-now off BB without recurrent brittaney=use 2. Hypertension-reasonable control 3. Abnormal electrocardiogram with inferolateral T-wave inversions. 4. Acute cerebrovascular accident in the setting of atrial fibrillation. 5. Spinal stenosis with cord compression. 6. Dyslipidemia. Recc: -Tele -serial ecg's -Continue procardia XL with reasonable BP control -no haresh agents at this time and follow HR clsoely -on lovenox/asa already. s/p d/c of asa to decrease bleeding risk. Make sure lovenox systemic anticoag is ok with neuro at this time Consultation Date/Type/Reason Admit Date/Time Sep 04, 2018 at 14:36 Initial Consult Date 09/08/18 Type of Consult Cardiology Reason for Consultation AF Requesting Provider: BEATRIZ JUAREZ Date/Time of Note DATE: 09/10/18 TIME: 14:00 Exam/Review of Systems Vital Signs Vitals Vital Signs Date Temp Pulse Resp B/P (MAP) Pulse Ox O2 O2 Flow FiO2 Time Delivery Rate 09/10/18 97.8 20 20 142/89 100 11:16 (106) 09/10/18 Room Air 04:00 Intake and Output 09/09/18 09/09/18 09/10/18 1515:00 23:00 07:00 IntakeIntake Total 640 ml 360 ml 250 ml OutputOutput Total 2 ml BalanceBalance 638 ml 360 ml 250 ml Exam Exam Review of Systems: CONSTITUTIONAL: No fevers, chills. PULMONARY: No sob CARDIOVASCULAR: No chest pain/palpitations GASTROINTESTINAL: No nausea/vomiting. GENITOURINARY: No hematuria/dysuria. MUSCULOSKELETAL: No myagias/arthalgias. PSYCHIATRIC: The patient denies depression. NEUROLOGIC: No weakness Constitutional: alert Psych: no complaints Head: normocephalic ENMT: mucosa pink and moist Neck: supple, jvd (8 cm water) Respiratory: diminished breath sounds (at bases/B) Cardiovascular: regular rate and rhythm Gastrointestinal: soft, non-tender Musculoskeletal: muscle tone (normal) Extremities: edema (none) 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: other (No focal deficits) Labs Result Diagram: 09/09/18 0639 09/09/18 0638 Results 24hrs Laboratory Tests Test 09/09/18 17:10 09/09/18 20:38 09/10/18 08:11 09/10/18 12:06 Bedside Glucose 129 73 84 96 Medications Medications Current Medications Atorvastatin Calcium (Lipitor) 40 mg HS PO Last administered on 09/09/18 20:40; Admin Dose 40 MG; Start 09/04/18 at 21:00 Insulin Glargine (Lantus) 40 units QHS SC Last administered on 09/09/18 20:45; Admin Dose 40 UNITS; Start 09/04/18 at 21:00 Enoxaparin Sodium (Lovenox) 60 mg Q12 SC Last administered on 09/10/18 08:28; Admin Dose 60 MG; Start 09/04/18 at 19:00 Miscellaneous Information 1 ea NOTE XX ; Start 09/04/18 at 18:00 Glucose (Glutose) 15 gm Q15M PRN PO DECREASED GLUCOSE; Start 09/04/18 at 18:00 Glucose (Glutose) 22.5 gm Q15M PRN PO DECREASED GLUCOSE; Start 09/04/18 at 18:00 Dextrose (D50w Syringe) 25 ml Q15M PRN IV DECREASED GLUCOSE; Start 09/04/18 at 18:00 Dextrose (D50w Syringe) 50 ml Q15M PRN IV DECREASED GLUCOSE; Start 09/04/18 at 18:00 Glucagon (Glucagen) 1 mg Q15M PRN IM DECREASED GLUCOSE; Start 09/04/18 at 18:00 Glucose (Glutose) 15 gm Q15M PRN BUCCAL DECREASED GLUCOSE; Start 09/04/18 at 18:00 Empaglifozin (Jardiance) 25 mg DAILY@08 PO Last administered on 09/10/18 08 :26; Admin Dose 25 MG; Start 09/05/18 at 09:00 Insulin Aspart (Novolog Insulin Pen) 8 unit WITH MEALS SC Last administered on 09/10/18 12:32; Admin Dose 8 UNIT; Start 09/07/18 at 07:55 Nifedipine (Procardia Xl) 30 mg DAILY PO Last administered on 09/10/18 08:27; Admin Dose 30 MG; Start 09/09/18 at 09:00 TONE RASMUSSEN 14, 2019 14:02
[2018-09-10 15:59] VITALS: BP_SYST 114; BP_SYST 142; BP_DIAS 64; BP_DIAS 89; PULSE 75; RESP 19
[2018-09-10 20:00] VITALS: BP 153/72; PULSE 83; RESP 19
[2018-09-10] MEDS: ATORVASTATIN 40 MG TAB PO SCH (20:30)
[2018-09-10] MEDS: INSULIN GLARGINE [LANTus] (100 UNITS/ML) SYG SC SCH (20:43)
[2018-09-10] MEDS ORDERED: ACETAMINOPHEN 325 MG TAB PO PRN (23:30)
[2018-09-11] VITALS (8 sets, daily range): BP systolic 125–173; BP diastolic 71–95; PULSE 65–85; RESP 16–18
[2018-09-11] MEDS: INSULIN ASPART [NOVOLOG] 3 ML PEN SC SCH ×4 (07:43→17:17)
[2018-09-11] MEDS: NIFEdipine (XL) 30 MG TAB PO SCH (08:06)
[2018-09-11] MEDS: EMPAGLIFLOZIN 10 MG TABLET PO SCH (08:06)
[2018-09-11] MEDS: ENOXAPARIN 60 MG/0.6 ML SYG SC SCH ×2 (08:07→20:51)
--- NOTE | 2018-09-11 11:06 | CONS ---
Assessment/Plan Assessment/Plan Assessment/Plan (Recall) 62 F c/ afib and other cerebrovascular risk factors, who presents for evaluation of right hemiparesis w/ pain...for which neurology is consulted.. MRI C spine confirms mid-cervical cord compression.. MRI brain is notable for recent and bilateral strokes..which are likely asymptomatic. CTA Head and Neck is unrevealing. TTE is limited by afib ESR/RPR ok P: Continue asa/lipitor daily for now PT for balance training to mitigate fall risk, then recommend transition to eliquis (and off antiplatelets) on 09/12.. Defer non-emergent surgery for at least 30 days, where possible Other management and supportive care per primary Will follow clinically Consultation Date/Type/Reason Admit Date/Time Sep 04, 2018 at 14:36 Type of Consult Neurology Reason for Consultation stroke Requesting Provider: BEATRIZ JUAREZ Date/Time of Note DATE: 09/11/18 TIME: 11:05 24 HR Interval Summary Free Text/Dictation Continues acute care Exam/Review of Systems Exam Vitals Vital Signs Date Temp Pulse Resp B/P (MAP) Pulse Ox O2 O2 Flow FiO2 Time Delivery Rate 09/11/18 98.0 77 17 125/82 99 07:35 (96) 09/10/18 Room Air 04:00 Intake and Output 09/10/18 09/10/18 09/11/18 1515:00 23:00 07:00 IntakeIntake Total 660 ml 2400 ml 480 ml OutputOutput Total 3 ml 1 ml 2 ml BalanceBalance 657 ml 2399 ml 478 ml Results Result Diagram: 09/09/18 0639 09/09/18 0638 Results 24hrs Laboratory Tests Test 09/10/18 12:06 09/10/18 17:40 09/10/18 20:29 09/11/18 07:42 Bedside Glucose 96 85 165 95 Medications Medication Current Medications Atorvastatin Calcium (Lipitor) 40 mg HS PO Last administered on 09/10/18at 20:30; Admin Dose 40 MG; Start 09/04/18 at 21:00 Insulin Glargine (Lantus) 40 units QHS SC Last administered on 09/10/18at 20:43; Admin Dose 40 UNITS; Start 09/04/18 at 21:00 Enoxaparin Sodium (Lovenox) 60 mg Q12 SC Last administered on 09/11/18 08:07; Admin Dose 60 MG; Start 09/04/18 at 19:00 Miscellaneous Information 1 ea NOTE XX ; Start 09/04/18 at 18:00 Glucose (Glutose) 15 gm Q15M PRN PO DECREASED GLUCOSE; Start 09/04/18 at 18:00 Glucose (Glutose) 22.5 gm Q15M PRN PO DECREASED GLUCOSE; Start 09/04/18 at 18:00 Dextrose (D50w Syringe) 25 ml Q15M PRN IV DECREASED GLUCOSE; Start 09/04/18 at 18:00 Dextrose (D50w Syringe) 50 ml Q15M PRN IV DECREASED GLUCOSE; Start 09/04/18 at 18:00 Glucagon (Glucagen) 1 mg Q15M PRN IM DECREASED GLUCOSE; Start 09/04/18 at 18:00 Glucose (Glutose) 15 gm Q15M PRN BUCCAL DECREASED GLUCOSE; Start 09/04/18 at 18:00 Empaglifozin (Jardiance) 25 mg DAILY@08 PO Last administered on 09/11/18at 08:06 ; Admin Dose 25 MG; Start 09/05/18 at 09:00 Insulin Aspart (Novolog Insulin Pen) 8 unit WITH MEALS SC Last administered on 09/11/18 08:13; Admin Dose 8 UNIT; Start 09/07/18 at 07:55 Nifedipine (Procardia Xl) 30 mg DAILY PO Last administered on 09/11/18 08:06; Admin Dose 30 MG; Start 09/09/18 at 09:00 Acetaminophen (Tylenol Tab) 650 mg Q6H PRN PO MILD PAIN(1-3)OR ELEVATED TEMP Last administered on 09/10/18at 23:38; Admin Dose 650 MG; Start 09/10/18 at 23:30 JOLYNN JERNIGAN Sep 11, 2018 11:06
--- NOTE | 2018-09-11 11:43 | CONS ---
Assessment/Plan Assessment/Plan Hospital Course (Demo Recall) IMPRESSION: 1. Atrial fibrillation with slow ventricular response and pauses up to 3.3 seconds while on beta reg.-now off BB with improved HR overall, pause<3 seconds. NO dizziness/syncope 2. Hypertension-reasonable control 3. Abnormal electrocardiogram with inferolateral T-wave inversions. 4. Acute cerebrovascular accident in the setting of atrial fibrillation. 5. Spinal stenosis with cord compression. 6. Dyslipidemia. Recc: -Tele -serial ecg's -Continue procardia XL with reasonable BP control -no haresh agents at this time and follow HR clsoely and will EP eval for possible PPM as necessary -on lovenox/asa already. s/p d/c of asa to decrease bleeding risk. Make sure lovenox systemic anticoag is ok with neuro at this time with transition to eliquis at d/c Consultation Date/Type/Reason Admit Date/Time Sep 04, 2018 at 14:36 Initial Consult Date 09/08/18 Type of Consult Cardiology Reason for Consultation AF/pause Requesting Provider: BEATRIZ JUAREZ Date/Time of Note DATE: 09/11/18 TIME: 11:40 Exam/Review of Systems Vital Signs Vitals Vital Signs Date Temp Pulse Resp B/P (MAP) Pulse Ox O2 O2 Flow FiO2 Time Delivery Rate 09/11/18 98.0 77 17 125/82 99 07:35 (96) 09/10/18 Room Air 04:00 Intake and Output 09/10/18 09/10/18 09/11/18 1515:00 23:00 07:00 IntakeIntake Total 660 ml 2400 ml 480 ml OutputOutput Total 3 ml 1 ml 2 ml BalanceBalance 657 ml 2399 ml 478 ml Exam Exam Review of Systems: CONSTITUTIONAL: No fevers, chills. PULMONARY: No sob CARDIOVASCULAR: No chest pain/palpitations GASTROINTESTINAL: No nausea/vomiting. GENITOURINARY: No hematuria/dysuria. MUSCULOSKELETAL: No myagias/arthalgias. PSYCHIATRIC: The patient denies depression. NEUROLOGIC: No weakness Constitutional: alert Psych: no complaints Head: normocephalic ENMT: mucosa pink and moist Neck: supple, jvd (9 cm water) Respiratory: clear to auscultation Cardiovascular: irregular rhythm Gastrointestinal: soft, non-tender Musculoskeletal: muscle tone (normal) Extremities: edema (none) 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: other (No focal deficits) Labs Result Diagram: 09/09/18 0639 09/09/18 0638 Results 24hrs Laboratory Tests Test 09/10/18 12:06 09/10/18 17:40 09/10/18 20:29 09/11/18 07:42 Bedside Glucose 96 85 165 95 Medications Medications Current Medications Atorvastatin Calcium (Lipitor) 40 mg HS PO Last administered on 09/10/18at 20:30; Admin Dose 40 MG; Start 09/04/18 at 21:00 Insulin Glargine (Lantus) 40 units QHS SC Last administered on 09/10/18at 20:43; Admin Dose 40 UNITS; Start 09/04/18 at 21:00 Enoxaparin Sodium (Lovenox) 60 mg Q12 SC Last administered on 09/11/18 08:07; Admin Dose 60 MG; Start 09/04/18 at 19:00 Miscellaneous Information 1 ea NOTE XX ; Start 09/04/18 at 18:00 Glucose (Glutose) 15 gm Q15M PRN PO DECREASED GLUCOSE; Start 09/04/18 at 18:00 Glucose (Glutose) 22.5 gm Q15M PRN PO DECREASED GLUCOSE; Start 09/04/18 at 18:00 Dextrose (D50w Syringe) 25 ml Q15M PRN IV DECREASED GLUCOSE; Start 09/04/18 at 18:00 Dextrose (D50w Syringe) 50 ml Q15M PRN IV DECREASED GLUCOSE; Start 09/04/18 at 18:00 Glucagon (Glucagen) 1 mg Q15M PRN IM DECREASED GLUCOSE; Start 09/04/18 at 18:00 Glucose (Glutose) 15 gm Q15M PRN BUCCAL DECREASED GLUCOSE; Start 09/04/18 at 18:00 Empaglifozin (Jardiance) 25 mg DAILY@08 PO Last administered on 09/11/18 08:06; Admin Dose 25 MG; Start 09/05/18 at 09:00 Insulin Aspart (Novolog Insulin Pen) 8 unit WITH MEALS SC Last administered on 09/11/18 08:13; Admin Dose 8 UNIT; Start 09/07/18 at 07:55 Nifedipine (Procardia Xl) 30 mg DAILY PO Last administered on 09/11/18at 08:06; Admin Dose 30 MG; Start 09/09/18 at 09:00 Acetaminophen (Tylenol Tab) 650 mg Q6H PRN PO MILD PAIN(1-3)OR ELEVATED TEMP Last administered on 09/10/18at 23:38; Admin Dose 650 MG; Start 09/10/18 at 23:30 TONE RASMUSSEN Sep 11, 2018 11:42
--- NOTE | 2018-09-11 17:19 | PN ---
Date/Time of Note Date/Time of Note DATE: 09/11/18 TIME: 17:13 Assessment/Plan VTE Prophylaxis Risk score (from Ns)>0 risk: 2 SCD applied (from Nsg): Yes Pharmacological prophylaxis: LMWH Lines/Catheters IV Catheter Type (from Nrsg): Saline Lock Urinary Cath still in place: No Assessment/Plan Hospital Course Patient is awake, alert, pending ARU eval. patient had atrial fibrillation with slow ventricular response with heart rate going to 32 overnight of beta- blockers, continue telemetry monitoring. Assessment/Plan -Cervical cord compression. S/p evaluation by Dr. Vega in neurosurgery consultation. Candidate for Posterior C3-6 decompression but will need clearance by Neurology given recent infarct , need to be off ASA x 7 days prior to surgery, need to be off lovenox x 48 hrs prior to surgery , low dose steroids until surgery completed. Defer non-emergent surgery for at least 30 days per neurology recommendation. -Acute stroke, MRI revealed acute nonhemorrhagic left parietal cortical and subcortical white matter infarcts and acute ischemic right occipital cord cortical infarct lateral to the chronic right medial occipital lobe infarcts. Continue aspirin continue physical and occupational therapy. Dr. Archuleta is following in neurology consultation. -Atrial fibrillation with slow ventricular response. Continue Lovenox. Dr. Hendrickson is following in cardiology consultation. -Diabetes mellitus type 2 with hemoglobin A1c of 9. Continue Lantus and pre- meal NovoLog, Jardiance. -Atrial fibrillation, continue metoprolol and Lovenox. -Hypertension. Continue metoprolol and Procardia. -Hyperlipidemia. Continue statin. Further recommendations based on clinical course. Plan of care discussed with Dr. Moody. Result Diagram: 09/09/18 0639 09/09/18 0638 Results 24hrs Laboratory Tests Test 09/10/18 17:40 09/10/18 20:29 09/11/18 07:42 09/11/18 11:44 Bedside Glucose 85 165 95 136 Exam/Review of Systems Exam Vitals Vital Signs Date Temp Pulse Resp B/P (MAP) Pulse Ox O2 O2 Flow FiO2 Time Delivery Rate 09/11/18 97.5 73 18 155/84 98 15:26 (107) 09/10/18 Room Air 04:00 Intake and Output 09/10/18 09/10/18 09/11/18 1515:00 23:00 07:00 IntakeIntake Total 660 ml 2400 ml 480 ml OutputOutput Total 3 ml 1 ml 2 ml BalanceBalance 657 ml 2399 ml 478 ml Exam Constitutional: alert, oriented Respiratory: clear to auscultation Cardiovascular: irregular rhythm Gastrointestinal: soft, non-tender Musculoskeletal: nl extremities to inspection Extremities: normal pulses 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: other (Right-sided weakness) Results Results 24hrs Laboratory Tests Test 09/10/18 17:40 09/10/18 20:29 09/11/18 07:42 09/11/18 11:44 Bedside Glucose 85 165 95 136 Medications Medication Current Medications Atorvastatin Calcium (Lipitor) 40 mg HS PO Last administered on 09/10/18 20:30; Admin Dose 40 MG; Start 09/04/18 at 21:00 Insulin Glargine (Lantus) 40 units QHS SC Last administered on 09/10/18 20:43; Admin Dose 40 UNITS; Start 09/04/18 at 21:00 Enoxaparin Sodium (Lovenox) 60 mg Q12 SC Last administered on 09/11/18at 08:07; Admin Dose 60 MG; Start 09/04/18 at 19:00 Miscellaneous Information 1 ea NOTE XX ; Start 09/04/18 at 18:00 Glucose (Glutose) 15 gm Q15M PRN PO DECREASED GLUCOSE; Start 09/04/18 at 18:00 Glucose (Glutose) 22.5 gm Q15M PRN PO DECREASED GLUCOSE; Start 09/04/18 at 18:00 Dextrose (D50w Syringe) 25 ml Q15M PRN IV DECREASED GLUCOSE; Start 09/04/18 at 18:00 Dextrose (D50w Syringe) 50 ml Q15M PRN IV DECREASED GLUCOSE; Start 09/04/18 at 18:00 Glucagon (Glucagen) 1 mg Q15M PRN IM DECREASED GLUCOSE; Start 09/04/18 at 18:00 Glucose (Glutose) 15 gm Q15M PRN BUCCAL DECREASED GLUCOSE; Start 09/04/18 at 18:00 Empaglifozin (Jardiance) 25 mg DAILY@08 PO Last administered on 09/11/18 08:06; Admin Dose 25 MG; Start 09/05/18 at 09:00 Insulin Aspart (Novolog Insulin Pen) 8 unit WITH MEALS SC Last administered on 09/11/18at 11:46; Admin Dose 8 UNIT; Start 09/07/18 at 07:55 Nifedipine (Procardia Xl) 30 mg DAILY PO Last administered on 09/11/18 08:06; Admin Dose 30 MG; Start 09/09/18 at 09:00 Acetaminophen (Tylenol Tab) 650 mg Q6H PRN PO MILD PAIN(1-3)OR ELEVATED TEMP Last administered on 09/10/18at 23:38; Admin Dose 650 MG; Start 09/10/18 at 23:30 BEATRIZ JUAREZ Sep 11, 2018 17:19
[2018-09-11] MEDS: ATORVASTATIN 40 MG TAB PO SCH (20:42)
[2018-09-11] MEDS: INSULIN GLARGINE [LANTus] (100 UNITS/ML) SYG SC SCH (20:52)
[2018-09-12 03:23] VITALS: BP 109/70; PULSE 85; RESP 18
[2018-09-12 07:19] VITALS: BP 130/73; PULSE 83; RESP 18
[2018-09-12] MEDS: INSULIN ASPART [NOVOLOG] 3 ML PEN SC SCH ×3 (07:40→17:25)
[2018-09-12] MEDS: NIFEdipine (XL) 30 MG TAB PO SCH (08:07)
[2018-09-12] MEDS: EMPAGLIFLOZIN 10 MG TABLET PO SCH (08:07)
[2018-09-12] MEDS: ENOXAPARIN 60 MG/0.6 ML SYG SC SCH (08:10)
[2018-09-12 11:55] VITALS: BP 135/74; PULSE 61
--- NOTE | 2018-09-12 12:30 | CONS ---
Consult Date/Type/Reason Admit Date/Time Sep 04, 2018 at 14:36 Initial Consult Date Requesting Provider: BEATRIZ JUAREZ Date/Time of Note DATE: 09/12/18 TIME: 12:28 Subjective NO acute events - pt comfortable now - BP in good range - few pauses < 2 sec off BB - no tachy noted - no Class I or II indication for pacer now - clinical follow up advised - denies dizziness. ROS: No fever, no chills, no nausea, no vomiting, no diarrhea/constipation No recent weight changes No chest pain, no PND, no orthopnea No dizziness, blurred vision No thirst, no heat or cold intolerance Objective Vitals Vital Signs Date Temp Pulse Resp B/P (MAP) Pulse Ox O2 O2 Flow FiO2 Time Delivery Rate 09/12/18 98.4 61 135/74 98 Room Air 11:55 (94) 09/12/18 18 07:19 Intake and Output 09/11/18 09/11/18 09/12/18 1515:00 23:00 07:00 IntakeIntake Total 633 ml BalanceBalance 633 ml Exam General: WN/WD/NAD, AOx 3 [place]ian HEENT: Unicetric/atraumatic/EOMI (follow commands) NECK: JVD elevated, no thyromegaly Lymph: no lymphadenopathy HEART: irregular with no S3, II/ systolic murmur at apex LUNGS: Coarse sounds ABD: soft, NT, ND, +BS : Intact Neuro: non focal SKIN: chronic changes EXT: trace edema Results/Medications Result Diagram: 09/09/18 0639 09/09/18 0638 Results 24 hrs Laboratory Tests Test 09/11/18 17:13 09/11/18 20:44 09/12/18 07:39 09/12/18 11:22 Bedside Glucose 102 104 105 113 Home Meds Active Scripts Metformin* (Glucophage*) 1,000 Mg Tablet, 1000 MG PO BID for 30 Days, TAB Prov:BEATRIZ JUAREZ 04/11/18 Atorvastatin* (Atorvastatin*) 40 Mg Tablet, 40 MG PO HS for 30 Days, TAB Prov:BEATRIZ JUAREZ 03/07/18 Reported Medications Insulin Glargine* (Lantus*) 100 Unit/Ml Soln, 40 UNIT SC QHS, #1 VIAL 09/04/18 Insulin Aspart* (Novolog Insulin Pen*) 100 Unit/Ml Soln, 12 UNIT SC WITH MEALS, EA 09/04/18 Meclizine Hcl* (Meclizine Hcl*) 25 Mg Tablet, 25 MG PO DAILY PRN for DIZZINESS, TAB 09/04/18 Glipizide* (Glipizide*) 10 Mg Tablet, 10 MG PO AC BREAKFAST DINNER, TAB 09/04/18 Nifedipine* (Nifedipine ER*) 60 Mg Tablet.sa, 60 MG PO DAILY, TAB.SA 09/04/18 Metoprolol Tartrate* (Lopressor*) 100 Mg Tablet, 100 MG PO BID, #60 TAB 09/04/18 Empagliflozin (Jardiance) 25 Mg Tablet, 25 MG PO DAILY, TAB 09/04/18 Medications Current Medications Atorvastatin Calcium (Lipitor) 40 mg HS PO Last administered on 09/11/18at 20:42; Admin Dose 40 MG; Start 09/04/18 at 21:00 Insulin Glargine (Lantus) 40 units QHS SC Last administered on 09/11/18at 20:52; Admin Dose 40 UNITS; Start 09/04/18 at 21:00 Enoxaparin Sodium (Lovenox) 60 mg Q12 SC Last administered on 09/12/18at 08:10; Admin Dose 60 MG; Start 09/04/18 at 19:00 Miscellaneous Information 1 ea NOTE XX ; Start 09/04/18 at 18:00 Glucose (Glutose) 15 gm Q15M PRN PO DECREASED GLUCOSE; Start 09/04/18 at 18:00 Glucose (Glutose) 22.5 gm Q15M PRN PO DECREASED GLUCOSE; Start 09/04/18 at 18:00 Dextrose (D50w Syringe) 25 ml Q15M PRN IV DECREASED GLUCOSE; Start 09/04/18 at 18:00 Dextrose (D50w Syringe) 50 ml Q15M PRN IV DECREASED GLUCOSE; Start 09/04/18 at 18:00 Glucagon (Glucagen) 1 mg Q15M PRN IM DECREASED GLUCOSE; Start 09/04/18 at 18:00 Glucose (Glutose) 15 gm Q15M PRN BUCCAL DECREASED GLUCOSE; Start 09/04/18 at 18:00 Empaglifozin (Jardiance) 25 mg DAILY@08 PO Last administered on 09/12/18at 08:07; Admin Dose 25 MG; Start 09/05/18 at 09:00 Insulin Aspart (Novolog Insulin Pen) 8 unit WITH MEALS SC Last administered on 09/12/18 11:24; Admin Dose 8 UNIT; Start 09/07/18 at 07:55 Nifedipine (Procardia Xl) 30 mg DAILY PO Last administered on 09/12/18 08:07; Admin Dose 30 MG; Start 09/09/18 at 09:00 Acetaminophen (Tylenol Tab) 650 mg Q6H PRN PO MILD PAIN(1-3)OR ELEVATED TEMP Last administered on 09/10/18at 23:38; Admin Dose 650 MG; Start 09/10/18 at 23:30 Assessment/Plan Hospital Course (Demo Recall) 1. Atrial fibrillation with slow ventricular response and pauses up to 3.3 seconds while on beta reg.-now off BB with improved HR overall, pause<3 seconds. NO dizziness/syncope - pt comfortable now - BP in good range - few pauses < 2 sec off BB - no tachy noted - no Class I or II indication for pacer now - clinical follow up advised - denies dizziness. 2. Hypertension-reasonable control - better now, on meds. 3. Abnormal electrocardiogram with inferolateral T-wave inversions- r/o TX. 4. Acute cerebrovascular accident in the setting of atrial fibrillation - anti- ciag when OK per neuro. 5. Spinal stenosis with cord compression. 6. Dyslipidemia- statin to follow. TREVER VELÁSQUEZ MD Sep 12, 2018 12:30
--- NOTE | 2018-09-12 13:52 | CONS ---
Assessment/Plan Assessment/Plan Assessment/Plan (Recall) 62 F c/ afib and other cerebrovascular risk factors, who presents for evaluation of right hemiparesis w/ pain...for which neurology is consulted.. MRI C spine confirms mid-cervical cord compression.. MRI brain is notable for recent and bilateral strokes..which are likely asymptomatic. CTA Head and Neck is unrevealing. TTE is limited by afib ESR/RPR ok P: Continue asa/lipitor daily for now PT for balance training to mitigate fall risk, then recommend transition to eliquis (and off antiplatelets) on 09/12.. Defer non-emergent surgery for at least 30 days, where possible Other management and supportive care per primary Will sign off for now; please call w/ adnl ?s Consultation Date/Type/Reason Admit Date/Time Sep 04, 2018 at 14:36 Type of Consult Neurology Reason for Consultation stroke Requesting Provider: BEATRIZ JUAREZ Date/Time of Note DATE: 09/12/18 TIME: 13:51 24 HR Interval Summary Free Text/Dictation Continues acute care Exam/Review of Systems Exam Vitals Vital Signs Date Temp Pulse Resp B/P (MAP) Pulse Ox O2 O2 Flow FiO2 Time Delivery Rate 09/12/18 98.4 61 135/74 98 Room Air 11:55 (94) 09/12/18 18 07:19 Intake and Output 09/11/18 09/11/18 09/12/18 1515:00 23:00 07:00 IntakeIntake Total 633 ml BalanceBalance 633 ml Results Result Diagram: 09/09/18 0639 09/09/18 0638 Results 24hrs Laboratory Tests Test 09/11/18 17:13 09/11/18 20:44 09/12/18 07:39 09/12/18 11:22 Bedside Glucose 102 104 105 113 Medications Medication Current Medications Atorvastatin Calcium (Lipitor) 40 mg HS PO Last administered on 09/11/18at 20:42; Admin Dose 40 MG; Start 09/04/18 at 21:00 Insulin Glargine (Lantus) 40 units QHS SC Last administered on 09/11/18at 20:52; Admin Dose 40 UNITS; Start 09/04/18 at 21:00 Enoxaparin Sodium (Lovenox) 60 mg Q12 SC Last administered on 09/12/18at 08:10; Admin Dose 60 MG; Start 09/04/18 at 19:00 Miscellaneous Information 1 ea NOTE XX ; Start 09/04/18 at 18:00 Glucose (Glutose) 15 gm Q15M PRN PO DECREASED GLUCOSE; Start 09/04/18 at 18:00 Glucose (Glutose) 22.5 gm Q15M PRN PO DECREASED GLUCOSE; Start 09/04/18 at 18:00 Dextrose (D50w Syringe) 25 ml Q15M PRN IV DECREASED GLUCOSE; Start 09/04/18 at 18:00 Dextrose (D50w Syringe) 50 ml Q15M PRN IV DECREASED GLUCOSE; Start 09/04/18 at 18:00 Glucagon (Glucagen) 1 mg Q15M PRN IM DECREASED GLUCOSE; Start 09/04/18 at 18:00 Glucose (Glutose) 15 gm Q15M PRN BUCCAL DECREASED GLUCOSE; Start 09/04/18 at 18:00 Empaglifozin (Jardiance) 25 mg DAILY@08 PO Last administered on 09/12/18at 08:07; Admin Dose 25 MG; Start 09/05/18 at 09:00 Insulin Aspart (Novolog Insulin Pen) 8 unit WITH MEALS SC Last administered on 09/12/18at 11:24; Admin Dose 8 UNIT; Start 09/07/18 at 07:55 Nifedipine (Procardia Xl) 30 mg DAILY PO Last administered on 09/12/18 08:07; Admin Dose 30 MG; Start 09/09/18 at 09:00 Acetaminophen (Tylenol Tab) 650 mg Q6H PRN PO MILD PAIN(1-3)OR ELEVATED TEMP Last administered on 09/10/18at 23:38; Admin Dose 650 MG; Start 09/10/18 at 23:30 JOLYNN JERNIGAN Sep 12, 2018 13:51
[2018-09-12] MEDS ORDERED: ATOR40TA68 PO (14:40)
[2018-09-12] MEDS ORDERED: NOVO3I SC (14:40)
[2018-09-12] MEDS ORDERED: APIX2.5T PO (14:40)
[2018-09-12] MEDS ORDERED: NIFE30TA2 PO (14:40)
[2018-09-12] MEDS ORDERED: MTF1000T PO (14:40)
[2018-09-12] MEDS ORDERED: LANT3I SC (14:40)
[2018-09-12] MEDS ORDERED: EMPA25TA PO (14:40)
[2018-09-12 15:12] VITALS: BP 142/71; PULSE 75; RESP 18
--- NOTE | 2018-09-12 21:34 | DS ---
Date/Time of Note Date/Time of Note DATE: 09/12/18 TIME: 21:24 Discharge Summary Admission/Discharge Info Admit Date/Time Sep 04, 2018 at 14:36 Discharge Date/Time Sep 12, 2018 at 18:15 Patient Condition: Stable Hx of Present Illness The patient is 62-year-old female known to me from previous admission with diabetes mellitus type 2, hypertension, hyperlipidemia, GERD, atrial fibrillation, history of pancreatitis and history of right elbow fracture status post surgery, history of pneumonia. Patient developed right-sided weakness yesterday at 7 PM when she was watching TV accompanied by pain in the right upper and lower extremity and difficulty getting up from the chair. Patient did not seek care until the next day. Patient is diagnosed with acute stroke and unfortunately is outside of the window for TPA. During the examination patient is awake alert, denies any fever, chills, denies any nausea, vomiting, denies any shortness of breath, denies any chest pain. Patient will be admitted for further evaluation and management to telemetry floor. Hospital Course Pt d/adela home with services. -Cervical cord compression. S/p evaluation by Dr. Vega in neurosurgery consultation. Candidate for Posterior C3-6 decompression but will need clearance by Neurology given recent infarct , need to be off ASA x 7 days prior to surgery, need to be off lovenox x 48 hrs prior to surgery. Defer non-emergent surgery for at least 30 days per neurology recommendation. Pt is to f/up with Dr Vega as an outpatient, to obtain authorization for neurosurgery f/up. -Acute stroke, MRI revealed acute nonhemorrhagic left parietal cortical and subcortical white matter infarcts and acute ischemic right occipital cord cortical infarct lateral to the chronic right medial occipital lobe infarcts. Continue aspirin, continue physical and occupational therapy. Dr. Archuleta is following in neurology consultation. -Atrial fibrillation with slow ventricular response. Hold Metoprolol. Continue Eliquiz. Dr. Hendrickson is following in cardiology consultation. -Diabetes mellitus type 2 with hemoglobin A1c of 9. Continue Lantus and pre- meal NovoLog, Jardiance. -Hypertension. Continue Procardia. -Hyperlipidemia. Continue statin. Plan of care discussed with Dr. Moody. Home Meds Active Scripts Apixaban* (Eliquis*) 2.5 Mg Tablet, 5 MG PO BID for 30 Days, TAB Prov:BEATRIZ JUAREZ 09/12/18 Insulin Aspart* (Novolog Insulin Pen*) 100 Unit/Ml Soln, 8 UNIT SC WITH MEALS for 30 Days Prov:BEATRIZ JUAREZ 09/12/18 Nifedipine (Procardia Xl) 30 Mg Tab.er.24, 30 MG PO DAILY for 30 Days, TAB Prov:JUDITHNICOLBEATRIZ 09/12/18 Insulin Glargine* (Lantus*) 100 Unit/Ml Soln, 40 UNIT SC QHS for 30 Days, #1 VIAL Prov:JUDITHBEATRIZ 09/12/18 Empagliflozin (Jardiance) 25 Mg Tablet, 25 MG PO DAILY for 30 Days, TAB Prov:NICOL JUAREZLANA 09/12/18 Metformin* (Glucophage*) 1,000 Mg Tablet, 1000 MG PO BID for 30 Days, TAB Prov:NICOL JUAREZLANA 09/12/18 Atorvastatin* (Atorvastatin*) 40 Mg Tablet, 40 MG PO HS for 30 Days, TAB Prov:NICOL JUAREZLANA 09/12/18 Discontinued Reported Medications Insulin Aspart* (Novolog Insulin Pen*) 100 Unit/Ml Soln, 12 UNIT SC WITH MEALS, EA 09/04/18 Meclizine Hcl* (Meclizine Hcl*) 25 Mg Tablet, 25 MG PO DAILY PRN for DIZZINESS, TAB 09/04/18 Glipizide* (Glipizide*) 10 Mg Tablet, 10 MG PO AC BREAKFAST DINNER, TAB 09/04/18 Nifedipine* (Nifedipine ER*) 60 Mg Tablet.sa, 60 MG PO DAILY, TAB.SA 09/04/18 Metoprolol Tartrate* (Lopressor*) 100 Mg Tablet, 100 MG PO BID, #60 TAB 09/04/18 Follow-up Plan Patient to follow-up with Dr. Vega, neurosurgery in 1 month. Patient is to follow-up with PMD in 2 weeks. Primary Care Provider Care Physician No Primary Time spent on discharge: > 30 minutes Pending Labs Laboratory Tests Test 09/12/18 07:39 09/12/18 11:22 09/12/18 17:22 Bedside Glucose 105 mg/dL (70-220) 113 mg/dL (70-220) 102 mg/dL (70-220) BEATRIZ JUAREZ Sep 12, 2018 21:34
== END 2018-09-12 18:15 | disposition home health service (06) | DRG 65 ==
LOC: FTE 12:05 → TEL 14:36
PROVIDERS: ADMIT Internal Medicine; ATTEND Internal Medicine
DX: I63.9 Cerebral infarction, unspecified (principal); G81.91 Hemiplegia, unspecified affecting right dominant side; G99.2 Myelopathy in diseases classified elsewhere; G95.29 Other cord compression; M48.02 Spinal stenosis, cervical region; I48.91 Unspecified atrial fibrillation; I10 Essential (primary) hypertension; E78.5 Hyperlipidemia, unspecified; E11.9 Type 2 diabetes mellitus without complications; M50.21 Other cervical disc displacement, high cervical region
CPT/HCPCS: 36415; 70450; 70496; 70498; 70551; 71045; 72141; 80048; 80061; 80307; 81003; 82550; 82553; 82962; 83036; 83880; 84443; 84484; 85025; 85610; 85651; 85730; 86592; 92610; 93005; 93306; 97162; 97164; 97167; J1815; J2060; Q9967